=== PATIENT | male | born 1950 | race Caucasian/White ===

== ENCOUNTER 2019-08-23 07:26 | Outpatient (RCR) | payer BC, SELFPAY | END 2019-09-02 23:59 | disposition home or self-care (01) | LOC: SPT 07:26 | PROVIDERS: Family Provider Family Medicine; PCP Family Medicine; Referring Provider Orthopaedic Surgery; Visit Provider Orthopaedic Surgery | DX: Z47.89 Encounter for other orthopedic aftercare (principal); Z96.652 Presence of left artificial knee joint | CPT/HCPCS: 97110; 97161 ==

== ENCOUNTER 2019-09-03 06:00 | Outpatient (RCR) | payer BC, SELFPAY | END 2019-10-03 23:59 | disposition home or self-care (01) | LOC: SPT 06:00 | PROVIDERS: Family Provider Family Medicine; PCP Family Medicine; Referring Provider Orthopaedic Surgery; Visit Provider Orthopaedic Surgery | DX: Z47.1 Aftercare following joint replacement surgery (principal); Z96.652 Presence of left artificial knee joint | CPT/HCPCS: 97110 ==

== ENCOUNTER 2019-10-04 06:00 | Outpatient (RCR) | payer BC, SELFPAY | END 2019-11-02 23:59 | disposition home or self-care (01) | LOC: SPT 06:00 | PROVIDERS: Family Provider Family Medicine; PCP Family Medicine; Referring Provider Orthopaedic Surgery; Visit Provider Orthopaedic Surgery | DX: Z47.1 Aftercare following joint replacement surgery (principal); Z96.652 Presence of left artificial knee joint | CPT/HCPCS: 97110 ==

== ENCOUNTER 2019-11-03 06:00 | Outpatient (RCR) | payer BC, SELFPAY | END 2019-12-03 23:59 | disposition home or self-care (01) | LOC: SPT 06:00 | PROVIDERS: PCP Family Medicine; Referring Provider Orthopaedic Surgery; Visit Provider Orthopaedic Surgery | DX: Z47.1 Aftercare following joint replacement surgery (principal); Z96.652 Presence of left artificial knee joint | CPT/HCPCS: 97110 ==

== ENCOUNTER 2020-07-19 20:53 | Emergency (ER) | payer BC, MEDICARE, SELFPAY ==
[2020-07-19 20:56] VITALS: BP 152/94; PULSE 101; RESP 22; TEMP 36.7; O2SAT 95; BMI 30.7
[2020-07-19 21:48] VITALS: O2SAT 98
--- NOTE | 2020-07-19 21:56 | CTR_ITS ---
PROCEDURE INFORMATION: Exam: CT Lumbar Spine Without Contrast Exam date and time: 07/19/2020 10:11 PM Age: 69 years old Clinical indication: Low back pain; Prior surgery; Surgery type: Lumbar TECHNIQUE: Imaging protocol: Computed tomography images of the lumbar spine without contrast. Radiation optimization: All CT scans at this facility use at least one of these dose optimization techniques: automated exposure control; mA and/or kV adjustment per patient size (includes targeted exams where dose is matched to clinical indication); or iterative reconstruction. COMPARISON: No relevant prior studies available. RADIATION DOSE METRICS: Total DLP (mGy-cm): 2444.72 FINDINGS: Vertebrae: No acute fracture. Normal alignment. T12-L1: The intervertebral disc is normal in height. No disc bulge or disc protrusion demonstrated. Mild degenerative facet joint changes. No spinal canal or neural foraminal stenosis. L1-L2: Moderate to severe degenerative disc narrowing. 3 mm posterior disc/osteophyte complex. Severe hypertrophic facet joint changes. Mild spinal canal stenosis. Mild right and moderate left foraminal stenosis. L2-L3: Severe degenerative disc narrowing. Minimal posterior disc/osteophyte complex. No spinal canal stenosis. Mild left foraminal stenosis. No right foraminal stenosis. L3-L4: Status post laminectomies and posterior fusion. There may be anterior interbody fusion as well. No spinal canal or neural foraminal stenosis. L4-L5: Laminectomies and posterior fusion. No spinal canal or neural foraminal stenosis. L5-S1: Posterior fusion. Degenerative disc narrowing. No spinal canal or neural foraminal stenosis. Soft tissues: Unremarkable. CT/CT lumbar spine wo con* [id number] IMPRESSION: 1. Status post posterior fusion from L2 through S1. There are bilateral pedicle screws seen at L2, L3, and L4. The hardware appears intact. 2. No acute fracture or other acute osseous abnormality. 3. No significant stenosis at the postop levels. Posterior fusions appear solid. No pseudoarthrosis. 4. Spondylitic changes at L1-L2 result in mild spinal canal stenosis, mild right foraminal stenosis, and moderate left foraminal stenosis. Radiation Dose CTDIVOL = (mGy): DLP = 2444.72 (mGy-cm)
--- NOTE | 2020-07-19 21:56 | CTR_ITS ---
PROCEDURE INFORMATION: Exam: CT Abdomen And Pelvis Without Contrast Exam date and time: 07/19/2020 10:11 PM Age: 69 years old Clinical indication: Abdominal pain; Flank; Left; Prior surgery; Surgery type: Lumbar, appy; Additional info: Left flank pain TECHNIQUE: Imaging protocol: Computed tomography of the abdomen and pelvis without contrast. Radiation optimization: All CT scans at this facility use at least one of these dose optimization techniques: automated exposure control; mA and/or kV adjustment per patient size (includes targeted exams where dose is matched to clinical indication); or iterative reconstruction. COMPARISON: No relevant prior studies available. RADIATION DOSE METRICS: Total DLP (mGy-cm): 1923.58 FINDINGS: Lungs: Mild atelectasis at the lung bases. Diaphragm: Mild elevation left hemidiaphragm. Liver: The liver is unremarkable in appearance. Gallbladder and bile ducts: The gallbladder is unremarkable. No gallstones or sludge demonstrated. No gallbladder wall thickening. No pericholecystic fluid. Pancreas: The pancreas is normal in appearance. No pancreatic duct dilatation. Spleen: The spleen is normal in size and appearance. Adrenal glands: The adrenal glands appear within normal limits. Kidneys and ureters: The kidneys are morphologically normal. No nephrolithiasis. No hydronephrosis. No ureteral calculi. No obstructive uropathy. Stomach and bowel: No acute gastric abnormality demonstrated. The small bowel is unremarkable as demonstrated. Diverticulosis of the colon. No acute diverticulitis. Moderate retained stool. Appendix: Postop changes near the cecum, consistent with appendectomy. Intraperitoneal space: No pneumoperitoneum. No significant fluid collection. Vasculature: The aorta is atherosclerotic. No aortic aneurysm. Lymph nodes: No pathologically enlarged lymph nodes are demonstrated. Urinary bladder: The urinary bladder is unremarkable in appearance. Reproductive: Unremarkable as visualized. Bones/joints: Postop changes of the lumbar spine. No fracture or other acute osseous abnormality. Soft tissues: The soft tissues appear unremarkable. CT/CT kidney stone [id number] IMPRESSION: 1. The kidneys are morphologically normal. No nephrolithiasis. No hydronephrosis. No ureteral calculi. No obstructive uropathy. 2. No acute abnormality demonstrated in the abdomen and pelvis. Radiation Dose CTDIVOL = (mGy): DLP = 1923.58 (mGy-cm)
[2020-07-19 22:11] VITALS: RESP 18; O2SAT 97
[2020-07-19] MEDS: morphine 4 mg/mL SDV 1 mL IVP (22:11)
[2020-07-19] MEDS: ondansetron 2 mg/ML SDV 2 mL 4 MG IVP (22:11)
--- NOTE | 2020-07-19 22:18 | PC.NURSE ---
Pt c/o about back pain right to left
[2020-07-19 22:20] LABS: Basophils % 0.5 %; Eosinophils # 0.1 10^3/uL (0.0-0.8); Eosinophils % 0.9 %; Hematocrit 42.3 % (42.0-52.0); Hemoglobin 13.7 g/dL (11.7-16.6); Lymphocytes # 1.8 10^3/uL (0.8-4.8); Lymphocytes % 20.9 %; Mean Corpuscular HGB Conc 32.4 g/dL (30.0-36.0); Mean Corpuscular Volume 92.6 fL (80-94); Mean Platelet Volume 9.8 fL (7.4-10.4); Monocytes # 0.8 10^3/uL (0.2-0.9); Monocytes % 9.1 %; Neutrophils # 5.99 10^3/uL (1.8-7.7); Neutrophils % 68.3 %; Nucleated Red Blood Cells % 0 %; Platelet Count 323 10^3/cmm (130-400); Red Blood Count 4.57 10^6/uL (4.1-5.3); Red Cell Distribution Width 12.4 % (12.1-15.1); White Blood Count 8.8 10^3/uL (4.0-10.0)
--- NOTE | 2020-07-19 22:40 | ED_ITS ---
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 He developed right- sided back pain that seem to go away. Then he started with left-sided back and left-sided flank pain. Nonradicular down the legs. No loss of bowel or bladder function. States he has some belly tenderness as well. He states he has been constipated for 3 days or so and has taken magnesium citrate Dulcolax and MiraLAX without relief of the constipation. No fever. No blood in the urine. MD elicited complaint: back pain Pertinent past history: kidney stones Onset (ago): day(s) (4-5) Timing: constant Severity: moderate Quality: stabbing, aching and spasming Location: lumbar spine and left upper back Radiation: none Relieving factors: sitting upright Associated symptoms: Reports abdominal pain and change in bowel habits; Deny chills, dysuria, fever(s), hematuria or nausea Treatments prior to arrival: other medications and prescription analgesics Review of Systems Const: Denies: fever(s) or chills Eyes: Denies: change in vision Card: Denies: chest pain, palpitations or irregular heart rhythm Resp: Denies: dyspnea, productive cough or non-productive cough GI: Reports: abdominal pain and change in bowel habits; Denies: nausea : Denies: dysuria or hematuria Neuro: Denies: headache(s) or weakness in extremities Physical Exam Const: GENERAL APPEARANCE: well developed ORIENTATION/CONSCIOUSNESS: Yes oriented to person, Yes oriented to place and Yes oriented to time HENMT: COMMON NORMALS: normocephalic, external ears normal and Normal external nose present HEAD & SCALP: normocephalic FACE & SINUS: normal facial exam NOSE: Normal external nose present and No nasal discharge present EXTERNAL EAR: Yes external ears normal Eye: COMMON NORMALS: Equal, round and reactive pupils present, EOMs intact bilaterally and conjunctivae normal EYELID: eyelids normal CONJUNCTIVA: Yes conjunctivae normal PUPIL: Yes Equal, round and reactive pupils present Neck/C-Spine: GENERAL: No tracheal deviation Chest: COMMONS NORMALS: normal inspection of the chest CHEST: No tenderness Resp: COMMON NORMALS: clear to auscultation bilaterally EFFORT & INSPECTION: No tachypneic, No respiratory distress, No retractions, No uses accessory muscles and No tracheal deviation AUSCULTATION: clear to auscultation bilaterally, no rhonchi, no wheezes and lung sounds not diminished Cardio: COMMON NORMALS: regular rate and regular rhythm RATE: regular rate RHYTHM: regular rhythm HEART SOUNDS: no murmurs PERIPHERAL PULSES: radial pulses present GI: INSPECTION: Yes abdominal distension AUSCULTATION: No Hyperactive bowel sounds present and No Hypoactive bowel sounds present PALPATION: Yes Firmness to palpation present (GI), Yes Tenderness to palpation present (GI) Details: LUQ, No Guarding due to palpation present (GI) and No Rigid due to palpation PERCUSSION: no dullness to percussion and no tympanic to percussion : BLADDER/KIDNEY EXAM: Yes CVA tenderness on the left Back/Pelvis: OTHER: Exam the lumbar spine reveals no midline tenderness. There is some left-sided paraspinal tenderness. There is left CVA tenderness. Neuro: SENSORIUM/ORIENTATION: Yes oriented to person, Yes oriented to place and Yes oriented to time Psych: COMMON NORMALS: mental status grossly normal Skin: COMMON NORMALS: no rashes or lesions noted GENERAL SKIN EXAM: no rashes or lesions noted Course Vital Signs: Vital signs: Vital Signs Temperature 98.1 F 07/19/20 20:56 Pulse Rate 93 07/19/20 23:46 Respiratory Rate 18 07/19/20 23:55 Blood Pressure 132/84 07/19/20 23:46 Pulse Oximetry 94 07/19/20 23:55 MDM - Back Pain/Injury MDM Narrative: Medical decision making narrative: 69-year-old gentleman with back and left flank pain. He also has had some constipation. White blood cell count is 8.8. Hemoglobin 13.7. Other labs are benign. CT reveals no hydronephrosis. No acute abnormality with the bowel. There is moderate stool retention. CT of the lumbar spine shows that he is status post fusion from L2- S1 posteriorly. There is spondylosis at L1-L2. This results in moderate left foraminal stenosis. This is likely his problem. Lab Data: Labs: Lab Results 07/19/20 07/19/20 07/19/20 Range/Units 22:08 22:08 22:58 WBC 8.8 (4.0-10.0) 10^3/ uL RBC 4.57 (4.1-5.3) 10^6/u L Hgb 13.7 (11.7-16.6) g/dL Hct 42.3 (42.0-52.0) % MCV 92.6 (80-94) fL MCH 30.0 (28.0-34.0) pg MCHC 32.4 (30.0-36.0) g/dL RDW 12.4 (12.1-15.1) % Plt Count 323 (130-400) 10^3/c mm MPV 9.8 (7.4-10.4) fL Neut % (Auto) 68.3 % Lymph % (Auto) 20.9 % [place] % (Auto) 9.1 % Eos % (Auto) 0.9 % Baso % (Auto) 0.5 % Neut # (Auto) 5.99 (1.8-7.7) 10^3/u L Lymph # (Auto) 1.8 (0.8-4.8) 10^3/u L [place] # (Auto) 0.8 (0.2-0.9) 10^3/u L Eos # (Auto) 0.1 (0.0-0.8) 10^3/u L Baso # (Auto) 0.0 (0.0-0.1) 10^3/u L Nucleated RBC % (a uto) 0 % Nucleated RBCs # 0.0 /100WBC Sodium 135 L (136-145) mmol/L Potassium 4.6 (3.5-5.1) mmol/L Chloride 97 L (98-107) mmol/L Carbon Dioxide 28 (22-29) mmol/L Anion Gap 14.6 (5-19) BUN 14 (8-23) mg/dL Creatinine 0.9 (0.7-1.2) mg/dL GFR Calculation Not Reportable Glucose 217 H (65-115) mg/dL Calculated Osmolal ity 287 (285-295) mOsm/k g Calcium 9.6 (8.5-10.5) mg/dL Total Bilirubin 0.3 (0.15-1.2) mg/dL AST 13 (0-40) U/L ALT 13 (0-41) U/L Alkaline Phosphata se 106 (40-130) IU/L Total Protein 7.5 (6.6-8.7) g/dL Albumin 4.2 (3.5-5.2) g/dL Globulin 3.3 (1.3-4.6) g/dL Lipase 150 H (13-60) U/L Urine Color Yellow (Yellow) Urine Appearance Clear (CLEAR) Urine pH 5 (5-7) Ur Specific Gravit y 1.020 (1.005-1.030) Urine Protein Neg (Negative) Urine Glucose (UA) 1+ (Normal) Urine Ketones Negative (Negative) Urine Blood Neg (Negative) Urine Nitrate Negative (Negative) Urine Bilirubin Neg (Negative) Urine Urobilinogen Norm (Negative) mg/dL Ur Leukocyte Kary ase Negative (Negative) Discharge Plan Discharge Patient Disposition: Home Clinical Impression: Lumbar spondylosis Constipation Qualifiers: Constipation type: drug induced constipation Qualified Code(s): K59.03 - Drug induced constipation Condition: Stable Prescriptions: New Percocet 7.5-325 mg tablet 1 tab PO Q6H PRN (Reason: pain) Qty: 10 RF: 0 magnesium citrate Solution 296 ml PO DAILY Qty: 296 RF: 0 Fleet Mineral Oil Enema 118 ml [place] DAILY PRN (Reason: constipation) Qty: 135 RF: 0 Medrol (Levi) 4 mg tablets,dose pack See Rx Instructions .ROUTE .COMPLEX Qty: 21 RF: 0 Discharge Orders: Discharge ED (Routine); Ordered 07/19/20 Ordered By: Sean Mace Referrals: Nasim Black MD [Primary Care Provider] - 4-7 days Discharge Diet: Advance as tolerated Discharge Activity: Increase activity as tolerated Patient Instructions: Acute Low Back Pain (ED) Activity Restrictions/Additional Instructions: Return for fever greater than 100, worsening pain despite treatment, vomiting liquids or medications, significant blood in the stool, loss of control of your bowel or bladder function, other concerning symptoms. Coding Level of Care Code ED Web Services Developer for More[employer] Fwd Exam Comprehensive
[2020-07-19 22:51] LABS: Alanine Aminotransferase 13 U/L (0-41); Albumin Level 4.2 g/dL (3.5-5.2); Alkaline Phosphatase 106 IU/L (40-130); Anion Gap 14.6 (5-19); Aspartate Amino Transferase 13 U/L (0-40); Blood Urea Nitrogen 14 mg/dL (8-23); Calcium 9.6 mg/dL (8.5-10.5); Carbon Dioxide 28 mmol/L (22-29); Chloride 97 mmol/L (98-107); Creatinine Clr Calc Pharmacy 90.6115; Globulin 3.3 g/dL (1.3-4.6); Glucose 217 mg/dL (65-115); Lipase 150 U/L (13-60); Osmolality Calculated 287 mOsm/kg (285-295); Potassium 4.6 mmol/L (3.5-5.1); Sodium 135 mmol/L (136-145); Total Bilirubin 0.3 mg/dL (0.15-1.2); Total Protein 7.5 g/dL (6.6-8.7)
[2020-07-19 23:00] VITALS: BP 132/81; PULSE 81; RESP 18; O2SAT 97
[2020-07-19 23:05] LABS: Add Urine Microscopic? NO
[2020-07-19 23:11] LABS: Bilirubin Urine Neg (Negative); Blood Urine Neg (Negative); Glucose Urine UA 1+ (Normal); Ketones Urine Negative (Negative); Leukocyte Esterase Urine Negative (Negative); Nitrate Urine Negative (Negative); Protein Urine Neg (Negative); Urine Appearance Clear (CLEAR); Urine Color Yellow (Yellow); Urobilinogen Urine Norm (Negative); pH Urine 5 (5-7)
[2020-07-19 23:46] VITALS: BP 132/84; PULSE 93; RESP 18; O2SAT 97
[2020-07-19 23:55] VITALS: RESP 18; O2SAT 94
[2020-07-19] MEDS: oxyCODONE-APAP 5-325 mg Tablet 2 TAB PO (23:55)
== END 2020-07-20 | disposition home or self-care (01) ==
PROVIDERS: Emergency Provider Emergency Medicine; PCP Family Medicine
DX: M47.816 Spondylosis without myelopathy or radiculopathy, lumbar region (principal); K59.03 Drug induced constipation
CPT/HCPCS: 12345; 72131; 74176; 80053; 81003; 83690; 85025; 96374; 96375; 99283; J2270; J2405

== ENCOUNTER 2021-02-07 15:54 | Emergency (ER) | payer BC, MEDICARE, SELFPAY ==
[2021-02-07 16:05] VITALS: BP 120/72; PULSE 92; RESP 18; TEMP 36.6; O2SAT 96; BMI 31.6
--- NOTE | 2021-02-07 17:33 | ECG_ITS ---
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 Measurements Intervals [place] Rate: 96 P: 23 IA: 187 QRS: 16 QRSD: 77 T: 45 QT: 328 QTc: 414 Interpretive Statements SINUS RHYTHM No previous ECG available for comparison Electronically Signed On 02-09-2021 12:20:35 CDT by Arnaldo Rushing M.D. [id number]
== END 2021-02-07 18:30 | disposition left against medical advice (07) ==
LOC: ER 16:29
PROVIDERS: Absent Provider Internal Medicine Cardiovascular Disease; PCP Nurse Practitioner
DX: Z53.21 Procedure and treatment not carried out due to patient leaving prior to being seen by health care provider (principal)
CPT/HCPCS: 93005

== ENCOUNTER 2021-04-28 10:30 | Emergency (ER) | payer BC, MEDICARE, SELFPAY ==
[2021-04-28 10:38] VITALS: BP 117/74; PULSE 68; RESP 18; TEMP 36.4; O2SAT 95; BMI 24.7
[2021-04-28 12:50] LABS: Add Urine Microscopic? NO; Charge for UA Resulting for Rev
--- NOTE | 2021-04-28 12:57 | ECG_ITS ---
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 Measurements Intervals [place] Rate: 66 P: 29 CA: 217 QRS: 36 QRSD: 79 T: 61 QT: 381 QTc: 399 Interpretive Statements SINUS RHYTHM WITH FIRST DEGREE AV BLOCK WITH OCCASIONAL VENTRICULAR PREMATURE COMPLEXES Compared to ECG 02/07/2021 16:16:45 First degree AV block now present Electronically Signed On 04-28-2021 23:47:55 CDT by Praveena Sainz M.D. [id number]
[2021-04-28 12:58] VITALS: BP 125/73; PULSE 72; RESP 16; O2SAT 97
[2021-04-28 13:01] LABS: Basophils # 0.1 10^3/uL (0.0-0.1); Basophils % 0.7 %; Eosinophils # 0.2 10^3/uL (0.0-0.8); Eosinophils % 2.7 %; Hematocrit 40.8 % (42.0-52.0); Hemoglobin 13.2 g/dL (11.7-16.6); Lymphocytes # 2.5 10^3/uL (0.8-4.8); Lymphocytes % 32.8 %; Mean Corpuscular HGB Conc 32.4 g/dL (30.0-36.0); Mean Corpuscular Hemoglobin 30.8 pg (28.0-34.0); Mean Corpuscular Volume 95.1 fl (80-94); Monocytes # 0.8 10^3/uL (0.2-0.9); Neutrophils # 3.99 10^3/uL (1.8-7.7); Neutrophils % 53.4 %; Nucleated Red Blood Cells % 0 %; Platelet Count 266 10^3/cmm (130-400); Red Blood Count 4.29 10^6/uL (4.1-5.3); Red Cell Distribution Width 12.5 % (12.1-15.1); White Blood Count 7.5 10^3/uL (4.0-10.0)
[2021-04-28 13:13] LABS: Alanine Aminotransferase 12 U/L (0-41); Albumin Level 4.2 g/dL (3.5-5.2); Alkaline Phosphatase 104 IU/L (40-130); Aspartate Amino Transferase 13 U/L (0-40); Blood Urea Nitrogen 16 mg/dL (8-23); Calcium 8.7 mg/dL (8.5-10.5); Carbon Dioxide 28 mmol/L (22-29); Chloride 101 mmol/L (98-107); Globulin 2.1 g/dL (1.3-4.6); Glucose 144 mg/dL (65-115); Lipase 25 U/L (13-60); Osmolality Calculated 292 mOsm/kg (285-295); Sodium 139 mmol/L (136-145); Total Bilirubin 0.4 mg/dL (0.15-1.2); Total Protein 6.3 g/dL (6.6-8.7)
[2021-04-28 13:15] LABS: Anion Gap 14.9 (5-19); Potassium 4.9 mmol/L (3.5-5.1)
[2021-04-28 13:25] LABS: Troponin(5th) Baseline 10 ng/L (0-15)
[2021-04-28 13:27] LABS: Bilirubin Urine Neg (Negative); Blood Urine Neg (Negative); Glucose Urine UA Norm (Normal); Ketones Urine Negative (Negative); Leukocyte Esterase Urine Negative (Negative); Nitrate Urine Negative (Negative); Protein Urine Neg (Negative); Specific Gravity, Urine 1.015 (1.005-1.030); Urine Appearance Clear (CLEAR); Urine Color Yellow (Yellow); Urobilinogen Urine Norm (Negative); pH Urine 5 (5-7)
--- NOTE | 2021-04-28 13:32 | W.ED.GENADLT ---
HPI - General Adult General: Chief complaint: Abdominal Pain Stated complaint: ABD PAIN Time Seen by Provider: 04/28/21 12:47 History of Present Illness: HPI narrative: Patient is a 70-year-old male with a history of CAD status post 10 stents x3 from 03/2021 presenting to the emergency room with complaints of left sided abdominal pain for the last month. Patient says that he has taken cqhx-bec-fywiodm medicine without any significant improvement in pain. Patient has no complaints nausea vomiting, decreased p.o. intake, weight loss, melena hematochezia, or complaints at this time. Patient denies any chest pain, shortness breath, fever/chills, cough, runny nose, sore throat. Denies smoking hx or HTN hx. Onset: 1 month ago Duration:1 month Location:home Severity: mild Review of Systems Narrative: Constitutional: No fever, no chills. HEENT: No vision changes CV: No chest pain, no palpitations PULM: no cough, no dyspnea. GI: +L sided abdominal pain, no N/V/D. : No dysuria MSKEL: No muscle pain SKIN: No new rashes, no lesions. NEURO: No headache, no focal weakness. HEME: No visible bruises PSYCH: Normal mood Physical Exam Narrative: EXAM NARRATIVE: Head: Atraumatic Eyes: PERRL, conjunctiva without injection ENT: Mucous membrane moist NECK: Supple, ROM intact LUNGS: LCTAB, no crackles/rhonchi CV: RRR ABDOMEN: Soft, no focal TTP. NO guarding rebound, guarding, rigidity. No CVA tenderness to percussion. Neg Blanc/Neg McBurney's point tenderness, no suprabupic tenderness to palpation. +Old midline incision scar in place EXTREMITY: Normal ROM SKIN: No rash or erythema NEURO: Awake and alert, no focal motor deficits PSYCH: Normal mood and affect Course Vital Signs: Vital signs: Vital Signs Temperature 97.5 F L 04/28/21 10:38 Pulse Rate 72 04/28/21 12:58 Respiratory Rate 16 04/28/21 12:58 Blood Pressure 125/73 04/28/21 12:58 Pulse Oximetry 97 04/28/21 12:58 MDM - General Adult MDM Narrative: Medical decision making narrative: 70-year-old male presented to the emergency room with complaints of left side abdominal pain for the last month despite [id number] antibiotics. On exam, patient has no focal tenderness palpation. Laboratory work-up including CMP and troponin within normal limit. EKG is nonischemic at this time. Given the fact the patient has had pain for about a month and recent stent placement w/ medicine compliance, I did doubt this is ACS/angina equivalent. UA negative for any signs of kidney stones. I performed bedside ultrasound which did not show any enlargement of the aorta. EKG showing regular sinus rhythm at HT of 66. Normal axis. No ST elevations/depressions to suggest coronary occlusion. Normal MI, QRS, QT intervals. +Occasional PVC Patient given a trial GI cocktail for symptomatic improvement. Patient has been to tolerate p.o. I have instructed patient to follow with PCP for further evaluation of his symptoms. Disposition: Discharge. Patient counseled regarding diagnostic impression, treatment plan. Patient given ED strict return precautions to return for continuation, worsening, or development of new symptoms. Instructed to f/u w/ PCP regarding symptoms today. Patient verbalized understanding. Lab Data: Labs: Lab Results 04/28/21 04/28/21 04/28/21 12:35 12:35 12:35 WBC 7.5 10^3/uL 10^3/ uL (4.0-10.0) RBC 4.29 10^6/uL 10^6 /uL (4.1-5.3) Hgb 13.2 g/dL g/dL (11.7-16.6) Hct 40.8 % L % (42.0-52.0) MCV 95.1 fl H fl (80-94) MCH 30.8 pg pg (28.0-34.0) MCHC 32.4 g/dL g/dL (30.0-36.0) RDW 12.5 % % (12.1-15.1) Plt Count 266 10^3/cmm 10^3 /cmm (130-400) MPV 10.0 fL fL (7.4-10.4) Neut % (Auto) 53.4 % % Lymph % (Auto) 32.8 % % [place] % (Auto) 10.0 % % Eos % (Auto) 2.7 % % Baso % (Auto) 0.7 % % Neut # (Auto) 3.99 10^3/uL 10^3 /uL (1.8-7.7) Lymph # (Auto) 2.5 10^3/uL 10^3/ uL (0.8-4.8) [place] # (Auto) 0.8 10^3/uL 10^3/ uL (0.2-0.9) Eos # (Auto) 0.2 10^3/uL 10^3/ uL (0.0-0.8) Baso # (Auto) 0.1 10^3/uL 10^3/ uL (0.0-0.1) Nucleated RBC % (a uto) 0 % % Nucleated RBCs # 0.0 /100WBC /100W BC Sodium 139 mmol/L mmol/L (136-145) Potassium 4.9 mmol/L mmol/L (3.5-5.1) Chloride 101 mmol/L mmol/L (98-107) Carbon Dioxide 28 mmol/L mmol/L (22-29) Anion Gap 14.9 (5-19) BUN 16 mg/dL mg/dL (8-23) Creatinine 1.0 mg/dL mg/dL (0.7-1.2) GFR Calculation Not Reportable Glucose 144 mg/dL H mg/dL (65-115) Calculated Osmolal ity 292 mOsm/kg mOsm/ kg (285-295) Calcium 8.7 mg/dL mg/dL (8.5-10.5) Total Bilirubin 0.4 mg/dL mg/dL (0.15-1.2) AST 13 U/L U/L (0-40) ALT 12 U/L U/L (0-41) Alkaline Phosphata se 104 IU/L IU/L (40-130) Troponin T Baselin e Total Protein 6.3 g/dL L g/dL (6.6-8.7) Albumin 4.2 g/dL g/dL (3.5-5.2) Globulin 2.1 g/dL g/dL (1.3-4.6) Lipase 25 U/L U/L (13-60) Urine Color Yellow (Yellow) Urine Appearance Clear (CLEAR) Urine pH 5 (5-7) Ur Specific Gravit y 1.015 (1.005-1.030) Urine Protein Neg (Negative) Urine Glucose (UA) Norm (Normal) Urine Ketones Negative (Negative) Urine Blood Neg (Negative) Urine Nitrate Negative (Negative) Urine Bilirubin Neg (Negative) Urine Urobilinogen Norm mg/dL mg/dL (Negative) Ur Leukocyte Kary ase Negative (Negative) 04/28/21 12:35 WBC RBC Hgb Hct MCV MCH MCHC RDW Plt Count MPV Neut % (Auto) Lymph % (Auto) [place]kinson % (Auto) Eos % (Auto) Baso % (Auto) Neut # (Auto) Lymph # (Auto) [place]kinson # (Auto) Eos # (Auto) Baso # (Auto) Nucleated RBC % (a uto) Nucleated RBCs # Sodium Potassium Chloride Carbon Dioxide Anion Gap BUN Creatinine GFR Calculation Glucose Calculated Osmolal ity Calcium Total Bilirubin AST ALT Alkaline Phosphata se Troponin T Baselin e 10 ng/L ng/L (0-15) Total Protein Albumin Globulin Lipase Urine Color Urine Appearance Urine pH Ur Specific Gravit y Urine Protein Urine Glucose (UA) Urine Ketones Urine Blood Urine Nitrate Urine Bilirubin Urine Urobilinogen Ur Leukocyte Kary ase Discharge Plan Discharge Patient Disposition: Home Clinical Impression: Abdominal pain Condition: Stable Prescriptions: No Action Percocet 7.5-325 mg tablet 1 tab PO Q6H PRN (Reason: pain) Qty: 10 RF: 0 magnesium citrate Solution 296 ml PO DAILY Qty: 296 RF: 0 Fleet Mineral Oil Enema 118 ml [place] DAILY PRN (Reason: constipation) Qty: 135 RF: 0 Medrol (Levi) 4 mg tablets,dose pack See Rx Instructions .ROUTE .COMPLEX Qty: 21 RF: 0 Discharge Orders: Discharge ED (Routine); Ordered 04/28/21 Ordered By: Pati Gutierrez Referrals: Ariana Slater, COW TRIMMER [Primary Care Provider] - Discharge Diet: Advance as tolerated Discharge Activity: Resume usual activity Patient Instructions: Abdominal Pain (ED), Opioid Safety Activity Restrictions/Additional Instructions: , To the emergency room if your pain worsens, if any fever or chills, chest pain, shortness of breath, flank pain, or any new concerning complaints. Coding Level of Care Code ED Therapeutic Dietitian for Galen Ulloa
[2021-04-28] MEDS: lidocaine 2% viscous 15 ML, aluminum-mag hydrox-simethicon 30 ML, sucralfate oral liq 1 GM PO (13:48)
== END 2021-04-28 13:47 | disposition home or self-care (01) ==
PROVIDERS: Physician Assistant; Emergency Provider Emergency Medicine; PCP Nurse Practitioner
DX: R10.9 Unspecified abdominal pain (principal); I25.10 Atherosclerotic heart disease of native coronary artery without angina pectoris; Z95.818 Presence of other cardiac implants and grafts
CPT/HCPCS: 80053; 81003; 83690; 84484; 85025; 93005; 99283

== ENCOUNTER 2021-10-21 17:23 | Emergency (ER) | payer MEDICARE, SELFPAY ==
[2021-10-21 17:50] VITALS: BP 137/70; PULSE 79; RESP 18; TEMP 36.6; O2SAT 95; BMI 30.7
--- NOTE | 2021-10-21 17:54 | ED_ITS ---
HPI - Extremity Problem General: Chief complaint: Extremity Injury, Upper Stated complaint: Right arm pain Time Seen by Provider: 10/21/21 17:54 History of Present Illness: 70-year-old male patient comes in today with injury to the right upper arm. Patient was lifting a heavy box, 250 pound toolbox, and felt a pull in the biceps of the arm. Patient then has developed a distal bulge of the biceps. Pain with movement of the arm. Distal pulses and sensation are intact. No fall or other injury is noted. Associated symptoms: Deny chest pain Review of Systems General: Reports: 10 or more systems reviewed and unremarkable except in HPI and below Card: Denies: chest pain Resp: Denies: dyspnea Musc: Reports: extremity pain Physical Exam Const: COMMON NORMALS: alert Resp: COMMON NORMALS: normal respiratory effort Cardio: COMMON NORMALS: regular rate RATE: regular rate Extremity: RIGHT UPPER EXTREMITY: Yes upper arm (Distal bicep swelling, mild tenderness, normal range of motion.) Right upper arm: Yes inspection, Yes palpation and Yes neurovascular exam Neuro: SENSORIUM/ORIENTATION: Yes alert Course Vital Signs: Vital signs: Vital Signs Temperature 97.9 F 10/21/21 17:50 Pulse Rate 79 10/21/21 17:50 Respiratory Rate 18 10/21/21 17:50 Blood Pressure 137/70 10/21/21 17:50 Pulse Oximetry 95 10/21/21 17:50 MDM - Extremity (Nontraumatic) Medical Decision Making 70-year-old male patient comes in with injury to the right upper arm. Patient been lifting a heavy toolbox and felt a strain in his right upper arm and then a bulge in the distal part of his right upper arm. Patient is a fit looking elderly adult male. Patient denies any chronic medical problems. Patient appears in no distress. Differential diagnosis includes biceps tendon rupture, contusion, hematoma. Exam noted no distal swelling or abnormal sensation. Range of motion is only limited due to pain. Pulses is intact distally. Revi ewed exam with Dr. Frausto recommended follow-up with orthopedics. Discharge Plan Discharge Patient Disposition: Home Clinical Impression: Biceps tendon rupture Qualifiers: Encounter type: initial encounter Laterality: right Qualified Code(s): S46.211A - Strain of muscle, fascia and tendon of other parts of biceps, right arm, initial encounter Condition: Stable Prescriptions: New hydrocodone-acetaminophen 5-325 mg tablet 1 tab PO Q6H PRN (Reason: pain) Qty: 7 0RF No Action Percocet 7.5-325 mg tablet 1 tab PO Q6H PRN (Reason: pain) Qty: 10 0RF magnesium citrate Solution 296 ml PO DAILY Qty: 296 0RF Fleet Mineral Oil Enema 118 ml [place] DAILY PRN (Reason: constipation) Qty: 135 0RF Rx Instructions: discard any unused portion Medrol (Levi) 4 mg tablets,dose pack See Rx Instructions .ROUTE .COMPLEX Qty: 21 0RF Rx Instructions: orally per package directions Discharge Orders: Discharge ED (Routine); Ordered 10/21/21 Ordered By: Dillan Maritn Patient Instructions: Tendon Rupture (ED) Activity Restrictions/Additional Instructions: Light activity. Acetaminophen and ibuprofen for pain. Ice packs for further pain relief. Use hydrocodone for severe pain. Follow-up with orthopedist for further instruction. Return to ER for new concerns Coding Level of Care Code ED Contracts Officer for Galen Fwd Exam Expanded Problem Focused
[2021-10-21] MEDS: HYDROcodone-acetaminophen 5-325 mg Tablet 1 TAB PO (18:11)
--- NOTE | 2021-10-22 10:44 | DCPLANNER ---
Addendum entered by Bekah Guidry 11/05/21 21:32: Patient had a follow up appointment scheduled with ortho - patient did attend appointment. Addendum entered by Bekah Guidry 10/23/21 07:47: Patient has a follow up appointment scheduled for Wednesday, October 29, 2021 at 8:[address] Mauricio at ortho. Clinic will call patient with appointment information. Original Note: fundraising manager had message to schedule a follow up appointment for patient with ortho. fundraising manager sent patients information to the front office staff at ortho. Patients information will be printed and reviewed. Clinic will call patient with appointment information.
== END 2021-10-21 18:27 | disposition home or self-care (01) ==
PROVIDERS: Emergency Provider Nurse Practitioner Family
DX: S46.211A Strain of muscle, fascia and tendon of other parts of biceps, right arm, initial encounter (principal); X50.0XXA Overexertion from strenuous movement or load, initial encounter; M79.621 Pain in right upper arm
CPT/HCPCS: 99283

== ENCOUNTER → 2021-10-29 08:31 | Outpatient (BNVA) | payer MEDICARE, SELFPAY | PROVIDERS: Referring Provider Nurse Practitioner Family; Visit Provider Specialist | DX: S46.211A Strain of muscle, fascia and tendon of other parts of biceps, right arm, initial encounter (principal); X50.0XXA Overexertion from strenuous movement or load, initial encounter; Z46.89 Encounter for fitting and adjustment of other specified devices; S46.211D Strain of muscle, fascia and tendon of other parts of biceps, right arm, subsequent encounter; X58.XXXD Exposure to other specified factors, subsequent encounter | CPT/HCPCS: 73080; 97760; 99204; L3761 ==

== ENCOUNTER 2021-10-29 10:19 | Outpatient (CLI) | payer MEDICARE, SELFPAY | END 2021-10-29 10:20 | disposition home or self-care (01) | LOC: SPT 10:20 | PROVIDERS: Visit Provider Specialist | DX: Z46.89 Encounter for fitting and adjustment of other specified devices (principal); S46.211D Strain of muscle, fascia and tendon of other parts of biceps, right arm, subsequent encounter; X58.XXXD Exposure to other specified factors, subsequent encounter | CPT/HCPCS: 97760; L3761 ==

== ENCOUNTER 2021-12-18 11:56 | Outpatient (CLI) | payer MEDICARE, SELFPAY ==
--- NOTE | 2021-12-18 12:30 | CT_ITS ---
WS: [id number] CT RIGHT ELBOW, NONCONTRAST WITH 3-D IMAGING. HISTORY: S46.211A - Strain of muscle, fascia and tendon Technique: All CT scans at [facility] use at least one of these dose optimization techniques: automated exposure control; mA and/or kV adjustment per patient size (includes targeted exams where dose is matched to clinical indication); or iterative reconstruction. DLP: 137.12 mGy.cm COMPARISON: RIGHT elbow radiograph 10/29/2021 This is a very limited and difficult evaluation of the elbow due to difficulty positioning the patien t within the gantry. Osteophytic ridging around the radial head, olecranon and epicondyles. No definite fractures are iden tified. With the trauma being several months ago a healed fracture may appear similar. As visualized the joint spaces appear narrowed but there is normal alignment across the intra-articular surfaces. N o joint effusion is evident. No soft tissue mass. 3-D imaging supports advanced degenerative changes at the elbow joint with normal alignment. CT/CT elbow RT wo con* [id number] IMPRESSION: 1. Moderate degenerative changes of osteoarthritis with osteophytic ridging ar ound the bones of the elbow. 2. No definite acute fracture is identified. There are some changes at the rad ial head which suggests there could've been a prior fracture that has healed. 3. No joint effusion.
== END 2021-12-18 11:57 | disposition home or self-care (01) ==
LOC: RAD 11:59
PROVIDERS: Visit Provider Specialist
DX: S46.211A Strain of muscle, fascia and tendon of other parts of biceps, right arm, initial encounter (principal); X58.XXXA Exposure to other specified factors, initial encounter
CPT/HCPCS: 73200

== ENCOUNTER → 2021-12-22 09:05 | Outpatient (BNVA) | payer MEDICARE, SELFPAY | PROVIDERS: Visit Provider Specialist | DX: M19.021 Primary osteoarthritis, right elbow (principal); S46.211D Strain of muscle, fascia and tendon of other parts of biceps, right arm, subsequent encounter; X58.XXXD Exposure to other specified factors, subsequent encounter | CPT/HCPCS: 99213 ==

== ENCOUNTER 2022-10-14 12:36 | Outpatient (CLI) | payer MEDICARE, SELFPAY ==
--- NOTE | 2022-10-14 13:14 | XR_ITS ---
WS: [id number] EXAMINATION: XR thoracic spine 3V* [id number] REASON FOR EXAM: RADICULOPATHY LUMBAR REGION COMPARISON: None available. ORDER DATE: 10/14/2022 1:48 PM FINDINGS: Generalized degenerative spinal changes are seen including moderate degenerative endplate changes and marginal osteophytes. There is minimal narrowing of the intervertebral disc spaces. There is no evid ence of acute compression deformities or spondylolisthesis. Rotator cuff anchor noted in the left hum eral head XR/XR thoracic spine 3V* [id number] IMPRESSION: MODERATE DEGENERATIVE SPINE CHANGE AND SPONDYLOSIS.
== END 2022-10-14 12:37 | disposition home or self-care (01) ==
LOC: RAD 12:39
PROVIDERS: PCP Nurse Practitioner; Visit Provider Nurse Practitioner
DX: M47.894 Other spondylosis, thoracic region (principal); M54.6 Pain in thoracic spine
CPT/HCPCS: 72072

== ENCOUNTER → 2022-11-24 09:37 | Outpatient (BNVA) | payer MEDICARE, SELFPAY | PROVIDERS: PCP Nurse Practitioner; Visit Provider Nurse Practitioner Family | DX: I96 Gangrene, not elsewhere classified (principal); T24.201A Burn of second degree of unspecified site of right lower limb, except ankle and foot, initial encounter; V29.99XA Rider (driver) (passenger) of other motorcycle injured in unspecified traffic accident, initial encounter | CPT/HCPCS: 16025; 97597; 97598; 99213 ==

== ENCOUNTER → 2022-12-01 12:57 | Outpatient (BNVA) | payer MEDICARE, SELFPAY | PROVIDERS: PCP Nurse Practitioner; Visit Provider Nurse Practitioner Family | DX: Z09 Encounter for follow-up examination after completed treatment for conditions other than malignant neoplasm (principal) | CPT/HCPCS: 99212 ==

== ENCOUNTER 2023-03-03 17:13 | Outpatient (CLI) | payer MEDICARE, SELFPAY ==
--- NOTE | 2023-03-03 17:19 | XR_ITS ---
WS: [id number] Exam: XR chest 2V* [id number] Date/Time of Exam: 03/03/2023 5:21 PM Reason For Exam: SOB Comparison 02/27/2021. The lungs are fully expanded and clear. Mild hyperinflation. Normal cardiomediastinal silhouette. No pleural effusions. Regional bony structures are intact. Rotator cuff anchor screws noted in both simran ral heads. IMPRESSION: 1. Pulmonary hyperinflation. No acute process.
== END 2023-03-03 17:14 | disposition home or self-care (01) ==
PROVIDERS: PCP Physician Assistant; Visit Provider Internal Medicine Pulmonary Disease
DX: R06.02 Shortness of breath (principal); M25.642 Stiffness of left hand, not elsewhere classified; M25.641 Stiffness of right hand, not elsewhere classified; Z77.22 Contact with and (suspected) exposure to environmental tobacco smoke (acute) (chronic); Z95.5 Presence of coronary angioplasty implant and graft; Z87.828 Personal history of other (healed) physical injury and trauma; J98.6 Disorders of diaphragm; Z82.61 Family history of arthritis
CPT/HCPCS: 71046; 82785; 85651; 86003; 86140; 86160; 86162; 86200; 86235; 86255; 86376; 86431; 99204

== ENCOUNTER 2023-03-23 07:49 | Outpatient (CLI) | payer MEDICARE, SELFPAY ==
[2023-03-23 08:23] VITALS: PULSE 80; RESP 18; O2SAT 98
[2023-03-23] MEDS: albuterol 2.5 mg/3 mL Neb INHALATION (08:23)
[2023-03-23 08:27] VITALS: PULSE 79
== END 2023-03-23 07:50 | disposition home or self-care (01) ==
PROVIDERS: PCP Physician Assistant; Visit Provider Internal Medicine Pulmonary Disease
DX: R06.09 Other forms of dyspnea (principal)
CPT/HCPCS: 94060; 94618; 94726; 94729; J7613

== ENCOUNTER → 2023-06-10 10:40 | Outpatient (BNVA) | payer MEDICARE, SELFPAY | PROVIDERS: PCP Physician Assistant; Visit Provider Internal Medicine Pulmonary Disease | DX: J82.83 Eosinophilic asthma (principal); M25.641 Stiffness of right hand, not elsewhere classified; M25.642 Stiffness of left hand, not elsewhere classified; Z77.22 Contact with and (suspected) exposure to environmental tobacco smoke (acute) (chronic); Z95.5 Presence of coronary angioplasty implant and graft | CPT/HCPCS: 99214 ==

== ENCOUNTER 2024-03-08 12:33 | Outpatient (RCR) | payer MEDICARE, SELFPAY | END 2024-04-03 23:59 | disposition home or self-care (01) | LOC: SPT 12:33 | PROVIDERS: PCP Physician Assistant; Visit Provider Physician Assistant | DX: M54.31 Sciatica, right side (principal) | CPT/HCPCS: 97110; 97161 ==

== ENCOUNTER 2024-04-04 06:00 | Outpatient (RCR) | payer MEDICARE, SELFPAY | END 2024-05-04 23:59 | disposition home or self-care (01) | LOC: SPT 06:00 | PROVIDERS: PCP Physician Assistant; Visit Provider Physician Assistant | DX: M54.31 Sciatica, right side (principal) | CPT/HCPCS: 97110 ==

== ENCOUNTER 2024-05-05 06:00 | Outpatient (RCR) | payer MEDICARE, SELFPAY | END 2024-05-31 12:17 | disposition home or self-care (01) | LOC: SPT 06:00 | PROVIDERS: PCP Physician Assistant; Visit Provider Physician Assistant | DX: M54.31 Sciatica, right side (principal) | CPT/HCPCS: 97110 ==

== ENCOUNTER 2024-08-09 10:21 | Outpatient (RCR) | payer MEDICARE, SELFPAY | END 2024-09-01 23:59 | disposition home or self-care (01) | LOC: SPT 10:21 | PROVIDERS: Visit Provider Physician Assistant | DX: M54.2 Cervicalgia (principal) | CPT/HCPCS: 97161 ==

== ENCOUNTER → 2024-08-21 11:11 | Outpatient (BNVA) | payer MEDICARE, SELFPAY | PROVIDERS: Visit Provider Specialist | DX: Z01.818 Encounter for other preprocedural examination (principal); M65.331 Trigger finger, right middle finger | CPT/HCPCS: 36415; 73130; 80053; 81001; 85025; 99214 ==

== ENCOUNTER 2024-10-30 10:19 | Outpatient (CLI) | payer MEDICARE, SELFPAY ==
--- NOTE | 2024-10-30 10:29 | XRR_ITS ---
PROCEDURE INFORMATION: Exam: XR Lumbosacral Spine Exam date and time: 10/30/2024 10:46 AM Age: 73 years old Clinical indication: Low back pain; Prior surgery; Surgery date: 6+ months; Surgery type: Ingestion of foreign material TECHNIQUE: Imaging protocol: Radiologic exam of the lumbosacral spine. Views: 2 or 3 views. COMPARISON: CT lumbar spine wo con* [id number] 07/19/2020 10:17 PM FINDINGS: Bones/joints: Posterior fusion L2 through L4. Disc space narrowing and spurring at all levels. Straightening of the normal lumbar lordosis. No abnormal motion with flexion or extension. Anatomic alignment. Soft tissues: Unremarkable. Vasculature: Heavy arterial calcifications. XR/XR lumbar spine f/e only [id number] IMPRESSION: Degenerative changes.
--- NOTE | 2024-10-30 10:42 | XRR_ITS ---
PROCEDURE INFORMATION: Exam: XR Right Hip Exam date and time: 10/30/2024 10:46 AM Age: 73 years old Clinical indication: Hip pain; Right hip; Additional info: Right hip pain TECHNIQUE: Imaging protocol: Radiologic exam of the right hip. Views: 1 view hip with pelvis when performed. COMPARISON: CT kidney stone [id number] 07/19/2020 10:15 PM FINDINGS: Bones/joints: Moderate articular surface narrowing and spurring. No fracture or dislocation. No acute osseous, joint, or soft tissue abnormality. Soft tissues: Soft tissue calcification above the greater trochanter probably representing an ununited osteophyte. XR/XR hip RT 2-3V wo/w pel* [id number] IMPRESSION: No acute abnormality.
== END 2024-10-30 10:20 | disposition home or self-care (01) ==
PROVIDERS: PCP Nurse Practitioner; Visit Provider Nurse Practitioner
DX: M51.369 Other intervertebral disc degeneration, lumbar region without mention of lumbar back pain or lower extremity pain (principal); M25.551 Pain in right hip; R93.7 Abnormal findings on diagnostic imaging of other parts of musculoskeletal system; M79.89 Other specified soft tissue disorders; M25.78 Osteophyte, vertebrae; I70.90 Unspecified atherosclerosis
CPT/HCPCS: 72120; 73502

== ENCOUNTER → 2025-04-19 09:43 | Outpatient (BNVA) | payer MEDICARE, SELFPAY | PROVIDERS: PCP Nurse Practitioner; Visit Provider Podiatrist Foot & Ankle Surgery | DX: M25.572 Pain in left ankle and joints of left foot (principal); E11.42 Type 2 diabetes mellitus with diabetic polyneuropathy; M76.72 Peroneal tendinitis, left leg; Z79.84 Long term (current) use of oral hypoglycemic drugs; Z79.85 Long-term (current) use of injectable non-insulin antidiabetic drugs | CPT/HCPCS: 73610; 99203 ==

== ENCOUNTER → 2025-04-24 08:06 | Outpatient (BNVA) | payer MEDICARE, SELFPAY | PROVIDERS: PCP Nurse Practitioner; Visit Provider Podiatrist Foot & Ankle Surgery | DX: M25.572 Pain in left ankle and joints of left foot (principal); E11.42 Type 2 diabetes mellitus with diabetic polyneuropathy; M76.72 Peroneal tendinitis, left leg; Z79.84 Long term (current) use of oral hypoglycemic drugs; Z79.85 Long-term (current) use of injectable non-insulin antidiabetic drugs | CPT/HCPCS: 99214 ==

== ENCOUNTER 2025-05-29 14:00 | Outpatient (CLI) | payer MEDICARE, SELFPAY ==
--- NOTE | 2025-05-29 14:05 | CTR_ITS ---
PROCEDURE INFORMATION: Exam: CT Abdomen And Pelvis With Contrast Exam date and time: 05/29/2025 2:48 PM Age: 74 years old Clinical indication: Generalized; Prior surgery; Surgery date: 6+ months; Surgery type: Back, gb, hernia; Flank pain and mid abdominal pain since Wednesday; Additional info: Acute abdominal pain TECHNIQUE: Imaging protocol: Computed tomography of the abdomen and pelvis with contrast. Radiation optimization: All CT scans at this facility use at least one of these dose optimization techniques: automated exposure control; mA and/or kV adjustment per patient size (includes targeted exams where dose is matched to clinical indication); or iterative reconstruction. Contrast material: OMNI 350; Contrast volume: 100 ml; Contrast route: INTRAVENOUS (IV); COMPARISON: CT kidney stone [id number] 07/19/2020 10:15 PM RADIATION DOSE METRICS: Total DLP (mGy-cm): 656.82 FINDINGS: Liver: Normal. No mass. Gallbladder and biliary ducts: Normal. No calcified stones. No ductal dilation. Pancreas: Normal. No ductal dilation. Spleen: Normal. No splenomegaly. Adrenal glands: Normal. No mass. Kidneys and ureters: Normal. No hydronephrosis. Stomach and bowel: Unremarkable. No obstruction. No mucosal thickening. Appendix: No evidence of appendicitis. Intraperitoneal space: Unremarkable. No free air. No significant fluid collection. Vasculature: Unremarkable. No abdominal aortic aneurysm. Lymph nodes: Unremarkable. No enlarged lymph nodes. Urinary bladder: Unremarkable as visualized. Reproductive: Unremarkable as visualized. Bones/joints: Posterior lumbar fusion. Extensive degenerative disc disease. Degenerative changes of the hips. Soft tissues: Unremarkable. CT/CT abdomen pelvis w con* [id number] IMPRESSION: No acute findings.
[2025-05-29] MEDS: iohexol 350 mg/mL 500 mL Btl (per mL) IV (14:57)
== END 2025-05-29 14:01 | disposition home or self-care (01) ==
LOC: RAD 14:01
PROVIDERS: PCP Physician Assistant; Visit Provider Physician Assistant
DX: R10.9 Unspecified abdominal pain (principal); M43.26 Fusion of spine, lumbar region; M51.361 Other intervertebral disc degeneration, lumbar region with lower extremity pain only; M16.0 Bilateral primary osteoarthritis of hip
CPT/HCPCS: 74177

== ENCOUNTER 2025-06-22 22:51 | Emergency (ER) | payer MEDICARE, SELFPAY ==
--- OUTSIDE RECORDS SUMMARY | 2023-12-29 09:00 | XMS_ITS ---
Author Organization [facility] Address [address] [place] [address] Care Team Providers Care Vaccines Solutions Specialist Name Role Phone Meli Wilson Primary Care Provider José Manuel Watson [phone] Ariana Slater APN Unavailable Unavailable REASON FOR VISIT right radial approach [facility] possible 12/29/2023 @ 3pm, check in at 12noon//gs Encounters Encounter Location Date Provider Diagnosis [facility] [address] [place] [address], [place] [address] 12/29/2023 José Manuel Mckinnon Plan Of Treatment Next Appt Details Provider Name:José Manuel Mckinnon , 08/23/2025 02:00:00 PM, [address] [place] [address], [place], [address], Progress Notes * Marcial CASILLAS EDOB:1950 (74 yo M)Acc No.[id number]:12/29/2023 [place] Patient: Mary Beth chisholmMarcial Provider: Mega Mckinnon MD :1950 A ge:73 Y S ex:Male Date:12/29/2023 Address:[address] [place] [phone] Pcp:SIMON [place] Subjective: * Chief Complaints: * R ight radial approach [facility] possible 12/29/2023 @ 3pm, check in at 12noon//gs Billing Information: * Procedure Codes: * Electronic signature of Brant Mckinnon MD on 06/22/2025 at 11:00 PM [employer] Sign off status: Pending * Provider: Mega Mckinnon MD Date: 0 12/29/2023 Generated for Nadine arguello/Fredi/Tiarra on: 1 08/23/2024 11:00 PM [employer]
--- OUTSIDE RECORDS SUMMARY | 2024-01-10 05:00 | XMS_ITS ---
Author Organization [facility] Address [address] [place] [address] Care Team Providers Care Senior Mortgage Underwriter Name Role Phone Meli Wilson Primary Care Provider José Manuel Watson [phone] Ariana Slater APN Unavailable Unavailable REASON FOR VISIT Device Hookup -LC Encounters Encounter Location Date Provider Diagnosis [facility] [address] [place] [phone] 01/10/2024 José Manuel Mckinnon Plan Of Treatment Next Appt Details Provider Name:José Manuel Mckinnon , 08/23/2025 02:00:00 PM, [address] [place] [address], [place], [phone], Progress Notes * Marcial CASILLAS EDOB:1950 (74 yo M)Acc No.[id number]:01/10/2024 Patient: Mary Beth chisholm Marcial Gaviria Provider: Mega Mckinnon MD :1950 A ge:73 Y S ex:Male Date:01/10/2024 Address:[address] [place] [phone] Pcp:SIMON [place] Subjective: * Chief Complaints: * D evice Hookup -LC Billing Information: * Procedure Codes: * Electronic signature of Brant Mciknnon MD on 06/22/2025 at 11:00 PM PATIENT ACCOUNTS CLERK Sign off status: Pending * Provider: Mega Mckinnon MD Date: 0 01/10/2024 Generated for Nadine arguello/Fredi/Tiarra on: 1 08/23/2024 11:00 PM PATIENT ACCOUNTS CLERK
--- OUTSIDE RECORDS SUMMARY | 2024-03-07 07:30 | XMS_ITS ---
Author Organization [facility] Address [address] [place] [address] Care Team Providers Care International Sales Representative Name Role Phone Meli Wilson Primary Care Provider José Manuel Watson [phone] Ariana Slaetr APN Unavailable Unavailable REASON FOR VISIT INCREASED SOB, CHEST PAIN 11/30/23 ~TLD Encounters Encounter Location Date Provider Diagnosis [facility] [address] [place] [address], [place] [address] 03/07/2024 José Manuel Mckinnon Plan Of Treatment Next Appt Details Provider Name:José Manuel Mckinnon , 08/23/2025 02:00:00 PM, [address] [place] [address], [place], [address], Progress Notes * Marcial CASILLAS EDOB:1950 (74 yo M)Acc No.[id number]:03/07/2024 Progress Notes Patient: Johnathan Coronamario Gaviria Provider: Mega Mckinnon MD :1950 A ge:73 Y S ex:Male Date:03/07/2024 Address:[address] [place] [phone] Pcp:SIMON [place] Subjective: * Chief Complaints: * I NCREASED SOB, CHEST PAIN 11/30/23 ~TLD Care Plan Details* * Electronic signature of Brant Mckinnon MD on 06/22/2025 at 11:00 PM WIRE STRAIGHTENER Sign off status: Pending * Provider: Mega Mckinnon MD Date: 0 03/07/2024 Generated for Nadine arguello/Fredi/Tiarra on: 1 08/23/2024 11:00 PM WIRE STRAIGHTENER
[2025-06-22 22:54] VITALS: BP 139/84; PULSE 99; RESP 16; TEMP 36.3; O2SAT 96; BMI 27.8
--- OUTSIDE RECORDS SUMMARY | 2025-06-22 23:00 | XMS_ITS | Clinical Summary ---
Author Organization [facility] Address [address] [place] [address] Care Team Providers Care Associate Data Scientist Name Role Phone Unavailable Primary Care Provider Unavailabl e Allergies No known active allergies Medications naproxen (NAPROSYN) 250 mg tablet Take 250 mg by mouth 2 times daily with meals. Active tiZANidine (ZANAFLEX) 4 mg Tablet Take 4 mg by mouth every 6 hours as needed for Spasm. Active methocarbamol (ROBAXIN) 500 mg tablet Take 1 Tablet (500 mg) by mouth 4 times daily as needed for Spasm. 45 Tablet 04/20/2019 7:18 AM CDT 03/29/2019 Active metFORMIN (GLUCOPHAGE) 1,000 mg tablet Take 1,000 mg by mouth 2 times daily with meals. Active ENALAPRIL MALEATE ORAL Take 20 mg by mouth. Active docusate sodium (Colace) 100 mg capsule Take 1 Capsule (100 mg) by mouth 2 times daily. 60 Capsule 08/22/2019 2:24 PM PUBLIC RELATIONS ANALYST 08/21/2019 Active oxyCODONE (ROXICODONE) 5 mg tabletIndication s:Status post total left knee replacement Take 1-2 Tablets (5-10 mg) by mouth every 4 hours as needed for Pain. Maximum of 6 per day. Max Daily Amount: 30 mg 80 Tablet 09/13/2019 7:24 AM CDT 09/06/2019 Active traMADoL (ULTRAM) 50 mg tabletIndication s:Status post total left knee replacement Take 1 tablet by mouth every 6 hours as needed for pain. Maximum of 4 per day. 60 Tablet 09/13/2019 7:24 AM CDT 09/06/2019 Active cyclobenzaprine (FLEXERIL) 10 mg tablet Take 1 Tablet (10 mg) by mouth 3 times daily as needed for Spasm. 45 Tablet 11/19/2020 Active Active Problems Problem Noted Date Diagnosed Date Preoperative general physical examination 2019 Primary osteoarthritis of left knee 08/09/2019 Muscle spasm 08/09/2019 Obesity (BMI 30.0-34.9) 08/09/2019 Anemia 08/09/2019 Cervical pain 05/14/2009 Low back pain 05/14/2009 S/P lumbar fusion 05/14/2009 Overview (05/14/2009): L2-4 in 08/2007 (extension of previous fusion) Sacroiliitis, not elsewhere classified 9 Overview (05/14/2009): Bilateral Family History Medical History Relation Name Comments Heart Disease Brother 1 Respiratory Disease Brother 1 smoker Other Brother 2 Max pacemaker No Known Problems Brother 3 Johnathan No Known Problems Brother 4 Stroke Brother 5 Elliot Stroke Brother 6 Bruce Lung Cancer Brother 7 Miquel heavy smoker No Known Problems Daughter 1 No Known Problems Daughter 2 No Known Problems Daughter 3 No Known Problems Daughter 4 No Known Problems Daughter 5 Heart Disease Father Stroke Father Other Mother RA Heart Disease Sister No Known Problems Son 1 No Known Problems Son 2 Relation Name Status Comments Brother 1 Alive Brother 2 Max Alive Brother 3 Johnathan Alive Brother 4 Alive Brother 5 Elliot (Age 40) Brother 6 Bruce (Age 42) Brother 7 Miquel (Age 38) Daughter 1 Alive Daughter 2 Alive Daughter 3 Alive Daughter 4 Alive Daughter 5 Alive Father (Age 46) Mother Sister Alive Son 1 Alive Son 2 Alive Social History Tobacco Use Types Packs/Day Years Used Date Smoking Tobacco: Never Smokeless Tobacco: Never Alcohol Use Standard Drinks/Week Comments Yes 0 (1 standard drink = 0.6 oz pur e alcohol) case of beer lasts a year Sex and Gender Information Value Date Recorded Sex Assigned at Not on file Legal Sex Male 3:53 AM PUBLIC RELATIONS ANALYST Gender Identity Not on file Sexual Orientation Not on file Last Filed Vital Signs Vital Sign Reading Time Taken Comments Blood Pressure 123/77 12/17/2020 1:14 PM CDT Pulse 93 12/17/2020 1:14 PM CDT Temperature 36.1 C (96.9 F) 08/22/2019 8:18 AM PUBLIC RELATIONS ANALYST Respiratory Rate 15 08/22/2019 8:18 AM PUBLIC RELATIONS ANALYST Oxygen Saturation 97% 08/22/2019 8:18 AM PUBLIC RELATIONS ANALYST Inhaled Oxygen Concentration - - Weight 100.7 kg (222 lb) 12/17/2020 1:14 PM CDT Height 180.3 cm (5' 11 ) 12/17/2020 1:14 PM CDT Body Mass Index 30.96 12/17/2020 1:14 PM CDT Plan of Treatment Health Maintenance Due Date Last Done Comments DTAP/TDAP/TD VACCINES (1 - Tdap) 12/12/1967 PNEUMOCOCCAL VACCINE 50+ YEA RS (1 of 1 - PCV) 1998 ZOSTER VACCINE (1 of 2) 1998 RSV VACCINE (60+ or ) (1 - 1-dose 75+ series) 12/12/2023 INFLUENZA VACCINE (#1) 2025 0, 04/24/2019, 04/05/2019 COLORECTAL SCREENING Discontinued 02/22/2020 Colorectal Cancer Screening Discontinued FIT-DNA Q 3 years Discontinued FIT/FOBT Q 1 year Discontinued Flex Sig/CT Colonography Q 5 years Discontinued Medical Devices Implanted Type Area Safety Investigator/Cause Analyst Device Identifier Shelf Expiration Date Model / Serial / Lot Fem Porocoat Posterior Implanted:Qty: 1 on 08/21/2019 by Nilson Escoto MD at [facility] Left: Knee 04/03/2029 DEPUY - [id number] / / [id number] Ins Tib Attune Ps Sz 7 7mm Implanted:Qty: 1 on 08/21/2019 by Nilson Escoto MD at [facility] Left: Knee 07/04/2024 [id number] / / [id number] Bsplt Tib Attune Sz9 Implanted:Qty: 1 on 08/21/2019 by Nilson Escoto MD at [facility] Left: Knee 12/02/2028 [id number] / / [id number] Insurance MEDICARE PART A HOSPITAL ONLY [employer] PPO MCR RX MEDIMPACT Member Subscriber Plan / Payer (Ef fective for All Dates) Name:Marcial Casillas Relation to Subscriber:Spouse Name:Casillas Marcial Payer ID:Not on file Group ID:[id number] Type:RX Commercial Address: [place] RX [employer] PLANS (INTERNAL) [facility] Internal Plans ESIS Advance Directives For more information, please contact: [phone] * Full Code (Latest Code Status on File) Date Activated Date Inactivated Comments 08/21/2019 11:25 AM 08/22/2019 5:10 PM * Full Code Date Activated Date Inactivated Comments 08/21/2019 6:33 AM 08/21/2019 11:25 AM
--- OUTSIDE RECORDS SUMMARY | 2025-06-22 23:00 | XMS_ITS | Encounter Summary ---
Author Organization [facility] Address [address] [place] [address] Care Team Providers Care Client Portfolio Manager Name Role Phone Unavailable Primary Care Provider Unavailabl e Encounter Details Date Type Department Care Team (Late st Contact Info) Description 08/03/2007 Outpatient Historical [facility] [address] [place] [phone] Cruz Florian MD [address] [place] [address] Social History Tobacco Use Types Packs/Day Years Used Date Smoking Tobacco: Never Assessed Sex and Gender Information Value Date Recorded Sex Assigned at Not on file Legal Sex Male 3:53 AM PEER SUPPORT SPECIALIST Gender Identity Not on file Sexual Orientation Not on file documented as of this encounter Plan of Treatment Not on file documented as of this encounter Visit Diagnoses Not on filedocumented in this encounter
--- OUTSIDE RECORDS SUMMARY | 2025-06-22 23:00 | XMS_ITS | Encounter Summary ---
Author Organization [facility] Address [address] [place] [address] Care Team Providers Care Char Belt Operator Name Role Phone Unavailable Primary Care Provider Unavailabl e Encounter Details Date Type Department Care Team (Latest Contact Info) Description 10/25/2007 Outpatient Historical [facility] [address] [place] [address] [facility] [address] [place] [phone] Cruz Florian MD [address] [place] [address] Arthrodesis Status; Disturbance of Skin Sensation Social History Tobacco Use Types Packs/Day Years Used Date Smoking Tobacco: Never Assessed Sex and Gender Information Value Date Recorded Sex Assigned at Not on file Legal Sex Male 3:53 AM WICK TENDER Gender Identity Not on file Sexual Orientation Not on file documented as of this encounter Plan of Treatment Not on file documented as of this encounter Visit Diagnoses Diagnosis Arthrodesis status Disturbance of skin sensation documented in this encounter
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
--- OUTSIDE RECORDS SUMMARY | 2025-06-22 23:00 | XMS_ITS | Encounter Summary ---
Author Organization [facility] Address [address] [place] [address] Care Team Providers Care Senior Administrative Associate Name Role Phone Unavailable Primary Care Provider Unavailabl e Encounter Details Date Type Department Care Team (Late st Contact Info) Description 10/27/2007 Outpatient Historical [facility] [address] 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
--- OUTSIDE RECORDS SUMMARY | 2025-06-22 23:00 | XMS_ITS | Encounter Summary ---
Author Organization [facility] Address [address] [place] [address] Care Team Providers Care Qc Lab Technician Name Role Phone Unavailable Primary Care Provider Unavailabl e Encounter Details Date Type Department Care Team (Late st Contact Info) Description 09/01/2007 Outpatient Historical [facility] [address] [place] [phone] Cruz Florian MD [address] [place] [address] Social History Tobacco Use Types Packs/Day Years Used Date Smoking Tobacco: Never Assessed Sex and Gender Information Value Date Recorded Sex Assigned at Not on file 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
--- OUTSIDE RECORDS SUMMARY | 2025-06-22 23:00 | XMS_ITS | Encounter Summary ---
Author Organization [facility] Address [address] [place] [address] Care Team Providers Care Solar Designer/Installer Name Role Phone Unavailable Primary Care Provider Unavailabl e Encounter Details Date Type Department Care Team (Late st Contact Info) Description 09/30/2007 Outpatient Historical [facility] [address] 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
--- OUTSIDE RECORDS SUMMARY | 2025-06-22 23:00 | XMS_ITS | Encounter Summary ---
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 Gender Identity Not on file Sexual Orientation Not on file documented as of this encounter Plan of Treatment Pending Results Name Type Priority Associated Diagnoses Date /Time TYPE AND CROSSMATCH Blood Bank Stat 08/18 11:15 AM ACADEMIC ASSOCIATE documented as of this encounter Procedures Procedure Name Priority Date/Time Associated Diagnosis Comments POC GLUCOSE Routine 08/21/2007 6:51 AM ACADEMIC ASSOCIATE POC GLUCOSE Routine 08/20/2007 7:50 PM ACADEMIC ASSOCIATE POC GLUCOSE Routine 08/20/2007 5:45 PM ACADEMIC ASSOCIATE POC GLUCOSE Routine 08/20/2007 12:21 PM ACADEMIC ASSOCIATE POC GLUCOSE Routine 08/20/2007 5:40 AM ACADEMIC ASSOCIATE POC GLUCOSE Routine 08/19/2007 8:48 PM ACADEMIC ASSOCIATE POC GLUCOSE Routine 08/19/2007 6:13 PM ACADEMIC ASSOCIATE POC GLUCOSE Routine 08/19/2007 11:57 AM ACADEMIC ASSOCIATE CBC WITHOUT DIFFERENTIAL Routine 08/19/2007 6:47 AM ACADEMIC ASSOCIATE BASIC METABOLIC PANEL Routine 08/19/2007 6:47 AM ACADEMIC ASSOCIATE POC GLUCOSE Routine 08/19/2007 6:09 AM ACADEMIC ASSOCIATE POC GLUCOSE Routine 08/18/2007 8:25 PM ACADEMIC ASSOCIATE POC GLUCOSE Routine 08/18/2007 5:52 PM ACADEMIC ASSOCIATE POC GLUCOSE Routine 08/18/2007 1:51 PM ACADEMIC ASSOCIATE XR FLUORO GREATER THAN 1 HOUR Routine 08/18/2007 1:38 PM ACADEMIC ASSOCIATE ABORH TYPING Stat 08/18/2007 11:15 AM ACADEMIC ASSOCIATE BLOOD BANK ANTIBODY SCREEN Stat 08/18/2007 11:15 AM ACADEMIC ASSOCIATE HEMOGLOBIN AND HEMATOCRIT Stat 08/18/2007 11:13 AM ACADEMIC ASSOCIATE documented in this encounter Results * (ABNORMAL) POC GLUCOSE (08/21/2007 6:51 AM ACADEMIC ASSOCIATE) GLUCOSE POC 206(H) 60 - 100 mg/dL [facility] Venous blood specimen (specimen) 08/21/2007 6:51 AM ACADEMIC ASSOCIATE 08/21/2007 8:52 AM ACADEMIC ASSOCIATE us Cruz Florian MD POINT OF CARE TESTING Final Re sult [facility] [address] [place] [address] * (ABNORMAL) POC GLUCOSE (08/20/2007 7:50 PM ACADEMIC ASSOCIATE) GLUCOSE POC 180(H) 60 - 100 mg/dL [facility] Venous blood specimen (specimen) 08/20/2007 7:50 PM ACADEMIC ASSOCIATE 08/21/2007 8:52 AM ACADEMIC ASSOCIATE us Cruz Florian MD POINT OF CARE TESTING Final Re sult Performing Organization Address [facility] de Phone Number [facility] [address] [place] [address] * (ABNORMAL) POC GLUCOSE (08/20/2007 5:45 PM ACADEMIC ASSOCIATE) GLUCOSE POC 162(H) 60 - 100 mg/dL [facility] Venous blood specimen (specimen) 08/20/2007 5:45 PM ACADEMIC ASSOCIATE 08/21/2007 8:52 AM ACADEMIC ASSOCIATE us Cruz Florian MD POINT OF CARE TESTING Final Re sult Performing Organization Address [facility] de Phone Number [facility] [address] [place] [address] * (ABNORMAL) POC GLUCOSE (08/20/2007 12:21 PM ACADEMIC ASSOCIATE) GLUCOSE POC 214(H) 60 - 100 mg/dL [facility] Venous blood specimen (specimen) 08/20/2007 12:21 PM ACADEMIC ASSOCIATE 08/21/2007 9:01 AM ACADEMIC ASSOCIATE us Cruz Florian MD POINT OF CARE TESTING Final Re sult Performing Organization Address [facility] de Phone Number [facility] [address] [place] [address] * (ABNORMAL) POC GLUCOSE (08/20/2007 5:40 AM ACADEMIC ASSOCIATE) GLUCOSE POC 214(H) 60 - 100 mg/dL [facility] Venous blood specimen (specimen) 08/20/2007 5:40 AM ACADEMIC ASSOCIATE 08/20/2007 7:16 AM ACADEMIC ASSOCIATE us Cruz Florian MD POINT OF CARE TESTING Final Re sult Performing Organization Address [facility] de Phone Number [facility] [address] [place] [address] * (ABNORMAL) POC GLUCOSE (08/19/2007 8:48 PM ACADEMIC ASSOCIATE) GLUCOSE POC 231(H) 60 - 100 mg/dL [facility] Venous blood specimen (specimen) 08/19/2007 8:48 PM ACADEMIC ASSOCIATE 08/20/2007 7:23 AM ACADEMIC ASSOCIATE Cruz Florian MD POINT OF CARE TESTING Final Re sult Performing Organization Address [facility] de Phone Number [facility] [address] [place] [address] * (ABNORMAL) POC GLUCOSE (08/19/2007 6:13 PM ACADEMIC ASSOCIATE) GLUCOSE POC 155(H) 60 - 100 mg/dL [facility] Venous blood specimen (specimen) 08/19/2007 6:13 PM ACADEMIC ASSOCIATE 08/20/2007 7:16 AM ACADEMIC ASSOCIATE Cruz Florian MD POINT OF CARE TESTING Final Re sult Performing Organization Address [facility] de Phone Number [facility] [address] [place] [address] * (ABNORMAL) POC GLUCOSE (08/19/2007 11:57 AM ACADEMIC ASSOCIATE) GLUCOSE POC 251(H) 60 - 100 mg/dL [facility] Venous blood specimen (specimen) 08/19/2007 11:57 AM ACADEMIC ASSOCIATE 08/20/2007 7:23 AM ACADEMIC ASSOCIATE Cruz Florian MD POINT OF CARE TESTING Final Re sult Performing Organization Address [facility] de Phone Number [facility] [address] [place] [address] * (ABNORMAL) BASIC METABOLIC PANEL (08/19/2007 6:47 AM ACADEMIC ASSOCIATE) SODIUM 137 136 - 145 mEq/L [facility] CREATININE 1.1 0.7 - 1.5 mg/dL [facility] CO2 27 22 - 32 mmol/l [facility] GLUCOSE 197(H) 70 - 110 mg/dL [facility] POTASSIUM 4.2 3.5 - 5.0 mEq/L [facility] CALCIUM 8.7 8.4 - 10.5 mg/dL [facility] ANION GAP 9 9 - 20 mEq/L [facility] BUN 18 9 - 20 mg/dL [facility] CHLORIDE 105 95 - 110 mEq/L [facility] OSMOLALITY, CALCULATED 290 275 - 295 mOsm/Kg [facility] Blood specimen (specimen) 08/19/2007 6:47 AM ACADEMIC ASSOCIATE 08/19/2007 7:07 AM ACADEMIC ASSOCIATE Cruz Florian MD CHEMISTRY ORDERABLES Edited [facility] [address] [place] [address] * (ABNORMAL) CBC WITHOUT DIFFERENTIAL (08/19/2007 6:47 AM ACADEMIC ASSOCIATE) [facility] RBC 3.73(L) 4.60 - 6.20 Mil/ul [facility] LYMPHOCYTES 15.9(L) 24.0 - 44.0 % [facility] MCHC 33.3 30.0 - 35.0 g/dL [facility] MONOCYTE ABSOLUTE 1.0(H) 0.1 - 0.6 K/ul [facility] MCV 88.5 84.0 - 103.0 Fl [facility] MPV 10.5 8.9 - 12.8 Fl [facility] NEUTROPHIL ABSOLUTE 7.5 2.0 - 8.0 K/ul [facility] HEMOGLOBIN 11.0(L) 14.0 - 18.0 g/dL [facility] RDW 13.6 11.0 - 14.5 % [facility] BASOPHILS ABSOLUTE 0.0 0.0 - 0.2 K/ul [facility] MONOCYTES 9.8 2.0 - 10.0 % [facility] WBC 10.1 4.8 - 10.8 K/ul [facility] MCH 29.5 27.0 - 34.0 pg [facility] LYMPHOCYTE ABSOLUTE 1.6 1.2 - 4.0 K/ul [facility] NEUTROPHILS 74.2 42.2 - 75.2 % [facility] HEMATOCRIT 33.0(L) 41.0 - 53.0 % [facility] BASOPHILS 0.1 0.0 - 1.0 % [facility] PLATELETS 223 140 - 440 K/ul [facility] Blood specimen (specimen) 08/19/2007 6:47 AM ACADEMIC ASSOCIATE 08/19/2007 7:07 AM ACADEMIC ASSOCIATE Cruz Florian MD HEMATOLOGY ORDERABLES Final Re sult Performing Organization Address [facility] Co de Phone Number [facility] [address] [place] [address] * (ABNORMAL) POC GLUCOSE (08/19/2007 6:09 AM ACADEMIC ASSOCIATE) GLUCOSE POC 227(H) 60 - 100 mg/dL [facility] Capillary blood specimen (specimen) 08/19/2007 6:09 AM ACADEMIC ASSOCIATE 08/19/2007 7:25 AM ACADEMIC ASSOCIATE Cruz Florian MD POINT OF CARE TESTING Final Re paulo Performing Organization Address [facility] de Phone Number [facility] [address] [place] [address] * (ABNORMAL) POC GLUCOSE (08/18/2007 8:25 PM ACADEMIC ASSOCIATE) GLUCOSE POC 245(H) 60 - 100 mg/dL [facility] Capillary blood specimen (specimen) 08/18/2007 8:25 PM ACADEMIC ASSOCIATE 08/19/2007 7:25 AM ACADEMIC ASSOCIATE us Cruz Florian MD POINT OF CARE TESTING Final Re sult Performing Organization Address [facility] Phone Number [facility] [address] [place] [address] * (ABNORMAL) POC GLUCOSE (08/18/2007 5:52 PM ACADEMIC ASSOCIATE) GLUCOSE POC 215(H) 60 - 100 mg/dL [facility] Capillary blood specimen (specimen) 08/18/2007 5:52 PM ACADEMIC ASSOCIATE 08/19/2007 8:17 AM ACADEMIC ASSOCIATE us Cruz Florian MD POINT OF CARE TESTING Final Re sult Performing Organization Address [facility] Phone Number [facility] [address] [place] [address] * (ABNORMAL) POC GLUCOSE (08/18/2007 1:51 PM ACADEMIC ASSOCIATE) GLUCOSE POC 202(H) 60 - 100 mg/dL [facility] Capillary blood specimen (specimen) 08/18/2007 1:51 PM ACADEMIC ASSOCIATE 08/19/2007 3:12 AM ACADEMIC ASSOCIATE us Cruz Florian MD POINT OF CARE TESTING Final Re sult Performing Organization Address [facility] Phone Number [facility] [address] [place] [address] * XR FLUORO > 1 HOUR (08/18/2007 1:38 PM ACADEMIC ASSOCIATE) Anatomical Region Laterality Modality Other 08/18/2007 1:38 PM ACADEMIC ASSOCIATE Narrative 08/18/2007 1:38 PM ACADEMIC ASSOCIATE Finalized by interface Etherpad[employer] utility. No report expected. Procedure Note 07/15/2008 Finalized by interface Etherpad[employer] utility. No report expected. Result Danita Florian MD DIAGNOSTIC IMAGING ORDERABLES Final Result * ANTIBODY SCREEN (08/18/2007 11:15 AM ACADEMIC ASSOCIATE) ANTIBODY SCREEN Negative [facility] Blood specimen (specimen) 08/18/2007 11:15 AM ACADEMIC ASSOCIATE 08/18/2007 11:17 AM ACADEMIC ASSOCIATE us Curz Florian MD BLOOD BANK ORDERABLES Final Re sult Performing Organization Address [facility] Co de Phone Number [facility] [address] [place] [address] * ABORH TYPING (08/18/2007 11:15 AM ACADEMIC ASSOCIATE) ABO/RH TYPE B Positive [facility] Blood specimen (specimen) 08/18/2007 11:15 AM ACADEMIC ASSOCIATE 08/18/2007 11:17 AM ACADEMIC ASSOCIATE Cruz Florian MD BLOOD BANK ORDERABLES Final Re sult Performing Organization Address [facility] de Phone Number [facility] [address] [place] [address] * (ABNORMAL) HEMOGLOBIN AND HEMATOCRIT (08/18/2007 11:13 AM ACADEMIC ASSOCIATE) HEMATOCRIT 39.6(L) 41.0 - 53.0 % [facility] HEMOGLOBIN 13.6(L) 14.0 - 18.0 g/dL [facility] Blood specimen (specimen) 08/18/2007 11:13 AM ACADEMIC ASSOCIATE 08/18/2007 11:13 AM ACADEMIC ASSOCIATE Cruz Florian MD HEMATOLOGY ORDERABLES Final Re sult Performing Organization Address [facility] Co de Phone Number [facility] [address] [place] [address] documented in this encounter Visit Diagnoses Not on filedocumented in this encounter
--- OUTSIDE RECORDS SUMMARY | 2025-06-22 23:00 | XMS_ITS | Encounter Summary ---
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
--- OUTSIDE RECORDS SUMMARY | 2025-06-22 23:00 | XMS_ITS | Encounter Summary ---
Author Organization [facility] Address [address] [place] [address] Care Team Providers Care Certified Medical Coder Name Role Phone Unavailable Primary Care Provider Unavailabl e Encounter Details Date Type Department Care Team (Late st Contact Info) Description 02/07/2008 Outpatient Historical [facility] [address] [place] [address] [facility] [address] [place] [phone] Cruz Florian MD [address] [place] [address] Social History Tobacco Use Types Packs/Day Years Used Date Smoking Tobacco: Never Assessed Sex and Gender Information Value Date Recorded Sex Assigned at Not on file 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 Findings: Comparison made with prior exam dated 01/05/2008. Evidence of prior cervical fusion from L2 through L4 again noted. Underlying marked degenerative change again seen, greatest at L3-4. Mild inferior listhesis of L3 with respect to L2 and L4 again noted. No hardware failure or other complication noted. Impression: Stable L2 through 4 fusion. - Dictated By: Phan Downey M.D. Electronically Signed By: Phan Downey M.D. Date Signed: 02/16/08 Procedure Note Phan Downey E - 02/16/2008 Exam: Spine - Lumbar Date/Time of Exam: Feb 16, 2008 10:13:45 AM History: Post surgical recheck. Findings: Comparison made with prior exam dated 01/05/2008. Evidence ofprior cervical fusion from L2 through L4 again noted. Underlying marked degenerative change again seen,greatest at L3-4. Mild inferior listhesis of L3 with respect to L2 and L4 again noted. Nohardware failure or other complication noted. Impression: Stable L2 through 4 fusion. - Dictated By: Phan Downey M.D. Electronically Signed By: Phan Downey M.D. Date Signed: 02/16/08 Cruz Florian MD DIAGNOSTIC IMAGING ORDERABLES Final Result documented in this encounter Visit Diagnoses Not on filedocumented in this encounter
--- OUTSIDE RECORDS SUMMARY | 2025-06-22 23:00 | XMS_ITS | Encounter Summary ---
Author Organization [facility] Address [address] [place] [address] Care Team Providers Care Information Clerk Cashier Name Role Phone Unavailable Primary Care Provider Unavailabl e Encounter Details Date Type Department Care Team (Latest Contact Info) Description 09/28/2007 Outpatient Historical 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 Gender Identity Not on file Sexual Orientation Not on file documented as of this encounter Plan of Treatment Not on file documented as of this encounter Procedures Procedure Name Priority Date/Time Associated Diagnosis Comments XR LUMBAR SPINE 2 OR 3 VW Routine 09/29/2007 10:53 AM CDT documented in this encounter Results * XR LUMBAR SPINE 2 OR 3 VW (09/29/2007 10:53 AM CDT) Anatomical Region Laterality Modality Spine Other 09/29/2007 10:5 3 AM CDT Narrative 09/29/2007 12:17 PM CDT Two views of the lumbar spine were obtained and show recent postoperative changes of a posterior fusion at L2, L3, and L4. Hardware is intact. Degenerative changes are again seen. - Dictated By: Jerry Swann M.D. Electronically Signed By: Jerry Swann M.D. Date Signed: 09/29/07 SDM Procedure Note Hue Jerry W - 09/29/2007 Two views of the lumbar spine were obtained and show recent postoperativechanges of a posterior fusion at L2, L3, and L4. Hardware is intact. Degenerative changes are againseen. - Dictated By: Jerry Swann M.D. Electronically Signed By: Jerry Swann M.D. Date Signed: 09/29/07 SDM Cruz Florian MD DIAGNOSTIC IMAGING ORDERABLES Final Result documented in this encounter Visit Diagnoses Diagnosis Arthrodesis status documented in this encounter
--- OUTSIDE RECORDS SUMMARY | 2025-06-22 23:00 | XMS_ITS | Encounter Summary ---
Author Organization [facility] Address [address] [place] [address] Care Team Providers Care Senior Policy Analyst Name Role Phone Unavailable Primary Care Provider Unavailabl e Encounter Details Date Type Department Care Team (Late st Contact Info) Description 12/29/2007 Outpatient Historical [facility] [address] [place] [address] [facility] [address] [place] [phone] Cruz Florian MD [address] [place] [address] Social History Tobacco Use Types Packs/Day Years Used Date Smoking Tobacco: Never Assessed Sex and Gender Information Value Date Recorded Sex Assigned at Not on file 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 Findings: There is a comparison from 11/22/2007. Postsurgical changes of posterior fusion are again noted from L2 through L4. The hardware is intact. There is no evidence for loosening. Mild anterolisthesis of L3 is again noted. Narrowing of the L2-L3, L3-L4, L4-L5 and L5-S1 disc spaces is again noted. Impression: No significant interval change. - Dictated By: Christel Ferraro M.D. Electronically Signed By: Christel Ferraro M.D. Date Signed: 01/09/08 Procedure Note Christel Ferraro - 01/28/2008 Exam: Spine - Lumbar Date/Time of Exam: Jan 05, 2008 3:18:36 PM History: Post surgical recheck. Findings: There is a comparison from 11/22/2007. Postsurgical changes of posterior fusion are again noted from L2 throughL4. The hardware is intact. There is no evidence for loosening. Mild anterolisthesis of L3 is againnoted. Narrowing of the L2-L3, L3-L4, L4-L5 and L5-S1 disc spaces is again noted. Impression: No significant interval change. - Dictated By: Christel Ferraro M.D. Electronically Signed By: Christel Ferraro M.D. Date Signed: 01/09/08 Cruz Florian MD DIAGNOSTIC IMAGING ORDERABLES Final Result documented in this encounter Visit Diagnoses Not on filedocumented in this encounter
--- OUTSIDE RECORDS SUMMARY | 2025-06-22 23:00 | XMS_ITS | Encounter Summary ---
Author Organization [facility] Address [address] [place] [address] Care Team Providers Care Corduroy Cutting Supervisor Name Role Phone Unavailable Primary Care Provider Unavailabl e Encounter Details Date Type Department Care Team (Late st Contact Info) Description 01/05/2008 Outpatient Historical [facility] [address] 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
--- OUTSIDE RECORDS SUMMARY | 2025-06-22 23:00 | XMS_ITS | Continuity of Care Document ---
Author Organization [facility] Phani Kelly [facility] Kyle Richmond, [facility] ([facility]) Address [address] [place] [address] Assessment No assessment recorded. Plan of Treatment Reminders Order Date Submit Date Provider Last Modified By Organization Details Last Modified Time Details Appointments None recorded. Lab CMP, serum or plasma 2024 025 [facility], [address], [facility], [place], [address], 15:34:00 CBC 2024 025 [facility], [address], [address], [place], [address], 5 15:01:56 urinalysi s, complete 2024 025 [facility], [address], [facility] 1, [place], [address], 15:39:37 culture, urine 2024 025 [employer] [facility], [address] [facility] [address], [address], [place], [address], 21:35:59 C-reactiv e protein, quantitat shirley, serum or plasma 2024 025 [employer] [facility], [address] , [place], [address], 21:35:59 amylase, serum or plasma 2024 [employer] [facility], [address], [address] [place], [address], 21:35:59 Referral None recorded. Procedures None recorded. Surgeries None recorded. Imaging CT, abdomen + pelvis, w/ contrast 2024 [facility], [address] [place], [address], 13:26:15 Medication Orders None recorded. Patient TargetsNo targets recorded. Patient InstructionsNo instructions recorded. 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 None Reported. Results Created Date Observation Date Name Description Value Unit Range Abnormal Flag Note LastModifiedBy Organization Detail LastModifiedTime 05/29/2005/29/2025 CBC WBC 6.8 x10 4.5-10 .5 Not Available [facility] [address] [facility] [address], [place], [address], 05/29/2025 15:01:56 05/29/2005/29/2025 CBC RBC 3.99 x10 4.30-5 .90 low Not Available [facility] [address] [facility] [address], [place], [address], 05/29/2025 15:01:56 05/29/2005/29/2025 CBC HGB 12.3 g/dL 13.5-1 8.0 low Not Available [facility] [address] [facility] [address], [place], [address], 05/29/2025 15:01:56 05/29/2005/29/2025 CBC HCT 37.3 % 35.0-6 0.0 Not Available [facility] [address] [facility] [address], [place], [address], 05/29/2025 15:01:56 05/29/2005/29/2025 CBC MCV 93.5 fL 80.0-9 9.9 Not Available [facility] [address] [facility] 1, [place], [address], 05/29/2025 15:01:56 05/29/20 25 05/29/2025 CBC MCH 30.8 pg 27.0-3 2.0 Not Available [facility] [address] [facility] 1, [place], [address], 05/29/2025 15:01:56 05/29/2005/29/2025 CBC MCHC 33.0 g/dL 32.0-3 6.0 Not Available [facility] [address] [facility] 1, [place], [address], 05/29/2025 15:01:56 05/29/2005/29/2025 CBC RDW 14.0 % 11.5-1 4.5 Not Available [facility] [address] [facility] 1, [place], [address], 05/29/2025 15:01:56 05/29/2005/29/2025 CBC plt 282.5 x10 150.0- 451.0 Not Available [facility] [address] [facility] [place], [address], 05/29/2025 15:01:56 05/29/2005/29/2025 CBC lymphocytes % 40.1 % 20.0-5 0.0 Not Available [facility] [address] [facility] 1, [place], [address], 05/29/2025 15:01:56 05/29/2005/29/2025 CBC granulcytes % 49.1 % 30.0-7 0.0 Not Available [facility] [address] [facility] 1, [place], [address], 05/29/2025 15:01:56 05/29/2005/29/2025 CBC monocytes % 9.2 % 2.0-16 .0 Not Available [facility] [address] [facility] [address], [place], [address], 05/29/2025 15:01:56 05/29/2005/29/2025 CBC granulcytes# 3.3 x10 Not Amisha ilable [facility] [address] [address], [place], [address], 05/29/2025 15:01:56 05/29/2005/29/2025 CBC lymphocytes # 2.7 x10 Not Available [facility] [address] [address], [place], [address], 05/29/2025 15:01:56 05/29/2005/29/2025 CBC monocytes # 0.6 x10 Not Avai lable [facility] [address] [address], [place], [address], 05/29/2025 15:01:56 05/29/2005/29/2025 CMP (MALE ) glucose 141.0 mg/dL 60.0-9 9.0 high Not Available [facility] [address] [address], [place], [address], 05/29/2025 15:34:00 05/29/2005/29/2025 CMP (MALE ) BUN (blood urea nitrogen) 15.0 mg/dL 10.0-2 6.0 Not Available [facility] [address] [address], [place], [address], 05/29/2025 15:34:00 05/29/20 25 05/29/2025 CMP (MALE ) creatinine (serum) 1.1 mg/dL 0.4-1. 5 Not Available [facility] [address], [place], [address], 05/29/2025 15:34:00 05/29/20 25 05/29/2025 CMP (MALE ) BUN/creatini ne ratio 13.64 ratio Not Available [facility] [address] [facility], [place], [address], 05/29/2025 15:34:00 05/29/20 25 05/29/2025 CMP (MALE ) eGFR calculated 69.2 Not Available [facility] [address] [facility] 1, [place], [address], 05/29/2025 15:34:00 05/29/2005/29/2025 CMP (MALE ) total protein 6.5 g/dL 6.0-8. 5 Not Available [facility] [address] [facility] 1, [place], [address], 05/29/2025 15:34:00 05/29/20 25 05/29/2025 CMP (MALE ) total bilirubin 0.7 mg/dL 0.2-1. 3 Not Available [facility] [address] [facility] 1, [place], [address], 05/29/2025 15:34:00 05/29/20 25 05/29/2025 CMP (MALE ) albumin 4.3 g/dL 3.5-5. 5 Not Available [facility] [address] [facility] 1, [place], [address], 05/29/2025 15:34:00 05/29/20 25 05/29/2025 CMP (MALE ) globulin 2.2 calc Not Available [facility] [address] [facility], [place], [address], 05/29/2025 15:34:00 05/29/20 25 05/29/2025 CMP (MALE ) AST (SGOT) 27.0 U/L 0.0-46 .0 Not Available [facility] [address] [facility] [address], [place], [address], 05/29/2025 15:34:00 05/29/2005/29/2025 CMP (MALE ) altv (SGPT) 22.0 U/L 13.0-6 9.0 normal Not Available [facility] [address] [facility] 1, [place], [address], 05/29/2025 15:34:00 05/29/2005/29/2025 CMP (MALE ) A/G ratio 2.0 ratio Not Available [facility] [address] [facility] 1, [place], [address], 05/29/2025 15:34:00 05/29/2005/29/2025 CMP (MALE ) ALP phos 102.0 U/L 30.0-1 40.0 normal Not Available [facility] [address] [facility] 1, [place], [address], 05/29/2025 15:34:00 05/29/20 25 05/29/2025 CMP (MALE ) calcium 9.1 mg/dL 8.4-10 .5 Not Available [facility] [address] [address], [place], [address], 05/29/2025 15:34:00 05/29/20 25 05/29/2025 CMP (MALE ) sodium 136.0 mmol/ L 136.0- 145.0 Not Available [facility] [address] [facility] 1, [place], [address], 05/29/2025 15:34:00 05/29/20 25 05/29/2025 CMP (MALE ) potassium 4.3 mmol/ L 3.5-5. 1 Not Available [facility] [address] [facility] 1, [place], [address], 05/29/2025 15:34:00 05/29/2005/29/2025 CMP (MALE ) chloride 99.0 mmol/ L 98.0-1 10.0 normal Not Available [facility] [address] [facility] 1, [place], [address], 05/29/2025 15:34:00 05/29/2005/29/2025 CMP (MALE ) C02 28.0 mmol/ L 22.0-3 1.0 Not Available [facility] [address] [facility], [place], [address], 05/29/2025 15:34:00 05/29/2005/29/2025 CMP (MALE ) anion gap 9.0 calc Not Available [facility] [address] [facility] [address], [place], [address], 05/29/2025 15:34:00 05/29/2005/29/2025 CMP (MALE ) osmolality 284.1 calc Not Available [facility] [address] [facility] [address], [place], [address], 05/29/2025 15:34:00 05/29/2005/29/2025 URINA LYSIS WITH MICRO color YELLOW Not Available [facility] [address] [facility], [place], [address], 05/29/2025 15:39:37 05/29/2005/29/2025 URINA LYSIS WITH MICRO clarity CLEAR Not Available [facility] [address] [facility] [address], [place], [address], 05/29/2025 15:39:37 05/29/2005/29/2025 URINA LYSIS WITH MICRO glu NEGATI VE Not Available [facility] [address], [place], [address], 05/29/2025 15:39:37 05/29/2005/29/2025 URINA LYSIS WITH MICRO bili NEGATI VE Not Available [facility] [address], [place], [address], 05/29/2025 15:39:37 05/29/2005/29/2025 URINA LYSIS WITH MICRO ket NEGATI VE Not Available [facility] [address], [place], [address], 05/29/2025 15:39:37 05/29/2005/29/2025 URINA LYSIS WITH MICRO S.g 1.010 1.005- 1.025 Not Available [facility] [address] [facility], [place], [address], 05/29/2025 15:39:37 05/29/2005/29/2025 URINA LYSIS WITH MICRO pH 5.5 5.0-7. 0 Not Available [facility] [address] [facility] 1, [place], [address], 05/29/2025 15:39:37 05/29/2005/29/2025 URINA LYSIS WITH MICRO pro NEGATI VE Not Available [facility] [address] [facility] 1, [place], [address], 05/29/2025 15:39:37 05/29/2005/29/2025 URINA LYSIS WITH MICRO uro 0.2 E.U./D L Not Available [facility] [address] [facility] 1, [place], [address], 05/29/2025 15:39:37 05/29/2005/29/2025 URINA LYSIS WITH MICRO nit NEGATI VE Not Available [facility] [address], [place], [address], 05/29/2025 15:39:37 05/29/2005/29/2025 URINA LYSIS WITH MICRO blo NEGATI VE Not Available [facility] [address], [place], [address], 05/29/2025 15:39:37 05/29/2005/29/2025 URINA LYSIS WITH MICRO eduardo NEGATI VE Not Available [facility] [address], [place], [address], 05/29/2025 15:39:37 05/29/2005/29/2025 URINA LYSIS WITH MICRO WBC NEGATI VE Not Available [facility] [address] [facility] [address], [place], [address], 05/29/2025 15:39:37 05/29/2005/29/2025 URINA LYSIS WITH MICRO RBC 1-2 abnormal Not Available [facility] [address] [facility] [address], [place], [address], 05/29/2025 15:39:37 05/29/2005/29/2025 URINA LYSIS WITH MICRO epi cells NEGATI VE Not Available [facility] [address] [facility] [address], [place], [address], 05/29/2025 15:39:37 05/29/2005/29/2025 URINA LYSIS WITH MICRO bacteria NEGATI VE Not Available [facility] [address] [facility] [address], [place], [address], 05/29/2025 15:39:37 05/29/2005/29/2025 URINA LYSIS WITH MICRO other NEG Not Available [facility] [address] [facility] [address], [place], [address], 05/29/2025 15:39:37 05/29/2005/30/2025 C-NADIR CTIVE PROTE IN C-reactive protein <3.0 mg/L <8.0 normal Not Available [address] [address] [place], [address], 05/30/2025 21:35:58 05/29/2005/30/2025 AMYLA SE amylase 28 U/L 21-101 normal Not Available [address] [address] [place], [address], 05/30/2025 21:35:59 05/29/2005/30/2025 CULTU RE, URINE , ROUTI NE culture, urine, routine SEE NOTE CULTU RE, URINE , ROUTI NE Micro Numbe r: [id number] Test Statu s: Final Speci men Sourc e: Urine Speci men Quali ty: Adequ ate Resul t: No Growt h Not Available [address] [address] [place], [address], 05/30/2025 21:35:59 05/29/2005/29/2025 CT, abdom en + pelvi s, w/ contr ast No observ ation record ed. [facility] [address] [place], [address], 05/29/2025 18:12:29 Result Notes None recorded. Problems Name Problem SNOMED Code Status Onset Date Resolution Date Notes Provider Name and Address Organization Details Recorded Time History of nutritio nal disorder 507178281 Completed 202112/11/2021 H/O NON-INSU SOFÍA DEPENDEN T DIABETES MELLITUS - Status is Inactive ; Recorded 12/12/19 3:37PM by Meli Ward PA-C, Annotati on/Adden dum; Promoted ; acuity set as *; Not Available [facility] 3 03:16:01 History of endocrin e disorder [id number] Completed 202112/11/2021 H/O NON-INSU SOFÍA DEPENDEN T DIABETES MELLITUS - Status is Inactive ; Recorded 12/12/19 3:37PM by Meli Ward PA-C, Annotati on/Adden dum; Promoted ; acuity set as *; Not Available [facility] 3 03:16:01 History of metaboli c disorder [id number] Completed 202112/11/2021 H/O NON-INSU SOFÍA DEPENDEN T DIABETES MELLITUS - Status is Inactive ; Recorded 12/12/19 3:37PM by Meli Ward PA-C, Annotati on/Adden dum; Promoted ; acuity set as *; Not Available [facility] 3 03:16:01 Anemia 905180414 Completed 202112/11/2021 ANEMIA - Status is Inactive ; Recorded 12/12/19 3:38PM by Meli Ward PA-C, Annotati on/Adden dum; Promoted ; acuity set as *; Not Available [facility] 3 03:16:02 Herpes zoster [id number] Completed 202112/11/2021 HERPES ZOSTER WITHOUT COMPLICA TION - Status is Inactive ; Impressi on: Symptoms are similar to previous history of shingles 4-5 years ago. No trauma or evidence of compress ion fracture . Use OTC medicati ons as needed for pain and discomfo rt. Activiti es as tolerate d. F/U one week if no improvem ent or worsenin g of symptoms .; Recorded 12/12/19 3:37PM by Meli Ward PA-C, Clark on/Adden dum; Promoted ; acuity set as *; Not Available [facility] 3 03:16:02 Fracture of other finger Completed 202112/11/2021 fx 3rd and 4th digits on Lt hand - Status is Inactive ; 12/12/19 3:38PM by Meli Ward PA-C, Annotati on/Adden dum; Promoted ; acuity set as *; Not Available [facility] 3 03:16:02 Gastroes ophageal reflux disease [id number] Active 2021 GERD (GASTROE SOPHAGEA L REFLUX DISEASE) ; Recorded 05/25/20 3:58PM by Vivek mederos, Office Visit; Promoted ; acuity set as *; [facility] 15:34:18 Coronary artery bypass graft stent present [id number] 9104 Active 2021 H/O HEART ARTERY STENT; Recorded 05/25/20 3:58PM by Vivek mederos, Office Visit; Promoted ; acuity set as *; [facility] KEYANNAABBY [facility] 5 15:34:12 Hypercho lesterol emia 75357347 Active 2021 Hypercho lesterol emia; 05/25/20 3:58PM by Vivek mederos, Office Visit; Promoted ; acuity set as *; ROSA[facility] ABDIRASHIDSUGEY [facility] 5 15:34:26 Coronary arterios clerosis 37433522 Active 2022 ROSAURA HAEFFNER null, [facility] 5 15:34:08 Type 2 diabetes mellitus 05157539 Active 2022 [facility] 15:34:54 Diabetes mellitus 77885899 Active 2023 [facility] 15:34:15 Spinal stenosis of lumbosac ral region 888969560 Active 2024 ROSAURA HAEFFNER null, [facility] 5 08:17:04 Spinal stenosis of lumbar region 42354909 Active 2024 [facility]AE[facility] 08:17:32 Notes:Some problems listed i n Documents: #[id number], #[id number] could not be added to this patient's chart. Please review these documents and add these problems to the patient's chart manually as needed. Problem Notes None recorded. Procedures Surgical History Date Name Laterality Status Provider Name and Address Organization Details Recorded Time 04/30/20 25 diabetic retinal eye exam completed ROSAURA GALLO [facility] 06/10/2025 08:31:40 07/27/19 25 Joint Inj Beta-shoulder, hip, knee completed MELI WARD PA-C [address] [place], [address], [facility] 07/27/2024 14:58:22 02/23/20 24 prostate specific antigen measurement completed ROSAURA GALLO [facility] 06/10/2025 08:35:25 12/29/19 24 cardiac catheterization completed MELI WARD PA-C [address] [place], [address], [facility] 12/30/2023 09:19:40 12/10/19 24 Family Practice Trigger Point Injection completed MELI WARD PA-C [address] [place], [address], [facility] 12/27/2023 17:05:59 12/10/19 24 jr cryo warts completed MELI WARD PA-C [address] [place], [address], [facility] 12/27/2023 17:06:12 11/18/19 24 Family Practice Trigger Point Injection completed MELI WARD PA-C [address] [place], [address], [facility] 2023 19:46:35 11/18/19 24 jr cryo warts completed MELI WARD PA-C [address] [place], [address], [facility], Kyle 2023 19:45:06 02/22/20 21 placement of stent in cardiac conduit completed ROSAURA GALLO [facility], [place] 02/18/2023 09:52:08 02/22/20 20 colonoscopy [facility]/18[facility]23 09:51:32 Imaging Results None recorded. Procedure Notes None recorded. Medical Equipment None Reported. Allergies Allergen ID Allergen Name Allergen Category Reaction Reaction Severity Criticality Documentation Date Start Date Code Code System Note Provider Name and Address Organization Details Recorded Time 45496 doxycycli ne Not available Not available Not available Not available 02/18/2023 3640 RxNorm ROSAURA GALLO [facility] 09:45:13 Medications Name Sig Start Date Stop Date Status Note LastModified by Organization Details LastModified Time cyclobenz aprine 10 mg tablet TAKE 1 TABLET BY MOUTH THREE TIMES DAILY NEEDED 02/21 completed Not Available Not Available Not Available amoxicill in 500 mg capsule TAKE 4 CAPSULES BY MOUTH STAT. BEGINNIN G DAY 2 TAKE 1 TAB 4 TIMES DAILY UNTIL GONE 02/04 completed Not Available Not Available Not Available pioglitaz one 15 mg tablet TAKE 1 TABLET EVERY DAY 02/21 completed Not Available Not Available Not Available atorvasta tin 40 mg tablet Take 1 tablet every day by oral route. active Not Available Not Available No t Available clindamyc in HCl 300 mg capsule Take 1 capsule every 6 hours by oral route for 7 days. 04/19 completed Not Available Not Available Not Available trazodone 50 mg tablet TAKE 1 TABLET BY MOUTH ONCE DAILY NEEDED FOR 30 DAYS active Not Available Not Available No t Available enalapril maleate 5 mg tablet 02/18 completed Not Available Not Available Not Available azithromy celine 250 mg tablet TAKE 2 TABLETS BY MOUTH ON DAY 1, AND THEN TAKE 1 TABLET BY MOUTH ONCE A DAY ON DAY 2 THROUGH DAY 5 02/18 completed Not Available Not Available Not Available hydrocodo ne 5 mg-acetam inophen 325 mg tablet TAKE 1 TABLET BY MOUTH EVERY 6 HOURS NEEDED FOR PAIN active Not Available Not Available No t Available meloxicam 15 mg tablet TAKE 1 TABLET BY MOUTH ONCE DAILY 04/19 completed Not Available Not Available Not Available prednison e 20 mg tablet Take 2 tablets every day by oral route for 5 days. 04/17 completed Not Available Not Available Not Available enalapril maleate 2.5 mg tablet TAKE 1 TABLET BY MOUTH DAILY 2024 active Not Available Not Available Not Avai lable clindamyc in HCl 150 mg capsule TAKE 3 CAPSULES BY MOUTH EVERY 6 HOURS FOR 14 DAYS 05/22 completed Not Available Not Available Not Available metronida zole 500 mg tablet TAKE 1 TABLET BY MOUTH TWICE DAILY FOR 10 DAYS active Not Available Not Available No t Available clopidogr el 75 mg tablet daily 02/18 completed 0; Recorded 05/25/20 22 4:02PM by Vivek mederos, Office Visit; Not Available Not Available Not Available tramadol 50 mg tablet 02/18 completed Not Available Not Available Not Available triamcino lone acetonide 0.1 % topical cream APPLY A THIN LAYER TO THE AFFECTED AREA(S) TOPICALL Y TWICE DAILY 02/21 completed Not Available Not Available Not Available amoxicill in 500 mg tablet TAKE 1 TABLET BY MOUTH TWICE DAILY 05/22 completed Not Available Not Available Not Available betametha sone acetate and sodium phos 6 mg/mL suspensio n for injection Take 3 mg every day by injectio n route for 1 day. 04/05 completed Not Available Not Available Not Available amoxicill in 875 mg tablet TAKE 1 TABLET BY MOUTH TWICE DAILY 02/21 completed Not Available Not Available Not Available cephalexi n 500 mg capsule TAKE 1 CAPSULE BY MOUTH EVERY 6 HOURS FOR 7 DAYS 02/21 completed Not Available Not Available Not Available pantopraz ole 40 mg tablet,de layed release TAKE 1 TABLET BY MOUTH ONCE DAILY active Not Available Not Available No t Available metformin 1,000 mg tablet TAKE 1 TABLET BY MOUTH TWICE DAILY 2024 active Not Available Not Available Not Avai lable diclofena c sodium 75 mg tablet,de layed release TAKE 1 TABLET BY MOUTH TWICE DAILY active Not Available Not Available No t Available cephalexi n 500 mg tablet Take 1 tablet every 6 hours by oral route for 7 days. 02/21 completed Not Available Not Available Not Available furosemid e 20 mg tablet TAKE 1 TABLET BY MOUTH ONCE DAILY FOR 7 DAYS THEN ONLY TAKE NEEDED FOR 2-3 LBS WEIGHT GAIN IN 24 HOURS FOR 30 DAYS 03/28 completed Not Available Not Available Not Available gabapenti n 100 mg capsule TAKE 1 CAPSULE BY MOUTH THREE TIMES DAILY FOR 30 DAYS 02/18 completed Not Available Not Available Not Available metoprolo l succinate ER 25 mg tablet,ex tended release 24 hr Take 1 tablet every day by oral route. 2024 active Not Available Not Available Not Avai lable dexametha sone sodium phosphate 4 mg/mL injection solution Inject 1 mL every day by intramus cular route for 1 day. 04/19 completed Not Available Not Available Not Available methylpre dnisolone 4 mg tablets in a dose pack TAKE BY MOUTH DIRECTED ON INSIDE OF PACKAGE 05/20 completed Not Available Not Available Not Available albuterol sulfate HFA 90 mcg/actua tion aerosol inhaler INHALE 1 PUFF BY MOUTH EVERY 6 HOURS NEEDED FOR SHORTNES S OF BREATH FOR WHEEZING active Not Available Not Available No t Available ketorolac 60 mg/2 mL intramusc ular solution Inject 2 mL every day by intramus cular route for 1 day. 04/19 completed Not Available Not Available Not Available cefdinir 300 mg capsule Take 1 capsule every 12 hours by oral route for 7 days. 06/07 completed Not Available Not Available Not Available fluticaso ne propionat e 50 mcg/actua tion nasal spray,fabian pension USE 1 SPRAY(S) IN EACH NOSTRIL ONCE DAILY 02/21 completed Not Available Not Available Not Available glipizide 5 mg tablet Take 1 tablet every day by oral route as directed for 90 days. 12/22 completed Not Available Not Available Not Available esomepraz ole magnesium 20 mg capsule,d elayed release TAKE 1 CAPSULE BY MOUTH TWICE DAILY 02/18 completed Not Available Not Available Not Available tadalafil 10 mg tablet TAKE ONE TABLET BY MOUTH AT LEAST 30 MINUTES PRIOR TO SEXUAL ACTIVITY NEEDED - DO NOT TAKE MORE THAN 1 TABLET PER DAY 07/27 completed Not Available Not Available Not Available tadalafil 20 mg tablet TAKE 1 TABLET BY MOUTH ONCE DAILY 02/21 completed Not Available Not Available Not Available chlorhexi dine gluconate 0.12 % mouthwash 02/18 completed Not Available Not Available Not Available aspirin daily 02/18 completed 0; Recorded 05/25/20 4:02PM by Vivek mederos, Office Visit; Not Available Not Available Not Available Softclix Lancets daily 12/13 completed 9; Recorded 12/12/19 7:46AM by Rosaura Gallo LPN (Authori juan through Andrzej Ware MD), Office Visit; Mail Order Quantity : 90 Stick; Mail Order Days: 90 Days; Refill Quantity : 0; Not Available Not Available Not Available enalapril maleate daily 02/18 completed VO MW/tw; Recorded 12/12/19 3:21PM by Meli Ward PA-C, Office Visit; Mail Order Quantity : 45 Tablet; Mail Order Days: 90 Days; Refill Quantity : 45; Tablet; Not Available Not Available Not Available metoprolo l succinate daily 02/18 completed 0; Recorded 05/25/20 4:02PM by Vivek mederos, Office Visit; Not Available Not Available Not Available metformin two times daily 02/18 completed MW/mf; 61789; Recorded 12/12/19 7:46AM by Rosaura Gallo LPN (Authori juan through GRICELDA Hodges), Office Visit; Mail Order Quantity : 180 Tablet; Mail Order Days: 90 Days; Refill Quantity : 0; Not Available Not Available Not Available esomepraz ole magnesium BID 02/18 completed Recorded 04/27/20 10:33AM by Meredith Garcia RN, Office Visit; Refill Quantity : 60; Capsule; Not Available Not Available Not Available Nystatin/ Triamcino lone two times daily 02/18 completed Recorded 04/27/20 22 10:27AM by Meredith Garcia RN, Office Visit; Refill Quantity : 60; Gram; Not Available Not Available Not Available Januvia 50 mg tablet Take 1 tablet every day by oral route as directed for 90 days. 02/21 completed Not Available Not Available Not Available Symbicort 80 mcg-4.5 mcg/actua tion HFA aerosol inhaler 02/21 completed Not Available Not Available Not Available Accu-Chek Spirit Pouch daily 02/18 completed Recorded 12/12/19 22 7:46AM by Rosaura Gallo LPN, Office Visit; Mail Order Quantity : 1 QS; Refill Quantity : 0; Not Available Not Available Not Available TRUEplus Lancets 33 gauge USE DIRECTED 2024 active Not Available Not Available Not Avai lable Lactobaci llus acidophil us 2 billion cell tablet Take 1 tablet every day by oral route. 2024 active Not Available Not Available Not Avai lable True Metrix Glucose Test Strip TEST BLOOD SUGAR EVERY DAY 2024 active Not Available Not Available Not Avai lable True Metrix Air Glucose Meter USE DIRECTED 2024 active Not Available Not Available Not Avai lable ReliOn All-In-On e Meter 12/13 completed Not Available Not Available Not Available Ozempic 0.25 mg or 0.5 mg (2 mg/3 mL) subcutane ous pen injector INJECT 0.25MG SUB-Q WEEKLY FOR 4 WEEKS, THEN INCREASE TO 0.5MG WEEKLY FOR 8 WEEKS 02/18 completed Not Available Not Available Not Available Vitals Date Recorded Body height Body mass index (BMI) Body weight Oxygen saturation Heart rate Respiratory rate Body temperature Systolic And Diastolic Provider Name and Address Organization Details Last Updated DateTime 177.8 cm 31.7 kg/m2 981818. 91 g 98 % 78 /min 20 /min 98 [degF] 136/80 mm[Hg] ROSAURA GALLO [facility], [place]. 10:38:47 Social History Question Answer Notes LastModified by Organizat ion Details LastModified Time Tobacco Smoking Status Never Smoker MELI WARD PA-C [address] [place], [address], [facility], [place] 02/18/2023 10:41:51 Are You Blind Or Do You Have Difficulty Seeing? No [email or web address] Information not available 02/18/2023 Are You Deaf Or Do You Have Serious Difficulty Hearing? No [email or web address] Information not available 02/18/2023 What Type Of Diet Are You Following? DIABETIC [email or web address] Information not available 02/18/2023 What Was The Date Of Your Most Recent Tobacco Screening? 02/18/2023 [email or web address] Information not available 02/18/2023 Do You Use Your Seat Belt Or Car Seat Routinely? Yes [email or web address] Information not available 02/18/2023 Do You Have Difficulty Walking Or Climbing Stairs? No Information not available 02/18/2023 Sex: Unknown Functional Status Question Answer Note LastModified by Whateverizat ion Details LastModified Time What is your level of alcohol consumption? Occasional [email or web address] Information not available 02/18/2023 Do you have transportation difficulties? No [email or web address] Information not available 02/18/2023 Are you able to walk independently without assistance or assistive devices? YESWOREST [email or web address] Information not available 02/18/2023 Do you have difficulty doing errands alone? No Information not available 02/18/2023 Are you able to care for yourself independently? Yes Information not available 02/18/2023 Do you have difficulty dressing, bathing, grooming, or toileting? No [email or web address] Information not available 02/18/2023 Mental Status Question Answer Note LastModified by Whateverizat ion Details LastModified Time Do you feel stressed (tense, restless, nervous, or anxious, or unable to sleep at night)? [id number] [email or web address] Information not available 02/18/2023 Do you have difficulty concentrating, remembering or making decisions? No [email or web address] Information no t available 02/18/2023 Family History Nothing Reported. Medical History Condition Response Diabetes Y Coronary Artery Disease Y Heart Disease Y Arthritis Y Immunizations Vaccine Type Date Status Note Provider Nam e and Address Organization Details Recorded Time Tdap 8 completed Not Available [facility] 01/30/2023 02:49:41 Influenza, split virus, trivalent, preservative 9 completed Not Available [facility] 01/30/2023 02:49:42 Td(adult) unspecified formulation 2 completed Not Available [facility] 01/30/2023 02:49:42 Past Encounters Encounter ID Performer Location Encounter Start Date Encounter Closed Date Diagnosis/Indication Diagnosis SNOMED-CT Code Diagnosis ICD10 Code Diagnosis IMO Codes Diagnosis Note [id number] MELI WARD PA-C [facility] ([facility]) [address] [place] [phone] 05/24/2025 14:47:26 05/24/2025 16:07:28 Acute bacterial sinusitis 03577604 J01.90 B96.89 35243 Chronic insomnia 2479560 04 F51.04 [id number] MELI WARD PA-C [facility] ([facility]) [address] [place] [address] [phone] 05/29/2025 10:23:09 05/29/2025 11:12:07 Acute abdominal pain 696805863 R10.9 94983 acute diffuse pain. differenti al renal stones, pancreatit is, colitis, mesenteric ischemia. Health Concerns Section Related Observation LastModified by Organization Detai ls LastModified Time None Recorded Concern Status LastModified by Organization Details LastModified Time None Recorded Payers Encounter Date Sequence Insurance Name Policy Number Policy Aldridge Covered Member ID Aldridge Member ID Guarantor Name 05/29/2025 1 [facility] (MEDICARE REPLACEMENT/A DVANTAGE - PPO) [id number] Marcial Casillas [id number] Marcial Casillas Notes Date Note Type Note Provider Name and Address Organization Details Recorded Time 05/29/2025 text/html Abdominal PainRe ported by PatientAbdominal PainFor quality, patient reportsbloating,crampi ng, andaching. For location, patient reportsgeneralized. For severity, patient reportsmoderate. For duration, patient reportsconstant. For onset/timing, patient reportsacute,started:, andsudden. For associated symptoms, patient reportsno fever,no chills,no blood in the urine,no heartburn,no shortness of breath,no nausea,no vomiting,no diarrhea,no constipation,normal stool,no blood in stool,normal appetite,no jaundice,no dysuria,no fatigue,no weight loss,no cough,no changes in stool,no urinary frequency,no orthopnea,no exertional dyspnea, andno menstrual symptoms. For other, patient reportsdenies possible . said maybe he's taken too many antibiotics ? he is still cefdinir from last week but took some from [place] before that,then some from Dr Knox pain, bloated x 4 days. eating good, no vomiting. no heartburn. normal BMs. no fever. but alot of pain, bloating and pressure throughout. feeling some flank pain as well. MELI WARD PA-C [address] [place], [address], [facility], [place] 05/29/2025 11:11:46
--- OUTSIDE RECORDS SUMMARY | 2025-06-22 23:00 | XMS_ITS | Encounter Summary ---
Author Organization [facility] Address [address] [place] [address] Care Team Providers Care Personal Carer Name Role Phone Unavailable Primary Care Provider Unavailabl e Encounter Details Date Type Department Care Team (Late st Contact Info) Description 08/24/2007 Outpatient Historical [facility] [place] [address] [facility] [address] [place] [phone] Cruz Florian MD [address] [place] [address] Social History Tobacco Use Types Packs/Day Years Used Date Smoking Tobacco: Never Assessed Sex and Gender Information Value Date Recorded Sex Assigned at Not on file 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
--- OUTSIDE RECORDS SUMMARY | 2025-06-22 23:00 | XMS_ITS | Encounter Summary ---
Author Organization [facility] Address [address] [place] [address] Care Team Providers Care Furniture Assembler And Installer Name Role Phone Unavailable Primary Care Provider Unavailabl e 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 * Radiology Services (Routine) - Closed Specialty Diagnoses / Procedures Referred By Contac t Referred To Contact Orthopedic Surgery Diagnoses Pain Procedures US GUIDE NEEDLE PLACEMENT José Manuel Vasquez MD Phone: tel: fax: [facility] [address] [place] [address] Phone: tel: fax: Referral ID Status Reason Start Date Expiration Date Visits Requested Visits Authorized [id number] Closed Performing Department to Schedule 12/17/2020 01/17/2022 1 1 Encounter Details Date Type Department Care Team (Late st Contact Info) Description 12/17/2020 Ancillary Orders [place] [address] [place] [address] José Manuel Vasquez MD [address] [place] [address] Pain Social History Tobacco Use Types Packs/Day Years Used Date Smoking Tobacco: Never Smokeless Tobacco: Never Alcohol Use Standard Drinks/Week Comments Yes 0 (1 standard drink = 0.6 oz pur e alcohol) case of beer lasts a year Sex and Gender Information Value Date Recorded Sex Assigned at Not on file 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 No / Unsure 12/17/2020 12:58 PM CDT documented as of this encounter Plan of Treatment Not on file documented as of this encounter Results * US GUIDE NEEDLE PLACEMENT (12/17/2020 1:58 PM CDT) Anatomical Region Laterality Modality Ultrasound Narrative 12/18/2020 8:45 AM CDT The anatomy was visualized under ultrasound. The area was then cleaned with Betadine in a sterile fashion and a 3.5 inch, 20-gauge needle was then inserted and advanced under ultrasound guidance to the femoral neck/head. 1 mL of Depo-Medrol 80 mg and 11 cc of 1% lidocaine was injected into the space with good distention of the joint capsule visualized. The needle was withdrawn and an adhesive bandage was placed. The patient tolerated the procedure well and hemostasis was achieved. us José Manuel Vasquez MD US ORDERABLES Final Result documented in this encounter Visit Diagnoses Diagnosis Pain Generalized pain Pain Generalized pain documented in this encounter
--- OUTSIDE RECORDS SUMMARY | 2025-06-22 23:00 | XMS_ITS | Encounter Summary ---
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
--- OUTSIDE RECORDS SUMMARY | 2025-06-22 23:00 | XMS_ITS | Encounter Summary ---
Author Organization [facility] Address [address] [place] [address] Care Team Providers Care Lithographic Printing Machinist Name Role Phone Unavailable Primary Care Provider Unavailabl e Encounter Details Date Type Department Care Team (Latest Contact Info) Description 11/17/[address] 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 Again noted are lower lumbar laminectomies and posterolateral bone graft material from L2 to L5-S1. Stable appearance of the posterior fusion hardware from L2 to L4. No significant change in the extensive multilevel degenerative changes or in the slight retrolisthesis at L2-L3 and slight anterolisthesis at L3-L4. Impression: 1. Stable exam. Dictated By: Deborah Roe M.D. Electronically Signed By: Deborah Roe M.D. Date Signed: 11/23/07 [facility] Procedure Note RoeAnurag Vladimir - 11/23/2007 Comparison 09/29/2007. Again noted are lower lumbar laminectomies and posterolateral bone graftmaterial from L2 to L5-S1. Stable appearance of the posterior fusion hardware from L2 to L4. Nosignificant change in the extensive multilevel degenerative changes or in the slight retrolisthesis at L2-L3and slight anterolisthesis at L3-L4. Impression: 1. Stable exam. Dictated By: Deborah Roe M.D. Electronically Signed By: Deborah Roe M.D. Date Signed: 11/23/07 [facility] Cruz Florian MD DIAGNOSTIC IMAGING ORDERABLES Final Result documented in this encounter Visit Diagnoses Diagnosis Pain in limb Arthrodesis status Lumbosacral spondylosis without myelopathy Insomnia, unspecified documented in this encounter
--- OUTSIDE RECORDS SUMMARY | 2025-06-22 23:00 | XMS_ITS | Continuity of Care Document ---
Author Organization [facility] Phani Dinh [facility] [place], [facility] ([facility]) Address [address] [place] [address] Assessment No assessment recorded. Plan of Treatment Reminders Order Date Submit Date Provider Last Modified By Organization Details Last Modified Time Details Appointments None recorded. Lab None recorded. Referral None recorded. Procedures None recorded. Surgeries None recorded. Imaging None recorded. Medication Orders cefdinir 300 mg capsule 2024 025 [facility], [address] [address], [address], 05:01:43 trazodone 50 mg tablet 2024 025 [facility], [address], [place], [address], 15:22:40 Patient TargetsNo targets recorded. Patient InstructionsNo instructions recorded. 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 None Reported. Results Created Date Observation Date Name Description Value Unit Range Abnormal Flag Note LastModifiedBy Organization Detail LastModifiedTime 05/29/2005/29/2025 CT, abdom en + pelvi s, w/ contr ast No observ ation record ed. [facility] [address] [place], [address], 05/29/2025 18:12:29 Result Notes None recorded. Problems Name Problem SNOMED Code Status Onset Date Resolution Date Notes Provider Name and Address Organization Details Recorded Time History of nutritio nal disorder 578426803 Completed 202112/11/2021 H/O NON-INSU SOFÍA DEPENDEN T DIABETES MELLITUS - Status is Inactive ; Recorded 12/12/19 3:37PM by Meli Ward PA-C, Annotati on/Adden dum; Promoted ; acuity set as *; Not Available [facility] 3 03:16:01 History of endocrin e disorder 212459908 Completed 202112/11/2021 H/O NON-INSU SOFÍA DEPENDEN T DIABETES MELLITUS - Status is Inactive ; Recorded 12/12/19 3:37PM by Meli Ward PA-C, Annotati on/Adden dum; Promoted ; acuity set as *; Not Available [facility] 3 03:16:01 History of metaboli c disorder 924455275 Completed 202112/11/2021 H/O NON-INSU SOFÍA DEPENDEN T DIABETES MELLITUS - Status is Inactive ; Recorded 12/12/19 3:37PM by Meli Ward PA-C, Annotati on/Adden dum; Promoted ; acuity set as *; Not Available [facility] 3 03:16:01 Anemia 020019377 Completed 202112/11/2021 ANEMIA - Status is Inactive ; Recorded 12/12/19 3:38PM by Meli Ward PA-C, Annotati on/Adden dum; Promoted ; acuity set as *; Not Available [facility] 3 03:16:02 Herpes zoster 7693890 Completed 202112/11/2021 HERPES ZOSTER WITHOUT COMPLICA TION [...] ; acuity set as *; Not Available [facility] 3 03:16:02 Fracture of other finger Completed 202112/11/2021 fx 3rd and 4th digits on Lt hand - Status is Inactive ; 12/12/19 3:38PM by Meli Ward PA-C, Annotati on/Adden dum; Promoted ; acuity set as *; Not Available [facility] 3 03:16:02 Gastroes ophageal reflux disease 780842441 Active 2021 GERD (GASTROE SOPHAGEA L REFLUX DISEASE) ; Recorded 05/25/20 3:58PM by Vivek mederos, Office Visit; Promoted ; acuity set as *; [facility] 15:34:18 Coronary artery bypass graft stent present [id number] 9104 Active 2021 H/O HEART ARTERY STENT; Recorded 05/25/20 3:58PM by Vivek mederos, Office Visit; Promoted ; acuity set as *; [facility] 15:34:12 Hypercho lesterol emia 99781933 Active 2021 Hypercho lesterol emia; 05/25/20 3:58PM by Vivek mederos, Office Visit; Promoted ; acuity set as *; ROSAURA GALLO null, [facility] 5 15:34:26 Coronary arterios clerosis 94735825 Active 2022 ROSAURA GALLO null, [facility] 5 15:34:08 Type 2 diabetes mellitus 31105646 Active 2022 ROSAURA CLEO null, [facility] 5 15:34:54 Diabetes mellitus 39760453 Active 2023 [facility] 15:34:15 Spinal stenosis of lumbosac ral region 635746000 Active 2024 ROSAURA GALLO [facility] 5 08:17:04 Spinal stenosis of lumbar region 31320306 Active 2024 [facility] ABDIRASHIDSUGEY [facility] 5 08:17:32 Notes:Some problems listed i n Documents: #[id number], #[id number] could not be added to this patient's chart. Please review these documents and add these problems to the patient's chart manually as needed. Problem Notes None recorded. Procedures Surgical History Date Name Laterality Status Provider Name and Address Organization Details Recorded Time 04/30/20 25 diabetic retinal eye exam completed ROSAURA GALLO [facility] 06/10/2025 08:31:40 07/27/19 25 Joint Inj Beta-shoulder, hip, knee completed MEIL WARD PA-C [address] [place], [address], [facility] 07/27/2024 14:58:22 02/23/20 24 prostate specific antigen measurement completed ROSAURA GALLO [facility] 06/10/2025 08:35:25 12/29/19 24 cardiac catheterization completed MELI WARD PA-C [address] [place], [address], [facility] 12/30/2023 09:19:40 12/10/19 24 Family Practice Trigger Point Injection completed MELI WARD PA-C [address] [place], [address], [facility] 12/27/2023 17:05:59 12/10/19 24 jr arceo warts completed MELI WARD PA-C [address] [place], [address], [facility] 12/27/2023 17:06:12 11/18/19 24 Family Practice Trigger Point Injection completed MELI WARD PA-C [address] [place], [address], [facility], [place] 2023 19:46:35 11/18/19 24 jr cryo warts completed MELI WARD PA-C [address] [place], [address], [facility], [place] 2023 19:45:06 02/22/20 21 placement of stent in cardiac conduit [facility]/18/2023 09:52:08 02/22/20 20 colonoscopy [facility]/18[facility]23 09:51:32 Imaging Results None recorded. Procedure Notes None recorded. Medical Equipment None Reported. Allergies Allergen ID Allergen Name Allergen Category Reaction Reaction Severity Criticality Documentation Date Start Date Code Code System Note Provider Name and Address Organization Details Recorded Time 65403 doxycycli ne Not available Not available Not available Not available 02/18/2023 3640 RxNorm ROSAURA GALLO [facility], [place] 09:45:13 Medications Name Sig Start Date Stop [...] succinate daily 02/18 completed 0; Recorded 05/25/20 22 4:02PM by Vivek mederos, Office Visit; Not Available Not Available Not Available metformin two times daily 02/18 completed MW/mf; 18432; Recorded 12/12/19 7:46AM by Rosaura Gallo LPN (Aroldo martinez through GRICELDA Hodges), Office Visit; Mail Order Quantity : 180 Tablet; Mail Order Days: 90 Days; Refill Quantity : 0; Not Available Not Available Not Available esomepraz ole magnesium BID 02/18 completed Recorded 04/27/20 22 10:33AM by Meredith Garcia RN, Office Visit; [...] Organization Details Last Updated DateTime 177.8 cm 31 kg/m2 27791.9 5 g 97 % 80 /min 18 /min 97.9 [degF] 138/80 mm[Hg] ROSAURA GALLO [facility] 14:56:57 Social History Question Answer Notes LastModified by [email or web address] ion Details LastModified Time Tobacco Smoking Status Never Smoker MELI WARD PA-C [address] [place] [address], [address], [facility] 02/18/2023 10:41:51 Are You Blind Or Do You Have Difficulty Seeing? No [email or web address] Information not available 02/18/2023 Are You Deaf Or Do You Have Serious Difficulty Hearing? No [email or web address] Information not available 02/18/2023 What Type Of Diet Are You Following? DIABETIC [email or web address] Information not available 02/18/2023 What Was The Date Of Your Most Recent Tobacco Screening? 02/18/2023 [email or web address] Information not available 02/18/2023 Do You Use Your Seat Belt Or Car Seat Routinely? Yes [email or web address] Information not available 02/18/2023 Do You Have Difficulty Walking Or Climbing Stairs? No [email or web address] Information not available 02/18/2023 Sex: Unknown Functional Status Question Answer Note LastModified by Organizat ion Details LastModified Time What is your level of alcohol consumption? Occasional [email or web address] Information not available 02/18/2023 Do you have transportation difficulties? No [email or web address] Information not available 02/18/2023 Are you able to walk independently without assistance or assistive devices? [email or web address] Information not available 02/18/2023 Do you have difficulty doing errands alone? No [email or web address] Information not available 02/18/2023 Are you able to care for yourself independently? Yes [email or web address] Information not available 02/18/2023 Do you have difficulty dressing, bathing, grooming, or toileting? No [email or web address] Information not available 02/18/2023 Mental Status Question Answer Note LastModified by Organizat ion Details LastModified Time Do you feel stressed (tense, restless, nervous, or anxious, or unable to sleep at night)? [id number] Information not available 02/18/2023 Do you have difficulty concentrating, remembering or making decisions? No [email or web address] Information no t available 02/18/2023 Family History Nothing Reported. Medical History Condition Response Diabetes Y Coronary Artery Disease Y Heart Disease Y Arthritis Y Immunizations Vaccine Type Date Status Note Provider Nam e and Address Organization Details Recorded Time Tdap 8 completed Not Available [facility] 01/30/2023 02:49:41 Influenza, split virus, trivalent, preservative 9 completed Not Available [facility] 01/30/2023 02:49:42 Td(adult) unspecified formulation 2 completed Not Available [facility] 01/30/2023 02:49:42 Past Encounters Encounter ID Performer Location Encounter Start Date Encounter Closed Date Diagnosis/Indication Diagnosis SNOMED-CT Code Diagnosis ICD10 Code Diagnosis IMO Codes Diagnosis Note [id number] MELI WARD PA-C [facility] ([facility]) [address] [place], [place] [id number] 5 05/24/2025 14:47:26 05/24/2025 16:07:28 Acute bacterial sinusitis 72653098 J01.90 B96.89 04994 Chronic insomnia 4324336 04 F51.04 034819 Health Concerns Section Related Observation LastModified by Organization Detai ls LastModified Time None Recorded Concern Status LastModified by Organization Details LastModified Time None Recorded Payers Encounter Date Sequence Insurance Name Policy Number Policy Aldridge Covered Member ID Aldridge Member ID Guarantor Name 05/24/2025 1 [facility] (MEDICARE REPLACEMENT/A DVANTAGE - PPO) [id number] Marcial Casillas [id number] Marcial Casillas Notes Date Note Type Note Provider Name and Address Organization Details Recorded Time 05/24/2025 text/html Upper Respirator y SymptomsReported by PatientUpper Respiratory SymptomsFor quality, patient reportsproductive cough,congested,hackin g cough,wheezy cough, andnasal discharge. For associated symptoms, patient reportsgreen sputum,shortness of breath,wheezing,diffic ulty breathing at night, andfatigue. For location, patient reportshead,chest, andnasal. For severity, patient reportsmoderate. For duration, patient reportssymptoms lasting over 2 weeks. For onset/timing, patient reportssudden. For context, patient reportsno foreign travelandnon-smoker. For alleviating factors, patient reportsanalgesicsandan tihistamines. manjinder [facility] 05-14-25 got amoxil and albuterol and prednisoneCOVID tested negatiev. was feeling better until his antibiotics ran out. MELI WARD PA-C [address] [place] [address], [address], [facility], [place] 05/24/2025 15:24:29
--- OUTSIDE RECORDS SUMMARY | 2025-06-22 23:00 | XMS_ITS | Encounter Summary ---
Author Organization [facility] Address [address] [place] [address] Care Team Providers Care Foreign Broadcast Specialist Name Role Phone Unavailable Primary Care Provider Unavailabl e Encounter Details Date Type Department Care Team (Latest Contact Info) Description 07/28/2007 Outpatient Historical [facility] Cruz Florian MD [address] [place] [address] [place] [address] Magen Sims MD [address] [phone] Arthrodesis Status; Degeneration of Lumbar or Lumbosacral Intervertebral Disc; Spinal Stenosis of Lumbar Region Social History Tobacco Use Types Packs/Day Years Used Date Smoking Tobacco: Never Assessed Sex and Gender Information Value Date Recorded Sex Assigned at Not on file Legal Sex Male 3:53 AM [employer] Gender Identity Not on file Sexual Orientation Not on file documented as of this encounter Plan of Treatment Not on file documented as of this encounter Procedures Procedure Name Priority Date/Time Associated Diagnosis Comments MRI LUMBAR W WO CONTRAST Routine 08/02/2007 10:53 AM [employer] documented in this encounter Results * MRI LUMBAR W WO CONTRAST (08/02/2007 10:53 AM [employer]) Anatomical Region Laterality Modality Spine Other 08/02/2007 10:5 3 AM [employer] Narrative 08/02/2007 10:54 AM [employer] Lumbar spine MRI without and with contrast: History: Low back pain extending into the bilateral lower extremities. Four prior surgeries. The examination has been performed without contrast and with 20 mL of Optimark. Laminectomies have been performed from L1-L2 to L5-S1. Posterior osseous fusion changes at L4-L5 and L5-S1. No vertebral body height loss or any significant focal osseous abnormalities. Very mild retrolisthesis at L2-L3 and mild anterolisthesis at L3-L4. The conus and cauda equina are unremarkable. L1-L2: Posterior enhancing granulation tissue. No disc bulge or foraminal narrowing. L2-L3: Mild disc space height and diffuse signal loss and mild endplate degenerative changes. Laminectomy defect and posterior enhancing scar tissue. Moderate disc bulge, severe facet degenerative changes and a small left medial synovial cyst and mild narrowing of the lateral recesses and foramina. L3-L4: Severe disc space height loss and mild to moderate endplate degenerative change. Laminectomy and posterior enhancing granulation tissue. Mild left paracentral disc protrusion and/or hypertrophic spur and mild narrowing of the left lateral recess and mild bilateral foraminal stenosis. Moderate to severe facet degenerative changes. L4-L5: Moderate disc space height loss and posterolateral osseous fusion. No significant central canal or foraminal stenosis. Mild enhancing scar tissue surrounds the left L5 nerve root in the lateral recess. L5-S1: Moderate to severe disc space height loss and posterolateral osseous fusion. Very mild disc bulge. No significant central canal or foraminal stenosis. Impression: 1. L1-2 through L5-S1 laminectomies and posterior osseous fusion at L4-L5 and L5-S1. 2. Moderate L2-L3 disc bulge and severe facet degenerative changes and a small left synovial cyst and mild narrowing of the lateral recesses and neural foramina. 3. Mild left L3-L4 lateral recess and bilateral foraminal stenosis. 4. No significant central canal or foraminal stenosis at the L4-L5 or L5-S1 levels. - Procedure Note Anurag Roe - 08/02/2007 Lumbar spine MRI without and with contrast: History: Low back pain extending into the bilateral lower extremities.Four prior surgeries. The examination has been performed without contrast and with 20 mL ofOptimark. Laminectomies have been performed from L1-L2 to L5-S1. Posterior osseousfusion changes at L4-L5 and L5-S1. No vertebral body height loss or any significant focal osseousabnormalities. Very mild retrolisthesis at L2-L3 and mild anterolisthesis at L3-L4. The conus andcauda equina are unremarkable. L1-L2: Posterior enhancing granulation tissue. No disc bulge or foraminalnarrowing. L2-L3: Mild disc space height and diffuse signal loss and mild endplatedegenerative changes. Laminectomy defect and posterior enhancing scar tissue. Moderate discbulge, severe facet degenerative changes and a small left medial synovial cyst and mildnarrowing of the lateral recesses and foramina. L3-L4: Severe disc space height loss and mild to moderate endplatedegenerative change. Laminectomy and posterior enhancing granulation tissue. Mild left paracentral discprotrusion and/or hypertrophic spur and mild narrowing of the left lateral recess and mildbilateral foraminal stenosis. Moderate to severe facet degenerative changes. L4-L5: Moderate disc space height loss and posterolateral osseous fusion.No significant central canal or foraminal stenosis. Mild enhancing scar tissue surrounds the left K6yskwn root in the lateral recess. L5-S1: Moderate to severe disc space height loss and posterolateralosseous fusion. Very mild disc bulge. No significant central canal or foraminal stenosis. Impression: 1. L1-2 through L5-S1 laminectomies and posterior osseous fusion at L4-L5and L5- S1. 2. Moderate L2-L3 disc bulge and severe facet degenerative changes and asmall left synovial cyst and mild narrowing of the lateral recesses and neural foramina. 3. Mild left L3-L4 lateral recess and bilateral foraminal stenosis. 4. No significant central canal or foraminal stenosis at the L4-L5 orL5-S1 levels. - Magen Sims MD MR ORDERABLES Final Result documented in this encounter Visit Diagnoses Diagnosis Arthrodesis status Degeneration of lumbar or lumbosacral intervertebral disc Spinal stenosis, lumbar region, without neurogenic claudication documented in this encounter
--- OUTSIDE RECORDS SUMMARY | 2025-06-22 23:01 | XMS_ITS | Continuity of Care Document ---
Author Organization JOYCE Dinh [facility] [place], [facility] ([facility]) Address [address] [place] [address] Assessment No assessment recorded. Plan of Treatment Reminders Order Date Submit Date Provider Last Modified By Organization Details Last Modified Time Details Appointments None recorded. Lab ESR (erythroc yte sedimenta tion rate), blood 2024 025 [facility] ([facility]), [address] [place], [address], 16:05:36 C-reactiv e protein, quantitat shirley, serum or plasma 2024 025 [employer] [facility], [address] [facility], [place], [address], 12:59:05 uric acid, serum or plasma 2024 025 [employer] [facility], [address] [facility] [address], [address] [place], [address], 12:59:05 CMP, serum or plasma 2024 025 [facility], [address] [facility], [facility] [address], [address], 5 15:08:47 CBC 2024 025 [facility], [address] [facility], [facility] [address], [address], 15:03:06 DELMY + rf (antinucl ear antibodie s + rheumatoi d factor), quantitat shirley, serum 2024 025 [email or web address] 1 [facility], [address], [address] [place], [address], 07:04:07 Referral podiatris t referral 2024 025 [email or web address] 2 [facility], [address] [place] [address], [address], 12:31:48 Procedures None recorded. Surgeries None recorded. Imaging XR, ankle, 3 or more view [address] ([facility]), [address] [place], [address], 08:44:57 Medication Orders hydrocodo ne 5 mg-acetam inophen 325 mg tablet 2024 025 [email or web address] 3 [facility]/Pharmacy #[id number], [address], [address], 18:59:23 prednison e 20 mg tablet 2024 025 [facility]/Pharmacy #[id number], [address], [address], 05:01:15 clindamyc in HCl 300 mg capsule 2024 025 [facility]/Pharmacy #[id number], [address], [address], 05:01:39 Patient TargetsNo targets recorded. Patient InstructionsNo instructions recorded. 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 Referring Physician: Meli Hawthorne, Family Medicine, Encounter Date: 04/05/2025 Results Created Date Observation Date Name Description Value Unit Range Abnormal Flag Note LastModifiedBy Organization Detail LastModifiedTime 04/05/2004/05/2025 CBC WBC 8.2 x10 4.5-10 .5 Not Available [facility] [address] [facility] 1, [place], [address], 04/05/2025 15:03:06 04/05/2004/05/2025 CBC RBC 3.91 x10 4.30-5 .90 low Not Available [facility] [address] Angel[address] [facility] 1, [place], [address], 04/05/2025 15:03:06 04/05/2004/05/2025 CBC HGB 11.9 g/dL 13.5-1 8.0 low Not Available [facility] [address] [facility], [place], [address], 04/05/2025 15:03:06 04/05/2004/05/2025 CBC HCT 36.8 % 35.0-6 0.0 Not Available [facility] [address] [facility] 1, [place], [address], 04/05/2025 15:03:06 04/05/2004/05/2025 CBC MCV 94.0 fL 80.0-9 9.9 Not Available [facility] [address] [facility] Angelica [facility] 1, [place], [address], 04/05/2025 15:03:06 04/05/2004/05/2025 CBC MCH 30.3 pg 27.0-3 2.0 Not Available [facility] [address] [facility] 1, [place], [address], 04/05/2025 15:03:06 04/05/2004/05/2025 CBC MCHC 32.2 g/dL 32.0-3 6.0 Not Available [facility] [address] [facility] 1, [place], [address], 04/05/2025 15:03:06 04/05/20 25 04/05/2025 CBC RDW 13.4 % 11.5-1 4.5 Not Available [facility] [address] [facility] 1, [place], [address], 04/05/2025 15:03:06 04/05/2004/05/2025 CBC plt 287.6 x10 150.0- 451.0 Not Available [facility] [address] [facility] 1, [place], [address], 04/05/2025 15:03:06 04/05/2004/05/2025 CBC lymphocytes % 26.0 % 20.0-5 0.0 Not Available [facility] [address] [facility] [address], [place], [address], 04/05/2025 15:03:06 04/05/2004/05/2025 CBC granulcytes % 61.0 % 30.0-7 0.0 Not Available [facility] [address] [facility] [address], [place], [address], 04/05/2025 15:03:06 04/05/2004/05/2025 CBC monocytes % 11.2 % 2.0-16 .0 Not Available [facility] [address] [facility] 1, [place], [address], 04/05/2025 15:03:06 04/05/2004/05/2025 CBC granulcytes# 5.0 x10 Not Amisha ilable [facility] [address] [facility] 1, [place], [address], 04/05/2025 15:03:06 04/05/20 25 04/05/2025 CBC lymphocytes # 2.1 x10 Not Available [facility] [address] [facility] [address], [place], [address], 04/05/2025 15:03:06 04/05/20 25 04/05/2025 CBC monocytes # 0.9 x10 Not Avai lable [facility] [address] [facility] [address], [place], [address], 04/05/2025 15:03:06 04/05/20 25 04/05/2025 CMP (MALE ) glucose 211.0 mg/dL 60.0-9 9.0 high Not Available [facility] [address] [facility] [address], [place], [address], 04/05/2025 15:08:46 04/05/20 25 04/05/2025 CMP (MALE ) BUN (blood urea nitrogen) 16.0 mg/dL 10.0-2 6.0 Not Available [facility] [address] [facility] [address], [place], [address], 04/05/2025 15:08:46 04/05/20 25 04/05/2025 CMP (MALE ) creatinine (serum) 1.1 mg/dL 0.4-1. 5 Not Available [facility] [address] [facility] [address], [place], [address], 04/05/2025 15:08:46 04/05/20 25 04/05/2025 CMP (MALE ) BUN/creatini ne ratio 14.55 ratio Not Available [facility] [address] [facility] [address], [place], [address], 04/05/2025 15:08:46 04/05/20 25 04/05/2025 CMP (MALE ) eGFR calculated 69.2 Not Available [facility] [address] [facility] [address], [place], [address], 04/05/2025 15:08:46 04/05/20 25 04/05/2025 CMP (MALE ) total protein 6.8 g/dL 6.0-8. 5 Not Available [facility] [address] [facility] 1, [place], [address], 04/05/2025 15:08:46 04/05/20 25 04/05/2025 CMP (MALE ) total bilirubin 0.7 mg/dL 0.2-1. 3 Not Available [facility] [address] [facility], [place], [address], 04/05/2025 15:08:46 04/05/20 25 04/05/2025 CMP (MALE ) albumin 4.1 g/dL 3.5-5. 5 Not Available [facility] [address] [facility], [place], [address], 04/05/2025 15:08:46 04/05/20 25 04/05/2025 CMP (MALE ) globulin 2.7 calc Not Available [facility] [address] [facility] [address], [place], [address], 04/05/2025 15:08:46 04/05/20 25 04/05/2025 CMP (MALE ) AST (SGOT) 19.0 U/L 0.0-46 .0 Not Available [facility] [address] [facility], [place], [address], 04/05/2025 15:08:46 04/05/20 25 04/05/2025 CMP (MALE ) altv (SGPT) 17.0 U/L 13.0-6 9.0 normal Not Available [facility] [address] [facility], [place], [address], 04/05/2025 15:08:46 04/05/20 25 04/05/2025 CMP (MALE ) A/G ratio 1.5 ratio Not Available [facility] [address] [facility] 1, [place], [address], 04/05/2025 15:08:46 04/05/20 25 04/05/2025 CMP (MALE ) ALP phos 106.0 U/L 30.0-1 40.0 normal Not Available [facility] [address] [facility] 1, [place], [address], 04/05/2025 15:08:46 04/05/20 25 04/05/2025 CMP (MALE ) calcium 9.2 mg/dL 8.4-10 .5 Not Available [facility] [address] [facility] 1, [place], [address], 04/05/2025 15:08:46 04/05/20 25 04/05/2025 CMP (MALE ) sodium 136.0 mmol/ L 136.0- 145.0 Not Available [facility] [address] [facility] 1, [place], [address], 04/05/2025 15:08:46 04/05/20 25 04/05/2025 CMP (MALE ) potassium 4.3 mmol/ L 3.5-5. 1 Not Available [facility] [address] [facility] 1, [place], [address], 04/05/2025 15:08:46 04/05/20 25 04/05/2025 CMP (MALE ) chloride 101.0 mmol/ L 98.0-1 10.0 normal Not Available [facility] [address] [facility] 1, [place], [address], 04/05/2025 15:08:46 04/05/20 25 04/05/2025 CMP (MALE ) C02 25.0 mmol/ L 22.0-3 1.0 Not Available [facility] [address] [facility] [address], [place], [address], 04/05/2025 15:08:46 04/05/2004/05/2025 CMP (MALE ) anion gap 10.0 calc Not Available [facility] [address], [place], [address], 04/05/2025 15:08:46 04/05/2004/05/2025 CMP (MALE ) osmolality 287.9 calc Not Available [facility] [address], [place], [address], 04/05/2025 15:08:46 04/05/2004/09/2025 DELMY,I FA, CASCA DE AND RHEUM ATOID ARTHR ITIS PANEL 2, WITH REFLE XES DELMY screen, ifa NEGATI VE negati ve normal DELMY IFA is a first line scree n for detec ting the prese nce of up to appro ximat lucas 150 autoa ntibo dies in vario us autoi mmune disea ses. A negat shriley DELMY IFA resul t sugge sts an DELMY-a ssoci ated autoi mmune disea se is not prese nt at this time, and does not refle x furth er. If there is high clini rigoberto suspi cion for Sjogr en's syndr ome, testi ng for anti- SS-A/ Ro antib mavis shoul d be consi dered . Anti- Patsy-1 antib mavis shoul d be consi dered for clini blue suspe cted infla mmato ry myopa michelle . AC-0: Negat shirley Inter natio nal Conse nsus on DELMY Patte rns (http s://d oi.or g/10. 1515/ ccl- 2017- 0052) For addit ional infor alli n pledilma e refer to http: //edmond catpablo n.Que stDia gnost ics.c om/fa q/FAQ 177 (This link is being provi ded for infor matio nal/ educa yelena l purpo ses only. ) Not Available [place] [address] [place], [address], 04/09/2025 12:59:04 04/05/2004/09/2025 DELMY,I FA, CASCA DE AND RHEUM ATOID ARTHR ITIS PANEL 2, WITH REFLE XES rheumatoid factor <10 IU/mL <14 normal Not Available [address] [place], [address], 04/09/2025 12:59:04 04/05/2004/09/2025 DELMY,I FA, CASCA DE AND RHEUM ATOID ARTHR ITIS PANEL 2, WITH REFLE XES cyclic citrullinate d peptide (ccp) Ab (IgG) <16 units normal Refer ence Range Negat shirley: <20 Weak Posit shirley: 20-39 Moder ate Posit shirley: 40-59 Stron g Posit shirley: >59 Not Available [address] [place], [address], 04/09/2025 12:59:04 04/05/2004/09/2025 DELMY,I FA, CASCA DE AND RHEUM ATOID ARTHR ITIS PANEL 2, WITH REFLE XES mutated citrullinate d vimentin (MCV) Ab <20 U/mL <20 Anti- mutat ed citru llina justo vimen tin antib mavis may be used as a secon d-jasvir e marke r of rheum atoid arthr itis, in addit ion to rheum atoid facto r and anti- cycli c citru llina justo pepti de (CCP) . Not Available [facility] [place] [address] [place], [address], 04/09/2025 12:59:04 04/05/2004/09/2025 URIC ACID uric acid 6.4 mg/dL 4.0-8. 0 normal Thera peuti c targe t for gout patie nts: <6.0 mg/dL Not Available [address] [place], [address], 04/09/2025 12:59:05 04/05/2004/09/2025 C-NADIR CTIVE PROTE IN C-reactive protein 49.0 mg/L <8.0 high Not Available [facility] [address] [place], [address], 04/09/2025 12:59:05 04/05/2004/05/2025 ESR (eryt hrocy te sedim entat ion rate) , blood SedRate 46 Not Available [facility] ([facility]) [address] [place], [address], 04/05/2025 14:17:26 04/05/20 XR, ankle , 3 or more view No observ ation record ed. [email or web address] [facility] ([facility]) [address] [place], [address], 04/05/2025 14:19:15 04/06/2004/05/2025 imagi ng/di agnos tic resul t No observ ation record ed. [facility] [address] [place], [address], 04/15/2025 12:37:51 05/29/20 25 05/29/2025 CT, abdom en + pelvi s, w/ contr ast No observ ation record ed. [facility] [address] [place], [address], 05/29/2025 18:12:29 Result Notes None recorded. Problems Name Problem SNOMED Code Status Onset Date Resolution Date Notes Provider Name and Address Organization Details Recorded Time History of nutritio nal disorder 741127579 Completed 202112/11/2021 H/O NON-INSU JASVIR DEPENDEN T DIABETES MELLITUS - Status is Inactive ; Recorded 12/12/19 3:37PM by Meli Hawthorne PA-C, Annotati on/Adden dum; Promoted ; acuity set as *; Not Available [facility] 3 03:16:01 History of endocrin e disorder 589373773 Completed 202112/11/2021 H/O NON-INSU JASVIR DEPENDEN T DIABETES MELLITUS - Status is Inactive ; Recorded 12/12/19 3:37PM by Meli Hawthorne PA-C, Annotati on/Adden dum; Promoted ; acuity set as *; Not Available [facility] 3 03:16:01 History of metaboli c disorder 858849222 Completed 202112/11/2021 H/O NON-INSU JASVIR DEPENDEN T DIABETES MELLITUS - Status is Inactive ; Recorded 12/12/19 3:37PM by Meli Hawthorne PA-C, Annotati on/Adden dum; Promoted ; acuity set as *; Not Available [facility] 3 03:16:01 Anemia 623670839 Completed 202112/11/2021 ANEMIA - Status is Inactive ; Recorded 12/12/19 3:38PM by Meli Hawthorne PA-C, Annotati on/Adden dum; Promoted ; acuity set as *; Not Available [facility] 3 03:16:02 Herpes zoster 0763675 Completed 202112/11/2021 HERPES ZOSTER WITHOUT COMPLICA TION [...] symptoms .; Recorded 12/12/19 3:37PM by Meli Hawthorne PA-C, Leeanneati on/Adden dum; Promoted ; acuity set as *; Not Available [facility] 3 03:16:02 Fracture of other finger Completed 202112/11/2021 fx 3rd and 4th digits on Lt hand - Status is Inactive ; 12/12/19 3:38PM by Meli Hawthorne PA-C, Annotati on/Adden dum; Promoted ; acuity set as *; Not Available [facility] 3 03:16:02 Gastroes ophageal reflux disease 590238629 Active 2021 GERD (GASTROE SOPHAGEA L REFLUX DISEASE) ; Recorded 05/25/20 3:58PM by Vivek mederos, Office Visit; Promoted ; acuity set as *; [facility] 5 15:34:18 Coronary artery bypass graft stent present 47233224204 9104 Active 2021 H/O HEART ARTERY STENT; Recorded 05/25/20 3:58PM by Vivek mederos, Office Visit; Promoted ; acuity set as *; [facility] 5 15:34:12 Hypercho lesterol emia 60959877 Active 2021 Hypercho lesterol emia; 05/25/20 3:58PM by Vivek mederos, Office Visit; Promoted ; acuity set as *; ROSAURA GALLO null, [facility] 5 15:34:26 Coronary arterios clerosis 27479167 Active 2022 [facility] CLEO [facility] 5 15:34:08 Type 2 diabetes mellitus 20083829 Active 2022 [facility] 5 15:34:54 Diabetes mellitus 31729890 Active 2023 [facility] HAEFFNER [facility] 5 15:34:15 Spinal stenosis of lumbosac ral region 704454149 Active 2024 [facility] CLE[facility] 5 08:17:04 Spinal stenosis of lumbar region 15162524 Active 2024 ROSAURA momin [facility] 08:17:32 Notes:Some problems listed i n Documents: #[id number], #[id number] could not be added to this patient's chart. Please review these documents and add these problems to the patient's chart manually as needed. Problem Notes None recorded. Procedures Surgical History Date Name Laterality Status Provider Name and Address Organization Details Recorded Time 04/30/20 25 diabetic retinal eye exam completed ROSAURA GALLO [facility] 06/10/2025 08:31:40 07/27/19 25 Joint Inj Beta-shoulder, hip, knee completed MELI HAWTHORNE PA-C [address] [place], [address], [facility] 07/27/2024 14:58:22 02/23/20 24 prostate specific antigen measurement completed ROSAURA GALLO [facility] 06/10/2025 08:35:25 12/29/19 24 cardiac catheterization completed MELI HAWTHORNE PA-C [address] [place], [address], [facility] 12/30/2023 09:19:40 12/10/19 24 Family Practice Trigger Point Injection completed MELI HAWTHORNE PA-C [address] [place], [address], [facility] 12/27/2023 17:05:59 12/10/19 24 jr cryo warts completed MELI HAWTHORNE PA-C [address] [place], [address], [facility] 12/27/2023 17:06:12 11/18/19 24 Family Practice Trigger Point Injection completed MELI HAWTHORNE PA-C [address] [place], [address], [facility] 2023 19:46:35 11/18/19 24 jr marielos dash completed MELI HAWTHORNE PA-C [address] [place], [address], [facility], [place] 2023 19:45:06 02/22/20 21 placement of stent in cardiac conduit completed ROSAURA GALLO [facility], [place] 02/18/2023 09:52:08 02/22/20 20 colonoscopy completed [facility]/18/2023 09:51:32 Imaging Results None recorded. Procedure Notes None recorded. Medical Equipment None Reported. Allergies Allergen ID Allergen Name Allergen Category Reaction Reaction Severity Criticality Documentation Date Start Date Code Code System Note Provider Name and Address Organization Details Recorded Time 47256 doxycycli ne Not available Not available Not available Not available 02/18/2023 3640 RxNorm ROSAURA GALLO [facility], AliceLYimi 09:45:13 Medications Name Sig Start Date Stop [...] VO MW/tw; Recorded 12/12/19 3:21PM by Meli Hawthorne PA-C, Office Visit; Mail Order Quantity : 45 Tablet; Mail Order Days: 90 Days; Refill Quantity : 45; Tablet; Not Available Not Available Not Available metoprolo l succinate daily 02/18 completed 0; Recorded 05/25/20 4:02PM by Vivek mederos, Office Visit; Not Available Not Available Not Available metformin two times daily 02/18 completed MW/mf; 22765; Recorded 12/12/19 7:46AM by Rosaura Gallo LPN [...] Organization Details Last Updated DateTime 177.8 cm 31.6 kg/m2 90712.3 2 g 97 % 72 /min 20 /min 98 [degF] 140/80 mm[Hg] ROSAURA GALLO [facility] 14:02:08 Social History Question Answer Notes LastModified by Organizat ion Details LastModified Time Tobacco Smoking Status Never Smoker MELI HAWTHORNE PA-C [address] [place] [address], [address], [facility] 02/18/2023 10:41:51 Are You Blind Or Do You Have Difficulty Seeing? No [email or web address] Information not available 02/18/2023 Are You Deaf Or Do You Have Serious Difficulty Hearing? No [email or web address] Information not available 02/18/2023 What Type Of Diet Are You Following? DIABETIC [email or web address] Information not available 02/18/2023 What Was The Date Of Your Most Recent Tobacco Screening? 02/18/2023 [email or web address] Information not available 02/18/2023 Do You Use Your Seat Belt Or Car Seat Routinely? Yes Information not available 02/18/2023 Do You Have Difficulty Walking Or Climbing Stairs? No [email or web address] Information not available 02/18/2023 Sex: Unknown Functional Status Question Answer Note LastModified by Organizat ion Details LastModified Time What is your level of alcohol consumption? Occasional [email or web address] Information not available 02/18/2023 Do you have transportation difficulties? No [email or web address] Information not available 02/18/2023 Are you able to walk independently without assistance or assistive devices? YESWOREST [email or web address] Information not available 02/18/2023 Do you have difficulty doing errands alone? No [email or web address] Information not available 02/18/2023 Are you able to care for yourself independently? Yes Information not available 02/18/2023 Do you have difficulty dressing, bathing, grooming, or toileting? No Information not available 02/18/2023 Mental Status Question Answer Note LastModified by Organizat ion Details LastModified Time Do you feel stressed (tense, restless, nervous, or anxious, or unable to sleep at night)? [id number] [email or web address] Information not available 02/18/2023 Do you have difficulty concentrating, remembering or making decisions? No Information no t available 02/18/2023 Family History Nothing Reported. Medical History Condition Response Diabetes Y Coronary Artery Disease Y Heart Disease Y Arthritis Y Immunizations Vaccine Type Date Status Note Provider Nam e and Address Organization Details Recorded Time Tdap 8 completed Not Available [facility] 01/30/2023 02:49:41 Influenza, split virus, trivalent, preservative 9 completed Not Available [facility] 01/30/2023 02:49:42 Td(adult) unspecified formulation 2 completed Not Available [facility] 01/30/2023 02:49:42 Past Encounters Encounter ID Performer Location Encounter Start Date Encounter Closed Date Diagnosis/Indication Diagnosis SNOMED-CT Code Diagnosis ICD10 Code Diagnosis IMO Codes Diagnosis Note [id number] MELI HAWTHORNE PA-C [facility] ([facility]) [address] [place] [address] 04/05/2025 13:53:57 04/06/2025 08:44:56 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 pathology changes vs gout vs infection. will wait for labs but empiricall y start anbiotic and gout tx. Health Concerns Section Related Observation LastModified by Organization Detai ls LastModified Time None Recorded Concern Status LastModified by Organization Details LastModified Time None Recorded Payers Encounter Date Sequence Insurance Name Policy Number Policy Aldridge Covered Member ID Aldridge Member ID Guarantor Name 04/05/2025 1 [facility] (MEDICARE REPLACEMENT/A DVANTAGE - PPO) [id number] Marcial Casillas [id number] Marcial Casillas Notes Date Note Type Note Provider Name and Address Organization Details Recorded Time 04/05/2025 text/html EdemaReported by PatientHPIFor quality, patient reportslegs do not swell equallyandpainful. For location, patient reportslle. For severity, patient reportsmoderate. For duration, patient reportsconstant. For onset/timing, patient reportsabrupt onsetandstarted 3 days ago. For context, patient reportsno prior history of edema,no prior history of deep vein thrombosis,no new medications, andnormal sodium intake. left foot swelling since Wednesday night son said he seen a red spot on it Wednesday am looked like spider bite foot swelled and they cannot see spot now but very painful. Had to travel to [place] yesterday for daughter surgeryx 5 days. no trauma recent or old. no fever. no hx of gout.did have a septic joint of the first MCP that required surgery 20 yrs ago. MELI HAWTHORNE PA-C [address] [place], [address], [facility], [place] 04/05/2025 18:17:44
--- OUTSIDE RECORDS SUMMARY | 2025-06-22 23:01 | XMS_ITS | Encounter Summary ---
Author Organization [facility] Address [address] [place] [address] Care Team Providers Care Freight Associate Name Role Phone Unavailable Primary Care Provider Unavailabl e Encounter Details Date Type Department Care Team (Late st Contact Info) Description 07/25/2007 Outpatient Historical [facility] [address] [place] [phone] Magen Sims MD [address] [phone] Social History Tobacco Use Types Packs/Day Years Used Date Smoking Tobacco: Never Assessed Sex and Gender Information Value Date Recorded Sex Assigned at Not on file Legal Sex Male 3:[address]GE Gender Identity Not on file Sexual Orientation Not on file documented as of this encounter Plan of Treatment Not on file documented as of this encounter Visit Diagnoses Not on filedocumented in this encounter
--- OUTSIDE RECORDS SUMMARY | 2025-06-22 23:01 | XMS_ITS | Encounter Summary ---
Author Organization [facility] Address [address] [place] [address] Care Team Providers Care Maintenance Specialist Name Role Phone Unavailable Primary Care Provider Unavailabl e Encounter Details Date Type Department Care Team (Latest Contact Info) Description 07/14/2007 Outpatient Historical [facility] [address] [facility] [address] [place] [address] Magen Sims MD [address] [facility] [address] [place] [phone] Lumbago; Sciatica; Arthrodesis Status; Other Musculoskeletal Symptoms Referable to Limbs; Personal History of Fall; Upper Limb Amputation, Other Finger(s) Social History Tobacco Use Types Packs/Day Years Used Date Smoking Tobacco: Never Assessed Sex and Gender Information Value Date Recorded Sex Assigned at Not on file 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
--- OUTSIDE RECORDS SUMMARY | 2025-06-22 23:01 | XMS_ITS | Encounter Summary ---
Author Organization [facility] Address [address] [place] [address] Care Team Providers Care Coal Trammer Name Role Phone Unavailable Primary Care Provider Unavailabl e Encounter Details Date Type Department Care Team (Latest Contact Info) Description 04/17/2020 Ancillary Orders [facility] [address] [phone] Nilson Escoto MD [address] [place] [phone] History of total knee arthroplasty, right Social History Tobacco Use Types Packs/Day Years Used Date Smoking Tobacco: Never Smokeless Tobacco: Never Alcohol Use Standard Drinks/Week Comments Yes 0 (1 standard drink = 0.6 oz pur e alcohol) case of beer lasts a year Sex and Gender Information Value Date Recorded Sex Assigned at Not on file 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 No / Unsure 04/17/2020 10:29 AM CDT documented as of this encounter Plan of Treatment Not on file documented as of this encounter Results * XR KNEE 3 VW LEFT (04/17/2020 10:40 AM CDT) Anatomical Region Laterality Modality Lower Extremity Computed Radiogr aphy Narrative 04/25/2020 1:49 PM CDT Three views of the knee shows a total knee arthroplasty in good position and alignment. The implant is in good position. There is no osteolysis or loosening. No significant changes seen from previous x-rays. us Nilson Escoto MD DIAGNOSTIC IMAGING ORDERABLES Final Result documented in this encounter Visit Diagnoses Diagnosis History of total knee arthroplasty, right History of total knee arthroplasty, right documented in this encounter
--- OUTSIDE RECORDS SUMMARY | 2025-06-22 23:01 | XMS_ITS | Patient Health Record ---
Author Organization [facility] Address [address] [place] [address] Care Team Providers Care Office Support Clerk Name Role Phone Meli Wilson Primary Care Provider José Manuel Watson [phone] Ariana Slater APN Unavailable Unavailable Allergies Allergen (clinical drug ingredient) Drug/Non Drug Allergy documented on EMR Reaction Allergy Type Onset Date Status doxycycline Doxycycline Unknown Drug Allergy Act shirley Reason For Referral No Information Medications Medication SIG (Take, Route, Frequency, Duration) Notes Start Date End Date Status Aspirin Adult 81 MG Tablet Delayed Release 1 tablet Orally Once a day Active metFORMIN HCl 1000 MG Tablet 1 tablet with a meal Orally Twice a day Active Metoprolol Succinate ER 25 MG Tablet Extended Release 24 Hour 1 tablet Oral Once a day; Duration: 90 days Active Atorvastatin Calcium 40 MG Tablet 1 tablet Orally Once a day; Duration: 90 days Active Enalapril Maleate 2.5 MG Tablet TAKE 1 TABLET EVERY DAY; Duration: 90 Active Furosemide 20 MG Tablet 1 tablet Orally daily for 7 days then only take as needed for 2-3lbs wt gain in 24 hours; Duration: 30 day(s) 09/08/2022 Active Social History Tobacco Use: Social History Observation Description Date Details (start date - stop date) Never Smoker NA - NA Social History Drugs/Alcohol: Social Info Question Answer Notes Alcohol Screen (Audit-C) Did you have a drink containing alcohol in the past year? Yes How often did you have a drink containing alcohol in the past year? Monthly or less (1 point) How many drinks did you have on a typical day when you were drinking in the past year? 1 or 2 drinks (0 point) How often did you have 6 or more drinks on one occasion in the past year? Never (0 point) Points 1 Interpretation Negative Caffeine Intake: 2-3 cups per day Drug/Alcohol: Social Info Question Answer Notes AUDIT-C (Standard) Did you have a drink containing alcohol in the past year? Yes How often did you have six or more drinks on one occasion in the past year? Never (0 point) How many drinks did you have on a typical day when you were drinking in the past year? 1 or 2 drinks (0 point) How often did you have a drink containing alcohol in the past year? Monthly or less (1 point) Points 1 Interpretation Negative Tobacco Use: Social Info Question Answer Notes xTobacco Use/Smoking Are you a nonsmoker Additional Details Category Social Info Options Details zzMigrated Social History Drugs/Alcohol: (Alcohol Screen (Audit-C)):Did you have a drink containing alcohol in the past year?: Yes, Points: 0, Interpretation: Negative ;(Caffeine):Intake: Admits ; Tobacco Use: (Tobacco Use/Smoking): Are you a:: never smoker ; Section Notes: nonsmoker little alcohol admits caffeine nonsmoker little alcohol admits caffeine Problems Problem Type SNOMED Code ICD Code Onset Dates Problem Status W/U Status Risk Notes Problem Disorder due to type 2 diabetes mellitus (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) Type 2 diabetes mellitus with unspecified complications (E11.8) Active confirmed Problem Long-term current use of anticoagulant (654276414) 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 clerk (current) use of anticoagulants (Z79.01) Active confirmed Problem Hyperlipidemia (96393908) Hyperlipidemia, unspecified (E78.5) Active confirmed Problem Essential hypertension (89415669) Essential hypertension (I10) Active confirmed Problem Peripheral circulatory disorder associated with diabetes mellitus (810424662) Type 2 diabetes mellitus with other circulatory complication, without long-term current use of insulin (E11.59) Active confirmed Problem Osteoarthritis (688750085) Osteoarthritis, unspecified osteoarthritis type, unspecified site (M19.90) Active confirmed Problem Long-term current use of drug therapy (413535583) termination clerk current use of antithrombotics/an tiplatelets (Z79.02) Active confirmed Problem Atherosclerotic heart disease of [place] coronary artery without angina pectoris (077719206426052) Arteriosclerosis of coronary artery (I25.10) Active confirmed Problem History of placement of stent for coronary artery disease (situation) (697473594) H/O heart artery stent (Z95.5) Active confirmed Problem Gastroesophageal reflux disease (465933651) GERD (gastroesophageal reflux disease) (K21.9) Active confirmed Problem Disorder of kidney and/or ureter (421206056) Kidney function abnormal (N28.9) Active confirmed Vital Signs Heart Rate 76 /min 08/01/2024 Blood pressure diastolic 76 mm Hg 08/01/2024 Oximetry 96 % 08/01/2024 Weight-kg 103.83 kg 08/01/2024 Height 71 in 08/01/2024 Blood pressure systolic 132 mm Hg 08/01/2024 Weight 228.9 lbs 08/01/2024 BMI 31.92 kg/m2 08/01/2024 Encounters Encounter Location Date Provider Diagnosis [facility] [address] [place] [phone] 08/01/2024 José Manuel Mckinnon Arteriosclerosis of coronary artery I25.10 ; H/O heart artery stent Z95.5 ; Essential hypertension I10 and Hyperlipidemia, unspecified E78.5 Assessments Encounter Date Diagnosis (ICD Code) Assessment Notes Treatment Notes Treatment Clinical Notes Section Notes 08/01/2024 Arteriosclerosis of coronary artery (ICD-10 - I25.10) 08/01/2024 H/O heart artery stent (ICD-10 - Z95.5) 08/01/2024 Essential hypertension (ICD-10 - I10) 08/01/2024 Hyperlipidemia, unspecified (ICD-10 - E78.5) 08/01/2024 Other Medical decision-making process: Patient is findings recommend at this point that we continue the present treatment plan for the patient to return to clinic see back in 1 year prognosis excellent cardiac function looks good stents widely patent with heart catheterization no symptoms at all, so we have finally thought rates are stable. Expectations prognosis is good symptoms change call us back sooner for reevaluation Plan Of Treatment Pending Test Test Name Order Date Electrocardiogram 12 Lead Tracing (EKG)- [id number] 12/24/2023 Next Appt Details Provider Name:Ronnie Camp , 08/23/2025 02:00:00 PM, [address] [place] [address], [phone], Insurance Providers Payer Name Payer Address Payer Phone Subscriber Number Group Number Insured Name Patient Relationship to Insured Coverage Start Date Coverage End Date [employer] - Out of Network [address] [address] [place] [phone] [id number] Marcial Casillas Self - patient is the insured 3 Medical (General) History Medical History History ICD Code CAD Diabetic hyperlipidemia Covid Vax x 2 Chicken Pox Heart Disease Arthritis Anemia Diabetes Blood/Plasma Transfusion Back Trouble Anticoagulation GERD Hyperlipidemia Surgical History Surgery Date(Month/Year) EGD knee surgery PTCA RCA 03.04.2021 [facility] SHOWING SEVERE STENOSIS OF LAD, 1ST DIAGONAL, & OM1. ANGIOPLASTY OF THE 1ST DIAGONAL. PCI OF THE PROXIMAL LAD. 03.19.2021 [facility] with stent to circ 03.25.2021 Multiple back surgeries due to service 1980 Rods and screws in spine 2004 [facility] 12/29/23 Hospitalization History Reason Date(Month/Year) [facility] - IMPRESSION: 1. Wide ly patent stents involving the LAD, circumflex marginal vessel, and the right coronary. 2. Only mild disease seen within the stents themselves. 12/29/23 [facility] 03/2021 [facility] cath PVCS, palpitations 12/01/23
--- OUTSIDE RECORDS SUMMARY | 2025-06-22 23:01 | XMS_ITS | Encounter Summary ---
Author Organization [facility] Address [address] [place] [address] Care Team Providers Care Insulator Tester Name Role Phone Unavailable Primary Care Provider Unavailabl e Encounter Details Date Type Department Care Team (Latest Contact Info) Description 11/18/2000 Outpatient Historical [facility] [address] [place] [address] Pola Jha MD NO ADDRESS ON FILE Lumbago (Primary Dx); Pain in joint, lower leg Social History Tobacco Use Types Packs/Day Years Used Date Smoking Tobacco: Never Assessed Sex and Gender Information Value Date Recorded Sex Assigned at Not on file Legal Sex Male 3:53 AM VP COMMUNICATIONS Gender Identity Not on file Sexual Orientation Not on file documented as of this encounter Plan of Treatment Not on file documented as of this encounter Visit Diagnoses Diagnosis Lumbago- Primary Pain in joint, lower leg documented in this encounter
--- OUTSIDE RECORDS SUMMARY | 2025-06-22 23:01 | XMS_ITS | Continuity of Care Document ---
Author Organization [facility] Phani Kelly [facility] Kyle Richmond, [facility] ([facility]) Address [address] [place] [address] Assessment No assessment recorded. Plan of Treatment Reminders Order Date Submit Date Provider Last Modified By Organization Details Last Modified Time Details Appointments None recorded. Lab CMP, serum or plasma 2024 025 [email or web address] 1 [facility], [address] [address], [place], [address], 5 07:03:11 CBC 2024 025 dhaeffner 1 [facility], [address] [address], [place], [address], 5 07:03:11 C-reactiv e protein, quantitat shirley, serum or plasma 2024 025 dhaeffner 1 [facility], [address] [facility] [place], [place], [address], 5 07:03:12 amylase, serum or plasma 2024 025 dhaeffner 1 [facility], [address] [facility] [address], [address] [place], [address], 5 07:03:12 Referral None recorded. Procedures None recorded. Surgeries None recorded. Imaging None recorded. Medication Orders pantopraz ole 40 mg tablet,de layed release 2024 025 [facility], [address], [place], [address], 11:37:15 metronida zole 500 mg tablet 2024 [facility], [address], [place], [address], 11:37:14 Lactobaci llus acidophil us 2 billion cell tablet 2024 [facility] 15, [address], [place], [address], 11:37:13 Patient TargetsNo targets recorded. Patient InstructionsNo instructions recorded. 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 None Reported. Results Created Date Observation Date Name Description Value Unit Range Abnormal Flag Note LastModifiedBy Organization Detail LastModifiedTime 05/29/2005/29/2025 CBC WBC 6.8 x10 4.5-10 .5 Not Available [facility] [address] [facility] [address], [place], [address], 05/29/2025 15:01:56 05/29/2005/29/2025 CBC RBC 3.99 x10 4.30-5 .90 low Not Available [facility] [address] [facility] [address], [place], [address], 05/29/2025 15:01:56 05/29/2005/29/2025 CBC HGB 12.3 g/dL 13.5-1 8.0 low Not Available [facility] [address] [facility] [address], [place], [address], 05/29/2025 15:01:56 05/29/2005/29/2025 CBC HCT 37.3 % 35.0-6 0.0 Not Available [facility] [address] [facility] [address], [place], [address], 05/29/2025 15:01:56 05/29/2005/29/2025 CBC MCV 93.5 fL 80.0-9 9.9 Not Available [facility] [address], [place], [address], 05/29/2025 15:01:56 05/29/2005/29/2025 CBC MCH 30.8 pg 27.0-3 2.0 Not Available [facility] [address] [facility] [address], [place], [address], 05/29/2025 15:01:56 05/29/2005/29/2025 CBC MCHC 33.0 g/dL 32.0-3 6.0 Not Available [facility] [address] [facility] [address], [place], [address], 05/29/2025 15:01:56 05/29/2005/29/2025 CBC RDW 14.0 % 11.5-1 4.5 Not Available [facility] [address] [facility] [address], [place], [address], 05/29/2025 15:01:56 05/29/2005/29/2025 CBC plt 282.5 x10 150.0- 451.0 Not Available [facility] [address] [facility] [address], [place], [address], 05/29/2025 15:01:56 05/29/2005/29/2025 CBC lymphocytes % 40.1 % 20.0-5 0.0 Not Available [facility] [address] [facility] [address], [place], [address], 05/29/2025 15:01:56 05/29/2005/29/2025 CBC granulcytes % 49.1 % 30.0-7 0.0 Not Available [facility] [address] [facility] [address], [place], [address], 05/29/2025 15:01:56 05/29/2005/29/2025 CBC monocytes % 9.2 % 2.0-16 .0 Not Available [facility] [address] [address], [place], [address], 05/29/2025 15:01:56 05/29/2005/29/2025 CBC granulcytes# 3.3 x10 Not Amisha ilable [facility] [address] [address], [place], [address], 05/29/2025 15:01:56 05/29/2005/29/2025 CBC lymphocytes # 2.7 x10 Not Available [facility] [address] [address], [place], [address], 05/29/2025 15:01:56 05/29/2005/29/2025 CBC monocytes # 0.6 x10 Not Avai lable [facility] [address] [address], [place], [address], 05/29/2025 15:01:56 05/29/2005/29/2025 CMP (MALE ) glucose 141.0 mg/dL 60.0-9 9.0 high Not Available [facility] [address] [address], [place], [address], 05/29/2025 15:34:00 05/29/2005/29/2025 CMP (MALE ) BUN (blood urea nitrogen) 15.0 mg/dL 10.0-2 6.0 Not Available [facility] [address] [address], [place], [address], 05/29/2025 15:34:00 05/29/2005/29/2025 CMP (MALE ) creatinine (serum) 1.1 mg/dL 0.4-1. 5 Not Available [facility] [address], [place], [address], 05/29/2025 15:34:00 05/29/2005/29/2025 CMP (MALE ) BUN/creatini ne ratio 13.64 ratio Not Available [facility] [address], [place], [address], 05/29/2025 15:34:00 05/29/2005/29/2025 CMP (MALE ) eGFR calculated 69.2 Not Available [facility] [address], [place], [address], 05/29/2025 15:34:00 05/29/2005/29/2025 CMP (MALE ) total protein 6.5 g/dL 6.0-8. 5 Not Available [facility] [address], [place], [address], 05/29/2025 15:34:00 05/29/2005/29/2025 CMP (MALE ) total bilirubin 0.7 mg/dL 0.2-1. 3 Not Available [facility] [address] [facility] [address], [place], [address], 05/29/2025 15:34:00 05/29/2005/29/2025 CMP (MALE ) albumin 4.3 g/dL 3.5-5. 5 Not Available [facility] [address], [place], [address], 05/29/2025 15:34:00 05/29/2005/29/2025 CMP (MALE ) globulin 2.2 calc Not Available [facility] [address], [place], [address], 05/29/2025 15:34:00 05/29/20 25 05/29/2025 CMP (MALE ) AST (SGOT) 27.0 U/L 0.0-46 .0 Not Available [facility] [address] [facility] [address], [place], [address], 05/29/2025 15:34:00 05/29/2005/29/2025 CMP (MALE ) altv (SGPT) 22.0 U/L 13.0-6 9.0 normal Not Available [facility] [address] [facility] [address], [place], [address], 05/29/2025 15:34:00 05/29/2005/29/2025 CMP (MALE ) A/G ratio 2.0 ratio Not Available [facility] [address] [facility] 1, [place], [address], 05/29/2025 15:34:00 05/29/2005/29/2025 CMP (MALE ) ALP phos 102.0 U/L 30.0-1 40.0 normal Not Available [facility] [address] [facility] [address], [place], [address], 05/29/2025 15:34:00 05/29/2005/29/2025 CMP (MALE ) calcium 9.1 mg/dL 8.4-10 .5 Not Available [facility] [address] [facility] [address], [place], [address], 05/29/2025 15:34:00 05/29/2005/29/2025 CMP (MALE ) sodium 136.0 mmol/ L 136.0- 145.0 Not Available [facility] [address] [facility] 1, [place], [address], 05/29/2025 15:34:00 05/29/20 25 05/29/2025 CMP (MALE ) potassium 4.3 mmol/ L 3.5-5. 1 Not Available [facility] [address] [facility] [address], [place], [address], 05/29/2025 15:34:00 05/29/2005/29/2025 CMP (MALE ) chloride 99.0 mmol/ L 98.0-1 10.0 normal Not Available [facility] [address] [facility] [address], [place], [address], 05/29/2025 15:34:00 05/29/2005/29/2025 CMP (MALE ) C02 28.0 mmol/ L 22.0-3 1.0 Not Available [facility] [address] [facility] [address], [place], [address], 05/29/2025 15:34:00 05/29/2005/29/2025 CMP (MALE ) anion gap 9.0 calc Not Available [facility] [address] [facility] [address], [place], [address], 05/29/2025 15:34:00 05/29/2005/29/2025 CMP (MALE ) osmolality 284.1 calc Not Available [facility] [address] [facility] [address], [place], [address], 05/29/2025 15:34:00 05/29/2005/29/2025 URINA LYSIS WITH MICRO color YELLOW Not Available [facility] [address] [facility] [address], [place], [address], 05/29/2025 15:39:37 05/29/2005/29/2025 URINA LYSIS WITH MICRO clarity CLEAR Not Available [facility] [address] [facility] [address], [place], [address], 05/29/2025 15:39:37 05/29/2005/29/2025 URINA LYSIS WITH MICRO glu NEGATI VE Not Available [facility] [address], [place], [address], 05/29/2025 15:39:37 05/29/2005/29/2025 URINA LYSIS WITH MICRO bili NEGATI VE Not Available [facility] [address], [place], [address], 05/29/2025 15:39:37 05/29/2005/29/2025 URINA LYSIS WITH MICRO ket NEGATI VE Not Available [facility] [address], [place], [address], 05/29/2025 15:39:37 05/29/2005/29/2025 URINA LYSIS WITH MICRO S.g 1.010 1.005- 1.025 Not Available [facility] [address], [place], [address], 05/29/2025 15:39:37 05/29/2005/29/2025 URINA LYSIS WITH MICRO pH 5.5 5.0-7. 0 Not Available [facility] [address], [place], [address], 05/29/2025 15:39:37 05/29/2005/29/2025 URINA LYSIS WITH MICRO pro NEGATI VE Not Available [facility] [address], [place], [address], 05/29/2025 15:39:37 05/29/2005/29/2025 URINA LYSIS WITH MICRO uro 0.2 E.U./D L Not Available [facility] [address], [place], [address], 05/29/2025 15:39:37 05/29/2005/29/2025 URINA LYSIS WITH MICRO nit NEGATI VE Not Available [facility] [address] [facility] [address], [place], [address], 05/29/2025 15:39:37 05/29/2005/29/2025 URINA LYSIS WITH MICRO blo NEGATI VE Not Available [facility] [address] [facility] [address], [place], [address], 05/29/2025 15:39:37 05/29/2005/29/2025 URINA LYSIS WITH MICRO eduardo NEGATI VE Not Available [facility] [address] [facility] [address], [place], [address], 05/29/2025 15:39:37 05/29/2005/29/2025 URINA LYSIS WITH MICRO WBC NEGATI VE Not Available [facility] [address] [facility] [address], [place], [address], 05/29/2025 15:39:37 05/29/2005/29/2025 URINA LYSIS WITH MICRO RBC 1-2 abnormal Not Available [facility] [address] [facility] [address], [place], [address], 05/29/2025 15:39:37 05/29/2005/29/2025 URINA LYSIS WITH MICRO epi cells NEGATI VE Not Available [facility] [address] [facility] [address], [place], [address], 05/29/2025 15:39:37 05/29/2005/29/2025 URINA LYSIS WITH MICRO bacteria NEGATI VE Not Available [facility] [address], [place], [address], 05/29/2025 15:39:37 05/29/2005/29/2025 URINA LYSIS WITH MICRO other NEG Not Available [facility] [address], [place], [address], 05/29/2025 15:39:37 05/29/2005/30/2025 C-NADIR CTIVE PROTE IN C-reactive protein <3.0 mg/L <8.0 normal Not Available [facility] [address] [place], [address], 05/30/2025 21:35:58 05/29/2005/30/2025 AMYLA SE amylase 28 U/L 21-101 normal Not Available [facility] [address] [place], [address], 05/30/2025 21:35:59 05/29/2005/30/2025 CULTU RE, URINE , ROUTI NE culture, urine, routine SEE NOTE CULTU RE, URINE , ROUTI NE Micro Numbe r: [id number] Test Statu s: Final Speci men Sourc e: Urine Speci men Quali ty: Adequ ate Resul t: No Growt h Not Available [facility] [address] [place], [address], 05/30/2025 21:35:59 06/19/20 25 06/19/2025 CBC WBC 7.2 x10 4.5 - 10.5 Not Available [facility] [address] [facility], [place], [address], 06/19/2025 14:03:53 06/19/20 25 06/19/2025 CBC RBC 4.03 x10 4.30 - 5.90 low Not Available [facility] [address] [facility] [address], [place], [address], 06/19/2025 14:03:53 06/19/20 25 06/19/2025 CBC HGB 13.8 g/dL 13.5 - 18.0 Not Available [facility] [address], [place], [address], 06/19/2025 14:03:53 06/19/20 25 06/19/2025 CBC HCT 37.6 % 35.0 - 60.0 Not Available [facility] [address], [place], [address], 06/19/2025 14:03:53 06/19/20 25 06/19/2025 CBC MCV 93.3 fL 80.0 - 99.9 Not Available [facility] [address] [facility] [address], [place], [address], 06/19/2025 14:03:53 06/19/20 25 06/19/2025 CBC MCH 34.2 pg 27.0 - 32.0 high Not Available [facility] [address] [facility] [address], [place], [address], 06/19/2025 14:03:53 06/19/20 25 06/19/2025 CBC MCHC 36.7 g/dL 32.0 - 36.0 high Not Available [facility] [address] [facility] [address], [place], [address], 06/19/2025 14:03:53 06/19/20 25 06/19/2025 CBC RDW 14.6 % 11.5 - 14.5 high Not Available [facility] [address] [facility] [address], [place], [address], 06/19/2025 14:03:53 06/19/20 25 06/19/2025 CBC plt 295.5 x10 150.0 - 451.0 Not Available [facility] [address] [facility] [address], [place], [address], 06/19/2025 14:03:53 06/19/20 25 06/19/2025 CBC lymphocytes % 36.3 % 20.0 - 50.0 Not Available [facility] [address] [facility] [address] [address], [place], [address], 06/19/2025 14:03:53 06/19/20 25 06/19/2025 CBC granulcytes % 53.7 % 30.0 - 70.0 Not Available [facility] [address] [facility], [place], [address], 06/19/2025 14:03:53 06/19/20 25 06/19/2025 CBC monocytes % 7.8 % 2.0 - 16.0 Not Available [facility] [address] [facility], [place], [address], 06/19/2025 14:03:53 06/19/20 25 06/19/2025 CBC granulcytes# 3.9 x10 Not Amisha ilable [facility] [address] [address], [place], [address], 06/19/2025 14:03:53 06/19/20 25 06/19/2025 CBC lymphocytes # 2.6 x10 Not Available [facility] [address] [facility], [place], [address], 06/19/2025 14:03:53 06/19/20 25 06/19/2025 CBC monocytes # 0.6 x10 Not Avai lable [facility] [address] [address], [place], [address], 06/19/2025 14:03:53 06/19/20 25 06/19/2025 CMP (MALE ) glucose 162.0 mg/dL 60.0 - 99.0 high Not Available [facility] [address] [facility] [address], [place], [address], 06/19/2025 14:08:27 06/19/20 25 06/19/2025 CMP (MALE ) BUN (blood urea nitrogen) 19.0 mg/dL 10.0 - 26.0 Not Available [facility] [address] [facility] [address], [place], [address], 06/19/2025 14:08:27 06/19/20 25 06/19/2025 CMP (MALE ) creatinine (serum) 1.1 mg/dL 0.4 - 1.5 Not Available [facility] [address] [facility], [place], [address], 06/19/2025 14:08:27 06/19/20 25 06/19/2025 CMP (MALE ) BUN/creatini ne ratio 17.27 ratio Not Available [facility] [address] [facility], [place], [address], 06/19/2025 14:08:27 06/19/20 25 06/19/2025 CMP (MALE ) total protein 6.9 g/dL 6.0 - 8.5 Not Available [facility] [address] [facility], [place], [address], 06/19/2025 14:08:27 06/19/20 25 06/19/2025 CMP (MALE ) total bilirubin 0.5 mg/dL 0.2 - 1.3 Not Available [facility] [address] [facility], [place], [address], 06/19/2025 14:08:27 06/19/20 25 06/19/2025 CMP (MALE ) albumin 4.6 g/dL 3.5 - 5.5 Not Available [facility] [address] [facility], [place], [address], 06/19/2025 14:08:27 06/19/20 25 06/19/2025 CMP (MALE ) globulin 2.3 calc Not Available [facility] [address] [facility], [place], [address], 06/19/2025 14:08:27 06/19/20 25 06/19/2025 CMP (MALE ) AST (SGOT) 39.0 U/L 0.0 - 46.0 Not Available [facility] [address] [facility] [address], [place], [address], 06/19/2025 14:08:27 06/19/20 25 06/19/2025 CMP (MALE ) altv (SGPT) 28.0 U/L 13.0 - 69.0 Not Available [facility] [address] [facility] [address], [place], [address], 06/19/2025 14:08:27 06/19/20 25 06/19/2025 CMP (MALE ) A/G ratio 2.0 ratio Not Available [facility] [address] [facility], [place], [address], 06/19/2025 14:08:27 06/19/20 25 06/19/2025 CMP (MALE ) ALP phos 83.0 U/L 30.0 - 140.0 Not Available [facility] [address] [facility], [place], [address], 06/19/2025 14:08:27 06/19/20 25 06/19/2025 CMP (MALE ) calcium 9.3 mg/dL 8.4 - 10.5 Not Available [facility] [address] [facility], [place], [address], 06/19/2025 14:08:27 06/19/20 25 06/19/2025 CMP (MALE ) sodium 139.0 mmol/ L 136.0 - 145.0 Not Available [facility] [address] [facility] [address], [place], [address], 06/19/2025 14:08:27 06/19/20 25 06/19/2025 CMP (MALE ) potassium 4.7 mmol/ L 3.5 - 5.1 Not Available [facility] [address] [facility] [address], [place], [address], 06/19/2025 14:08:27 06/19/20 25 06/19/2025 CMP (MALE ) chloride 101.0 mmol/ L 98.0 - 110.0 Not Available [facility] [address] [facility] [address], [place], [address], 06/19/2025 14:08:27 06/19/20 25 06/19/2025 CMP (MALE ) C02 27.0 mmol/ L 22.0 - 31.0 Not Available [facility] [address] [facility], [place], [address], 06/19/2025 14:08:27 06/19/20 25 06/19/2025 CMP (MALE ) anion gap 11.0 calc Not Available [facility] [address] [facility] [address], [place], [address], 06/19/2025 14:08:27 06/19/20 25 06/19/2025 CMP (MALE ) osmolality 292.4 calc Not Available [facility] [address] [facility] [address], [place], [address], 06/19/2025 14:08:27 06/19/20 25 06/19/2025 CMP (MALE ) eGFR calculated 83.8 Not Available [facility] [address] [facility], [place], [address], 06/19/2025 14:08:27 06/19/2006/20/2025 C-NADIR CTIVE PROTE IN C-reactive protein <3.0 mg/L <8.0 normal Not Available [facility] [address] [place], [address], 06/20/2025 06:57:28 06/19/20 25 06/20/2025 AMYLA SE amylase 36 U/L 21-101 normal Not Available [facility] [address] [place], [address], 06/20/2025 06:57:28 05/29/2005/29/2025 CT, abdom en + pelvi s, w/ contr ast No observ ation record ed. [facility] [address] [place], [address], 05/29/2025 18:12:29 Result Notes None recorded. Problems Name Problem SNOMED Code Status Onset Date Resolution Date Notes Provider Name and Address Organization Details Recorded Time History of nutritio nal disorder 134369646 Completed 202112/11/2021 H/O NON-INSU SOFÍA DEPENDEN T DIABETES MELLITUS - Status is Inactive ; Recorded 12/12/19 3:37PM by Meli Ward PA-C, Annotati on/Adden dum; Promoted ; acuity set as *; Not Available [facility] 3 03:16:01 History of endocrin e disorder 097188839 Completed 202112/11/2021 H/O NON-INSU SOFÍA DEPENDEN T DIABETES MELLITUS - Status is Inactive ; Recorded 12/12/19 22 3:37PM by Meli Ward PA-C, Annotati on/Adden dum; Promoted ; acuity set as *; Not Available [facility] 3 03:16:01 History of metaboli c disorder 032544016 Completed 202112/11/2021 H/O NON-INSU SOFÍA DEPENDEN T DIABETES MELLITUS - Status is Inactive ; Recorded 12/12/19 22 3:37PM by Meli Ward PA-C, Annotati on/Adden dum; Promoted ; acuity set as *; Not Available [facility] 3 03:16:01 Anemia 104803330 Completed 202112/11/2021 ANEMIA - Status is Inactive ; Recorded 12/12/19 3:38PM by Meli Ward PA-C, Annotati on/Adden dum; Promoted ; acuity set as *; Not Available [facility] 3 03:16:02 Herpes zoster [id number] Completed 202112/11/2021 HERPES ZOSTER WITHOUT COMPLICA TION [...] ; acuity set as *; Not Available [facility] 3 03:16:02 Fracture of other finger Completed 202112/11/2021 fx 3rd and 4th digits on Lt hand - Status is Inactive ; 12/12/19 3:38PM by Meli Ward PA-C, Annotati on/Adden dum; Promoted ; acuity set as *; Not Available [facility] 3 03:16:02 Gastroes ophageal reflux disease [id number] Active 2021 GERD (GASTROE SOPHAGEA L REFLUX DISEASE) ; Recorded 05/25/20 3:58PM by Vivek mederos, Office Visit; Promoted ; acuity set as *; ROSAURA momin [facility] 5 15:34:18 Coronary artery bypass graft stent present [id number] 9104 Active 2021 H/O HEART ARTERY STENT; Recorded 05/25/20 3:58PM by Vivek mederos, Office Visit; Promoted ; acuity set as *; ROSAURA momin [facility] 5 15:34:12 Hypercho lesterol emia 05198862 Active 2021 Hypercho lesterol emia; 05/25/20 3:58PM by Vivek mederos, Office Visit; Promoted ; acuity set as *; ROSAURA momin [facility] 5 15:34:26 Coronary arterios clerosis 19344095 Active 2022 [facility] 15:34:08 Type 2 diabetes mellitus 66432208 Active 2022 [facility] 15:34:54 Diabetes mellitus 06610184 Active 2023 [facility] 15:34:15 Spinal stenosis of lumbosac ral region 731686402 Active 2024 ROSAURA momin, [facility] 5 08:17:04 Spinal stenosis of lumbar region 02916085 Active 2024 ROSAURA GALLO [facility] 5 08:17:32 Notes:Some problems listed i n Documents: #[id number], #[id number] could not be added to this patient's chart. Please review these documents and add these problems to the patient's chart manually as needed. Problem Notes None recorded. Procedures Surgical History Date Name Laterality Status Provider Name and Address Organization Details Recorded Time 04/30/20 25 diabetic retinal eye exam completed ROSAURA GALLO [facility] 06/10/2025 08:31:40 07/27/19 25 Joint Inj Beta-shoulder, hip, knee completed MELI WARD PA-C [address] [place] [address], [id number], [facility] 07/27/2024 14:58:22 02/23/20 24 prostate specific antigen measurement completed ROSAURAMARY GALLO [facility] 06/10/2025 08:35:25 12/29/19 24 cardiac catheterization completed MELI WARD PA-C [address] [place], [address], [facility] 12/30/2023 09:19:40 12/10/19 24 Family Practice Trigger Point Injection completed MELI WARD PA-C [address] [place], [address], [facility] 12/27/2023 17:05:59 12/10/19 24 jr cryo warts completed MELI WARD PA-C [address] [place], [address], [facility] 12/27/2023 17:06:12 11/18/19 24 [facility] Trigger Point Injection completed MELI WARD PA-C [address] [place], [address], [facility] 2023 19:46:35 11/18/19 24 jr cryo warts completed MELI WARD PA-C [address] [place], [address], [facility] 2023 19:45:06 02/22/20 21 placement of stent in cardiac conduit completed ROSAURA GALLO [facility] 02/18/2023 09:52:08 02/22/20 20 colonoscopy completed ROSAURA GALLO [facility] 02/18/2023 09:51:32 Imaging Results None recorded. Procedure Notes None recorded. Medical Equipment None Reported. Allergies Allergen ID Allergen Name Allergen Category Reaction Reaction Severity Criticality Documentation Date Start Date Code Code System Note Provider Name and Address Organization Details Recorded Time 16530 doxycycli ne Not available Not available Not available Not available 02/18/2023 1120 RxNorm [facility]13 Medications Name Sig Start Date Stop [...] Available clopidogr el 75 mg tablet daily 08/17 /2023 completed 0; Recorded 05/25/20 22 4:02PM by [...] aspirin daily 02/18 completed 0; Recorded 05/25/20 22 4:02PM by Vivek mederos, Office Visit; Not Available Not Available Not Available Softclix Lancets daily 12/13 completed 9; Recorded 12/12/19 22 7:46AM by Rosaura Gallo LPN (Authori juan [...] metformin two times daily 02/18 completed MW/mf; 02737; Recorded 12/12/19 7:46AM by Rosaura Gallo LPN [...] two times daily 02/18 completed Recorded 04/27/20 10:27AM by Meredith Garcia RN, Office Visit; [...] Spirit Pouch daily 02/18 completed Recorded 12/12/19 7:46AM by Rosaura Gallo LPN, Office Visit; [...] height Body mass index (BMI) Body weight Provider Name and Address Organization Details Last Updated DateTime 06/12/2025 177.8 cm 30.8 kg/m2 26943.36 g ROSAURA GALLO [facility] 06/12/2025 10:39:28 Social History Question Answer Notes LastModified by Organizat ion Details LastModified Time Tobacco Smoking Status Never Smoker MELI WARD PA-C [address] [place] [address], [phone], [facility] 02/18/2023 10:41:51 Are You Blind Or Do You Have Difficulty Seeing? No [email or web address] Information not available 02/18/2023 Are You Deaf Or Do You Have Serious Difficulty Hearing? No [email or web address] Information not available 02/18/2023 What Type Of Diet Are You Following? DIABETIC Information not available 02/18/2023 What Was The Date Of Your Most Recent Tobacco Screening? 02/18/2023 [email or web address] Information not available 02/18/2023 Do You Use Your Seat Belt Or Car Seat Routinely? Yes [email or web address] Information not available 02/18/2023 Do You Have Difficulty Walking Or Climbing Stairs? No [email or web address] Information not available 02/18/2023 Sex: Unknown Functional Status Question Answer Note LastModified by Organizat ion Details LastModified Time What is your level of alcohol consumption? Occasional [email or web address] Information not available 02/18/2023 Do you have transportation difficulties? No [email or web address] Information not available 02/18/2023 Are you able to walk independently without assistance or assistive devices? [email or web address] Information not available 02/18/2023 Do you have difficulty doing errands alone? No [email or web address] Information not available 02/18/2023 Are you able to care for yourself independently? Yes [email or web address] Information not available 02/18/2023 Do you have difficulty dressing, bathing, grooming, or toileting? No Information not available 02/18/2023 Mental Status Question Answer Note LastModified by Organizat ion Details LastModified Time Do you feel stressed (tense, restless, nervous, or anxious, or unable to sleep at night)? [id number] [email or web address] Information not available 02/18/2023 Do you have difficulty concentrating, remembering or making decisions? No [email or web address] Information no t available 02/18/2023 Family History Nothing Reported. Medical History Condition Response Diabetes Y Coronary Artery Disease Y Heart Disease Y Arthritis Y Immunizations Vaccine Type Date Status Note Provider Nam e and Address Organization Details Recorded Time Tdap 8 completed Not Available [facility] 01/30/2023 02:49:41 Influenza, split virus, trivalent, preservative 9 completed Not Available [facility] 01/30/2023 02:49:42 Td(adult) unspecified formulation 2 completed Not Available [facility] 01/30/2023 02:49:42 Past Encounters Encounter ID Performer Location Encounter Start Date Encounter Closed Date Diagnosis/Indication Diagnosis SNOMED-CT Code Diagnosis ICD10 Code Diagnosis IMO Codes Diagnosis Note [id number] NIKI JENSEN ([facility]) [address] [place] [id number] 05/24/2025 14:47:26 05/24/2025 16:07:28 Acute bacterial sinusitis 49269773 J01.90 B96.89 96776 Chronic insomnia 2544263 04 F51.04 [id number] NIKI JENSEN ([facility]) [address] [place] [address] 05/29/2025 10:23:09 05/29/2025 11:12:07 Acute abdominal pain 801761662 R10.9 46052 acute diffuse pain. differenti al renal stones, pancreatit is, colitis, mesenteric ischemia. [id number] MELI WARD PA-C [facility] ([facility]) [address] [place] [address] 06/12/2025 10:32:08 06/12/2025 11:41:13 Upper abdominal pain 77909402 R10.10 8309523 Colitis 93882832 K52.9 33267 Health Concerns Section Related Observation LastModified by Organization Detai ls LastModified Time None Recorded Concern Status LastModified by Organization Details LastModified Time None Recorded Payers Encounter Date Sequence Insurance Name Policy Number Policy Aldridge Covered Member ID Aldridge Member ID Guarantor Name 06/12/2025 1 [facility] (MEDICARE REPLACEMENT/A DVANTAGE - PPO) [id number] Marcial Casillas [id number] Marcial Casillas Notes Date Note Type Note Provider Name and Address Organization Details Recorded Time 06/12/2025 text/html Abdominal PainRe ported by PatientAbdominal PainFor quality, patient reportsbloating,crampin g,aching,dull,burning, andfullness. For associated symptoms, patient reportsdecreased appetite,fatigue, andweight lossbut reportsno fever,no chills,no blood in the urine,no heartburn,no shortness of breath,no nausea,no vomiting,no diarrhea,no constipation,normal stool,no blood in stool,no jaundice,no cough,no changes in stool,no urinary frequency,no orthopnea,no exertional dyspnea, andno menstrual symptoms. For location, patient reportsgeneralized. For severity, patient reportsmoderate. For duration, patient reportsconstant. For onset/timing, patient reportsgradual. For aggravating factors, patient reportsmovementandeatin g and drinking. For other, patient reportsdenies possible . For previous tests, treatment and/or diagnostic procedures, patient reportsct of the abdomen with contrast. DISCUSS CT OF ABD ( normal CT last week) one loose stool a day. pain seems to be more focused in the LUQ and RUQ. normal labs last week. burping more and passing more gas. notices the pain when he hits bumps when riding. , MY PAIN IS STILL THERE IT WONT GO AWAY, i HAVE TAKEN TRAMADOL AND IT SEEMS TO HELP A LITTLE AT NIGHT I CAN REST SOME I WOULD LIKE TO HAVE SOME MORE IF POSSIBLE. MELI WARD PA-C [address] [place] [address], [phone], [facility] 06/12/2025 11:40:46
--- OUTSIDE RECORDS SUMMARY | 2025-06-22 23:01 | XMS_ITS | Clinical Summary ---
Author Organization [facility] Address [address] [place] [address] Care Team Providers Care Api Product Manager Name Role Phone Unavailable Primary Care Provider Unavailabl e Allergies No known active allergies Medications ENALAPRIL MALEATE ORAL Take 20 mg by mouth. 08/21/2019 Active metFORMIN (GLUCOPHAGE) 1,000 mg tablet Take 1,000 mg by mouth 2 times daily with meals. 08/21/2019 Active cephALEXin (KEFLEX) 500 mg capsule Take 1 capsule by mouth 4 times daily for 21 days 84 Capsule 0 01/29/2020 Active cyclobenzaprine (FLEXERIL) 10 mg tablet Take 1 Tablet (10 mg) by mouth 3 times daily as needed for Spasm. 45 Tablet 0 11/19/2020 Active atorvastatin (LIPITOR) 40 mg tablet 1 Tablet. Active clopidogreL (PLAVIX) 75 mg Tablet 1 Tablet. Active docusate sodium (COLACE) 100 mg capsule Take 100 mg by mouth 2 times daily. 08/21/2019 Active methocarbamoL (ROBAXIN) 500 mg tablet Take 500 mg by mouth every 6 hours as needed. 03/29/2019 Active metoprolol succinate (TOPROL XL) 25 mg Extended Release 24 hour tablet 1 Tablet. Active naproxen (NAPROSYN) 250 mg tablet Take 250 mg by mouth 2 times daily with meals. Active tiZANidine (ZANAFLEX) 4 mg Tablet Take 4 mg by mouth every 6 hours as needed. Active traMADoL (ULTRAM) 50 mg tablet Take 1 tablet by mouth every 6 hours as needed for pain. Maximum of 4 per day. 09/06/2019 Active amoxicillin (AMOXIL) 500 mg capsule Take 1 Capsule (500 mg) by mouth 3 times daily until gone. 21 Capsule 04/07/2022 12:27 PM CDT 04/07/2022 Active HYDROcodone-shanae taminophen (NORCO) 5-325 mg tablet Take 1 Tablet by mouth every 6 hours as needed for pain. Max Daily Amount: 4 Tablets 18 Tablet 04/07/2022 12:27 PM CDT 04/07/2022 Active naproxen (NAPROSYN) 250 mg tablet Take 250 mg by mouth 2 times daily with meals. 03/29/2019 Active tiZANidine (ZANAFLEX) 4 mg Tablet Take 4 mg by mouth every 6 hours as needed for Spasm. 03/29/2019 Active Active Problems Problem Noted Date Diagnosed Date Preoperative general physical examination 2019 Primary osteoarthritis of left knee 08/09/2019 Obesity (BMI 30.0-34.9) 08/09/2019 Muscle spasm 08/09/2019 Anemia 08/09/2019 Low back pain 05/14/2009 Sacroiliitis, not elsewhere classified 9 Overview (10/31/2020): Bilateral Cervical pain 05/14/2009 S/P lumbar fusion 05/14/2009 Overview (10/31/2020): L2-4 in 08/2007 (extension of previous fusion) Encounters Date Type Department Care Team Description 04/03/2025 Abstract [facility] Neurosurgery [address] [place] [address] Christopher Foss MD from Last 3 Months Family History Medical History Relation Name Comments [...] drink = 0.6 oz pur e alcohol) Sex and Gender Information Value Date Recorded Sex Assigned at Not on file Legal Sex Male 6:56 AM 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 Gender Identity Not on file Sexual Orientation Not on file Last Filed Vital Signs Vital Sign Reading Time Taken Comments Blood Pressure 123/77 12/17/2020 1:14 PM CDT Pulse 93 12/17/2020 1:14 PM CDT Temperature 36.1 C (96.9 F) 08/22/2019 8:18 AM 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 Respiratory Rate 15 08/22/2019 8:18 AM 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 Oxygen Saturation - - Inhaled Oxygen Concentration - - Weight 100.7 kg (222 lb) 11/04/2021 12:59 PM CDT Height 180.3 cm (5' 11 ) 11/04/2021 12:59 PM CDT Body Mass Index 30.96 11/04/2021 12:59 PM CDT Plan of Treatment Health Maintenance Due Date Last Done Comments DIABETES ANNUAL FOOT EXAM 1966 DIABETES MICROALBUMIN ANNUAL SCREEN 1966 LDL CHOLESTEROL ANNUAL 1966 DTAP/TDAP/TD VACCINES (1 - Tdap) 12/12/1967 PNEUMOCOCCAL VACCINE 50+ YEA RS (1 of 2 - PCV) 12/12/1967 ZOSTER VACCINE (1 of 2) 1998 DIABETES HBA1C Q 6 MONTHS 06/26/2020 12/26/2019 DIABETES ANNUAL RETINAL EXAM 04/03/2021 04/03/2020, 04/03/2020 RSV VACCINE (60+ or ) (1 - 1-dose 75+ series) 12/12/2023 INFLUENZA VACCINE (#1) 2025 COLORECTAL SCREENING Discontinued 02/22/2020 Colorectal Cancer Screening Discontinued FIT-DNA Q 3 years Discontinued FIT/FOBT Q 1 year Discontinued Flex Sig/CT Colonography Q 5 years Discontinued Medical Devices Implanted Type Area Organizational Development Manager Device Identifier Shelf Expiration Date Model / Serial / Lot Bsplt Tib Attune Sz9 Implanted:Qty: 1 on 08/21/2019 by Nilson Escoto MD Left: Knee 12/02/2028 [id number] / / [id number] Fem Porocoat Posterior Implanted:Qty: 1 on 08/21/2019 by Nilson Escoto MD Left: Knee 04/03/2029 DEPUY - [id number] / / [id number] Ins Tib Attune Ps Sz 7 7mm Implanted:Qty: 1 on 08/21/2019 by Nilson Escoto MD Left: Knee 07/04/2024 [id number] / / [id number] Insurance * Guarantor: MARCIAL CASILLAS Account Type Relation to Patient Date of Phone Billing Address Personal/Family [address] [place] [address] [employer] (INTERNAL) [facility] [employer] Medicare Part D
--- OUTSIDE RECORDS SUMMARY | 2025-06-22 23:01 | XMS_ITS | Data Portability ---
Author Organization [facility], [facility] Address [address] [facility] [address] [place] [address] Assessment No assessment recorded. Plan of Treatment Reminders Order Date Submit Date Provider Last Modified By Organization Details Last Modified Time Details Appointments None recorded. Lab CMP, serum or plasma 2024 025 [email or web address] 1 [facility], [address], [facility], [place], [address], 5 07:03:11 CBC 2024 025 [email or web address] 1 [facility], [address] [address], [place], [address], 5 07:03:11 C-reactiv e protein, quantitat shirley, serum or plasma 2024 025 [email or web address] 1 [facility], [address] [facility], [place], [address], 5 07:03:12 amylase, serum or plasma 2024 025 [email or web address] 1 [employer] [facility], [address] [facility] [address], [address] [place], [address], 5 07:03:12 CMP, serum or plasma 2024 025 MEL [facility], [address] [facility] [address] [address], [place], [address], 15:34:00 CBC 2024 [facility], [address], [address], [place], [address], 15:01:56 urinalysi s, complete 2024 [facility], [address], [address], [place], [address], 15:39:37 culture, urine 2024 [facility], [address] [place] [address], [facility] [address] , [place], [address], 21:35:59 C-reactiv e protein, quantitat shirley, serum or plasma 2024 [facility]EL[facility]ol[facility], [address] [place], [address], 21:35:59 amylase, serum or plasma 2024 [place] [facility], [address] [place] [address], [facility] [address], [place], [address], 21:35:59 ESR (erythroc yte sedimenta tion rate), blood 2024 [facility] ([facility]), [address] [place], [address], 16:05:36 C-reactiv e protein, quantitat shirley, serum or plasma 2024 MEL [facility], [address] [facility], [place], [address], 12:59:05 uric acid, serum or plasma 2024 MEL [facility], [address] [place] [address] 248, [address], [place], [address], 12:59:05 CMP, serum or plasma 2024 [facility], [address] [facility], [facility], [place], [address], 15:08:47 CBC 2024 [facility], [address] [facility], [facility] 1, [place], [address], 15:03:06 DELMY + rf (antinucl ear antibodie s + rheumatoi d factor), quantitat shirley, serum 2024 [email or web address] 1 [facility], [address] [place] [address], [address], [place], [address], 07:04:07 Referral podiatris t referral 2024 [email or web address] 2 [facility], [address] [place] [address], [address], 12:31:48 Procedures None recorded. Surgeries None recorded. Imaging CT, abdomen + pelvis, w/ contrast 2024 asurface [facility], [address] [place] [address], [address], 13:26:15 XR, ankle, 3 or more view [address] ([facility]), [address] [place], [address], 08:44:57 Medication Orders pantopraz ole 40 mg tablet,de layed release 2024 [facility], [address], [place], [address], 11:37:15 metronida zole 500 mg tablet 2024 [facility], [address], [place], [address], 11:37:14 Lactobaci llus acidophil us 2 billion cell tablet 2024 [facility], [address], [place], [address], 11:37:13 cefdinir 300 mg capsule 2024 [facility], [address], [place], [address], 05:01:43 trazodone 50 mg tablet 2024 [facility], [address], [place], [address], 15:22:40 hydrocodo ne 5 mg-acetam inophen 325 mg tablet 2024 [id number], [address] [facility] [address], [address], 18:59:23 prednison e 20 mg tablet 2024 [facility] #[id number], [address] [facility] [address], [address], 5 05:01:15 clindamyc in HCl 300 mg capsule 2024 025 MEL [id number], [address], [address], [place], [address], 05:01:39 Patient TargetsNo targets recorded. Patient InstructionsNo instructions recorded. 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 Referring Physician: Meli Hawthorne, Family Medicine, Encounter Date: 04/05/2025 Results Created Date Observation Date Name Description Value Unit Range Abnormal Flag Note LastModifiedBy Organization Detail LastModifiedTime 04/05/2004/05/2025 CBC WBC 8.2 x10 4.5-10 .5 Not Available [facility] [address] [facility] [address], [place], [address], 04/05/2025 15:03:06 04/05/2004/05/2025 CBC RBC 3.91 x10 4.30-5 .90 low Not Available [facility] [address] [facility] [address], [place], [address], 04/05/2025 15:03:06 04/05/2004/05/2025 CBC HGB 11.9 g/dL 13.5-1 8.0 low Not Available [facility] [address] [facility] 1, [place], [address], 04/05/2025 15:03:06 04/05/2004/05/2025 CBC HCT 36.8 % 35.0-6 0.0 Not Available [facility] [address] [facility] [address], [place], [address], 04/05/2025 15:03:06 04/05/2004/05/2025 CBC MCV 94.0 fL 80.0-9 9.9 Not Available [facility] [address] [facility] [address], [place], [address], 04/05/2025 15:03:06 04/05/2004/05/2025 CBC MCH 30.3 pg 27.0-3 2.0 Not Available [facility] [address] [facility] 1, [place], [address], 04/05/2025 15:03:06 04/05/2004/05/2025 CBC MCHC 32.2 g/dL 32.0-3 6.0 Not Available [facility] [address] [facility], [place], [address], 04/05/2025 15:03:06 04/05/2004/05/2025 CBC RDW 13.4 % 11.5-1 4.5 Not Available [facility] [address] [facility] 1, [place], [address], 04/05/2025 15:03:06 04/05/2004/05/2025 CBC plt 287.6 x10 150.0- 451.0 Not Available [facility] [address] [facility] 1, [place], [address], 04/05/2025 15:03:06 04/05/2004/05/2025 CBC lymphocytes % 26.0 % 20.0-5 0.0 Not Available [facility] [address] [facility] 1, [place], [address], 04/05/2025 15:03:06 04/05/2004/05/2025 CBC granulcytes % 61.0 % 30.0-7 0.0 Not Available [facility] [address] [facility] 1, [place], [address], 04/05/2025 15:03:06 04/05/2004/05/2025 CBC monocytes % 11.2 % 2.0-16 .0 Not Available [facility] [address] [facility], [place], [address], 04/05/2025 15:03:06 04/05/20 25 04/05/2025 CBC granulcytes# 5.0 x10 Not Amisha ilable [facility] [address] [address], [place], [address], 04/05/2025 15:03:06 04/05/20 25 04/05/2025 CBC lymphocytes # 2.1 x10 Not Available [facility] [address] [address], [place], [address], 04/05/2025 15:03:06 04/05/20 25 04/05/2025 CBC monocytes # 0.9 x10 Not Avai lable [facility] [address] [address], [place], [address], 04/05/2025 15:03:06 04/05/20 25 04/05/2025 CMP (MALE ) glucose 211.0 mg/dL 60.0-9 9.0 high Not Available [facility] [address] [address], [place], [address], 04/05/2025 15:08:46 04/05/20 25 04/05/2025 CMP (MALE ) BUN (blood urea nitrogen) 16.0 mg/dL 10.0-2 6.0 Not Available [address] [address], [place], [address], 04/05/2025 15:08:46 04/05/20 25 04/05/2025 CMP (MALE ) creatinine (serum) 1.1 mg/dL 0.4-1. 5 Not Available [facility] [address], [address], 04/05/2025 15:08:46 04/05/20 25 04/05/2025 CMP (MALE ) BUN/creatini ne ratio 14.55 ratio Not Available [address] [place], [address], 04/05/2025 15:08:46 04/05/20 25 04/05/2025 CMP (MALE ) eGFR calculated 69.2 Not Available [facility] [address] [facility] 1, [place], [address], 04/05/2025 15:08:46 04/05/20 25 04/05/2025 CMP (MALE ) total protein 6.8 g/dL 6.0-8. 5 Not Available [facility] [address] [facility], [place], [address], 04/05/2025 15:08:46 04/05/20 25 04/05/2025 CMP (MALE ) total bilirubin 0.7 mg/dL 0.2-1. 3 Not Available [facility] [address] [facility], [place], [address], 04/05/2025 15:08:46 04/05/20 25 04/05/2025 CMP (MALE ) albumin 4.1 g/dL 3.5-5. 5 Not Available [facility] [address] [facility] 1, [place], [address], 04/05/2025 15:08:46 04/05/20 25 04/05/2025 CMP (MALE ) globulin 2.7 calc Not Available [facility] [address] [facility], [place], [address], 04/05/2025 15:08:46 04/05/20 25 04/05/2025 CMP (MALE ) AST (SGOT) 19.0 U/L 0.0-46 .0 Not Available [facility] [address] [facility], [place], [address], 04/05/2025 15:08:46 04/05/20 25 04/05/2025 CMP (MALE ) altv (SGPT) 17.0 U/L 13.0-6 9.0 normal Not Available [facility] [address] [facility], [place], [address], 04/05/2025 15:08:46 04/05/20 25 04/05/2025 CMP (MALE ) A/G ratio 1.5 ratio Not Available [facility] [address] [facility] 1, [place], [address], 04/05/2025 15:08:46 04/05/20 25 04/05/2025 CMP (MALE ) ALP phos 106.0 U/L 30.0-1 40.0 normal Not Available [facility] [address] [facility] 1, [place], [address], 04/05/2025 15:08:46 04/05/20 25 04/05/2025 CMP (MALE ) calcium 9.2 mg/dL 8.4-10 .5 Not Available [facility] [address] [facility] 1, [place], [address], 04/05/2025 15:08:46 04/05/20 25 04/05/2025 CMP (MALE ) sodium 136.0 mmol/ L 136.0- 145.0 Not Available [facility] [address] [address], [place], [address], 04/05/2025 15:08:46 04/05/20 25 04/05/2025 CMP (MALE ) potassium 4.3 mmol/ L 3.5-5. 1 Not Available [facility] [address] [facility] 1, [place], [address], 04/05/2025 15:08:46 04/05/20 25 04/05/2025 CMP (MALE ) chloride 101.0 mmol/ L 98.0-1 10.0 normal Not Available [facility] [address] [address], [place], [address], 04/05/2025 15:08:46 04/05/20 25 04/05/2025 CMP (MALE ) C02 25.0 mmol/ L 22.0-3 1.0 Not Available [facility] [address], [place], [address], 04/05/2025 15:08:46 04/05/2004/05/2025 CMP (MALE ) anion gap 10.0 calc Not Available [facility] [address], [place], [address], 04/05/2025 15:08:46 04/05/2004/05/2025 CMP (MALE ) osmolality 287.9 calc Not Available [facility] [address] [facility] 1, [place], [address], 04/05/2025 15:08:46 04/05/2004/09/2025 DELMY,I FA, CASCA DE AND RHEUM ATOID ARTHR ITIS PANEL 2, WITH REFLE XES DELMY screen, ifa NEGATI VE negati ve normal DELMY IFA is a first line scree n for detec ting the prese nce of up to appro ximat lucas 150 autoa ntibo dies in vario us autoi mmune disea ses. A negat shirley DELMY IFA resul t sugge sts an [...] Patte rns (http s://d oi.or g/10. 1515/ cclm- 2017- 0052) For addit ional infor jesusita simpson e refer to http: //edmond anderson ics.c om/fa q/FAQ 177 (This link is being provi ded for infor alli almeida/ costa garcia purpo ses only. ) Not Available [address] [address] [place], [address], 04/09/2025 12:59:04 04/05/2004/09/2025 DELMY,I FA, CASCA DE AND RHEUM ATOID ARTHR ITIS PANEL 2, WITH REFLE XES rheumatoid factor <10 IU/mL <14 normal Not Available [address] [address] [place], [address], 04/09/2025 12:59:04 04/05/2004/09/2025 DELMY,I FA, CASCA DE AND RHEUM ATOID ARTHR ITIS PANEL 2, WITH REFLE XES cyclic citrullinate d peptide (ccp) Ab (IgG) <16 units normal Refer ence Range Negat shirley: <20 Weak Posit shirley: 20-39 Moder ate Posit shirley: 40-59 Stron g Posit shirley: >59 Not Available [address] [address] [place], [address], 04/09/2025 12:59:04 04/05/2004/09/2025 DELMY,I FA, CASCA DE [...] justo pepti de (CCP) . Not Available [facility] [address] [address] [place], [address], 04/09/2025 12:59:04 04/05/2004/09/2025 URIC ACID uric acid 6.4 mg/dL 4.0-8. 0 normal Thera peuti c tamarage t for gout patie nts: <6.0 mg/dL Not Available [facility] [address] [place], [address], 04/09/2025 12:59:05 04/05/2004/09/2025 C-NADIR CTIVE PROTE IN C-reactive protein 49.0 mg/L <8.0 high Not Available [facility] [address] [place], [address], 04/09/2025 12:59:05 04/05/2004/05/2025 ESR (eryt hrocy te sedim entat ion rate) , blood SedRate 46 Not Available [facility] [address] [place], [address], 04/05/2025 14:17:26 05/29/20 25 05/29/2025 CBC WBC 6.8 x10 4.5-10 .5 Not Available [facility] [address], [address], 05/29/2025 15:01:56 05/29/20 25 05/29/2025 CBC RBC 3.99 x10 4.30-5 .90 low Not Available [facility] [address], [address], 05/29/2025 15:01:56 05/29/20 25 05/29/2025 CBC HGB 12.3 g/dL 13.5-1 8.0 low Not Available [facility] [address], [address], 05/29/2025 15:01:56 05/29/20 25 05/29/2025 CBC HCT 37.3 % 35.0-6 0.0 Not Available [facility] [address] [facility], [place], [address], 05/29/2025 15:01:56 05/29/2005/29/2025 CBC MCV 93.5 fL 80.0-9 9.9 Not Available [facility] [address] [facility] 1, [place], [address], 05/29/2025 15:01:56 05/29/2005/29/2025 CBC MCH 30.8 pg 27.0-3 2.0 Not Available [facility] [address] [facility], [place], [address], 05/29/2025 15:01:56 05/29/2005/29/2025 CBC MCHC 33.0 g/dL 32.0-3 6.0 Not Available [facility] [address] [facility], [place], [address], 05/29/2025 15:01:56 05/29/2005/29/2025 CBC RDW 14.0 % 11.5-1 4.5 Not Available [facility] [address] [facility], [place], [address], 05/29/2025 15:01:56 05/29/2005/29/2025 CBC plt 282.5 x10 150.0- 451.0 Not Available [facility] [address] [facility] 1, [place], [address], 05/29/2025 15:01:56 05/29/2005/29/2025 CBC lymphocytes % 40.1 % 20.0-5 0.0 Not Available [facility] [address] [facility] 1, [place], [address], 05/29/2025 15:01:56 05/29/2005/29/2025 CBC granulcytes % 49.1 % 30.0-7 0.0 Not Available [facility] [address] [address], [place], [address], 05/29/2025 15:01:56 05/29/2005/29/2025 CBC monocytes % 9.2 % 2.0-16 .0 Not Available [facility] [address] [address], [place], [address], 05/29/2025 15:01:56 05/29/2005/29/2025 CBC granulcytes# 3.3 x10 Not Amisha ilable [facility] [address] [address], [place], [address], 05/29/2025 15:01:56 05/29/2005/29/2025 CBC lymphocytes # 2.7 x10 Not Available [facility] [address] [address], [place], [address], 05/29/2025 15:01:56 05/29/2005/29/2025 CBC monocytes # 0.6 x10 Not Avai lable [facility] [address], [address], 05/29/2025 15:01:56 05/29/2005/29/2025 CMP (MALE ) glucose 141.0 mg/dL 60.0-9 9.0 high Not Available [facility] [address], [address], 05/29/2025 15:34:00 05/29/2005/29/2025 CMP (MALE ) BUN (blood urea nitrogen) 15.0 mg/dL 10.0-2 6.0 Not Available [facility] [address], [address], 05/29/2025 15:34:00 05/29/20 25 05/29/2025 CMP (MALE ) creatinine (serum) 1.1 mg/dL 0.4-1. 5 Not Available [facility] [address] [facility], [place], [address], 05/29/2025 15:34:00 05/29/20 25 05/29/2025 CMP (MALE ) BUN/creatini ne ratio 13.64 ratio Not Available [facility] [address] [facility], [place], [address], 05/29/2025 15:34:00 05/29/20 25 05/29/2025 CMP (MALE ) eGFR calculated 69.2 Not Available [facility] [address]05 [facility] 1, [place], [address], 05/29/2025 15:34:00 05/29/20 25 05/29/2025 CMP (MALE ) total protein 6.5 g/dL 6.0-8. 5 Not Available [facility] [address] [facility] 1, [place], [address], 05/29/2025 15:34:00 05/29/20 25 05/29/2025 CMP (MALE ) total bilirubin 0.7 mg/dL 0.2-1. 3 Not Available [facility] [address] [facility] 1, [place], [address], 05/29/2025 15:34:00 05/29/20 25 05/29/2025 CMP (MALE ) albumin 4.3 g/dL 3.5-5. 5 Not Available [facility] [address] [facility], [place], [address], 05/29/2025 15:34:00 05/29/20 25 05/29/2025 CMP (MALE ) globulin 2.2 calc Not Available [facility] [address] [facility] 1, [place], [address], 05/29/2025 15:34:00 05/29/2005/29/2025 CMP (MALE ) AST (SGOT) 27.0 U/L 0.0-46 .0 Not Available [facility] [address] [facility] 1, [place], [address], 05/29/2025 15:34:00 05/29/20 25 05/29/2025 CMP (MALE ) altv (SGPT) 22.0 U/L 13.0-6 9.0 normal Not Available [facility] [address] [facility] 1, [place], [address], 05/29/2025 15:34:00 05/29/2005/29/2025 CMP (MALE ) A/G ratio 2.0 ratio Not Available [facility] [address] [facility] 1, [place], [address], 05/29/2025 15:34:00 05/29/2005/29/2025 CMP (MALE ) ALP phos 102.0 U/L 30.0-1 40.0 normal Not Available [facility] [address] [facility] 1, [place], [address], 05/29/2025 15:34:00 05/29/20 25 05/29/2025 CMP (MALE ) calcium 9.1 mg/dL 8.4-10 .5 Not Available [facility] [address] [facility] 1, [place], [address], 05/29/2025 15:34:00 05/29/20 25 05/29/2025 CMP (MALE ) sodium 136.0 mmol/ L 136.0- 145.0 Not Available [facility] 805 [facility] 1, [place], [address], 05/29/2025 15:34:00 05/29/20 25 05/29/2025 CMP (MALE ) potassium 4.3 mmol/ L 3.5-5. 1 Not Available [facility] [address] [facility] 1, [place], [address], 05/29/2025 15:34:00 05/29/2005/29/2025 CMP (MALE ) chloride 99.0 mmol/ L 98.0-1 10.0 normal Not Available [facility] [address] [facility], [place], [address], 05/29/2025 15:34:00 05/29/2005/29/2025 CMP (MALE ) C02 28.0 mmol/ L 22.0-3 1.0 Not Available [facility] [address] [facility] 1, [place], [address], 05/29/2025 15:34:00 05/29/20 25 05/29/2025 CMP (MALE ) anion gap 9.0 calc Not Available [facility] [address] [facility] 1, [place], [address], 05/29/2025 15:34:00 05/29/2005/29/2025 CMP (MALE ) osmolality 284.1 calc Not Available [facility] [address] [facility] 1, [place], [address], 05/29/2025 15:34:00 05/29/2005/29/2025 URINA LYSIS WITH MICRO color YELLOW Not Available [facility] [address] [facility] 1, [place], [address], 05/29/2025 15:39:37 05/29/2005/29/2025 URINA LYSIS WITH MICRO clarity CLEAR Not Available [facility] [address] [facility] 1, [place], [address], 05/29/2025 15:39:37 05/29/2005/29/2025 URINA LYSIS WITH MICRO glu NEGATI VE Not Available [facility] [address], [place], [address], 05/29/2025 15:39:37 05/29/2005/29/2025 URINA LYSIS WITH MICRO bili NEGATI VE Not Available [facility] [address], [place], [address], 05/29/2025 15:39:37 05/29/2005/29/2025 URINA LYSIS WITH MICRO ket NEGATI VE Not Available [facility] [address], [place], [address], 05/29/2025 15:39:37 05/29/2005/29/2025 URINA LYSIS WITH MICRO S.g 1.010 1.005- 1.025 Not Available [facility] [address] [facility], [place], [address], 05/29/2025 15:39:37 05/29/2005/29/2025 URINA LYSIS WITH MICRO pH 5.5 5.0-7. 0 Not Available [facility] [address], [place], [address], 05/29/2025 15:39:37 05/29/2005/29/2025 URINA LYSIS WITH MICRO pro NEGATI VE Not Available [facility] [address] [facility], [place], [address], 05/29/2025 15:39:37 05/29/2005/29/2025 URINA LYSIS WITH MICRO uro 0.2 E.U./D L Not Available [facility] [address] [facility], [place], [address], 05/29/2025 15:39:37 05/29/2005/29/2025 URINA LYSIS WITH MICRO nit NEGATI VE Not Available [facility] [address], [place], [address], 05/29/2025 15:39:37 05/29/2005/29/2025 URINA LYSIS WITH MICRO blo NEGATI VE Not Available [facility] [address], [place], [address], 05/29/2025 15:39:37 05/29/2005/29/2025 URINA LYSIS WITH MICRO eduardo NEGATI VE Not Available [facility] [address], [place], [address], 05/29/2025 15:39:37 05/29/2005/29/2025 URINA LYSIS WITH MICRO WBC NEGATI VE Not Available [facility] [address], [place], [address], 05/29/2025 15:39:37 05/29/2005/29/2025 URINA LYSIS WITH MICRO RBC 1-2 abnormal Not Available [facility] [address], [place], [address], 05/29/2025 15:39:37 05/29/2005/29/2025 URINA LYSIS WITH MICRO epi cells NEGATI VE Not Available [facility] [address], [place], [address], 05/29/2025 15:39:37 05/29/2005/29/2025 URINA LYSIS WITH MICRO bacteria NEGATI VE Not Available [facility] [address], [place], [address], 05/29/2025 15:39:37 05/29/2005/29/2025 URINA LYSIS WITH MICRO other NEG Not Available [facility] [address] [facility] [address], [place], [address], 05/29/2025 15:39:37 05/29/20 25 05/30/2025 C-NADIR CTIVE PROTE IN C-reactive protein <3.0 mg/L <8.0 normal Not Available [facility] [address] [place], [address], 05/30/2025 21:35:58 05/29/2005/30/2025 AMYLA SE amylase 28 U/L 21-101 normal Not Available [facility] [address] [place], [address], 05/30/2025 21:35:59 05/29/2005/30/2025 CULTU RE, URINE , ROUTI NE culture, urine, routine SEE NOTE CULTU RE, URINE , ROUTI NE Micro Numbe r: [id number] Test Statu s: Final Speci men Sourc e: Urine Speci men Quali ty: Adequ ate Resul t: No Growt h Not Available [facility] [address] [place], [address], 05/30/2025 21:35:59 06/19/20 25 06/19/2025 CBC WBC 7.2 x10 4.5 - 10.5 Not Available [facility] [address] [facility] [address], [place], [address], 06/19/2025 14:03:53 06/19/20 25 06/19/2025 CBC RBC 4.03 x10 4.30 - 5.90 low Not Available [facility] [address] [facility] [address], [place], [address], 06/19/2025 14:03:53 06/19/20 25 06/19/2025 CBC HGB 13.8 g/dL 13.5 - 18.0 Not Available [facility] [address], [place], [address], 06/19/2025 14:03:53 06/19/20 25 06/19/2025 CBC HCT 37.6 % 35.0 - 60.0 Not Available [facility] [address] Stephania Dominguez [address], [place], [address], 06/19/2025 14:03:53 06/19/20 25 06/19/2025 CBC MCV 93.3 fL 80.0 - 99.9 Not Available [facility] [address], [place], [address], 06/19/2025 14:03:53 06/19/20 25 06/19/2025 CBC MCH 34.2 pg 27.0 - 32.0 high Not Available [facility] [address] Stephania Doming[address] [facility] 1, [place], [address], 06/19/2025 14:03:53 06/19/20 25 06/19/2025 CBC MCHC 36.7 g/dL 32.0 - 36.0 high Not Available [facility] [address] Stephan[address] [facility] 1, [place], [address], 06/19/2025 14:03:53 06/19/20 25 06/19/2025 CBC RDW 14.6 % 11.5 - 14.5 high Not Available [facility] [address], [place], [address], 06/19/2025 14:03:53 06/19/20 25 06/19/2025 CBC plt 295.5 x10 150.0 - 451.0 Not Available [facility] [address] Stephan[address] Dom[address] [facility] 1, [place], [address], 06/19/2025 14:03:53 06/19/20 25 06/19/2025 CBC lymphocytes % 36.3 % 20.0 - 50.0 Not Available [facility] [address] [place] Angel[address] [facility] 1, [place], [address], 06/19/2025 14:03:53 06/19/20 25 06/19/2025 CBC granulcytes % 53.7 % 30.0 - 70.0 Not Available [facility] [address] Shayane [facility] 1, [place], [address], 06/19/2025 14:03:53 06/19/20 25 06/19/2025 CBC monocytes % 7.8 % 2.0 - 16.0 Not Available [facility] [address] Shayane [facility] 1, [place], [address], 06/19/2025 14:03:53 06/19/20 25 06/19/2025 CBC granulcytes# 3.9 x10 Not Amisha ilable [facility] [address] [facility] [place], [address], 06/19/2025 14:03:53 06/19/20 25 06/19/2025 CBC lymphocytes # 2.6 x10 Not Available [facility] [address] [facility], [place], [address], 06/19/2025 14:03:53 06/19/20 25 06/19/2025 CBC monocytes # 0.6 x10 Not Avai lable [facility] [address] [facility], [place], [address], 06/19/2025 14:03:53 06/19/20 25 06/19/2025 CMP (MALE ) glucose 162.0 mg/dL 60.0 - 99.0 high Not Available [facility] [address] [facility] 1, [place], [address], 06/19/2025 14:08:27 06/19/20 25 06/19/2025 CMP (MALE ) BUN (blood urea nitrogen) 19.0 mg/dL 10.0 - 26.0 Not Available [facility] [address] [facility] 1, [place], [address], 06/19/2025 14:08:27 06/19/20 25 06/19/2025 CMP (MALE ) creatinine (serum) 1.1 mg/dL 0.4 - 1.5 Not Available [facility] [address] [facility], [place], [address], 06/19/2025 14:08:27 06/19/20 25 06/19/2025 CMP (MALE ) BUN/creatini ne ratio 17.27 ratio Not Available [facility] [address] [facility] 1, [place], [address], 06/19/2025 14:08:27 06/19/20 25 06/19/2025 CMP (MALE ) total protein 6.9 g/dL 6.0 - 8.5 Not Available [facility] [address] [facility] 1, [place], [address], 06/19/2025 14:08:27 06/19/20 25 06/19/2025 CMP (MALE ) total bilirubin 0.5 mg/dL 0.2 - 1.3 Not Available [facility] [address] [facility] 1, [place], [address], 06/19/2025 14:08:27 06/19/20 25 06/19/2025 CMP (MALE ) albumin 4.6 g/dL 3.5 - 5.5 Not Available [facility] [address] [facility] Shayane [facility] 1, [place], [address], 06/19/2025 14:08:27 06/19/20 25 06/19/2025 CMP (MALE ) globulin 2.3 calc Not Available [facility] [address] [facility] 1, [place], [address], 06/19/2025 14:08:27 06/19/20 25 06/19/2025 CMP (MALE ) AST (SGOT) 39.0 U/L 0.0 - 46.0 Not Available [facility] [address] [facility] 1, [place], [address], 06/19/2025 14:08:27 06/19/20 25 06/19/2025 CMP (MALE ) altv (SGPT) 28.0 U/L 13.0 - 69.0 Not Available [facility] [address] [facility] 1, [place], [address], 06/19/2025 14:08:27 06/19/20 25 06/19/2025 CMP (MALE ) A/G ratio 2.0 ratio Not Available [facility] [address] [facility] 1, [place], [address], 06/19/2025 14:08:27 06/19/20 25 06/19/2025 CMP (MALE ) ALP phos 83.0 U/L 30.0 - 140.0 Not Available [facility] [address] [facility], [place], [address], 06/19/2025 14:08:27 06/19/20 25 06/19/2025 CMP (MALE ) calcium 9.3 mg/dL 8.4 - 10.5 Not Available [facility] [address] [facility] 1, [place], [address], 06/19/2025 14:08:27 06/19/20 25 06/19/2025 CMP (MALE ) sodium 139.0 mmol/ L 136.0 - 145.0 Not Available [facility] [address] [facility] 1, [place], [address], 06/19/2025 14:08:27 06/19/20 25 06/19/2025 CMP (MALE ) potassium 4.7 mmol/ L 3.5 - 5.1 Not Available [facility] [address] [facility], [place], [address], 06/19/2025 14:08:27 06/19/20 25 06/19/2025 CMP (MALE ) chloride 101.0 mmol/ L 98.0 - 110.0 Not Available [facility] [facility] [address] [facility] 1, [place], [address], 06/19/2025 14:08:27 06/19/20 25 06/19/2025 CMP (MALE ) C02 27.0 mmol/ L 22.0 - 31.0 Not Available [facility] [address] [facility] 1, [place], [address], 06/19/2025 14:08:27 06/19/20 25 06/19/2025 CMP (MALE ) anion gap 11.0 calc Not Available [facility] [address] [facility] 1, [place], [address], 06/19/2025 14:08:27 06/19/20 25 06/19/2025 CMP (MALE ) osmolality 292.4 calc Not Available [facility] [address] [facility] 1, [place], [address], 06/19/2025 14:08:27 06/19/20 25 06/19/2025 CMP (MALE ) eGFR calculated 83.8 Not Available [facility] [address] [facility] 1, [place], [address], 06/19/2025 14:08:27 06/19/20 25 06/20/2025 C-NADIR CTIVE PROTE IN C-reactive protein <3.0 mg/L <8.0 normal Not Available [facility] [address] [place], [address], 06/20/2025 06:57:28 06/19/2006/20/2025 AMYLA SE amylase 36 U/L 21-101 normal Not Available [facility] [address] [place], [address], 06/20/2025 06:57:28 04/05/20 XR, ankle , 3 or more view No observ ation record ed. [email or web address] [facility] ([facility]) [address] [place], [address], 04/05/2025 14:19:15 04/06/2004/05/2025 imagi ng/di agnos tic resul t No observ ation record ed. [facility] [address] [place], [address], 04/15/2025 12:37:51 05/29/2005/29/2025 CT, abdom en + pelvi s, w/ contr ast No observ ation record ed. [facility] [address] [place], [address], 05/29/2025 18:12:29 Result Notes None recorded. Problems Name Problem SNOMED Code Status Onset Date Resolution Date Notes Provider Name and Address Organization Details Recorded Time History of nutritio nal disorder 404186381 Completed 202112/11/2021 H/O NON-INSU JASVIR DEPENDEN T DIABETES MELLITUS - Status is Inactive ; Recorded 12/12/19 3:37PM by Meli Hawthorne PA-C, Annotati on/Adden dum; Promoted ; acuity set as *; Not Available [facility] 03:16:01 History of endocrin e disorder 785275097 Completed 202112/11/2021 H/O NON-INSU JASVIR DEPENDEN T DIABETES MELLITUS - Status is Inactive ; Recorded 12/12/19 3:37PM by Meli Hawthorne PA-C, Annotati on/Adden dum; Promoted ; acuity set as *; Not Available [facility] 3 03:16:01 History of metaboli c disorder 108959808 Completed 202112/11/2021 H/O NON-INSU JASVIR DEPENDEN T DIABETES MELLITUS - Status is Inactive ; Recorded 12/12/19 3:37PM by Meli Hawthorne PA-C, Annotati on/Adden dum; Promoted ; acuity set as *; Not Available [facility] 3 03:16:01 Anemia 611779367 Completed 202112/11/2021 ANEMIA - Status is Inactive ; Recorded 12/12/19 3:38PM by Meli Hawthorne PA-C, Annotati on/Adden dum; Promoted ; acuity set as *; Not Available [facility] 3 03:16:02 Herpes zoster 1261641 Completed 202112/11/2021 HERPES ZOSTER WITHOUT COMPLICA TION [...] ; acuity set as *; Not Available [facility] 3 03:16:02 Fracture of other finger Completed 202112/11/2021 fx 3rd and 4th digits on Lt hand - Status is Inactive ; 12/12/19 3:38PM by Meli Hawthorne PA-C, Annotati on/Adden dum; Promoted ; acuity set as *; Not Available [facility] 3 03:16:02 Gastroes ophageal reflux disease 682060101 Active 2021 GERD (GASTROE SOPHAGEA L REFLUX DISEASE) ; Recorded 05/25/20 3:58PM by Vivek mederos, Office Visit; Promoted ; acuity set as *; ROSAURA momin [facility] 5 15:34:18 Coronary artery bypass graft stent present [id number] 9104 Active 2021 H/O HEART ARTERY STENT; Recorded 05/25/20 3:58PM by Vivek mederos, Office Visit; Promoted ; acuity set as *; [facility]NAABBY [facility] 15:34:12 Hypercho lesterol emia 01444311 Active 2021 Hypercho lesterol emia; 05/25/20 3:58PM by Vivek mederos, Office Visit; Promoted ; acuity set as *; ROSAURA momin [facility] 5 15:34:26 Coronary arterios clerosis 50232856 Active 2022 [facility] GALLO [facility] 15:34:08 Type 2 diabetes mellitus 34393318 Active 2022 ROSAURA HACRISPINSUGEY [facility] 15:34:54 Diabetes mellitus 73709699 Active 2023 [facility] HAEFFNER [facility] 5 15:34:15 Spinal stenosis of lumbosac ral region 678336975 Active 2024 [facility] HAABBY [facility] 08:17:04 Spinal stenosis of lumbar region 75566093 Active 2024 [facility] HAEFSUGEY [facility] 08:17:32 Notes:Some problems listed i n Documents: #[id number], #[id number] could not be added to this patient's chart. Please review these documents and add these problems to the patient's chart manually as needed. Problem Notes None recorded. Procedures Surgical History Date Name Laterality Status Provider Name and Address Organization Details Recorded Time 04/30/20 25 diabetic retinal eye exam completed ROSAURA GALLO [facility] [place] 06/10/2025 08:31:40 07/27/19 25 Joint Inj Beta-shoulder, hip, knee completed MELI HAWTHORNE PA-C [address] [place], [address], [facility] 07/27/2024 14:58:22 02/23/20 24 prostate specific antigen measurement completed ROSAURA GALLO [facility] 06/10/2025 08:35:25 12/29/19 24 cardiac catheterization completed MELI HAWTHORNE PA-C [address] [place], [address], [facility] 12/30/2023 09:19:40 12/10/19 24 Family Practice Trigger Point Injection completed MELI HAWTHORNE PA-C [address] [place], [address], [facility] 12/27/2023 17:05:59 12/10/19 24 jr cryo warts completed MELI HAWTHORNE PA-C [address] [place], [address], [facility] 12/27/2023 17:06:12 11/18/19 24 Family Practice Trigger Point Injection completed MELI HAWTHORNE PA-C [address] [place], [address], [facility] 2023 19:46:35 11/18/19 24 jr cryo warts completed MELI HAWTHORNE PA-C [address] [place], [address], [facility] 2023 19:45:06 08/20/20 21 placement of stent in cardiac conduit completed ROSAURA GALLO [facility] 02/18/2023 09:52:08 02/22/20 20 colonoscopy completed ROSAURAMARY GALLO [facility] [place] 02/18/2023 09:51:32 Imaging Results None recorded. Procedure Notes None recorded. Medical Equipment None Reported. Allergies Allergen ID Allergen Name Allergen Category Reaction Reaction Severity Criticality Documentation Date Start Date Code Code System Note Provider Name and Address Organization Details Recorded Time 03123 doxycycli ne Not available Not available Not available Not available 02/18/2023 3640 RxNorm ROSAURA GALLO [facility] 09:45:13 Medications Name Sig Start [...] 12/12/19 7:46AM by Rosaura Gallo LPN (Authori zed through Andrzej Ware MD), Office Visit; Mail Order Quantity : 90 Stick; Mail Order Days: 90 Days; Refill Quantity : 0; Not Available Not Available Not Available enalapril maleate daily 02/18 completed VO MW/tw; Recorded 12/12/19 3:21PM by eMli Hawthorne PA-C, Office Visit; Mail Order Quantity : 45 Tablet; Mail Order Days: 90 Days; Refill Quantity : 45; Tablet; Not Available Not Available Not Available metoprolo l succinate daily 02/18 completed 0; Recorded 05/25/20 22 4:02PM by Vivek mederos, Office Visit; Not Available Not Available Not Available metformin two times daily 02/18 completed MW/mf; 85736; Recorded 12/12/19 7:46AM by Rosaura Gallo LPN (Authori zed through GRICELDA Hodges), Office Visit; Mail Order [...] and Address Organization Details Last Updated DateTime 5 177.8 cm 31.6 kg/m2 61567.3 2 g 97 % 72 /min 20 /min 98 [degF] 140/80 mm[Hg] ROSAURA GALLO [facility] [employer] 5 14:02:08 Date Recorded Body height Body mass index (BMI) Body weight Oxygen saturation Heart rate Respiratory rate Body temperature Systolic And Diastolic Provider Name and Address Organization Details Last Updated DateTime 5 177.8 cm 31 kg/m2 48510.9 5 g 97 % 80 /min 18 /min 97.9 [degF] 138/80 mm[Hg] ROSAURA CRISPINYONG [facility] 5 14:56:57 Date Recorded Body height Body mass index (BMI) Body weight Oxygen saturation Heart rate Respiratory rate Body temperature Systolic And Diastolic Provider Name and Address Organization Details Last Updated DateTime 5 177.8 cm 31.7 kg/m2 345722. 91 g 98 % 78 /min 20 /min 98 [degF] 136/80 mm[Hg] [facility] 5 10:38:47 Date Recorded Body height Body mass index (BMI) Body weight Provider Name and Address Organization Details Last Updated DateTime 06/12/2025 177.8 cm 30.8 kg/m2 63537.36 g [facility] 06/12/2025 10:39:28 Date Recorded Body height Body mass index (BMI) Body weight Oxygen saturation Heart rate Respiratory rate Body temperature Systolic And Diastolic Provider Name and Address Organization Details Last Updated DateTime 5 177.8 cm 30.1 kg/m2 92160.4 g 97 % 72 /min 18 /min 97.9 [degF] 138/80 mm[Hg] [facility] 5 11:37:46 Social History Question Answer Notes LastModified by Organizat ion Details LastModified Time Tobacco Smoking Status Never Smoker MELI HAWTHORNE PA-C [address] [place] [address], [address], [facility] 02/18/2023 10:41:51 Are You Blind Or Do You Have Difficulty Seeing? No [email or web address] Information not available 02/18/2023 Are You Deaf Or Do You Have Serious Difficulty Hearing? No Information not available 02/18/2023 What Type Of Diet Are You Following? DIABETIC Information not available 02/18/2023 What Was The Date Of Your Most Recent Tobacco Screening? 02/18/2023 [email or web address] Information not available 02/18/2023 Do You Use Your Seat Belt Or Car Seat Routinely? Yes [email or web address] Information not available 02/18/2023 Do You Have Difficulty Walking Or Climbing Stairs? No Information not available 02/18/2023 Sex: Unknown Functional Status Question Answer Note LastModified by Organizat ion Details LastModified Time What is your level of alcohol consumption? Occasional [email or web address] Information not available 02/18/2023 Do you have transportation difficulties? No Information not available 02/18/2023 Are you able to walk independently without assistance or assistive devices? YESWOREST [email or web address] Information not available 02/18/2023 Do you have difficulty doing errands alone? No [email or web address] Information not available 02/18/2023 Are you able to care for yourself independently? Yes Information not available 02/18/2023 Do you have difficulty dressing, bathing, grooming, or toileting? No [email or web address] Information not available 02/18/2023 Mental Status Question Answer Note LastModified by Organizat ion Details LastModified Time Do you feel stressed (tense, restless, nervous, or anxious, or unable to sleep at night)? [id number] [email or web address] Information not available 02/18/2023 Do you have difficulty concentrating, remembering or making decisions? No [email or web address] Information no t available 02/18/2023 Family History Nothing Reported. Medical History Condition Response Diabetes Y Coronary Artery Disease Y Heart Disease Y Arthritis Y Immunizations Vaccine Type Date Status Note Provider Nam e and Address Organization Details Recorded Time Tdap 8 completed Not Available [facility] 01/30/2023 02:49:41 Influenza, split virus, trivalent, preservative 9 completed Not Available [facility] 01/30/2023 02:49:42 Td(adult) unspecified formulation 2 completed Not Available [facility] 01/30/2023 02:49:42 Past Encounters Encounter ID Performer Location Encounter Start Date Encounter Closed Date Diagnosis/Indication Diagnosis SNOMED-CT Code Diagnosis ICD10 Code Diagnosis IMO Codes Diagnosis Note [id number] MELI HAWTHORNE PA-C [facility] ([facility]) [address] [place] [id number] 02/18/2023 09:39:38 02/18/2023 18:46:05 Type 2 diabetes mellitus 79407192 E11.9 Coronary arteriosclerosis 97990351 I25.10 Cath in Apr 25 normal. stress test and ECHO in 09/24 and normal. [id number] MELI HAWTHORNE PA-C [facility] (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) [address] [place] [id number] 5 11/18/2023 09:44:41 11/18/2023 12:10:23 Trigger finger of right hand 6995529217 0684162 M65.30 Actinic keratosis 007 L57.0 Right-side d piriformis syndrome 3667941088 67856 M54.31 [id number] MELI HAWTHORNE PA-C [facility] ([facility]) [address] [place] [id number] 5 12/10/2023 12:20:44 12/28/2023 07:42:39 Actinic keratosis 846026434 L57.0 2 lesions frozen on the R side of cheek below the ear Trigger fi nger of right hand 0933990804 6056147 M65.30 [id number] MELI HAWTHORNE PA-C [facility] ([facility]) [address] [place] [id number] 5 12/23/2023 12:05:53 12/24/2023 10:45:01 Tick bite 44369417 W57.XXXD Bite of tick 615759372 W 57.XXXA will get a tick panel. no antibiotic s due to pt adversion to doxy [id number] MELI HAWTHORNE PA-C [facility] ([facility]) [address] [place] [id number] 02/22/2024 14:35:25 03/14/2024 08:47:13 Fatigue 60388167 R53.83 Type 2 marley betes mellitus 21219876 E11.69 Benign pro static hyperplasia 777309300 N40.0 Asthma 292146564 J45.90 9 [id number] MELI HAWTHORNE PA-C [facility] ([facility]) [address] [place] [id number] 5 03/28/2024 12:16:13 04/05/2024 13:23:38 Muscle spasm of cervical muscle of neck 4343320438 04 M62.838 heat. gentle stretching . if not improved with recommend xray and PT.warned his sugars will go up with steroids [id number] MELI HAWTHORNE PA-C [facility] ([facility]) [address] [place] [id number] 5 04/19/2024 14:32:46 05/15/2024 07:53:44 Cervical radiculopathy 42135299 M54.12 has PT set up and started for this. it is getting alittle better. Erectile dysfunction 860 882979 F52.21 Skin lesion 27574189 L98 .9 lesion hypopigeme nt in the sight of his tick bite this summer. no sign of active infection [id number] MELI HAWTHORNE PA-C [facility] ([facility]) [address] [place] [id number] 5 07/27/2024 14:16:27 07/27/2024 15:00:54 Trigger finger of right hand 3927727877 0860011 M65.30 3rd finger right hand Rupture of tendon of biceps 994693849 M66.829 right arm. one of the proximal heads. >1 yr old [id number] MELI HAWTHORNE PA-C [facility] ([facility]) [address] [place] [address] [id number] 5 02/21/2025 15:15:29 02/22/2025 09:13:09 Spinal stenosis of lumbar region 48728239 M48.061 M54.16 [id number] I feel pt needs MRI due to worsening weakness and neurologic al decline in the R leg with loss of reflex. Positive SLR in the R leg and 4/5 strength in knee flex/ext and foot dorsi and plantar flexion.Hx of multiple back surgeries with internal fixation.L ast xray at [facility] 4.25 showing severe degenerati onDelay in this MRI may result in further damage that may not be reversible if delayed. [id number] MELI HAWTHORNE PA-C [facility] ([facility]) [address] [place] [id number] 5 02/28/2025 15:07:06 03/27/2025 07:39:28 Lumbar facet joint pain 626039998 M47.816 [id number] I reviewed his MRI with him. Has multlple levels of DJD with mild to mod facet joint impingment but nothing our right surgcialHe decines PT referal and Pain tx referal for injections . sTates he has done those in the past and does not help. Inflammati on of sacroiliac joint 14918015 M46.1 66330 will try an injection in his Right SI joint. he is pinpointin g that location today as the source of the majority of his pain [id number] MELI HAWTHORNE PA-C [facility] (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 pathology changes vs gout vs infection. will wait for labs but empiricall y start anbiotic and gout tx. [id number] MELI HAWTHORNE PA-C [facility] ([facility]) [address] [place] [id number] 5 05/24/2025 14:47:26 05/24/2025 16:07:28 Acute bacterial sinusitis 88789571 J01.90 B96.89 65669 Chronic insomnia 9429028 04 F51.04 901699 [id number] MLEI HAWTHORNE PA-C [facility] ([facility]) [address] [place] [id number] 5 05/29/2025 10:23:09 05/29/2025 11:12:07 Acute abdominal pain 696348517 R10.9 33731 acute diffuse pain. differenti al renal stones, pancreatit is, colitis, mesenteric ischemia. [id number] MELI HAWTHORNE PA-C [facility] ([facility]) [address] [place] [address] 06/12/2025 10:32:08 06/12/2025 11:41:13 Upper abdominal pain 30523775 R10.10 7058238 Colitis 95392488 K52.9 75132 Health Concerns Section Related Observation LastModified by Organization Detai ls LastModified Time None Recorded Concern Status LastModified by Organization Details LastModified Time None Recorded Advance Directives Directive None Recorded Payers Insurance Date Sequence Insurance Name Policy Number Policy Aldridge Covered Member ID Aldridge Member ID Guarantor Name 02/28/2025 1 [employer] (MEDICARE REPLACEMENT/A DVANTAGE - PPO) Marcial Casillas [id number] Marcial Casillas 06/18/2025 1 [facility] (MEDICARE REPLACEMENT/A DVANTAGE - PPO) [id number] Marcial Casillas [id number] Marcial Casillas 02/28/2025 1 [place] (MEDICARE REPLACEMENT/A DVANTAGE - PPO) Marcial Casillas [id number] Marcial Casillas Notes Date Note Type Note Provider Name and Address Organization Details Recorded Time 5 text/html EdemaReported by PatientHPIFor quality, patient reportslegs [...] he seen a red spot on it Keiry am looked like spider bite foot swelled and they cannot see spot now but very painful. Had to travel to [place] yesterday for daughter surgeryx 5 days. no trauma recent or old. no fever. no hx of gout.did have a septic joint of the first MCP that required surgery 20 yrs ago. MELI HAWTHORNE PA-C [address] [place], [address], [facility] [place]. 04/05/2025 18:17:44 text/html Upper Respiratory SymptomsReported by PatientUpper Respiratory SymptomsFor quality, patient reportsproductive cough,congested,hacking cough,wheezy cough, andnasal discharge. For associated symptoms, patient reportsgreen sputum,shortness of breath,wheezing,difficult y breathing at night, andfatigue. For location, patient reportshead,chest, andnasal. For severity, patient reportsmoderate. For duration, patient reportssymptoms lasting over 2 weeks. For onset/timing, patient reportssudden. For context, patient reportsno foreign travelandnon-smoker. For alleviating factors, patient reportsanalgesicsandantih istamines. manjinder [facility] 05-14-25 got amoxil and albuterol and prednisoneCOVID tested negatiev. was feeling better until his antibiotics ran out. MELI HAWTHORNE PA-C [address] [place], [address], [facility] [place]. 05/24/2025 15:24:29 5 text/html Abdominal PainReported by PatientAbdominal PainFor quality, patient reportsbloating,cramping, andaching. For location, patient reportsgeneralized. For severity, [...] feeling some flank pain as well. MELI HAWTHORNE PA-C [address] [place], [address], [facility] [place] 05/29/2025 11:11:46 5 text/html Abdominal PainReported by PatientAbdominal PainFor quality, patient reportsbloating,cramping, aching,dull,burning, andfullness. For associated symptoms, patient reportsdecreased appetite,fatigue, andweight lossbut reportsno fever,no chills,no blood in the urine,no heartburn,no shortness of breath,no nausea,no vomiting,no diarrhea,no constipation,normal stool,no blood in stool,no jaundice,no cough,no changes in stool,no urinary frequency,no orthopnea,no exertional dyspnea, andno menstrual symptoms. For location, patient reportsgeneralized. For severity, patient reportsmoderate. For duration, patient reportsconstant. For onset/timing, patient reportsgradual. For aggravating factors, patient reportsmovementandeating and drinking. For other, patient reportsdenies possible [...] TO HAVE SOME MORE IF POSSIBLE. MELI HAWTHORNE PA-C [address] [place], [address], [facility] [place] 06/12/2025 11:40:46 5 text/html Bowel Complaints/Fecal IncontinenceReported by PatientHPIFor context, patient reportshistory of diabetes mellitusbut reportsno recent opiatesandnormal toileting ability. For location, patient reportsradiating:. For quality, patient reportsdiarrheaandfecal incontinence __. For severity, patient reportsmoderate. For duration, patient reportspresent less than 1 month. For onset/timing, patient reportsdaily. For aggravating factors, patient reportsdiet. Abdominal PainReported by PatientAbdominal PainFor quality, patient reportsbloating,cramping, burning, andgnawing. For location, patient reportsgeneralized. For severity, patient reportsmoderate. For duration, patient reportsconstant. For onset/timing, patient reportsacuteandsudden. For aggravating factors, patient reportseating and drinkingandspecific foods: (___). For associated symptoms, patient reportsno nausea,no vomiting,no blood in stool, andno dysuria. my belly is still hurting, I wonder if I need a colonoscopy , Dr Eckert did a couple and I was tx for h pylori .would need it done before Abrahan I am taking to [place] after [place]rahan and wont be back till probably 15 Not Available Not Available Not Available
[2025-06-23 00:34] VITALS: BP 141/76; PULSE 86; RESP 18; O2SAT 96
--- NOTE | 2025-06-23 00:54 | ECG_ITS ---
[facility] Test Date: 2025-06-23 Pat Name: Marcial Casillas Department: Room: Gender: Male Transfer Controller: : 1950 Requested By: Shane Bright Order Number: [id number] Reading MD: Measurements Intervals [place] Rate: 81 P: 54 SD: 226 QRS: 15 QRSD: 76 T: 51 QT: 360 QTc: 418 Interpretive Statements SINUS RHYTHM WITH FIRST DEGREE AV BLOCK WITH OCCASIONAL VENTRICULAR PREMATURE COMPLEXES No previous ECG available for comparison [email or web address]
--- NOTE | 2025-06-23 00:54 | CTR_ITS ---
PROCEDURE INFORMATION: Exam: CTA Abdomen and Pelvis With Contrast Exam date and time: 06/23/2025 1:35 AM Age: 74 years old Clinical indication: Abdominal pain; Generalized; Prior surgery; Surgery date: 6+ months; Surgery type: Hernia repair. Lumbar fusion; Diffuse abd pain with tarry stool; Additional info: Dark tarry stools, abd pain out of proportion->ami, gib? TECHNIQUE: Imaging protocol: Computed tomographic angiography of the abdomen and pelvis with contrast. Exam focused on the arteries. 3D rendering (Not supervised by radiologist): MIP and/or 3D reconstructed images were created by the technologist. Radiation optimization: All CT scans at this facility use at least one of these dose optimization techniques: automated exposure control; mA and/or kV adjustment per patient size (includes targeted exams where dose is matched to clinical indication); or iterative reconstruction. Contrast material: OMNI 350; Contrast volume: 100 ml; Contrast route: INTRAVENOUS (IV); COMPARISON: CT abdomen pelvis w con* [id number] 05/29/2025 2:48 PM RADIATION DOSE METRICS: Total DLP (mGy-cm): 1553.72 FINDINGS: Lungs: Mild bibasilar atelectasis. Aorta: Multifocal atherosclerosis without abdominal aortic aneurysm or dissection. Celiac and mesenteric arteries: No occlusion or significant stenosis. Renal arteries: Moderate left renal artery origin stenosis. Right iliac arteries: No occlusion or significant stenosis. Left iliac arteries: No occlusion or significant stenosis. Liver: No mass. Gallbladder and biliary ducts: Unremarkable. No calcified stones. No ductal dilation. Pancreas: Unremarkable. No mass. No ductal dilation. Spleen: Unremarkable. No splenomegaly. Adrenal glands: Unremarkable. No mass. Kidneys and ureters: Unremarkable. No solid mass. No hydronephrosis. Stomach and bowel: Unremarkable. No obstruction. No mucosal thickening. Appendix: No evidence of appendicitis. Intraperitoneal space: Unremarkable. No free air. No significant fluid collection. Lymph nodes: Unremarkable. No enlarged lymph nodes. Urinary bladder: Unremarkable. No mass. Reproductive: Unremarkable as visualized. Bones/joints: Bilateral pedicle screws at L2, L3, and L4 with L2-L3 and L3-L4 laminectomies. Bony demineralization and multifocal degenerative findings, without acute osseous injury observed. Soft tissues: Unremarkable. CT/CT angio abdomen pelvis [id number] IMPRESSION: 1. No signs of bowel obstruction or significant inflammation. A source of gastrointestinal bleeding is not identified on this study. 2. 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 3. No other acute abdominal/pelvic findings observed.
[2025-06-23 01:03] LABS: Hematocrit 38.8 % (37-53); Hemoglobin 12.80 g/dL (11.27-16.99); Mean Corpuscular HGB Conc 33.0 g/dL (30-55); Mean Corpuscular Hemoglobin 30.0 pg (27-33); Mean Corpuscular Volume 90.9 fl (82-101); Nucleated Red Blood Cells % 0 %; Platelet Count 299 10^3/cmm (157-399); Red Blood Count 4.27 10^6/uL (3.85-5.65); White Blood Count 6.09 10^3/uL (3.29-11.43)
[2025-06-23] MEDS: pantoprazole 40 mg SDV IVP (01:03)
[2025-06-23 01:04] VITALS: RESP 18; O2SAT 97
[2025-06-23] MEDS: ondansetron 2 mg/ML SDV 2 mL 4 MG IVP (01:04)
[2025-06-23] MEDS: morphine 4 mg/mL SDV 1 mL IVP (01:04)
--- NOTE | 2025-06-23 01:12 | W.ED.GIBLEED ---
HPI - GI Bleed General: Chief complaint: GI Bleed Stated complaint: internal bleeding Time Seen by Provider: 06/23/25 00:28 History of Present Illness: Patient is a 74M male with a history of diabetes, hypertension, hyperlipidemia, and prior ankle fracture who presents with approximately one month of persistent abdominal pain, described as a band-like discomfort across the upper abdomen, dark/black stools, and irregular bowel movements. He reports severe pain that at times doubles him over, notes that he had an episode of break in the colored stool earlier this week and then had a bowel movement of solid formed black stool tonight. He denies nausea, vomiting, liver disease, alcohol use, NSAID use, history of ulcers, or colon cancer. He has a history of prolonged antibiotic use (for suspected osteomyelitis), has been on multiple rounds of different ones, was recently put on Flagyl for suspected Cdiff. He has previously undergone a CT scan (two weeks ago) and colonoscopy (in 2021), both reportedly normal. He is currently taking metformin, enalapril, atorvastatin, baby aspirin, metronidazole, and protonix. Associated symptoms: Reports abdominal pain; Denies chills, easy bruising, fever(s), headache(s) or rash Related Data Home Medications ?Medication ?Instructions ?Recorded ?Confirmed aspirin 81 mg tablet,delayed 81 mg PO DAILY 10/29/21 05/15/25 release atorvastatin 40 mg tablet 40 mg PO DAILY 10/29/21 05/15/25 enalapril maleate 2.5 mg tablet 2.5 mg PO DAILY 10/29/21 05/15/25 metformin 1,000 mg tablet 1,000 mg PO BID 10/29/21 05/15/25 metoprolol tartrate 25 mg tablet 25 mg PO DAILY 10/29/21 05/15/25 gabapentin 100 mg capsule 100 mg PO BID 11/16/22 05/15/25 semaglutide 0.25 mg or 0.5 mg (2 mg SUBCUT .weekly 11/16/22 05/15/25 mg/1.5 mL) subcutaneous pen injector (Ozempic) Previous Rx's ?Medication ?Instructions ?Recorded budesonide-formoterol HFA 80 1 inh inhalation BID #10.2 grams 03/11/23 mcg-4.5 mcg/actuation aerosol inhaler (Symbicort) albuterol sulfate 90 mcg/actuation 1 puff inhalation Q6H PRN 05/14/25 aerosol inhaler shortness of breath or wheezing #8.5 grams amoxicillin 500 mg tablet 500 mg PO BID #14 tabs 05/14/25 oxycodone 5 mg tablet 5 mg PO Q8H PRN pain #10 tabs 06/23/25 Allergies Allergy/AdvReac Type Severity Reaction Status Date / Time doxycycline Allergy ADR-Vomitin Verified 06/22/25 22:59 g Review of Systems General: Reports: 10 or more systems reviewed and unremarkable except in HPI and below Const: Reports: change in weight; Denies: fever(s) or chills Eyes: Denies: change in vision or eye discharge Card: Denies: chest pain, palpitations or swelling of feet/ankles Resp: Denies: dyspnea or productive cough GI: Reports: abdominal pain, hematochezia and melena : Denies: difficulty urinating Musc: Denies: neck pain or back pain Skin/Breast: Denies: rash or jaundice Neuro: Denies: headache(s), numbness in extremities or weakness in extremities Hay/Lymph: Denies: easy bruising or easy bleeding PFSH ED PFSH: Family History Other CAD (coronary artery disease) Diabetes Stroke Social History Smoking and tobacco/nicotine status: never used tobacco/nicotine Second hand smoke exposure: Yes Alcohol intake: current Alcohol intake frequency: holidays/special occasions only Alcohol type: beer Substance/Drug Use: never Adopted: No Caregiver/support person: Yes Lives independently: No Household members: spouse Housing: House Marital status: Number of children: 6 Number of grandchildren: 11 Highest education level completed: Associate Degree: Academic Program service: Yes status: Retired branch: [employer] Current occupational status: retired Current occupational exposures/hazards: No Pets and animals: Yes Sexually active: Yes Do you think of yourself as: Straight/Heterosexual Current gender identity: Male Special melva needs: No Agree to transfusion: Yes Physical Exam Narrative: EXAM NARRATIVE: Patient overall well-appearing, afebrile and vital signs stable on arrival, no acute distress. head normocephalic, PERRL, moist mucous membranes, no cervical LAD. breathing comfortably on RA, saturating well, clear BL and no adventitious breath sounds, able to speak in full sentences without getting SOB, no signs of respiratory distress. NSR with no murmurs, no leg swelling, 2+ pulses throughout, good cap refill. Abdomen soft, mild diffuse upper abdominal tenderness, no overlying skin changes, not peritonitic, no localizing signs, bowel sounds intact, no CVA tenderness. 4 extremities without apparent deformity or injury. GCS 15, AAOx4, able to answer questions and follow commands appropriately, moving all 4 extremities symmetrically and spontaneoulsy. Normal mood and affect. Course Vital Signs: Vital signs: Vital Signs Temperature 97.4 F L 06/22/25 22:54 Pulse Rate 72 06/23/25 02:58 Respiratory Rate 16 06/23/25 02:58 Blood Pressure 129/81 06/23/25 02:58 Pulse Oximetry 96 06/23/25 02:58 Oxygen Delivery Me thod Room Air 06/23/25 02:14 MDM - GI Bleed Medical Decision Making -ddx: Upper GI bleed, PUD, gastritis, esophagitis, chronic versus acute mesenteric ischemia, hemorrhoid, colon cancer - Patient with about 1 month of diffuse abdominal pain, seemingly had 2 episodes of GI bleeding this week, had a colonoscopy a few years ago that was reportedly normal. Seemingly he has been on a few different courses of antibiotics and they have hurt his gut microbiome and is probably had some erosive gastritis because of this and a small GI bleed. CTA ordered to evaluate for any large etiology of bleeding and mesenteric ischemia which was negative for both things, CT scan overall reassuring with no GI intra-abdominal acute pathology. Hemoglobin 12.8, lactate less than 2, negligible inflammatory markers and so believed he could stop all antibiotics, start taking a probiotic, stop taking his daily aspirin for a week and start taking Protonix twice daily to treat any component of slow upper GI bleed, with the fully formed stool think it had been blood that had been digested for a long time leading to this. Patient's abdominal exam improved, he was able to p.o. and with an otherwise reassuring evaluation he was able to be discharged, who is an ICU nurse will keep a close eye on him and ensure he follows GI bleed diet, referral placed for urgent GI evaluation for probable colonoscopy, patient and understanding of plan of care and discharged in stable condition with strict return precautions given. Lab Data 06/23/25 00:25 06/23/25 00:25 Radiology Impressions Abdomen/Pelvis CTA 06/23/25 00:54 IMPRESSION: 1. No signs of bowel obstruction or significant inflammation. A source of gastrointestinal bleeding is not identified on this study. 2. 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 3. No other acute abdominal/pelvic findings observed. Laboratory Results WBC 6.09 10^3/uL (3.29-11.43) 06/23/25 00:25 RBC 4.27 10^6/uL (3.85-5.65) 06/23/25 00:25 Hgb 12.80 g/dL (11.27-16.99) 06/23/25 00:25 Hct 38.8 % (37-53) 06/23/25 00:25 MCV 90.9 fl (82-101) 06/23/25 00:25 MCH 30.0 pg (27-33) 06/23/25 00:25 MCHC 33.0 g/dL (30-55) 06/23/25 00:25 RDW 12.5 % (12.1-15.1) 06/23/25 00:25 Plt Count 299 10^3/cmm (157-399) 06/23/25 00:25 MPV 10.4 fL (7.4-10.4) 06/23/25 00:25 Neut % (Auto) 48.0 % 06/23/25 00:25 Lymph % (Auto) 36.8 % 06/23/25 00:25 [place] % (Auto) 11.0 % 06/23/25 00:25 Eos % (Auto) 2.6 % 06/23/25 00:25 Baso % (Auto) 1.3 % 06/23/25 00:25 Neut # (Auto) 2.92 10^3/uL (1.8-7.7) 06/23/25 00:25 Lymph # (Auto) 2.2 10^3/uL (0.8-4.8) 06/23/25 00:25 [place] # (Auto) 0.7 10^3/uL (0.2-0.9) 06/23/25 00:25 Eos # (Auto) 0.2 10^3/uL (0.0-0.8) 06/23/25 00:25 Baso # (Auto) 0.1 10^3/uL (0.0-0.1) 06/23/25 00:25 Nucleated RBC % (auto) 0 % 06/23/25 00:25 Nucleated RBCs # 0.0 /100WBC 06/23/25 00:25 ESR 5 mm/hr (0-10) 06/23/25 00:25 Sodium 135 mmol/L (136-145) L 06/23/25 00:25 Potassium 4.5 mmol/L (3.5-5.1) 06/23/25 00:25 Chloride 97 mmol/L (98-107) L 06/23/25 00:25 Carbon Dioxide 25 mmol/L (22-29) 06/23/25 00:25 Anion Gap 17.5 (5-19) 06/23/25 00:25 BUN 16 mg/dL (8-23) 06/23/25 00:25 Creatinine 1.1 mg/dL (0.7-1.2) 06/23/25 00:25 GFR Calculation Not Reportable 06/23/25 00:25 Glucose 244 mg/dL (65-115) H 06/23/25 00:25 Calculated Osmolality 289 mOsm/kg (285-295) 06/23/25 00:25 Lactic Acid 1.7 mmol/L (0.5-2.2) 06/23/25 00:25 Calcium 8.8 mg/dL (8.5-10.5) 06/23/25 00:25 Phosphorus 3.5 mg/dL (2.5-4.5) 06/23/25 00:25 Magnesium 1.6 mg/dL (1.7-2.3) L 06/23/25 00:25 Total Bilirubin 0.2 mg/dL (0.15-1.2) 06/23/25 00:25 AST 23 U/L (0-40) 06/23/25 00:25 ALT 23 U/L (0-41) 06/23/25 00:25 Alkaline Phosphatase 106 U/L (40-130) 06/23/25 00:25 Troponin T Baseline 15 ng/L (0-15) 06/23/25 00:25 Troponin T 60 Minute 13.41 ng/L (0-15) 06/23/25 01:21 Delta Troponin T -1.59 ABS# (0-10) L 06/23/25 01:21 C-Reactive Protein 3.0 mg/L (0.0-4.9) 06/23/25 00:25 Total Protein 6.0 g/dL (6.6-8.7) L 06/23/25 00:25 Albumin 4.2 g/dL (3.5-5.2) 06/23/25 00:25 Globulin 1.8 g/dL (1.3-4.6) 06/23/25 00:25 Lipase 30 U/L (13-60) 06/23/25 00:25 Procalcitonin 0.04 ng/mL (0-0.5) 06/23/25 00:25 Urine Color Yellow (Yellow) 06/23/25 01:34 Urine Appearance Clear (CLEAR) 06/23/25 01:34 Urine pH 5.5 (5-7) 06/23/25 01:34 Ur Specific [place] 1.017 (1.005-1.030) 06/23/25 01:34 Urine Protein Negative (Negative) 06/23/25 01:34 Urine Glucose (UA) 1+ (Normal) H 06/23/25 01:34 Urine Ketones Negative (Negative) 06/23/25 01:34 Urine Blood Negative (Negative) 06/23/25 01:34 Urine Nitrate Negative (Negative) 06/23/25 01:34 Urine Bilirubin Negative (Negative) 06/23/25 01:34 Urine Urobilinogen 0.2 mg/dL (Negative) 06/23/25 01:34 Ur Leukocyte Esterase Negative (Negative) 06/23/25 01:34 Urine RBC 0-2 /hpf (0-2) 06/23/25 01:34 Urine WBC 0-5 /hpf (0-5) 06/23/25 01:34 Ur Squamous Epith Cells 0-5 /hpf (0-5) 06/23/25 01:34 Amorphous Sediment Not Reportable 06/23/25 01:34 Urine Bacteria None seen /hpf (NONE) 06/23/25 01:34 Hyaline Casts 0-4 /lpf H 06/23/25 01:34 All radiology interpretation(s) finalized by discharge Discharge Plan Discharge Patient Disposition: Home Clinical Impression: GI (gastrointestinal bleed), Abdominal pain Condition: Stable Prescriptions: New oxycodone 5 mg tablet 5 mg PO Q8H PRN (Reason: pain) Qty: 10 0RF No Action amoxicillin 500 mg tablet 500 mg PO BID Qty: 14 0RF albuterol sulfate 90 mcg/actuation HFA aerosol inhaler 1 puff inhalation Q6H PRN (Reason: shortness of breath or wheezing) Qty: 8.5 4RF metformin 1,000 mg tablet 1,000 mg PO BID enalapril maleate 2.5 mg tablet 2.5 mg PO DAILY aspirin 81 mg tablet,delayed release (DR/EC) 81 mg PO DAILY metoprolol tartrate 25 mg tablet 25 mg PO DAILY atorvastatin 40 mg tablet 40 mg PO DAILY gabapentin 100 mg capsule 100 mg PO BID Ozempic 0.25 mg or 0.5 mg(2 mg/1.5 mL) pen injector SUBCUT .weekly budesonide-formoterol [Symbicort] 80-4.5 mcg/actuation HFA aerosol inhaler 1 inh inhalation BID Qty: 10.2 4RF Discharge Orders: Discharge ED (Routine); Ordered 06/23/25 Ordered By: Shane Bright Referrals: Chuck Alvarado MD [Physician, General Surgery] - 1-3 days Discharge Diet: Regular Discharge Activity: Resume usual activity Patient Instructions: Abdominal Pain (ED), Opioid Safety, Pain Management, Patient Portal & Sourav Instructions Activity Restrictions/Additional Instructions: You were seen for your abdominal pain and black stools, you were evaluated with labs and CT imaging that were overall reassuring at this time. You most likely have a low-grade GI bleed from all the stomach irritation from the recent antibiotics you have been on, to best treat any bleed at home, stop taking aspirin and any ibuprofen, do not drink alcohol. Also take your Protonix twice daily. Take a probiotic daily because of all your recent antibiotic usage. For any residual pain, take Tylenol 650 mg every 6 hours as needed, for breakthrough pain on top of this, take the oxycodone 5 mg every 8 hours as needed, do not drive or operate heavy machinery with this as it can be sedating. To further investigate the bleeding in her stool and abdominal pain, an appointment request has been made for you with the GI office, if they do not call you within a week, call the phone number listed above to set up an urgent appointment. Return to the ED with severe worsening of the bleeding, severe worsening of the pain, inability to eat or drink, fevers, any other emergent concerns. Print Language: Mohawk Coding Level of Care Code ED Account Representative for Galen Ulloa
[2025-06-23 01:32] LABS: Troponin(5th) Baseline 15 ng/L (0-15)
[2025-06-23 01:34] LABS: Lactic Sepsis W/Reflex 1.7 mmol/L (0.5-2.2)
[2025-06-23 01:35] LABS: Alanine Aminotransferase 23 U/L (0-41); Albumin Level 4.2 g/dL (3.5-5.2); Alkaline Phosphatase 106 U/L (40-130); Anion Gap 17.5 (5-19); Aspartate Amino Transferase 23 U/L (0-40); Blood Urea Nitrogen 16 mg/dL (8-23); Calcium 8.8 mg/dL (8.5-10.5); Carbon Dioxide 25 mmol/L (22-29); Chloride 97 mmol/L (98-107); Globulin 1.8 g/dL (1.3-4.6); Glucose 244 mg/dL (65-115); Lipase 30 U/L (13-60); Magnesium 1.6 mg/dL (1.7-2.3); Osmolality Calculated 289 mOsm/kg (285-295); Potassium 4.5 mmol/L (3.5-5.1); Sodium 135 mmol/L (136-145); Total Protein 6.0 g/dL (6.6-8.7)
[2025-06-23] MEDS: iohexol 350 mg/mL 500 mL Btl (per mL) IV (01:36)
[2025-06-23 01:41] LABS: Procalcitonin 0.04 ng/mL (0-0.5)
[2025-06-23 01:47] LABS: Glucose Urine UA 1+ (Normal); Nitrate Urine Negative (Negative); Specific Gravity, Urine 1.017 (1.005-1.030)
[2025-06-23 01:52] LABS: Add Urine Microscopic? YES
[2025-06-23 02:14] VITALS: BP 144/79; PULSE 67; RESP 16; O2SAT 97
[2025-06-23 02:58] VITALS: BP 129/81; PULSE 72; RESP 16; O2SAT 96
[2025-06-23] MEDS: HYDROmorphone 0.5 MG/0.5 ML INJ IVP (03:03)
== END 2025-06-23 03:07 | disposition home or self-care (01) ==
PROVIDERS: Emergency Provider Student in an Organized Health Care Education/Training Program; PCP Physician Assistant
DX: K92.2 Gastrointestinal hemorrhage, unspecified (principal); R10.9 Unspecified abdominal pain; Z79.82 Long term (current) use of aspirin; E11.9 Type 2 diabetes mellitus without complications; I10 Essential (primary) hypertension; E78.5 Hyperlipidemia, unspecified; Z79.84 Long term (current) use of oral hypoglycemic drugs
CPT/HCPCS: 36415; 74174; 80053; 81001; 83605; 83690; 83735; 84100; 84145; 84484; 85025; 85651; 86140; 93005; 96361; 96374; 96375; 99285; J1171; J2270; J2405; J2470; J7030

== ENCOUNTER 2025-06-28 20:55 | Emergency (ER) | payer MEDICARE, SELFPAY ==
--- OUTSIDE RECORDS SUMMARY | 2023-12-29 09:00 | XMS_ITS ---
Author Organization [facility] Address [address] [place] [address] Care Team Providers Care Renewable Energy Broker Name Role Phone Meli Wilson Primary Care Provider José Manuel Watson [phone] Ariana Slater APN Unavailable Unavailable REASON FOR VISIT right radial approach [facility] possible 12/29/2023 @ 3pm, check in at 12noon//gs Encounters Encounter Location Date Provider Diagnosis [facility] [address] [place] [address], [place] [address] 12/29/2023 José Manuel Mckinnon Plan Of Treatment Next Appt Details Provider Name:José Manuel Mckinnon , 08/23/2025 02:00:00 PM, [address] [place] [address], [place], [address], Progress Notes * Marcial CASILLAS EDOB:1950 (74 yo M)Acc No.[id number]:12/29/2023 [place] Patient: Mary Beth chisholmMarcial Provider: Mega Mckinnon MD :1950 A ge:73 Y S ex:Male Date:12/29/2023 Address:[address] [place] [phone] Pcp:SIMON [place] Subjective: * Chief Complaints: * R ight radial approach [facility] possible 12/29/2023 @ 3pm, check in at 12noon//gs Billing Information: * Procedure Codes: * Electronic signature of Brant Mckinnon MD on 06/28/2025 at 09:[address] LIGHT REPAIRER Sign off status: Pending * Provider: Mega Mckinnon MD Date: 0 12/29/2023 Generated for Nadine arguello/Fredi/Tiarra on: 1 08/29/2024 09:[address] LIGHT REPAIRER
--- OUTSIDE RECORDS SUMMARY | 2024-01-10 05:00 | XMS_ITS ---
Author Organization [facility] Address [address] [place] [address] Care Team Providers Care Personal Injury Paralegal Name Role Phone Meli Wilson Primary Care Provider José Manuel Watson [phone] Ariana Slater APN Unavailable Unavailable REASON FOR VISIT Device Hookup -LC Encounters Encounter Location Date Provider Diagnosis [facility] [address] [place] [phone] 01/10/2024 José Manuel Mckinnon Plan Of Treatment Next Appt Details Provider Name:José Manuel Mckinnon , 08/23/2025 02:00:00 PM, [address] [place] [address], [place], [address], Progress Notes * Marcial CASILLAS EDOB:1950 (74 yo M)Acc No.[id number]:01/10/2024 Patient: Mary Beth chisholm Marcial Gaviria Provider: Mega Mckinnon MD :1950 A ge:73 Y S ex:Male Date:01/10/2024 Address:[address] [place], [place] [phone] Pcp:SIMON [place] Subjective: * Chief Complaints: * D evice Hookup -LC Billing Information: * Procedure Codes: * Electronic signature of Brant Mckinnon MD on 06/28/2025 at 09:01 PM ART PREPARATOR Sign off status: Pending * Provider: Mega Mckinnon MD Date: 0 01/10/2024 Generated for Nadine arguello/Fredi/Tiarra on: 1 08/29/2024 09:01 PM ART PREPARATOR
--- OUTSIDE RECORDS SUMMARY | 2024-03-07 07:30 | XMS_ITS ---
Author Organization [facility] Address [address] [place] [address] Care Team Providers Care Racing Manager Name Role Phone Meli Wilson Primary Care Provider José Manuel Watson [phone] Ariana Slater APN Unavailable Unavailable REASON FOR VISIT INCREASED SOB, CHEST PAIN 11/30/23 ~TLD Encounters Encounter Location Date Provider Diagnosis Pending [facility] To [facility] [address] [place] [address], [place] [address] 03/07/2024 José Manuel Mckinnon Plan Of Treatment Next Appt Details Provider Name:José Manuel Mckinnon , 08/23/2025 02:00:00 PM, [address] [place] [address], [place], [address], Progress Notes * Marcial CASILLAS EDOB:1950 (74 yo M)Acc No.[id number]:03/07/2024 Progress Notes Patient: Johnathan Coronamario Gaviria Provider: Mega Mckinnon MD :1950 A ge:73 Y S ex:Male Date:03/07/2024 Address:[address] [place] [phone] Pcp:SIMON [place] Subjective: * Chief Complaints: * I NCREASED SOB, CHEST PAIN 11/30/23 ~TLD Care Plan Details* * Electronic signature of Brant Mckinnon MD on 06/28/2025 at 09:02 PM HAND BASEBALL SEWER Sign off status: Pending * Provider: Mega Mckinnon MD Date: 0 03/07/2024 Generated for Nadine arguello/Fredi/Tiarra on: 1 08/29/2024 09:02 PM HAND BASEBALL SEWER
--- OUTSIDE RECORDS SUMMARY | 2025-06-28 21:01 | XMS_ITS | Encounter Summary ---
Author Organization [facility] Address [address] [place] [address] Care Team Providers Care Bus Person Name Role Phone Unavailable Primary Care Provider Unavailabl e Encounter Details Date Type Department Care Team (Late st Contact Info) Description 08/03/2007 Outpatient Historical [facility] [address] 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
--- OUTSIDE RECORDS SUMMARY | 2025-06-28 21:01 | XMS_ITS | Encounter Summary ---
Author Organization [facility] Address [address] [place] [address] Care Team Providers Care Insurance Executive Name Role Phone Unavailable Primary Care Provider Unavailabl e Encounter Details Date Type Department Care Team (Late st Contact Info) Description 10/27/2007 Outpatient Historical [facility] [address] 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
--- OUTSIDE RECORDS SUMMARY | 2025-06-28 21:01 | XMS_ITS | Continuity of Care Document ---
Author Organization [facility] Phani Dinh [facility] Kyle [place], [facility] ([facility]) Address [address] [place] [address] Assessment No assessment recorded. Plan of Treatment Reminders Order Date Submit Date Provider Last Modified By Organization Details Last Modified Time Details Appointments [facility] CONSULT 2025 12:00P M Los Eckert MD Not available Not available Not available Lab None recorded. Referral None recorded. Procedures None recorded. Surgeries None recorded. Imaging None recorded. Medication Orders cefdinir [address] [facility], [address], [place], [address], 06/07/2025 05:01:43 trazodone 50 mg tablet [address] [facility], [address], [place], [address], 05/24/2025 15:22:40 Patient TargetsNo targets recorded. Patient InstructionsNo instructions recorded. 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 None Reported. Results Created Date Observation Date Name Description Value Unit Range Abnormal Flag Note LastModifiedBy Organization Detail LastModifiedTime 05/29/2005/29/2025 CT, abdom en + pelvi s, w/ contr ast No observ ation record ed. [facility] [address] [place], [address], 05/29/2025 18:12:29 Result Notes None recorded. Problems Name Problem SNOMED Code Status Onset Date Resolution Date Notes Provider Name and Address Organization Details Recorded Time History of nutritio nal disorder 491148487 Completed 202112/11/2021 H/O NON-INSU SOFÍA DEPENDEN T DIABETES MELLITUS - Status is Inactive ; Recorded 12/12/19 3:37PM by Meli Ward PA-C, Annotati on/Adden dum; Promoted ; acuity set as *; Not Available [facility] 3 03:16:01 History of endocrin e disorder 608162439 Completed 202112/11/2021 H/O NON-INSU SOFÍA DEPENDEN T DIABETES MELLITUS - Status is Inactive ; Recorded 12/12/19 3:37PM by Meli Ward PA-C, Annotati on/Adden dum; Promoted ; acuity set as *; Not Available [facility] 3 03:16:01 History of metaboli c disorder 456959100 Completed 202112/11/2021 H/O NON-INSU SOFÍA DEPENDEN T DIABETES MELLITUS - Status is Inactive ; Recorded 12/12/19 3:37PM by Meli Ward PA-C, Annotati on/Adden dum; Promoted ; acuity set as *; Not Available [facility] 3 03:16:01 Anemia 426822415 Completed 202112/11/2021 ANEMIA - Status is Inactive ; Recorded 12/12/19 3:38PM by Meli Ward PA-C, Annotati on/Adden dum; Promoted ; acuity set as *; Not Available [facility] 3 03:16:02 Herpes zoster 3625780 Completed 202112/11/2021 HERPES ZOSTER WITHOUT COMPLICA TION [...] ; acuity set as *; Not Available [facility] 3 03:16:02 Fracture of other finger Completed 202112/11/2021 fx 3rd and 4th digits on Lt hand - Status is Inactive ; 12/12/19 3:38PM by [facility]; Promoted ; acuity set as *; Not Available [facility] 3 03:16:02 Gastroes ophageal reflux disease 663480083 Active 2021 GERD (GASTROE SOPHAGEA L REFLUX DISEASE) ; Recorded 05/25/20 3:58PM by Vivek mederos, Office Visit; Promoted ; acuity set as *; ROSAURA momin, [facility] 5 15:34:18 Coronary artery bypass graft stent present [id number] 9104 Active 2021 H/O HEART ARTERY STENT; Recorded 05/25/20 3:58PM by Vivek mederos, Office Visit; Promoted ; acuity set as *; ROSAURA GALLO null, [facility] 5 15:34:12 Hypercho lesterol emia 53713773 Active 2021 Hypercho lesterol emia; 05/25/20 3:58PM by Vivek mederos, Office Visit; Promoted ; acuity set as *; ROSAURA momin, [facility] 5 15:34:26 Coronary arterios clerosis 01693431 Active 2022 ROSAURA CLEO null, [facility] 5 15:34:08 Type 2 diabetes mellitus 57831666 Active 2022 ROSAURA CLEO null, [facility] 5 15:34:54 Diabetes mellitus 12667016 Active 2023 ROSAURA GALLO null, [facility] 5 15:34:15 Spinal stenosis of lumbosac ral region 329319178 Active 2024 ROSAURA GALLO [facility], [place] 5 08:17:04 Spinal stenosis of lumbar region 24665451 Active 2024 ROSAURA GALLO [facility], [place] 5 08:17:32 Notes:Some problems listed i n Documents: #[id number], #[id number] could not be added to this patient's chart. Please review these documents and add these problems to the patient's chart manually as needed. Problem Notes None recorded. Procedures Surgical History Date Name Laterality Status Provider Name and Address Organization Details Recorded Time 04/30/20 25 diabetic retinal eye exam completed ROSAURA GALLO [facility], [place] 06/10/2025 08:31:40 07/27/19 25 Joint Inj Beta-shoulder, hip, knee completed MELI WARD PA-C [address] [place], [address], [facility], [facility] 07/27/2024 14:58:22 02/23/20 24 prostate specific antigen measurement completed ROSAURA GALLO [facility], [facility] 06/10/2025 08:35:25 12/29/19 24 cardiac catheterization completed MELI WARD PA-C [address] [place], [address], [facility], [facility] 12/30/2023 09:19:40 12/10/19 24 Family Practice Trigger Point Injection completed MELI WARD PA-C [address] [place], [address], [facility] 12/27/2023 17:05:59 12/10/19 24 jr marielos dash completed MELI WARD PA-C [address] [place], [address], [facility], Kyle 12/27/2023 17:06:12 11/18/19 24 Family Practice Trigger Point Injection completed MELI WARD PA-C [address] [place], [address], [facility], Kyle 2023 19:46:35 11/18/19 24 jr cryo warts completed MELI WARD PA-C [address] [place], [address], [facility], Kyle 2023 19:45:06 02/22/20 21 placement of stent in cardiac conduit completed ROSAURA GALLO [facility], [place] 02/18/2023 09:52:08 02/22/20 20 colonoscopy completed ROSAURA GALLO [facility], [place] 02/18/2023 09:51:32 Imaging Results None recorded. Procedure Notes None recorded. Medical Equipment None Reported. Allergies Allergen ID Allergen Name Allergen Category Reaction Reaction Severity Criticality Documentation Date Start Date Code Code System Note Provider Name and Address Organization Details Recorded Time 07579 doxycycli ne Not available Not available Not available Not available 02/18/2023 3640 RxNorm ROSAURA GALLO [facility], [place] 09:45:13 Medications Name Sig Start Date [...] 22 7:46AM by Rosaura Gallo LPN (Authori zed through Andrzej Ware MD), Office Visit; Mail Order Quantity : 90 Stick; Mail Order Days: 90 Days; Refill Quantity : 0; Not Available Not Available Not Available enalapril maleate daily 02/18 completed VO MW/tw; Recorded 12/12/19 22 3:21PM by Meli Ward PA-C, Office Visit; Mail Order Quantity : 45 Tablet; Mail Order Days: 90 Days; Refill Quantity : 45; Tablet; Not Available Not Available Not Available metoprolo l succinate daily 02/18 completed 0; Recorded 05/25/20 22 4:02PM by Vivek mederos, Office Visit; Not Available Not Available Not Available metformin two times daily 02/183 completed MW/mf; 86919; Recorded 12/12/19 22 7:46AM by Rosaura Gallo LPN (i juan through GRICELDA Hodges), Office Visit; Mail [...] Updated DateTime 5 177.8 cm 31 kg/m2 99859.9 5 g 97 % 80 /min 18 /min 97.9 [degF] 138/80 mm[Hg] ROSAURA GALLO [facility] 5 14:56:57 Social History Question Answer Notes LastModified by [employer] ASAat ion Details LastModified Time Tobacco Smoking Status Never Smoker MELI WARD PA-C [address] [place] [address], [address], [facility] 02/18/2023 10:41:51 Are You Blind Or Do You Have Difficulty Seeing? No [email or web address] Information not available 02/18/2023 Are You Deaf Or Do You Have Serious Difficulty Hearing? No Information not available 02/18/2023 What Type Of Diet Are You Following? DIABETIC [email or web address] Information not available 02/18/2023 What Was The Date Of Your Most Recent Tobacco Screening? 02/18/2023 Information not available 02/18/2023 Do You Use Your Seat Belt Or Car Seat Routinely? Yes [email or web address] Information not available 02/18/2023 Do You Have Difficulty Walking Or Climbing Stairs? No [email or web address] Information not available 02/18/2023 Sex: Unknown Functional Status Question Answer Note LastModified by Organizat ion Details LastModified Time What is your level of alcohol consumption? Occasional [email or web address] Information not available 02/18/2023 Do you have transportation difficulties? No Information not available 02/18/2023 Are you able to walk independently without assistance or assistive devices? YESWOREST [email or web address] Information not available 02/18/2023 Do you have difficulty doing errands alone? No Information not available 02/18/2023 Are you able to care for yourself independently? Yes [email or web address] Information not available 02/18/2023 Do you have difficulty dressing, bathing, grooming, or toileting? No [email or web address] Information not available 02/18/2023 Mental Status Question Answer Note LastModified by Organizat ion Details LastModified Time Do you feel stressed (tense, restless, nervous, or anxious, or unable to sleep at night)? [id number] [email or web address] Information not available 02/18/2023 Do you have difficulty concentrating, remembering or making decisions? No [email or web address] Information no t available 02/18/2023 Family History Nothing Reported. Medical History Condition Response Diabetes Y Coronary Artery Disease Y Heart Disease Y Arthritis Y Immunizations Vaccine Type Date Status Note Provider Nam e and Address Organization Details Recorded Time Tdap 8 completed Not Available [facility] 01/30/2023 02:49:41 Influenza, split virus, trivalent, preservative 9 completed Not Available [facility] 01/30/2023 02:49:42 Td(adult) unspecified formulation 2 completed Not Available [facility] 01/30/2023 02:49:42 Past Encounters Encounter ID Performer Location Encounter Start Date Encounter Closed Date Diagnosis/Indication Diagnosis SNOMED-CT Code Diagnosis ICD10 Code Diagnosis IMO Codes Diagnosis Note [id number] MELI WARD PA-C [facility] ([facility]) [address] [place] [address] 05/24/2025 14:47:26 05/24/2025 16:07:28 Acute bacterial sinusitis 19612833 J01.90 B96.89 45375 Chronic insomnia 5197532 04 F51.04 440406 Health Concerns Section Related Observation LastModified by Organization Detai ls LastModified Time None Recorded Concern Status LastModified by Organization Details LastModified Time None Recorded Payers Encounter Date Sequence Insurance Name Policy Number Policy Aldridge Covered Member ID Aldridge Member ID Guarantor Name 05/24/2025 1 [facility] (MEDICARE REPLACEMENT/A DVANTAGE - PPO) [id number] Marcial Casillas [id number] Marcial Casillas Notes Date Note Type Note [...] travelandnon-smoker. For alleviating factors, patient reportsanalgesicsandan tihistamines. ozh [facility] 05-14-25 got amoxil and albuterol and prednisoneCOVID tested negatiev. was feeling better until his antibiotics ran out. MELI WARD PA-C [address] [place] [address], [address], [facility], [place] 05/24/2025 15:24:29
--- OUTSIDE RECORDS SUMMARY | 2025-06-28 21:01 | XMS_ITS | Encounter Summary ---
Author Organization [facility] Address [address] [place] [address] Care Team Providers Care Electrical Maintenance Man Name Role Phone Unavailable Primary Care Provider Unavailabl e 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 * Outpatient Surgery (Urgent) - Open Specialty Diagnoses / Procedures Referred By Contac t Referred To Contact Gastroenterology Diagnoses Melena Procedures ENDOSCOPY, COLON, DIAGNOSTIC IL COLONOSCOPY FLX DX W/COLLJ SPEC WHEN PFRMD IL COLONOSCOPY W/BIOPSY SINGLE/MULTIPLE IL COLSC FLX WITH DIRECTED SUBMUCOSAL NJX ANY SBST IL COLSC FLX W/RMVL OF TUMOR POLYP LESION SNARE TQ IL COLSC FLX W/REMOVAL LESION BY HOT BX FORCEPS new request Pedro Cabral DO [address] [place] [phone] Phone: tel: fax: [facility] Gastroenterology[address] [address] Phone: tel: fax: Referral ID Status Reason Start Date Expiration Date Visits Requested Visits Authorized [id number] Open Performing Department to Schedule 06/27/2025 07/28/2026 1 1 AR SEPARATOR Encounter Details Date Type Department Care Team (Late st Contact Info) Description 06/27/2025 Orders Only [facility] Gastroenterology[address] [phone] Pedro Cabral, [address] [address] Melena (Primary Dx) Social History Tobacco Use Types Packs/Day Years Used Date Smoking Tobacco: Never Smokeless Tobacco: Never Alcohol Use Standard Drinks/Week Comments Yes 0 (1 standard drink = 0.6 oz pur e alcohol) Sex and Gender Information Value Date Recorded Sex Assigned at Not on file Legal Sex Male 6:56 AM COLLAR SEPARATOR Gender Identity Not on file Sexual Orientation Not on file documented as of this encounter Plan of Treatment Scheduled Orders Name Type Priority Associated Diagnoses Orde r Schedule ENDOSCOPY, COLON, DIAGNOSTIC GI Routine Melena Expected: 06/27/2025 (Approximate), Expires: 06/27/2026 documented as of this encounter Visit Diagnoses Diagnosis Melena- Primary Blood in stool documented in this encounter
--- OUTSIDE RECORDS SUMMARY | 2025-06-28 21:01 | XMS_ITS | Encounter Summary ---
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 Name Role Phone Unavailable Primary Care Provider Unavailabl e Encounter Details Date Type Department Care Team (Late st Contact Info) Description 08/07/2007 Outpatient Historical [facility] Cruz Florian MD [address] [place] [address] Social History Tobacco Use Types Packs/Day Years Used Date Smoking Tobacco: Never Assessed Sex and Gender Information Value Date Recorded Sex Assigned at Not on file Legal Sex Male 3:53 AM PROPOSAL CONSULTANT Gender Identity Not on file Sexual Orientation Not on file documented as of this encounter Plan of Treatment Pending Results Name Type Priority Associated Diagnoses Date /Time TYPE AND CROSSMATCH Blood Bank Stat 08/18 11:15 AM PROPOSAL CONSULTANT documented as of this encounter Procedures Procedure Name Priority Date/Time Associated Diagnosis Comments POC GLUCOSE Routine 08/21/2007 6:51 AM PROPOSAL CONSULTANT POC GLUCOSE Routine 08/20/2007 7:50 PM PROPOSAL CONSULTANT POC GLUCOSE Routine 08/20/2007 5:45 PM PROPOSAL CONSULTANT POC GLUCOSE Routine 08/20/2007 12:21 PM PROPOSAL CONSULTANT POC GLUCOSE Routine 08/20/2007 5:40 AM PROPOSAL CONSULTANT POC GLUCOSE Routine 08/19/2007 8:48 PM PROPOSAL CONSULTANT POC GLUCOSE Routine 08/19/2007 6:13 PM PROPOSAL CONSULTANT POC GLUCOSE Routine 08/19/2007 11:57 AM PROPOSAL CONSULTANT CBC WITHOUT DIFFERENTIAL Routine 08/19/2007 6:47 AM PROPOSAL CONSULTANT BASIC METABOLIC PANEL Routine 08/19/2007 6:47 AM PROPOSAL CONSULTANT POC GLUCOSE Routine 08/19/2007 6:09 AM PROPOSAL CONSULTANT POC GLUCOSE Routine 08/18/2007 8:25 PM PROPOSAL CONSULTANT POC GLUCOSE Routine 08/18/2007 5:52 PM PROPOSAL CONSULTANT POC GLUCOSE Routine 08/18/2007 1:51 PM PROPOSAL CONSULTANT XR FLUORO GREATER THAN 1 HOUR Routine 08/18/2007 1:38 PM PROPOSAL CONSULTANT ABORH TYPING Stat 08/18/2007 11:15 AM PROPOSAL CONSULTANT BLOOD BANK ANTIBODY SCREEN Stat 08/18/2007 11:15 AM PROPOSAL CONSULTANT HEMOGLOBIN AND HEMATOCRIT Stat 08/18/2007 11:13 AM PROPOSAL CONSULTANT documented in this encounter Results * (ABNORMAL) POC GLUCOSE (08/21/2007 6:51 AM PROPOSAL CONSULTANT) GLUCOSE POC 206(H) 60 - 100 mg/dL [facility] Venous blood specimen (specimen) 08/21/2007 6:51 AM PROPOSAL CONSULTANT 08/21/2007 8:52 AM PROPOSAL CONSULTANT us Cruz Florian MD POINT OF CARE TESTING Final Re sult [facility] [address] [place] [address] * (ABNORMAL) POC GLUCOSE (08/20/2007 7:50 PM PROPOSAL CONSULTANT) GLUCOSE POC 180(H) 60 - 100 mg/dL [facility] Venous blood specimen (specimen) 08/20/2007 7:50 PM PROPOSAL CONSULTANT 08/21/2007 8:52 AM PROPOSAL CONSULTANT us Cruz Florian MD POINT OF CARE TESTING Final Re sult Performing Organization Address [facility] de Phone Number [facility] [address] [place] [address] * (ABNORMAL) POC GLUCOSE (08/20/2007 5:45 PM PROPOSAL CONSULTANT) GLUCOSE POC 162(H) 60 - 100 mg/dL [facility] Venous blood specimen (specimen) 08/20/2007 5:45 PM PROPOSAL CONSULTANT 08/21/2007 8:52 AM PROPOSAL CONSULTANT us Cruz Florian MD POINT OF CARE TESTING Final Re sult Performing Organization Address [facility] de Phone Number [facility] [address] [place] [address] * (ABNORMAL) POC GLUCOSE (08/20/2007 12:21 PM PROPOSAL CONSULTANT) GLUCOSE POC 214(H) 60 - 100 mg/dL [facility] Venous blood specimen (specimen) 08/20/2007 12:21 PM PROPOSAL CONSULTANT 08/21/2007 9:01 AM PROPOSAL CONSULTANT us Cruz Florian MD POINT OF CARE TESTING Final Re sult Performing Organization Address [facility] de Phone Number [facility] [address] [place] [address] * (ABNORMAL) POC GLUCOSE (08/20/2007 5:40 AM PROPOSAL CONSULTANT) GLUCOSE POC 214(H) 60 - 100 mg/dL [facility] Venous blood specimen (specimen) 08/20/2007 5:40 AM PROPOSAL CONSULTANT 08/20/2007 7:16 AM PROPOSAL CONSULTANT us Cruz Florian MD POINT OF CARE TESTING Final Re sult Performing Organization [facility] de Phone Number [facility] [address] [place] [address] * (ABNORMAL) POC GLUCOSE (08/19/2007 8:48 PM PROPOSAL CONSULTANT) GLUCOSE POC 231(H) 60 - 100 mg/dL [facility] Venous blood specimen (specimen) 08/19/2007 8:48 PM PROPOSAL CONSULTANT 08/20/2007 7:23 AM PROPOSAL CONSULTANT Cruz Florian MD POINT OF CARE TESTING Final Re sult Performing Organization Address [facility] de Phone Number [facility] [address] [place] [address] * (ABNORMAL) POC GLUCOSE (08/19/2007 6:13 PM PROPOSAL CONSULTANT) GLUCOSE POC 155(H) 60 - 100 mg/dL [facility] Venous blood specimen (specimen) 08/19/2007 6:13 PM PROPOSAL CONSULTANT 08/20/2007 7:16 AM PROPOSAL CONSULTANT Cruz Florian MD POINT OF CARE TESTING Final Re sult Performing Organization Address [facility] de Phone Number [facility] [address] [place] [address] * (ABNORMAL) POC GLUCOSE (08/19/2007 11:57 AM PROPOSAL CONSULTANT) GLUCOSE POC 251(H) 60 - 100 mg/dL [facility] Venous blood specimen (specimen) 08/19/2007 11:57 AM PROPOSAL CONSULTANT 08/20/2007 7:23 AM PROPOSAL CONSULTANT Cruz Florian MD POINT OF CARE TESTING Final Re sult Performing Organization Address [facility] de Phone Number [facility] [address] [place] [address] * (ABNORMAL) BASIC METABOLIC PANEL (08/19/2007 6:47 AM PROPOSAL CONSULTANT) SODIUM 137 136 - 145 mEq/L [facility] CREATININE 1.1 0.7 - 1.5 mg/dL [facility] CO2 27 22 - 32 mmol/l [facility] GLUCOSE 197(H) 70 - 110 mg/dL [facility] POTASSIUM 4.2 3.5 - 5.0 mEq/L [facility] CALCIUM 8.7 8.4 - 10.5 mg/dL [facility] ANION GAP 9 9 - 20 mEq/L [facility] BUN 18 9 - 20 mg/dL [facility] CHLORIDE 105 95 - 110 mEq/L [facility] OSMOLALITY, CALCULATED 290 275 - 295 mOsm/Kg [facility] Blood specimen (specimen) 08/19/2007 6:47 AM PROPOSAL CONSULTANT 08/19/2007 7:07 AM PROPOSAL CONSULTANT Cruz Florian MD CHEMISTRY ORDERABLES Edited [facility] [address] [place] [address] * (ABNORMAL) CBC WITHOUT DIFFERENTIAL (08/19/2007 6:47 AM PROPOSAL CONSULTANT) [facility] RBC 3.73(L) 4.60 - 6.20 Mil/ul [facility] LYMPHOCYTES 15.9(L) 24.0 - 44.0 % [facility] MCHC 33.3 30.0 - 35.0 g/dL [facility] MONOCYTE ABSOLUTE 1.0(H) 0.1 - 0.6 K/ul [facility] MCV 88.5 84.0 - 103.0 Fl [facility] MPV 10.5 8.9 - 12.8 Fl [facility] NEUTROPHIL ABSOLUTE 7.5 2.0 - 8.0 K/ul [facility] HEMOGLOBIN 11.0(L) 14.0 - 18.0 g/dL [facility] RDW 13.6 11.0 - 14.5 % [facility] BASOPHILS ABSOLUTE 0.0 0.0 - 0.2 K/ul [facility] MONOCYTES 9.8 2.0 - 10.0 % [facility] WBC 10.1 4.8 - 10.8 K/ul [facility] MCH 29.5 27.0 - 34.0 pg [facility] LYMPHOCYTE ABSOLUTE 1.6 1.2 - 4.0 K/ul [facility] NEUTROPHILS 74.2 42.2 - 75.2 % [facility] HEMATOCRIT 33.0(L) 41.0 - 53.0 % [facility] BASOPHILS 0.1 0.0 - 1.0 % [facility] PLATELETS 223 140 - 440 K/ul [facility] Blood specimen (specimen) 08/19/2007 6:47 AM PROPOSAL CONSULTANT 08/19/2007 7:07 AM PROPOSAL CONSULTANT Cruz Florian MD HEMATOLOGY ORDERABLES Final Re sult Performing Organization Address [facility] Co de Phone Number [facility] [address] [place] [address] * (ABNORMAL) POC GLUCOSE (08/19/2007 6:09 AM PROPOSAL CONSULTANT) GLUCOSE POC 227(H) 60 - 100 mg/dL [facility] Capillary blood specimen (specimen) 08/19/2007 6:09 AM PROPOSAL CONSULTANT 08/19/2007 7:25 AM PROPOSAL CONSULTANT Cruz Florian MD POINT OF CARE TESTING Final Re paulo Performing Organization Address [facility] de Phone Number [facility] [address] [place] [address] * (ABNORMAL) POC GLUCOSE (08/18/2007 8:25 PM PROPOSAL CONSULTANT) GLUCOSE POC 245(H) 60 - 100 mg/dL [facility] Capillary blood specimen (specimen) 08/18/2007 8:25 PM PROPOSAL CONSULTANT 08/19/2007 7:25 AM PROPOSAL CONSULTANT us Cruz Florian MD POINT OF CARE TESTING Final Re sult Performing Organization Address [facility] Phone Number [facility] [address] [place] [address] * (ABNORMAL) POC GLUCOSE (08/18/2007 5:52 PM PROPOSAL CONSULTANT) GLUCOSE POC 215(H) 60 - 100 mg/dL [facility] Capillary blood specimen (specimen) 08/18/2007 5:52 PM PROPOSAL CONSULTANT 08/19/2007 8:17 AM PROPOSAL CONSULTANT us Cruz Florian MD POINT OF CARE TESTING Final Re sult Performing Organization Address [facility] Phone Number [facility] [address] [place] [address] * (ABNORMAL) POC GLUCOSE (08/18/2007 1:51 PM PROPOSAL CONSULTANT) GLUCOSE POC 202(H) 60 - 100 mg/dL [facility] Capillary blood specimen (specimen) 08/18/2007 1:51 PM PROPOSAL CONSULTANT 08/19/2007 3:12 AM PROPOSAL CONSULTANT us Cruz Florian MD POINT OF CARE TESTING Final Re sult Performing Organization Address [facility] Phone Number [facility] [address] [place] [address] * XR FLUORO > 1 HOUR (08/18/2007 1:38 PM PROPOSAL CONSULTANT) Anatomical Region Laterality Modality Other 08/18/2007 1:38 PM PROPOSAL CONSULTANT Narrative 08/18/2007 1:38 PM PROPOSAL CONSULTANT Finalized by interface [employer] utility. No report expected. Procedure Note 07/15/2008 Finalized by interface [employer] utility. No report expected. Result Danita Florian MD DIAGNOSTIC IMAGING ORDERABLES Final Result * ANTIBODY SCREEN (08/18/2007 11:15 AM PROPOSAL CONSULTANT) ANTIBODY SCREEN Negative [facility] Blood specimen (specimen) 08/18/2007 11:15 AM PROPOSAL CONSULTANT 08/18/2007 11:17 AM PROPOSAL CONSULTANT us Cruz Florian MD BLOOD BANK ORDERABLES Final Re sult Performing Organization Address [facility] Co de Phone Number [facility] [address] [place] [address] * ABORH TYPING (08/18/2007 11:15 AM PROPOSAL CONSULTANT) ABO/RH TYPE B Positive [facility] Blood specimen (specimen) 08/18/2007 11:15 AM PROPOSAL CONSULTANT 08/18/2007 11:17 AM PROPOSAL CONSULTANT Cruz Florian MD BLOOD BANK ORDERABLES Final Re sult Performing Organization Address [facility] de Phone Number [facility] [address] [place] [address] * (ABNORMAL) HEMOGLOBIN AND HEMATOCRIT (08/18/2007 11:13 AM PROPOSAL CONSULTANT) HEMATOCRIT 39.6(L) 41.0 - 53.0 % [facility] HEMOGLOBIN 13.6(L) 14.0 - 18.0 g/dL [facility] Blood specimen (specimen) 08/18/2007 11:13 AM PROPOSAL CONSULTANT 08/18/2007 11:13 AM PROPOSAL CONSULTANT Cruz Florian MD HEMATOLOGY ORDERABLES Final Re sult Performing Organization Address [facility] Co de Phone Number [facility] [address] [place] [address] documented in this encounter Visit Diagnoses Not on filedocumented in this encounter
--- OUTSIDE RECORDS SUMMARY | 2025-06-28 21:01 | XMS_ITS | Encounter Summary ---
Author Organization [facility] Address [address] [place] [address] Care Team Providers Care Bessemer Regulator Name Role Phone Unavailable Primary Care Provider Unavailabl e Encounter Details Date Type Department Care Team (Latest Contact Info) Description 09/28/2007 Outpatient Historical [facility] [address] [facility] [address] [place] [id number] Cruz Florian MD [address] [place] [address] Arthrodesis Status Social History Tobacco Use Types Packs/Day Years Used Date Smoking Tobacco: Never Assessed Sex and Gender Information Value Date Recorded Sex Assigned at Not on file Legal Sex Male 3:53 AM 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
--- OUTSIDE RECORDS SUMMARY | 2025-06-28 21:01 | XMS_ITS | Continuity of Care Document ---
Author Organization [facility] Phani Kelly [facility] Yi, Kyle, [facility] ([facility]) Address [address] [place] [address] Assessment No assessment recorded. Plan of Treatment Reminders Order Date Submit Date Provider Last Modified By Organization Details Last Modified Time Details Appointments COLONOS COPY CONSULT 2025 12:00P Mega Eckert MD Not available Not available Not available Lab CMP, serum or plasma 2024 025 [facility], [address], [facility] [address], [address], 05/29/2025 15:34:00 CBC 2024 025 [facility], [address], [facility] 1, [place], [address], 05/29/2025 15:01:56 urinaly sis, complet e 2024 025 [facility], [address], [facility] 1, [place], [address], 05/29/2025 15:39:37 culture , urine 2024 025 [facility], [address] [place] [address] [address], [address] [place], [address], 05/30/2025 21:35:59 C-react shirley protein , quantit ative, serum or plasma 2024 025 [facility], [address], [place], [address], 05/30/2025 21:35:59 amylase , serum or plasma 2024 [facility], [address] [facility] [address], [address], [place], [address], 05/30/2025 21:35:59 Referral None recorde d. Procedures None recorde d. Surgeries None recorde d. Imaging CT, abdomen + pelvis, w/ contras t [facility] [address] [place] [address], [address], 05/29/2025 13:26:15 Medication Orders None recorde d. Patient TargetsNo targets recorded. Patient InstructionsNo instructions recorded. 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 None Reported. Results Created Date Observation Date Name Description Value Unit Range Abnormal Flag Note LastModifiedBy Organization Detail LastModifiedTime 05/29/2005/29/2025 CBC WBC 6.8 x10 4.5-10 .5 Not Available [facility] [address] [facility] [address], [place], [address], 05/29/2025 15:01:56 05/29/2005/29/2025 CBC RBC 3.99 x10 4.30-5 .90 low Not Available [facility] [address] [facility] [address], [place], [address], 05/29/2025 15:01:56 05/29/2005/29/2025 CBC HGB 12.3 g/dL 13.5-1 8.0 low Not Available [facility] [address] [facility] [address], [place], [address], 05/29/2025 15:01:56 05/29/2005/29/2025 CBC HCT 37.3 % 35.0-6 0.0 Not Available [facility] [address] [facility] [address], [place], [address], 05/29/2025 15:01:56 05/29/2005/29/2025 CBC MCV 93.5 fL 80.0-9 9.9 Not Available [facility] [address] [facility] 1, [place], [address], 05/29/2025 15:01:56 05/29/2005/29/2025 CBC MCH 30.8 pg 27.0-3 2.0 Not Available [facility] [address] [facility], [place], [address], 05/29/2025 15:01:56 05/29/2005/29/2025 CBC MCHC 33.0 g/dL 32.0-3 6.0 Not Available [facility] [address] [facility] [address] [address], [place], [address], 05/29/2025 15:01:56 05/29/2005/29/2025 CBC RDW 14.0 % 11.5-1 4.5 Not Available [facility] [address] [facility] 1, [place], [address], 05/29/2025 15:01:56 05/29/2005/29/2025 CBC plt 282.5 x10 150.0- 451.0 Not Available [facility] [address] [facility] 1, [place], [address], 05/29/2025 15:01:56 05/29/2005/29/2025 CBC lymphocytes % 40.1 % 20.0-5 0.0 Not Available [facility] [address] [facility] 1, [place], [address], 05/29/2025 15:01:56 05/29/2005/29/2025 CBC granulcytes % 49.1 % 30.0-7 0.0 Not Available [facility] [address] [facility] [address], [place], [address], 05/29/2025 15:01:56 05/29/2005/29/2025 CBC monocytes % 9.2 % 2.0-16 .0 Not Available [facility] [address] [address], [place], [address], 05/29/2025 15:01:56 05/29/2005/29/2025 CBC granulcytes# 3.3 x10 Not Amisha ilable [facility] [address] [address], [place], [address], 05/29/2025 15:01:56 05/29/2005/29/2025 CBC lymphocytes # 2.7 x10 Not Available [facility] [address] [address], [place], [address], 05/29/2025 15:01:56 05/29/2005/29/2025 CBC monocytes # 0.6 x10 Not Avai lable [facility] [address] [address], [place], [address], 05/29/2025 15:01:56 05/29/2005/29/2025 CMP (MALE ) glucose 141.0 mg/dL 60.0-9 9.0 high Not Available [facility] [address] [address], [place], [address], 05/29/2025 15:34:00 05/29/2005/29/2025 CMP (MALE ) BUN (blood urea nitrogen) 15.0 mg/dL 10.0-2 6.0 Not Available [facility] [address] [address], [place], [address], 05/29/2025 15:34:00 05/29/2005/29/2025 CMP (MALE ) creatinine (serum) 1.1 mg/dL 0.4-1. 5 Not Available [facility] [address] [facility] 1, [place], [address], 05/29/2025 15:34:00 05/29/20 25 05/29/2025 CMP (MALE ) BUN/creatini ne ratio 13.64 ratio Not Available [facility] [address] [facility] 1, [place], [address], 05/29/2025 15:34:00 05/29/2005/29/2025 CMP (MALE ) eGFR calculated 69.2 Not Available [facility] [address] [facility] 1, [place], [address], 05/29/2025 15:34:00 05/29/20 25 05/29/2025 CMP (MALE ) total protein 6.5 g/dL 6.0-8. 5 Not Available [facility] [address] [facility] 1, [place], [address], 05/29/2025 15:34:00 05/29/20 25 05/29/2025 CMP (MALE ) total bilirubin 0.7 mg/dL 0.2-1. 3 Not Available [facility] [address] [facility] 1, [place], [address], 05/29/2025 15:34:00 05/29/2005/29/2025 CMP (MALE ) albumin 4.3 g/dL 3.5-5. 5 Not Available [facility] [address] [facility] 1, [place], [address], 05/29/2025 15:34:00 05/29/20 25 05/29/2025 CMP (MALE ) globulin 2.2 calc Not Available [facility] [address] [facility] 1, [place], [address], 05/29/2025 15:34:00 05/29/2005/29/2025 CMP (MALE ) AST (SGOT) 27.0 U/L 0.0-46 .0 Not Available [facility] [address] [facility] 1, [place], [address], 05/29/2025 15:34:00 05/29/2005/29/2025 CMP (MALE ) altv (SGPT) 22.0 U/L 13.0-6 9.0 normal Not Available [facility] [address] [facility] [address], [place], [address], 05/29/2025 15:34:00 05/29/2005/29/2025 CMP (MALE ) A/G ratio 2.0 ratio Not Available [facility] [address] [facility] 1, [place], [address], 05/29/2025 15:34:00 05/29/2005/29/2025 CMP (MALE ) ALP phos 102.0 U/L 30.0-1 40.0 normal Not Available [facility] [address] [facility] 1, [place], [address], 05/29/2025 15:34:00 05/29/2005/29/2025 CMP (MALE ) calcium 9.1 mg/dL 8.4-10 .5 Not Available [facility] [address] [facility] 1, [place], [address], 05/29/2025 15:34:00 05/29/2005/29/2025 CMP (MALE ) sodium 136.0 mmol/ L 136.0- 145.0 Not Available [facility] [address] [facility] 1, [place], [address], 05/29/2025 15:34:00 05/29/2005/29/2025 CMP (MALE ) potassium 4.3 mmol/ L 3.5-5. 1 Not Available [facility] [address] [facility] 1, [place], [address], 05/29/2025 15:34:00 05/29/2005/29/2025 CMP (MALE ) chloride 99.0 mmol/ L 98.0-1 10.0 normal Not Available [facility] [address] [facility] 1, [place], [address], 05/29/2025 15:34:00 05/29/2005/29/2025 CMP (MALE ) C02 28.0 mmol/ L 22.0-3 1.0 Not Available [facility] [address] [facility] 1, [place], [address], 05/29/2025 15:34:00 05/29/2005/29/2025 CMP (MALE ) anion gap 9.0 calc Not Available [facility] [address] [facility] 1, [place], [address], 05/29/2025 15:34:00 05/29/2005/29/2025 CMP (MALE ) osmolality 284.1 calc Not Available [facility] [address] [facility] 1, [place], [address], 05/29/2025 15:34:00 05/29/2005/29/2025 URINA LYSIS WITH MICRO color YELLOW Not Available [facility] [address] [facility] 1, [place], [address], 05/29/2025 15:39:37 05/29/2005/29/2025 URINA LYSIS WITH MICRO clarity CLEAR Not Available [facility] [address] [facility] 1, [place], [address], 05/29/2025 15:39:37 05/29/2005/29/2025 URINA LYSIS WITH MICRO glu NEGATI VE Not Available [facility] [address], [place], [address], 05/29/2025 15:39:37 05/29/2005/29/2025 URINA LYSIS WITH MICRO bili NEGATI VE Not Available [facility] [address], [place], [address], 05/29/2025 15:39:37 05/29/2005/29/2025 URINA LYSIS WITH MICRO ket NEGATI VE Not Available [facility] [address], [place], [address], 05/29/2025 15:39:37 05/29/2005/29/2025 URINA LYSIS WITH MICRO S.g 1.010 1.005- 1.025 Not Available [facility] [address], [place], [address], 05/29/2025 15:39:37 05/29/2005/29/2025 URINA LYSIS WITH MICRO pH 5.5 5.0-7. 0 Not Available [facility] [address], [place], [address], 05/29/2025 15:39:37 05/29/2005/29/2025 URINA LYSIS WITH MICRO pro NEGATI VE Not Available [facility] [address], [place], [address], 05/29/2025 15:39:37 05/29/2005/29/2025 URINA LYSIS WITH MICRO uro 0.2 E.U./D L Not Available [facility] [address], [place], [address], 05/29/2025 15:39:37 05/29/2005/29/2025 URINA LYSIS WITH MICRO nit NEGATI VE Not Available [facility] [address], [place], [address], 05/29/2025 15:39:37 05/29/2005/29/2025 URINA LYSIS WITH MICRO blo NEGATI VE Not Available [facility] [address], [place], [address], 05/29/2025 15:39:37 05/29/2005/29/2025 URINA LYSIS WITH MICRO eduardo NEGATI VE Not Available [facility] [address] [facility] [address], [place], [address], 05/29/2025 15:39:37 05/29/2005/29/2025 URINA LYSIS WITH MICRO WBC NEGATI VE Not Available [facility] [address] [facility] [address], [place], [address], 05/29/2025 15:39:37 05/29/2005/29/2025 URINA LYSIS WITH MICRO RBC 1-2 abnormal Not Available [facility] [address] [facility] [address], [place], [address], 05/29/2025 15:39:37 05/29/2005/29/2025 URINA LYSIS WITH MICRO epi cells NEGATI VE Not Available [facility] [address], [place], [address], 05/29/2025 15:39:37 05/29/2005/29/2025 URINA LYSIS WITH MICRO bacteria NEGATI VE Not Available [facility] [address], [place], [address], 05/29/2025 15:39:37 05/29/2005/29/2025 URINA LYSIS WITH MICRO other NEG Not Available [facility] [address] [facility] [address], [place], [address], 05/29/2025 15:39:37 05/29/2005/30/2025 C-NADIR CTIVE PROTE IN C-reactive protein <3.0 mg/L <8.0 normal Not Available [address] [address] [place], [address], 05/30/2025 21:35:58 05/29/2005/30/2025 AMYLA SE amylase 28 U/L 21-101 normal Not Available [facility] [address] [place], [address], 05/30/2025 21:35:59 05/29/2005/30/2025 CULTU RE, URINE , ROUTI NE culture, urine, routine SEE NOTE CULTU RE, URINE , ROUTI NE Micro Numbe r: [id number] Test Statu s: Final Speci men Sourc e: Urine Speci men Quali ty: Adequ ate Resul t: No Growt h Not Available [address] [address] [place], [address], 05/30/2025 21:35:59 05/29/2005/29/2025 CT, abdom en + pelvi s, w/ contr ast No observ ation record ed. [facility] [address] [place], [address], 05/29/2025 18:12:29 Result Notes None recorded. Problems Name Problem SNOMED Code Status Onset Date Resolution Date Notes Provider Name and Address Organization Details Recorded Time History of nutritio nal disorder 222336410 Completed 202112/11/2021 H/O NON-INSU SOFÍA DEPENDEN T DIABETES MELLITUS - Status is Inactive ; Recorded 12/12/19 22 3:37PM by Meli Ward PA-C, Annotati on/Adden dum; Promoted ; acuity set as *; Not Available [facility] 3 03:16:01 History of endocrin e disorder 111320717 Completed 202112/11/2021 H/O NON-INSU SOFÍA DEPENDEN T DIABETES MELLITUS - Status is Inactive ; Recorded 12/12/19 3:37PM by Meli Ward PA-C, Annotati on/Adden dum; Promoted ; acuity set as *; Not Available [facility] 3 03:16:01 History of metaboli c disorder 914172129 Completed 202112/11/2021 H/O NON-INSU SOFÍA DEPENDEN T DIABETES MELLITUS - Status is Inactive ; Recorded 12/12/19 3:37PM by Meli Ward PA-C, Annotati on/Adden dum; Promoted ; acuity set as *; Not Available [facility] 3 03:16:01 Anemia 357560552 Completed 202112/11/2021 ANEMIA - Status is Inactive ; Recorded 12/12/19 3:38PM by Meli Ward PA-C, Annotati on/Adden dum; Promoted ; acuity set as *; Not Available [facility] 3 03:16:02 Herpes zoster 3452171 Completed 202112/11/2021 HERPES ZOSTER WITHOUT COMPLICA TION [...] ; acuity set as *; Not Available [facility] 3 03:16:02 Fracture of other finger Completed 202112/11/2021 fx 3rd and 4th digits on Lt hand - Status is Inactive ; 12/12/19 3:38PM by Meli Ward PA-C, Annotati on/Adden dum; Promoted ; acuity set as *; Not Available [facility] 3 03:16:02 Gastroes ophageal reflux disease 138053160 Active 2021 GERD (GASTROE SOPHAGEA L REFLUX DISEASE) ; Recorded 05/25/20 3:58PM by Vivek mederos, Office Visit; Promoted ; acuity set as *; [facility] 15:34:18 Coronary artery bypass graft stent present [id number] 9104 Active 2021 H/O HEART ARTERY STENT; Recorded 05/25/20 3:58PM by Vivek mederos, Office Visit; Promoted ; acuity set as *; [facility] 15:34:12 Hypercho lesterol emia 69951352 Active 2021 Hypercho lesterol emia; 05/25/20 3:58PM by Vivek mederos, Office Visit; Promoted ; acuity set as *; ROSAURA GALLO [facility] 5 15:34:26 Coronary arterios clerosis 24472713 Active 2022 ROSAURA GALLO [facility] 5 15:34:08 Type 2 diabetes mellitus 34244482 Active 2022 [facility] 15:34:54 Diabetes mellitus 89807408 Active 2023 ROSAURA HAEFTheaNER [facility] 5 15:34:15 Spinal stenosis of lumbosac ral region 849710139 Active 2024 ROSAURA GALLO [facility] 5 08:17:04 Spinal stenosis of lumbar region 48674728 Active 2024 ROSAURA GALLO null, [facility] 08:17:32 Notes:Some problems listed i n Documents: #[id number], #[id number] could not be added to this patient's chart. Please review these documents and add these problems to the patient's chart manually as needed. Problem Notes None recorded. Procedures Surgical History Date Name Laterality Status Provider Name and Address Organization Details Recorded Time 04/30/20 25 diabetic retinal eye exam completed ROSAURA GALLO [facility] 06/10/2025 08:31:40 07/27/19 25 Joint Inj Beta-shoulder, hip, knee completed MELI WARD PA-C [address] [place], [address], [facility] 07/27/2024 14:58:22 02/23/20 24 prostate specific antigen measurement completed ROSAURA GALLO [facility], [place] 06/10/2025 08:35:25 12/29/19 24 cardiac catheterization completed MELI WARD PA-C [address] [place], [address], [facility] 12/30/2023 09:19:40 12/10/19 24 Family Practice Trigger Point Injection completed MELI WARD PA-C [address] [place], [address], [facility] 12/27/2023 17:05:59 12/10/19 24 jr cryo warts completed MELI WARD PA-C [address] [place], [address], [facility] 12/27/2023 17:06:12 11/18/19 24 Family Practice Trigger Point Injection completed MELI WARD PA-C [address] [place], [address], [facility], LTim[facility] 2023 19:46:35 11/18/19 24 jr cryo warts completed MELI WARD PA-C [address] [place], [address], [facility], Kyle 2023 19:45:06 02/22/20 21 placement of stent in cardiac conduit completed ROSAURA GALLO [facility] [place] 02/18/2023 09:52:08 02/22/20 20 colonoscopy completed ROSAURA GALLO [facility], [place] 02/18/2023 09:51:32 Imaging Results None recorded. Procedure Notes None recorded. Medical Equipment None Reported. Allergies Allergen ID Allergen Name Allergen Category Reaction Reaction Severity Criticality Documentation Date Start Date Code Code System Note Provider Name and Address Organization Details Recorded Time 06664 doxycycli ne Not available Not available Not available Not available 02/18/2023 3640 RxNorm ROSAURA GALLO [facility] [place] 09:45:13 Medications Name Sig Start [...] metformin two times daily 02/18 completed MW/mf; 07725; Recorded 12/12/19 7:46AM by Rosaura Gallo LPN [...] Last Updated DateTime 177.8 cm 31.7 kg/m2 789627. 91 g 98 % 78 /min 20 /min 98 [degF] 136/80 mm[Hg] ROSAURA GALLO [facility] 10:38:47 Social History Question Answer Notes LastModified by Organizat ion Details LastModified Time Tobacco Smoking Status Never Smoker MELI WARD PA-C [address] [place] [address], [address], [facility] 02/18/2023 10:41:51 Are You Blind Or Do You Have Difficulty Seeing? No [email or web address] Information not available 02/18/2023 Are You Deaf Or Do You Have Serious Difficulty Hearing? No [email or web address] Information not available 02/18/2023 What Type Of Diet Are You Following? DIABETIC [email or web address] Information not available 02/18/2023 What Was The Date Of Your Most Recent Tobacco Screening? 02/18/2023 Information not available 02/18/2023 Do You Use Your Seat Belt Or Car Seat Routinely? Yes Information not available 02/18/2023 Do You Have Difficulty Walking Or Climbing Stairs? No [email or web address] Information not available 02/18/2023 Sex: Unknown Functional Status Question Answer Note LastModified by Organizat ion Details LastModified Time What is your level of alcohol consumption? Occasional [email or web address] Information not available 02/18/2023 Do you have transportation difficulties? No [email or web address] Information not available 02/18/2023 Are you able to walk independently without assistance or assistive devices? YESWOREST [email or web address] Information not available 02/18/2023 Do you have difficulty doing errands alone? No [email or web address] Information not available 02/18/2023 Are you able to care for yourself independently? Yes [email or web address] Information not available 02/18/2023 Do you have difficulty dressing, bathing, grooming, or toileting? No [email or web address] Information not available 02/18/2023 Mental Status Question Answer Note LastModified by Organizat ion Details LastModified Time Do you feel stressed (tense, restless, nervous, or anxious, or unable to sleep at night)? [id number] [email or web address] Information not available 02/18/2023 Do you have difficulty concentrating, remembering or making decisions? No [email or web address] Information no t available 02/18/2023 Family History Nothing Reported. Medical History Condition Response Diabetes Y Coronary Artery Disease Y Heart Disease Y Arthritis Y Immunizations Vaccine Type Date Status Note Provider Nam e and Address Organization Details Recorded Time Tdap 8 completed Not Available [facility] 01/30/2023 02:49:41 Influenza, split virus, trivalent, preservative 9 completed Not Available [facility] 01/30/2023 02:49:42 Td(adult) unspecified formulation 2 completed Not Available [facility] 01/30/2023 02:49:42 Past Encounters Encounter ID Performer Location Encounter Start Date Encounter Closed Date Diagnosis/Indication Diagnosis SNOMED-CT Code Diagnosis ICD10 Code Diagnosis IMO Codes Diagnosis Note [id number] MELI WARD PA-C [facility] ([facility]) [address] [place] [phone] 05/24/2025 14:47:26 05/24/2025 16:07:28 Acute bacterial sinusitis 94212788 J01.90 B96.89 82399 Chronic insomnia 6885598 04 F51.04 674336 [id number] MELI WARD PA-C [facility] ([facility]) [address] [place] [phone] 05/29/2025 10:23:09 05/29/2025 11:12:07 Acute abdominal pain 175416182 R10.9 66423 acute diffuse pain. differenti al renal stones, pancreatit is, colitis, mesenteric ischemia. Health Concerns Section Related Observation LastModified by Organization Detai ls LastModified Time None Recorded Concern Status LastModified by Organization Details LastModified Time None Recorded Payers Encounter Date Sequence Insurance Name Policy Number Policy Aldridge Covered Member ID Aldridge Member ID Guarantor Name 05/29/2025 1 [facility] (MEDICARE REPLACEMENT/A DVANTAGE - PPO) [id number] Marcial Casillas [id number] Marcial Casillas Notes Date Note Type Note [...] pain as well. MELI WARD PA-C [address] [place], [address], [facility] 05/29/2025 11:11:46
--- OUTSIDE RECORDS SUMMARY | 2025-06-28 21:01 | XMS_ITS | Encounter Summary ---
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 Name Role Phone Unavailable Primary Care Provider Unavailabl e Encounter Details Date Type Department Care Team (Latest Contact Info) Description 07/28/2007 Outpatient Historical HIS [facility] Cruz Florian MD [address] [place] [address] [place] [address] Magne Sims MD [address] [phone] Arthrodesis Status; Degeneration of Lumbar or Lumbosacral Intervertebral Disc; Spinal Stenosis of Lumbar Region Social History Tobacco Use Types Packs/Day Years Used Date Smoking Tobacco: Never Assessed Sex and Gender Information Value Date Recorded Sex Assigned at Not on file 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..] Mild enhancing scar tissue surrounds the left [id number] root in the lateral recess. L5-S1: Moderate [...]
--- OUTSIDE RECORDS SUMMARY | 2025-06-28 21:01 | XMS_ITS | Encounter Summary ---
Author Organization [facility] Address [address] [place] [address] Care Team Providers Care Transport Conductor Name Role Phone Unavailable Primary Care Provider Unavailabl e Encounter Details Date Type Department Care Team (Latest Contact Info) Description 10/25/2007 Outpatient Historical [facility] [address] [place] [address] [facility] [address] [place] [address] Cruz Florian MD [address] [place] [address] Arthrodesis Status; Disturbance of Skin Sensation Social History Tobacco Use Types Packs/Day Years Used Date Smoking Tobacco: Never Assessed Sex and Gender Information Value Date Recorded Sex Assigned at Not on file 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
--- OUTSIDE RECORDS SUMMARY | 2025-06-28 21:01 | XMS_ITS | Encounter Summary ---
Author Organization [facility] Address [address] [place] [address] Care Team Providers Care Delivery Table Operator Name Role Phone Unavailable Primary Care Provider Unavailabl e Encounter Details Date Type Department Care Team (Late st Contact Info) Description 09/30/2007 Outpatient Historical [facility] [address] 

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
--- OUTSIDE RECORDS SUMMARY | 2025-06-28 21:01 | XMS_ITS | Encounter Summary ---
Author Organization [facility] Address [address] [place] [address] Care Team Providers Care Watermelon Harvesting Supervisor Name Role Phone Unavailable Primary Care Provider Unavailabl e Encounter Details Date Type Department Care Team (Late st Contact Info) Description 09/01/2007 Outpatient Historical [facility] [address] [place] [address] Cruz Florian MD [address] [place] [address] Social History Tobacco Use Types Packs/Day Years Used Date Smoking Tobacco: Never Assessed Sex and Gender Information Value Date Recorded Sex Assigned at Not on file Legal Sex Male 3:53 AM 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
--- OUTSIDE RECORDS SUMMARY | 2025-06-28 21:01 | XMS_ITS | Encounter Summary ---
Author Organization [facility] Address [address] [place] [address] Care Team Providers Care Fusing Machine Tender Name Role Phone Unavailable Primary Care Provider Unavailabl e Encounter Details Date Type Department Care Team (Late st Contact Info) Description 08/24/2007 Outpatient Historical [facility] [address] [place] [address] [facility] [address] [place] [address] Cruz Florian MD [address] [place] [address] Social History Tobacco Use Types Packs/Day Years Used Date Smoking Tobacco: Never Assessed Sex and Gender Information Value Date Recorded Sex Assigned at Not on file Legal Sex Male 3:53 AM LIBRARY 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
--- OUTSIDE RECORDS SUMMARY | 2025-06-28 21:02 | XMS_ITS | Clinical Summary ---
Author Organization [facility] Address [address] [place] [address] Care Team Providers Care Controller Mechanic Name Role Phone Unavailable Primary Care [...] times daily. 60 Capsule 08/22/2019 2:24 PM COSMETIC CONSULTANT 08/21/2019 Active oxyCODONE (ROXICODONE) 5 mg tabletIndication [...] on file Legal Sex Male 3:53 AM COSMETIC CONSULTANT Gender Identity Not on file Sexual Orientation Not on file Last Filed Vital Signs Vital Sign Reading Time Taken Comments Blood Pressure 123/77 12/17/2020 1:14 PM CDT Pulse 93 12/17/2020 1:14 PM CDT Temperature 36.1 C (96.9 F) 08/22/2019 8:18 AM COSMETIC CONSULTANT Respiratory Rate 15 08/22/2019 8:18 AM COSMETIC CONSULTANT Oxygen Saturation 97% 08/22/2019 8:18 AM COSMETIC CONSULTANT Inhaled Oxygen Concentration - - Weight 100.7 [...] years Discontinued Medical Devices Implanted Type Area Barber Apprentice Device Identifier Shelf Expiration Date Model / Serial / Lot Fem Porocoat Posterior Implanted:Qty: 1 on 08/21/2019 by Nilson Escoto MD at [facility] Left: Knee 04/03/2029 DEPUY - [id number] / / [id number] Ins Tib Attune Ps Sz 7 7mm Implanted:Qty: 1 on 08/21/2019 by Nilson Escoto MD at [facility] Left: Knee 07/04/2024 [id number] / / [id number] Bsplt Tib Attune Sz9 Implanted:Qty: 1 on 08/21/2019 by Nilson Escoto MD at [facility] Left: Knee 12/02/2028 [id number] / / [id number] Insurance MEDICARE PART A HOSPITAL ONLY [employer] PPO MCR RX MEDIMPACT Member Subscriber Plan / Payer (Ef fective for All Dates) Name:Marcial Casillas Relation to Subscriber:Spouse Name:Casillas Marcial Payer ID:Not on file Group ID:[id number] Type:RX Commercial Address: [place] [employer] PLANS (INTERNAL) [facility] Internal Plans ESIS Advance Directives For more information, please contact: [phone] * Full Code (Latest Code Status on File) Date Activated Date Inactivated Comments 08/21/2019 11:25 AM 08/22/2019 5:10 PM * Full Code Date Activated Date Inactivated Comments 08/21/2019 6:33 AM 08/21/2019 11:25 AM
--- OUTSIDE RECORDS SUMMARY | 2025-06-28 21:02 | XMS_ITS | Encounter Summary ---
Author Organization [facility] Address [address] [place] [address] Care Team Providers Care Central Supply Technician Supervisor Name Role Phone Unavailable Primary Care Provider Unavailabl e Encounter Details Date Type Department Care Team (Late st Contact Info) Description 11/22/2007 Outpatient Historical [facility] Cruz Florian MD [address] [place] [address] Social History Tobacco Use Types Packs/Day Years Used Date Smoking Tobacco: Never Assessed Sex and Gender Information Value Date Recorded Sex Assigned at Not on file Legal Sex Male 3:53 AM LAB ASSOCIATE Gender Identity Not on file Sexual Orientation Not on file documented as of this encounter Plan of Treatment Not on file documented as of this encounter Visit Diagnoses Not on filedocumented in this encounter
--- OUTSIDE RECORDS SUMMARY | 2025-06-28 21:02 | XMS_ITS | Continuity of Care Document ---
Author Organization [facility] Phani Perdomoek Fabrizio [facility] [place], [facility] ([facility]) Address [address] [place] [address] Assessment No assessment recorded. Plan of Treatment Reminders Order Date Submit Date Provider Last Modified By Organization Details Last Modified Time Details Appointments [facility] CONSULT 2025 12:00P M Los Eckert MD Not available Not available Not available Lab None recorded. Referral family medicine referral 2024 025 [email or web address] Not available 06/26/2025 10:50:06 Procedures None recorded. Surgeries None recorded. Imaging None recorded. Medication Orders None recorded. Patient TargetsNo targets recorded. Patient InstructionsNo instructions recorded. 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 Family Medicine Referral for Generalized abdominal pain Referring Physician: Meli Hawthorne, Family Medicine, Encounter Date: 06/19/2025 Results Created Date Observation Date Name Description Value Unit Range Abnormal Flag Note LastModifiedBy Organization Detail LastModifiedTime 05/29/2005/29/2025 CBC WBC 6.8 x10 4.5-10 .5 Not Available [facility] [address] [facility] [address], [place], [address], 05/29/2025 15:01:56 05/29/2005/29/2025 CBC RBC 3.99 x10 4.30-5 .90 low Not Available [facility] [address] [facility] [address], [place], [address], 05/29/2025 15:01:56 05/29/2005/29/2025 CBC HGB 12.3 g/dL 13.5-1 8.0 low Not Available [facility] [address] [facility], [place], [address], 05/29/2025 15:01:56 05/29/2005/29/2025 CBC HCT 37.3 % 35.0-6 0.0 Not Available [facility] [address] [facility], [place], [address], 05/29/2025 15:01:56 05/29/2005/29/2025 CBC MCV 93.5 fL 80.0-9 9.9 Not Available [facility] [address] [facility] 1, [place], [address], 05/29/2025 15:01:56 05/29/2005/29/2025 CBC MCH 30.8 pg 27.0-3 2.0 Not Available [facility] [address] [facility], [place], [address], 05/29/2025 15:01:56 05/29/2005/29/2025 CBC MCHC 33.0 g/dL 32.0-3 6.0 Not Available [facility] [address] [facility], [place], [address], 05/29/2025 15:01:56 05/29/2005/29/2025 CBC RDW 14.0 % 11.5-1 4.5 Not Available [facility] [address] [facility] 1, [place], [address], 05/29/2025 15:01:56 05/29/2005/29/2025 CBC plt 282.5 x10 150.0- 451.0 Not Available [facility] [address] [facility], [place], [address], 05/29/2025 15:01:56 05/29/2005/29/2025 CBC lymphocytes % 40.1 % 20.0-5 0.0 Not Available [facility] [address] [facility] 1, [place], [address], 05/29/2025 15:01:56 05/29/2005/29/2025 CBC granulcytes % 49.1 % 30.0-7 0.0 Not Available [facility] [address] [facility] 1, [place], [address], 05/29/2025 15:01:56 05/29/2005/29/2025 CBC monocytes % 9.2 % 2.0-16 .0 Not Available [facility] [address] [facility] 1, [place], [address], 05/29/2025 15:01:56 05/29/2005/29/2025 CBC granulcytes# 3.3 x10 Not Amisha ilable [facility] [address] [facility] 1, [place], [address], 05/29/2025 15:01:56 05/29/2005/29/2025 CBC lymphocytes # 2.7 x10 Not Available [facility] [address] [facility] [address], [place], [address], 05/29/2025 15:01:56 05/29/2005/29/2025 CBC monocytes # 0.6 x10 Not Avai lable [facility] [address] [address], [place], [address], 05/29/2025 15:01:56 05/29/2005/29/2025 CMP (MALE ) glucose 141.0 mg/dL 60.0-9 9.0 high Not Available [facility] [address] [address], [place], [address], 05/29/2025 15:34:00 05/29/20 25 05/29/2025 CMP (MALE ) BUN (blood urea nitrogen) 15.0 mg/dL 10.0-2 6.0 Not Available [facility] [address] [facility] 1, [place], [address], 05/29/2025 15:34:00 05/29/20 25 05/29/2025 CMP (MALE ) creatinine (serum) 1.1 mg/dL 0.4-1. 5 Not Available [facility] [address] [facility] 1, [place], [address], 05/29/2025 15:34:00 05/29/20 25 05/29/2025 CMP (MALE ) BUN/creatini ne ratio 13.64 ratio Not Available [facility] [address] [facility] 1, [place], [address], 05/29/2025 15:34:00 05/29/20 25 05/29/2025 CMP (MALE ) eGFR calculated 69.2 Not Available [facility] [address] [facility] 1, [place], [address], 05/29/2025 15:34:00 05/29/20 25 05/29/2025 CMP (MALE ) total protein 6.5 g/dL 6.0-8. 5 Not Available [facility] [address] [facility] 1, [place], [address], 05/29/2025 15:34:00 05/29/20 25 05/29/2025 CMP (MALE ) total bilirubin 0.7 mg/dL 0.2-1. 3 Not Available [facility] [address] [facility] 1, [place], [address], 05/29/2025 15:34:00 05/29/20 25 05/29/2025 CMP (MALE ) albumin 4.3 g/dL 3.5-5. 5 Not Available [facility] [address] [facility] 1, [place], [address], 05/29/2025 15:34:00 05/29/20 25 05/29/2025 CMP (MALE ) globulin 2.2 calc Not Available [facility] [address] [facility], [place], [address], 05/29/2025 15:34:00 05/29/20 25 05/29/2025 CMP (MALE ) AST (SGOT) 27.0 U/L 0.0-46 .0 Not Available [facility] [address] [facility], [place], [address], 05/29/2025 15:34:00 05/29/20 25 05/29/2025 CMP (MALE ) altv (SGPT) 22.0 U/L 13.0-6 9.0 normal Not Available [facility] [address] [facility] 1, [place], [address], 05/29/2025 15:34:00 05/29/2005/29/2025 CMP (MALE ) A/G ratio 2.0 ratio Not Available [facility] [address] [facility], [place], [address], 05/29/2025 15:34:00 05/29/20 25 05/29/2025 CMP (MALE ) ALP phos 102.0 U/L 30.0-1 40.0 normal Not Available [facility] [address] [facility] 1, [place], [address], 05/29/2025 15:34:00 05/29/20 25 05/29/2025 CMP (MALE ) calcium 9.1 mg/dL 8.4-10 .5 Not Available [facility] [address] [facility], [place], [address], 05/29/2025 15:34:00 05/29/20 25 05/29/2025 CMP (MALE ) sodium 136.0 mmol/ L 136.0- 145.0 Not Available [facility] [address] [facility] 1, [place], [address], 05/29/2025 15:34:00 05/29/2005/29/2025 CMP (MALE ) potassium 4.3 mmol/ L 3.5-5. 1 Not Available [facility] [address] [facility] 1, [place], [address], 05/29/2025 15:34:00 05/29/2005/29/2025 CMP (MALE ) chloride 99.0 mmol/ L 98.0-1 10.0 normal Not Available [facility] [address] [facility] 1, [place], [address], 05/29/2025 15:34:00 05/29/2005/29/2025 CMP (MALE ) C02 28.0 mmol/ L 22.0-3 1.0 Not Available [facility] [address] [facility] 1, [place], [address], 05/29/2025 15:34:00 05/29/20 25 05/29/2025 CMP (MALE ) anion gap 9.0 calc Not Available [facility] [address] [facility] 1, [place], [address], 05/29/2025 15:34:00 05/29/2005/29/2025 CMP (MALE ) osmolality 284.1 calc Not Available [facility] [address] [facility] 1, [place], [address], 05/29/2025 15:34:00 05/29/2005/29/2025 URINA LYSIS WITH MICRO color YELLOW Not Available [facility] [address] [facility] 1, [place], [address], 05/29/2025 15:39:37 05/29/2005/29/2025 URINA LYSIS WITH MICRO clarity CLEAR Not Available [facility] [address], [place], [address], 05/29/2025 15:39:37 05/29/2005/29/2025 URINA LYSIS WITH MICRO glu NEGATI VE Not Available [facility] [address], [place], [address], 05/29/2025 15:39:37 05/29/2005/29/2025 URINA LYSIS WITH MICRO bili NEGATI VE Not Available [facility] [address], [place], [address], 05/29/2025 15:39:37 05/29/2005/29/2025 URINA LYSIS WITH MICRO ket NEGATI VE Not Available [facility] [address], [place], [address], 05/29/2025 15:39:37 05/29/2005/29/2025 URINA LYSIS WITH MICRO S.g 1.010 1.005- 1.025 Not Available [facility] [address], [place], [address], 05/29/2025 15:39:37 05/29/2005/29/2025 URINA LYSIS WITH MICRO pH 5.5 5.0-7. 0 Not Available [facility] [address], [place], [address], 05/29/2025 15:39:37 05/29/2005/29/2025 URINA LYSIS WITH MICRO pro NEGATI VE Not Available [facility] [address], [place], [address], 05/29/2025 15:39:37 05/29/2005/29/2025 URINA LYSIS WITH MICRO uro 0.2 E.U./D L Not Available [facility] [address], [place], [address], 05/29/2025 15:39:37 05/29/2005/29/2025 URINA LYSIS WITH MICRO nit NEGATI VE Not Available [facility] [address], [place], [address], 05/29/2025 15:39:37 05/29/2005/29/2025 URINA LYSIS WITH MICRO blo NEGATI VE Not Available [facility] [address], [place], [address], 05/29/2025 15:39:37 05/29/2005/29/2025 URINA LYSIS WITH MICRO eduardo NEGATI VE Not Available [facility] [address], [place], [address], 05/29/2025 15:39:37 05/29/2005/29/2025 URINA LYSIS WITH MICRO WBC NEGATI VE Not Available [facility] [address], [place], [address], 05/29/2025 15:39:37 05/29/2005/29/2025 URINA LYSIS WITH MICRO RBC 1-2 abnormal Not Available [facility] [address], [place], [address], 05/29/2025 15:39:37 05/29/2005/29/2025 URINA LYSIS WITH MICRO epi cells NEGATI VE Not Available [facility] [address] [facility] 1, [place], [address], 05/29/2025 15:39:37 05/29/2005/29/2025 URINA LYSIS WITH MICRO bacteria NEGATI VE Not Available [facility] [address] [facility] 1, [place], [address], 05/29/2025 15:39:37 05/29/2005/29/2025 URINA LYSIS WITH MICRO other NEG Not Available [facility] [address] [facility] [address], [place], [address], 05/29/2025 15:39:37 05/29/2005/30/2025 C-NADIR CTIVE PROTE IN C-reactive protein <3.0 mg/L <8.0 normal Not Available [facility] [address] [place], [address], 05/30/2025 21:35:58 05/29/2005/30/2025 AMYLA SE amylase 28 U/L 21-101 normal Not Available [facility] [address] [place], [address], 05/30/2025 21:35:59 05/29/2005/30/2025 CULTU RE, URINE , ROUTI NE culture, urine, routine SEE NOTE CULTU RE, URINE , ROUTI NE Micro Numbe r: [id number] Test Statu s: Final Speci men Sourc e: Urine Speci men Quali ty: Adequ ate Resul t: No Growt h Not Available [facility] [address] [place], [address], 05/30/2025 21:35:59 06/19/2006/19/2025 CBC WBC 7.2 x10 4.5 - 10.5 Not Available [facility] [address] [facility] [address], [place], [address], 06/19/2025 14:03:53 06/19/2006/19/2025 CBC RBC 4.03 x10 4.30 - 5.90 low Not Available [facility] [address], [place], [address], 06/19/2025 14:03:53 06/19/20 25 06/19/2025 CBC HGB 13.8 g/dL 13.5 - 18.0 Not Available [facility] [address] [facility] 1, [place], [address], 06/19/2025 14:03:53 06/19/20 25 06/19/2025 CBC HCT 37.6 % 35.0 - 60.0 Not Available [facility] [address] [facility] [address], [place], [address], 06/19/2025 14:03:53 06/19/20 25 06/19/2025 CBC MCV 93.3 fL 80.0 - 99.9 Not Available [facility] [address] [facility] 1, [place], [address], 06/19/2025 14:03:53 06/19/20 25 06/19/2025 CBC MCH 34.2 pg 27.0 - 32.0 high Not Available [facility] [address] [facility] 1, [place], [address], 06/19/2025 14:03:53 06/19/20 25 06/19/2025 CBC MCHC 36.7 g/dL 32.0 - 36.0 high Not Available [facility] [address] [facility] 1, [place], [address], 06/19/2025 14:03:53 06/19/20 25 06/19/2025 CBC RDW 14.6 % 11.5 - 14.5 high Not Available [facility] [address] [facility] 1, [place], [address], 06/19/2025 14:03:53 12/16/20 25 06/19/2025 CBC plt 295.5 x10 150.0 - 451.0 Not Available [facility] [address] [facility] 1, [place], [address], 06/19/2025 14:03:53 06/19/20 25 06/19/2025 CBC lymphocytes % 36.3 % 20.0 - 50.0 Not Available [facility] [address] [facility] 1, [place], [address], 06/19/2025 14:03:53 06/19/20 25 06/19/2025 CBC granulcytes % 53.7 % 30.0 - 70.0 Not Available [facility] [address] [facility] 1, [place], [address], 06/19/2025 14:03:53 06/19/20 25 06/19/2025 CBC monocytes % 7.8 % 2.0 - 16.0 Not Available [facility] [address] [facility] 1, [place], [address], 06/19/2025 14:03:53 06/19/20 25 06/19/2025 CBC granulcytes# 3.9 x10 Not Amisha ilable [facility] [address] [facility] 1, [place], [address], 06/19/2025 14:03:53 06/19/20 25 06/19/2025 CBC lymphocytes # 2.6 x10 Not Available [facility] [address] [facility] 1, [place], [address], 06/19/2025 14:03:53 06/19/20 25 06/19/2025 CBC monocytes # 0.6 x10 Not Avai lable [facility] [address] [facility] 1, [place], [address], 06/19/2025 14:03:53 06/19/20 25 06/19/2025 CMP (MALE ) glucose 162.0 mg/dL 60.0 - 99.0 high Not Available [facility] [address] [facility], [place], [address], 06/19/2025 14:08:27 06/19/20 25 06/19/2025 CMP (MALE ) BUN (blood urea nitrogen) 19.0 mg/dL 10.0 - 26.0 Not Available [facility] [address] [facility] 1, [place], [address], 06/19/2025 14:08:27 06/19/20 25 06/19/2025 CMP (MALE ) creatinine (serum) 1.1 mg/dL 0.4 - 1.5 Not Available [facility] [address] [facility] 1, [place], [address], 06/19/2025 14:08:27 06/19/20 25 06/19/2025 CMP (MALE ) BUN/creatini ne ratio 17.27 ratio Not Available [facility] [address] [facility] 1, [place], [address], 06/19/2025 14:08:27 06/19/20 25 06/19/2025 CMP (MALE ) total protein 6.9 g/dL 6.0 - 8.5 Not Available [facility] [address] [facility] 1, [place], [address], 06/19/2025 14:08:27 06/19/20 25 06/19/2025 CMP (MALE ) total bilirubin 0.5 mg/dL 0.2 - 1.3 Not Available [facility] [address] [facility], [place], [address], 06/19/2025 14:08:27 06/19/20 25 06/19/2025 CMP (MALE ) albumin 4.6 g/dL 3.5 - 5.5 Not Available [facility] [address] [facility] 1, [place], [address], 06/19/2025 14:08:27 06/19/20 25 06/19/2025 CMP (MALE ) globulin 2.3 calc Not Available [facility] [address] [facility], [place], [address], 06/19/2025 14:08:27 06/19/20 25 06/19/2025 CMP (MALE ) AST (SGOT) 39.0 U/L 0.0 - 46.0 Not Available [facility] [address] [facility] 1, [place], [address], 06/19/2025 14:08:27 06/19/20 25 06/19/2025 CMP (MALE ) altv (SGPT) 28.0 U/L 13.0 - 69.0 Not Available [facility] [address] [facility] 1, [place], [address], 06/19/2025 14:08:27 06/19/20 25 06/19/2025 CMP (MALE ) A/G ratio 2.0 ratio Not Available [facility] [address] [facility] 1, [place], [address], 06/19/2025 14:08:27 06/19/20 25 06/19/2025 CMP (MALE ) ALP phos 83.0 U/L 30.0 - 140.0 Not Available [facility] [address] [facility] 1, [place], [address], 06/19/2025 14:08:27 06/19/20 25 06/19/2025 CMP (MALE ) calcium 9.3 mg/dL 8.4 - 10.5 Not Available [facility] [address] [facility] 1, [place], [address], 06/19/2025 14:08:27 06/19/20 25 06/19/2025 CMP (MALE ) sodium 139.0 mmol/ L 136.0 - 145.0 Not Available [facility] [address] [facility] 1, [place], [address], 06/19/2025 14:08:27 06/19/20 25 06/19/2025 CMP (MALE ) potassium 4.7 mmol/ L 3.5 - 5.1 Not Available [facility] [address] [facility] 1, [place], [address], 06/19/2025 14:08:27 06/19/20 25 06/19/2025 CMP (MALE ) chloride 101.0 mmol/ L 98.0 - 110.0 Not Available [facility] [address] [facility], [place], [address], 06/19/2025 14:08:27 06/19/20 25 06/19/2025 CMP (MALE ) C02 27.0 mmol/ L 22.0 - 31.0 Not Available [facility] [address] [facility], [place], [address], 06/19/2025 14:08:27 06/19/20 25 06/19/2025 CMP (MALE ) anion gap 11.0 calc Not Available [facility] [address] [facility] 1, [place], [address], 06/19/2025 14:08:27 06/19/20 25 06/19/2025 CMP (MALE ) osmolality 292.4 calc Not Available [facility] [address] [facility], [place], [address], 06/19/2025 14:08:27 06/19/20 25 06/19/2025 CMP (MALE ) eGFR calculated 83.8 Not Available [facility] [address] [address], [place], [address], 06/19/2025 14:08:27 06/19/2006/20/2025 C-NADIR CTIVE PROTE IN C-reactive protein <3.0 mg/L <8.0 normal Not Available [facility] [address] [address], [place], [address], 06/20/2025 06:57:28 06/19/2006/20/2025 AMYLA SE amylase 36 U/L 21-101 normal Not Available [facility] [address] [address], [place], [address], 06/20/2025 06:57:28 05/29/2005/29/2025 CT, abdom en + pelvi s, w/ contr ast No observ ation record ed. [facility] [address] [facility], [place], [address], 05/29/2025 18:12:29 Result Notes None recorded. Problems Name Problem SNOMED Code Status Onset Date Resolution Date Notes Provider Name and Address Organization Details Recorded Time History of nutritio nal disorder 144597238 Completed 202112/11/2021 H/O NON-INSU SOFÍA DEPENDEN T DIABETES MELLITUS - Status is Inactive ; Recorded 12/12/19 3:37PM by Meli Hawthorne PA-C, Clrak on/Adden dum; Promoted ; acuity set as *; Not Available [facility] 3 03:16:01 History of endocrin e disorder 122898772 Completed 202112/11/2021 H/O NON-INSU SOFÍA DEPENDEN T DIABETES MELLITUS - Status is Inactive ; Recorded 12/12/19 3:37PM by Meli Hawthonre PA-C, Annotati on/Adden dum; Promoted ; acuity set as *; Not Available [facility] 3 03:16:01 History of metaboli c disorder 002080898 Completed 202112/11/2021 H/O NON-INSU SOFÍA DEPENDEN T DIABETES MELLITUS - Status is Inactive ; Recorded 12/12/19 3:37PM by Meli Hawthorne PA-C, Leeanneati on/Adden dum; Promoted ; acuity set as *; Not Available [facility] 3 03:16:01 Anemia [id number] Completed 202112/11/2021 ANEMIA - Status is Inactive ; Recorded 12/12/19 3:38PM by Meli Hawthorne PA-C, Annotati on/Adden dum; Promoted ; acuity set as *; Not Available [facility] 3 03:16:02 Herpes zoster [id number] Completed 202112/11/2021 HERPES ZOSTER WITHOUT COMPLICA TION [...] ; acuity set as *; Not Available [facility] 3 03:16:02 Fracture of other finger Completed 202112/11/2021 fx 3rd and 4th digits on Lt hand - Status is Inactive ; 12/12/19 3:38PM by Meli Hawthorne PA-C, Annotati on/Adden dum; Promoted ; acuity set as *; Not Available [facility] 3 03:16:02 Gastroes ophageal reflux disease 680279614 Active 2021 GERD (GASTROE SOPHAGEA L REFLUX DISEASE) ; Recorded 05/25/20 3:58PM by Vivek mederos, Office Visit; Promoted ; acuity set as *; ROSAURA momin [facility] 5 15:34:18 Coronary artery bypass graft stent present [id number] 9104 Active 2021 H/O HEART ARTERY STENT; Recorded 05/25/20 3:58PM by Vivek mederos, Office Visit; Promoted ; acuity set as *; ROSAURA ZAPATAYONG [facility], [facility] 5 15:34:12 Hypercho lesterol emia 43125821 Active 2021 Hypercho lesterol emia; 05/25/20 3:58PM by Vivek mederos, Office Visit; Promoted ; acuity set as *; ROSAURA ZAPATAYONG [facility], [facility] 5 15:34:26 Coronary arterios clerosis 22762962 Active 2022 ROSAURA HAEFSUGEY [facility] 5 15:34:08 Type 2 diabetes mellitus 02464583 Active 2022 ROSAURA ABDIRASHIDSUGEY [facility] 5 15:34:54 Diabetes mellitus 62504763 Active 2023 ROSAURA JODIYONG [facility] 5 15:34:15 Spinal stenosis of lumbosac ral region 228342940 Active 2024 ROSAURA ABDIRASHIDSUGEY [facility] 5 08:17:04 Spinal stenosis of lumbar region 06090219 Active 2024 ROSAURA JODIYONG [facility] 5 08:17:32 Notes:Some problems listed i n Documents: #[id number], #[id number] could not be added to this patient's chart. Please review these documents and add these problems to the patient's chart manually as needed. Problem Notes None recorded. Procedures Surgical History Date Name Laterality Status Provider Name and Address Organization Details Recorded Time 04/30/20 25 diabetic retinal eye exam completed ROSAURA GALLO [facility] 06/10/2025 08:31:40 07/27/19 25 Joint Inj Beta-shoulder, hip, knee completed MELI HAWTHORNE PA-C [address] [place], [address], [facility], [place] 07/27/2024 14:58:22 02/23/20 24 prostate specific antigen measurement completed ROSAURA GALLO [facility], [place] 06/10/2025 08:35:25 12/29/19 24 cardiac catheterization completed MELI HAWTHORNE PA-C [address] [place], [address], [facility], [place] 12/30/2023 09:19:40 12/10/19 24 Family Practice Trigger Point Injection completed MELI HAWTHORNE PA-C [address] [place], [address], [facility], [place] 12/27/2023 17:05:59 12/10/19 24 jr cryo warts completed MELI HAWTHORNE PA-C [address] [place], [address], [facility], [place] 12/27/2023 17:06:12 11/18/19 24 Family Practice Trigger Point Injection completed MELI HAWTHORNE PA-C [address] [place], [address], [facility], [place] 2023 19:46:35 11/18/19 24 jr cryo warts completed MELI HAWTHORNE PA-C [address] [place], [address], [facility], [place] 2023 19:45:06 02/22/20 21 placement of stent in cardiac conduit completed ROSAURA GALLO [facility], [place] 02/18/2023 09:52:08 02/22/20 20 colonoscopy completed ROSAURA GALLO [facility], [place] 02/18/2023 09:51:32 Imaging Results None recorded. Procedure Notes None recorded. Medical Equipment None Reported. Allergies Allergen ID Allergen Name Allergen Category Reaction Reaction Severity Criticality Documentation Date Start Date Code Code System Note Provider Name and Address Organization Details Recorded Time 66067 doxycycli ne Not available Not available Not available Not available 02/18/2023 3640 RxNorm [place] - [facility], [place] 09:45:13 Medications Name Sig Start Date [...] Available chlorhexi dine gluconate 0.12 % mouthwash 08/17 /2023 completed Not Available Not Available Not Available [...] metformin two times daily 02/18 completed MW/mf; 21421; Recorded 12/12/19 7:46AM by Rosaura Gallo LPN [...] Updated DateTime 5 177.8 cm 30.1 kg/m2 26884.4 g 97 % 72 /min 18 /min 97.9 [degF] 138/80 mm[Hg] ROSAURA GALLO [facility], [facility]CTim 5 11:37:46 Social History Question Answer Notes LastModified by Organizat ion Details LastModified Time Tobacco Smoking Status Never Smoker MELI HAWTHORNE PA-C [address] [place], [address], [facility] 02/18/2023 10:41:51 Are You Blind Or Do You Have Difficulty Seeing? No [email or web address] Information not available 02/18/2023 Are You Deaf Or Do You Have Serious Difficulty Hearing? No [email or web address] Information not available 02/18/2023 What Type Of Diet Are You Following? DIABETIC [email or web address] Information not available 02/18/2023 What Was The Date Of Your Most Recent Tobacco Screening? 02/18/2023 Information not available 02/18/2023 Do You Use Your Seat Belt Or Car Seat Routinely? Yes [email or web address] Information not available 02/18/2023 Do You Have Difficulty Walking Or Climbing Stairs? No Information not available 02/18/2023 Sex: Unknown Functional Status Question Answer Note LastModified by Organizat ion Details LastModified Time What is your level of alcohol consumption? Occasional [email or web address] Information not available 02/18/2023 Do you have transportation difficulties? No [email or web address] Information not available 02/18/2023 Are you able to walk independently without assistance or assistive devices? YESWOREST [email or web address] Information not available 02/18/2023 Do you have difficulty doing errands alone? No [email or web address] Information not available 02/18/2023 Are you able to care for yourself independently? Yes [email or web address] Information not available 02/18/2023 Do you have difficulty dressing, bathing, grooming, or toileting? No [email or web address] Information not available 02/18/2023 Mental Status Question Answer Note LastModified by Organizat ion Details LastModified Time Do you feel stressed (tense, restless, nervous, or anxious, or unable to sleep at night)? [id number] Information not available 02/18/2023 Do you have difficulty concentrating, remembering or making decisions? No [email or web address] Information no t available 02/18/2023 Family History Nothing Reported. Medical History Condition Response Diabetes Y Coronary Artery Disease Y Heart Disease Y Arthritis Y Immunizations Vaccine Type Date Status Note Provider Nam e and Address Organization Details Recorded Time Tdap 8 completed Not Available [facility] 01/30/2023 02:49:41 Influenza, split virus, trivalent, preservative 9 completed Not Available [facility] 01/30/2023 02:49:42 Td(adult) unspecified formulation 2 completed Not Available [facility] 01/30/2023 02:49:42 Past Encounters Encounter ID Performer Location Encounter Start Date Encounter Closed Date Diagnosis/Indication Diagnosis SNOMED-CT Code Diagnosis ICD10 Code Diagnosis IMO Codes Diagnosis Note [id number] MELI HAWTHORNE PA-C [facility] ([facility]) [address] [place] [address] 05/24/2025 14:47:26 05/24/2025 16:07:28 Acute bacterial sinusitis 14366618 J01.90 B96.89 04869 Chronic insomnia 6555752 04 F51.04 [id number] MELI HAWTHORNE PA-C [facility] ([facility]) [address] [place] [address] 05/29/2025 10:23:09 05/29/2025 11:12:07 Acute abdominal pain 418628578 R10.9 07766 acute diffuse pain. differenti al renal stones, pancreatit is, colitis, mesenteric ischemia. [id number] MELI HAWTHORNE PA-C [facility] ([facility]) [address] [place] [address] 06/12/2025 10:32:08 06/12/2025 11:41:13 Upper abdominal pain 42538175 R10.10 8747803 Colitis 77119480 K52.9 [id number] MELI HAWTHORNE PA-C [facility] ([facility]) [address] [place] [phone] 06/19/2025 11:27:20 06/25/2025 16:59:25 Generalized abdominal pain 114090970 R10.[address] and labs so far normal. He will get new cbc, cmp, crp today that he did not do yesterday. Health Concerns Section Related Observation LastModified by Organization Detai ls LastModified Time None Recorded Concern Status LastModified by Organization Details LastModified Time None Recorded Payers Encounter Date Sequence Insurance Name Policy Number Policy Aldridge Covered Member ID Aldridge Member ID Guarantor Name 06/19/2025 1 [facility] (MEDICARE REPLACEMENT/A DVANTAGE - PPO) [id number] Marcial Casillas [id number] Marcial Casillas Notes Date Note Type Note Provider Name and Address Organization Details Recorded Time 5 text/html Bowel Complaints/Fecal IncontinenceReported by PatientHPIFor [...] h pylori .would need it done before I am taking to [place] after [place] and wont be back till probably 15th MELI [place], [address], JOYCE [facility], [place] 06/25/2025 16:08:51
--- OUTSIDE RECORDS SUMMARY | 2025-06-28 21:02 | XMS_ITS | Encounter Summary ---
Author Organization [facility] Address [address] [place] [address] Care Team Providers Care Personnel Representative Name Role Phone Unavailable Primary Care Provider Unavailabl e 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 * Radiology Services (Routine) - Closed Specialty Diagnoses / Procedures Referred By Contac t Referred To Contact Orthopedic Surgery Diagnoses Pain Procedures US GUIDE NEEDLE PLACEMENT José Manuel Vasquez MD Phone: tel: fax: [facility] [address] [employer] [place] [address] Phone: tel: fax: Referral ID Status Reason Start Date Expiration Date Visits Requested Visits Authorized [id number] Closed Performing Department to Schedule 12/17/2020 01/17/2022 1 1 Encounter Details Date Type Department Care Team (Late st Contact Info) Description 12/17/2020 Ancillary Orders [place] [address] [employer] [place] [address] José Manuel Vasquez MD [address] [place] [address] Pain Social History Tobacco Use Types Packs/Day Years Used Date Smoking Tobacco: Never Smokeless Tobacco: Never Alcohol Use Standard Drinks/Week Comments Yes 0 (1 standard drink = 0.6 oz pur e alcohol) case of beer lasts a year Sex and Gender Information Value Date Recorded Sex Assigned at Not on file 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
--- OUTSIDE RECORDS SUMMARY | 2025-06-28 21:02 | XMS_ITS | Encounter Summary ---
Author Organization [facility] Address [address] [place] [address] Care Team Providers Care Identity Management Developer Name Role Phone Unavailable Primary Care Provider Unavailabl e Encounter Details Date Type Department Care Team (Late st Contact Info) Description 12/29/2007 Outpatient Historical [facility] [address] [facility] [address] [place] [id number] Cruz Florian MD [address] [place] [address] Social History Tobacco Use Types Packs/Day Years Used Date Smoking Tobacco: Never Assessed Sex and Gender Information Value Date Recorded Sex Assigned at Not on file 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
--- OUTSIDE RECORDS SUMMARY | 2025-06-28 21:02 | XMS_ITS | Continuity of Care Document ---
Author Organization JOYCE Dinh [facility] Yi, Kyle, [facility] ([facility]) Address [address] [facility] [place] [address] Assessment No assessment recorded. Plan of Treatment Reminders Order Date Submit Date Provider Last Modified By Organization Details Last Modified Time Details Appointments COLONOS COPY CONSULT 2025 12:00P M Los Eckert MD Not available Not available Not available Lab ESR (erythr ocyte sedimen tation rate), blood 2024 025 [facility] ([facility]), [address] [place], [address], 04/05/2025 16:05:36 C-react shirley protein , quantit ative, serum or plasma 2024 025 Delivery Agent [facility], [address] [facility], [place], [address], 04/09/2025 12:59:05 uric acid, serum or plasma 2024 025 Delivery Agent [facility], [address] [address], [address] [place], [address], 04/09/2025 12:59:05 CMP, serum or plasma 2024 025 [facility], [address], [address], 04/05/2025 15:08:47 CBC 2024 025 [facility], [address] [facility], [facility] 1, [place], [address], 04/05/2025 15:03:06 DELMY + rf (antinu clear antibod ies + rheumat oid factor) , quantit ative, serum 2024 025 [email or web address] [facility], [address] [address], [address] [place], [address], 04/12/2025 07:04:07 Referral podiatr ist referra l [address] [facility], [address] [place] [address], [address], 04/11/2025 12:31:48 Procedures None recorde d. Surgeries None recorde d. Imaging XR, ankle, 3 or more view [address] ([facility]), [address] [place], [address], 04/06/2025 08:44:57 Medication Orders hydroco done 5 mg-acet aminoph en 325 mg tablet 2024 025 [email or web address] [facility]/Pharmacy #[id number], [address] [facility], [facility] 2, [place], [address], 04/05/2025 18:59:23 prednis one 20 mg tablet 2024 025 [facility]/Pharmacy #[id number], [address] [facility], [facility] 2, [place], [address], 04/17/2025 05:01:15 clindam ycin HCl 300 mg capsule 2024 025 [facility]/Pharmacy #[id number], [address] [facility], [facility] 2, [place], [address], 04/19/2025 05:01:39 Patient TargetsNo targets recorded. Patient InstructionsNo instructions recorded. 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 Medical Recruiter Referral for Acut e ankle pain Referring Physician: Meli Hawthorne, Family Medicine, Encounter Date: 04/05/2025 Results Created Date Observation Date Name Description Value Unit Range Abnormal Flag Note LastModifiedBy Organization Detail LastModifiedTime 04/05/2004/05/2025 CBC WBC 8.2 x10 4.5-10 .5 Not Available [facility] [address], [place], [address], 04/05/2025 15:03:06 04/05/2004/05/2025 CBC RBC 3.91 x10 4.30-5 .90 low Not Available [facility] [address], [place], [address], 04/05/2025 15:03:06 04/05/2004/05/2025 CBC HGB 11.9 g/dL 13.5-1 8.0 low Not Available [facility] [address], [place], [address], 04/05/2025 15:03:06 04/05/2004/05/2025 CBC HCT 36.8 % 35.0-6 0.0 Not Available [facility] [address] [facility] 1, [place], [address], 04/05/2025 15:03:06 04/05/2004/05/2025 CBC MCV 94.0 fL 80.0-9 9.9 Not Available [facility] [address], [place], [address], 04/05/2025 15:03:06 04/05/2004/05/2025 CBC MCH 30.3 pg 27.0-3 2.0 Not Available [facility] [address] [facility] 1, [place], [address], 04/05/2025 15:03:06 04/05/20 25 04/05/2025 CBC MCHC 32.2 g/dL 32.0-3 6.0 Not Available [facility] [address] [facility], [place], [address], 04/05/2025 15:03:06 04/05/20 25 04/05/2025 CBC RDW 13.4 % 11.5-1 4.5 Not Available [facility] [address] [facility] 1, [place], [address], 04/05/2025 15:03:06 04/05/2004/05/2025 CBC plt 287.6 x10 150.0- 451.0 Not Available [facility] [address] [facility] 1, [place], [address], 04/05/2025 15:03:06 04/05/20 25 04/05/2025 CBC lymphocytes % 26.0 % 20.0-5 0.0 Not Available [facility] [address] [facility] 1, [place], [address], 04/05/2025 15:03:06 04/05/20 25 04/05/2025 CBC granulcytes % 61.0 % 30.0-7 0.0 Not Available [facility] [address] [facility] 1, [place], [address], 04/05/2025 15:03:06 04/05/20 25 04/05/2025 CBC monocytes % 11.2 % 2.0-16 .0 Not Available [facility] [address] [facility] 1, [place], [address], 04/05/2025 15:03:06 04/05/20 25 04/05/2025 CBC granulcytes# 5.0 x10 Not Amisha ilable [facility] [address] [facility] 1, [place], [address], 04/05/2025 15:03:06 04/05/20 25 04/05/2025 CBC lymphocytes # 2.1 x10 Not Available [facility] [address] [facility], [place], [address], 04/05/2025 15:03:06 04/05/20 25 04/05/2025 CBC monocytes # 0.9 x10 Not [facility] [address] [facility] 1, [place], [address], 04/05/2025 15:03:06 04/05/2004/05/2025 CMP (MALE ) glucose 211.0 mg/dL 60.0-9 9.0 high Not Available [facility] [address] [address], [place], [address], 04/05/2025 15:08:46 04/05/20 25 04/05/2025 CMP (MALE ) BUN (blood urea nitrogen) 16.0 mg/dL 10.0-2 6.0 Not Available [facility] [address] [address], [place], [address], 04/05/2025 15:08:46 04/05/20 25 04/05/2025 CMP (MALE ) creatinine (serum) 1.1 mg/dL 0.4-1. 5 Not Available [facility] [address] [address], [place], [address], 04/05/2025 15:08:46 04/05/20 25 04/05/2025 CMP (MALE ) BUN/creatini ne ratio 14.55 ratio Not Available [facility] [address] [facility], [place], [address], 04/05/2025 15:08:46 04/05/20 25 04/05/2025 CMP (MALE ) eGFR calculated 69.2 Not Available [facility] [address] [facility] 1, [place], [address], 04/05/2025 15:08:46 04/05/20 25 04/05/2025 CMP (MALE ) total protein 6.8 g/dL 6.0-8. 5 Not Available [facility] [address] [facility], [place], [address], 04/05/2025 15:08:46 04/05/20 25 04/05/2025 CMP (MALE ) total bilirubin 0.7 mg/dL 0.2-1. 3 Not Available [facility] [address] [facility], [place], [address], 04/05/2025 15:08:46 04/05/20 25 04/05/2025 CMP (MALE ) albumin 4.1 g/dL 3.5-5. 5 Not Available [facility] [address] [facility] 1, [place], [address], 04/05/2025 15:08:46 04/05/20 25 04/05/2025 CMP (MALE ) globulin 2.[address] [facility] [address] [facility] 1, [place], [address], 04/05/2025 15:08:46 04/05/20 25 04/05/2025 CMP (MALE ) AST (SGOT) 19.0 U/L 0.0-46 .0 Not Available [facility] [address] [facility] 1, [place], [address], 04/05/2025 15:08:46 04/05/20 25 04/05/2025 CMP (MALE ) altv (SGPT) 17.0 U/L 13.0-6 9.0 normal Not Available [facility] [address] [facility] 1, [place], [address], 04/05/2025 15:08:46 04/05/20 25 04/05/2025 CMP (MALE ) A/G ratio 1.5 ratio Not Available [facility] [address] [facility] 1, [place], [address], 04/05/2025 15:08:46 04/05/20 25 04/05/2025 CMP (MALE ) ALP phos 106.0 U/L 30.0-1 40.0 normal Not Available [facility] [address] [facility] 1, [place], [address], 04/05/2025 15:08:46 04/05/20 25 04/05/2025 CMP (MALE ) calcium 9.2 mg/dL 8.4-10 .5 Not Available [facility] [address] [facility] 1, [place], [address], 04/05/2025 15:08:46 04/05/20 25 04/05/2025 CMP (MALE ) sodium 136.0 mmol/ L 136.0- 145.0 Not Available [facility] [address] [facility] 1, [place], [address], 04/05/2025 15:08:46 04/05/20 25 04/05/2025 CMP (MALE ) potassium 4.3 mmol/ L 3.5-5. 1 Not Available [facility] [address] [facility] 1, [place], [address], 04/05/2025 15:08:46 04/05/20 25 04/05/2025 CMP (MALE ) chloride 101.0 mmol/ L 98.0-1 10.0 normal Not Available [facility] [address] [facility] 1, [place], [address], 04/05/2025 15:08:46 04/05/20 25 04/05/2025 CMP (MALE ) C02 25.0 mmol/ L 22.0-3 1.0 Not Available [facility] [address], [place], [address], 04/05/2025 15:08:46 04/05/20 25 04/05/2025 CMP (MALE ) anion gap 10.0 calc Not Available [facility] [address], [place], [address], 04/05/2025 15:08:46 04/05/20 25 04/05/2025 CMP (MALE ) osmolality 287.9 calc Not Available [facility] [address], [place], [address], 04/05/2025 15:08:46 04/05/20 25 04/09/2025 DELMY,I FA, CASCA DE AND RHEUM ATOID [...] infor jesusita [place] e refer to http: //edu lashell n.Que stDia gnost ics.c om/fa q/FAQ 177 (This link is being provi ded for infor alli nal/ costa garcia purpo ses only. ) Not Available [address], [address], 04/09/2025 12:59:04 04/05/2004/09/2025 DELMY,I FA, CASCA DE AND RHEUM ATOID ARTHR ITIS PANEL 2, WITH REFLE XES rheumatoid factor <10 IU/mL <14 normal Not Available [address] [address] [place], [address], 04/09/2025 12:59:04 04/05/2004/09/2025 DELMY,I FA, CASCA DE AND RHEUM ATOID ARTHR ITIS PANEL 2, WITH REFLE XES cyclic citrullinate d peptide (ccp) Ab (IgG) <16 units normal Refer ence Range Negat shirley: <20 Weak Posit shirley: 20-39 Moder ate Posit shirley: 40-59 Stron g Posit shirley: >59 Not Available [facility] [address] [place], [address], 04/09/2025 12:59:04 04/05/2004/09/2025 DELMY,I FA, CASCA DE [...] justo pepti de (CCP) . Not Available [address], [address], 04/09/2025 12:59:04 04/05/2004/09/2025 URIC ACID uric acid 6.4 mg/dL 4.0-8. 0 normal Thera peuti c targe t for gout patie nts: <6.0 mg/dL Not Available [facility] [address] [place], [address], 04/09/2025 12:59:05 04/05/2004/09/2025 C-NADIR CTIVE PROTE IN C-reactive protein 49.0 mg/L <8.0 high Not Available [facility] [address] [place], [address], 04/09/2025 12:59:05 04/05/2004/05/2025 ESR (eryt hrocy te sedim entat ion rate) , blood SedRate 46 Not Available [facility] ([facility]) [address] [place], [address], 04/05/2025 14:17:26 04/05/20 XR, ankle , 3 or more view No observ ation record ed. [email or web address] [facility] ([facility]) [address] [place], [address], 04/05/2025 14:19:15 04/06/2004/05/2025 imagi ng/di agnos tic resul t No observ ation record ed. [facility] [address] [place], [address], 04/15/2025 12:37:51 05/29/2005/29/2025 CT, abdom en + pelvi s, w/ contr ast No observ ation record ed. [facility] [address] [place], [address], 05/29/2025 18:12:29 Result Notes None recorded. Problems Name Problem SNOMED Code Status Onset Date Resolution Date Notes Provider Name and Address Organization Details Recorded Time History of nutritio nal disorder 701790871 Completed 202112/11/2021 H/O NON-INSU JASVIR DEPENDEN T DIABETES MELLITUS - Status is Inactive ; Recorded 06/09/20 22 3:37PM by Meli Hawthorne PA-C, Leeanneati on/Adden dum; Promoted ; acuity set as *; Not Available [facility] 3 03:16:01 History of endocrin e disorder 134937783 Completed 202112/11/2021 H/O NON-INSU JASVIR DEPENDEN T DIABETES MELLITUS - Status is Inactive ; Recorded 12/12/19 3:37PM by Meli Hawthorne PA-C, Annotati on/Adden dum; Promoted ; acuity set as *; Not Available [facility] 3 03:16:01 History of metaboli c disorder 419756973 Completed 202112/11/2021 H/O NON-INSU JASVIR DEPENDEN T DIABETES MELLITUS - Status is Inactive ; Recorded 12/12/19 3:37PM by Meli Hawthorne PA-C, Annotati on/Adden dum; Promoted ; acuity set as *; Not Available [facility] 3 03:16:01 Anemia 097199344 Completed 202112/11/2021 ANEMIA - Status is Inactive ; Recorded 12/12/19 3:38PM by Meli Hawthorne PA-C, Annotati on/Adden dum; Promoted ; acuity set as *; Not Available [facility] 3 03:16:02 Herpes zoster 2532203 Completed 202112/11/2021 HERPES ZOSTER WITHOUT COMPLICA TION [...] ; acuity set as *; Not Available [facility] 3 03:16:02 Fracture of other finger Completed 202112/11/2021 fx 3rd and 4th digits on Lt hand - Status is Inactive ; 12/12/19 3:38PM by Meli Hawthorne, PA-C, Annotati on/Adden dum; Promoted ; acuity set as *; Not Available [facility] 3 03:16:02 Gastroes ophageal reflux disease 878506127 Active 2021 GERD (GASTROE SOPHAGEA L REFLUX DISEASE) ; Recorded 05/25/20 3:58PM by Vivek mederos, Office Visit; Promoted ; acuity set as *; [facility] 15:34:18 Coronary artery bypass graft stent present [id number] 9104 Active 2021 H/O HEART ARTERY STENT; Recorded 05/25/20 3:58PM by Vivek mederos, Office Visit; Promoted ; acuity set as *; [facility] 5 15:34:12 Hypercho lesterol emia 32871123 Active 2021 Hypercho lesterol emia; 05/25/20 3:58PM by Vivek mederos, Office Visit; Promoted ; acuity set as *; [facility] 15:34:26 Coronary arterios clerosis 88095861 Active 2022 ROSAURA GALLO [facility] 5 15:34:08 Type 2 diabetes mellitus 07491165 Active 2022 [facility] CLEO [facility] 15:34:54 Diabetes mellitus 60552248 Active 2023 [facility] HAABBY [facility] 5 15:34:15 Spinal stenosis of lumbosac ral region 195828860 Active 2024 [facility]ALL[facility] 5 08:17:04 Spinal stenosis of lumbar region 30215319 Active [address] [facility], Kyle 08:17:32 Notes:Some problems listed i n Documents: #[id number], #[id number] could not be added to this patient's chart. Please review these documents and add these problems to the patient's chart manually as needed. Problem Notes None recorded. Procedures Surgical History Date Name Laterality Status Provider Name and Address Organization Details Recorded Time 04/30/20 25 diabetic retinal eye exam completed ROSAURA GALLO [facility], [place] 06/10/2025 08:31:40 07/27/19 25 Joint Inj Beta-shoulder, hip, knee completed MELI HAWTHORNE PA-C [address] [place] [address], [address], [facility], Kyle 07/27/2024 14:58:22 02/23/20 24 prostate specific antigen measurement completed ROSAURA GALLO [facility], LTimLYimi 06/10/2025 08:35:25 12/29/19 24 cardiac catheterization completed MELI HAWTHORNE PA-C [address] [place], [address], [facility], AliceLTimCTmi 12/30/2023 09:19:40 12/10/19 24 Family Practice Trigger Point Injection completed MELI HAWTHORNE PA-C [address] [place], [address], [facility], L.LTimCTim 12/27/2023 17:05:59 12/10/19 24 jr marielos warts completed MELI HAWTHORNE PA-C [address] [place], [address], [facility], LTimLTimCTim 12/27/2023 17:06:12 11/18/19 24 Family Practice Trigger Point Injection completed MELI HAWTHORNE PA-C [address] [place], [address], [facility], Kyle 2023 19:46:35 11/18/19 24 jr cryo warts completed MELI HAWTHORNE PA-C [address] [place], [address], [facility] 2023 19:45:06 02/22/20 21 placement of stent in cardiac conduit completed ROSAURA GALLO [facility], [place] 02/18/2023 09:52:08 02/22/20 20 colon[facility]/18/2023 09:51:32 Imaging Results None recorded. Procedure Notes None recorded. Medical Equipment None Reported. Allergies Allergen ID Allergen Name Allergen Category Reaction Reaction Severity Criticality Documentation Date Start Date Code Code System Note Provider Name and Address Organization Details Recorded Time 90436 doxycycli ne Not available Not available Not available Not available 02/18/2023 3640 RxNorm [facility] Medications Name Sig Start Date Stop [...] 12/12/19 7:46AM by Rosaura Gallo LPN (Authori husseind through Andrzej Ware MD), Office Visit; Mail [...] metformin two times daily 02/18 completed MW/mf; 23806; Recorded 12/12/19 7:46AM by Rosaura Gallo LPN [...] active Not Available Not Available Not Avai labyoselin Lactobaci llus acidophil us 2 billion cell [...] Updated DateTime 5 177.8 cm 31.6 kg/m2 33739.3 2 g 97 % 72 /min 20 /min 98 [degF] 140/80 mm[Hg] ROSAURA GALLO [facility] 14:02:08 Social History Question Answer Notes LastModified by Sporthold Details LastModified Time Tobacco Smoking Status Never Smoker MELI HAWTHORNE PA-C [address] [place], [address], [facility] 02/18/2023 10:41:51 Are You Blind Or Do You Have Difficulty Seeing? No [email or web address] Information not available 02/18/2023 Are You Deaf Or Do You Have Serious Difficulty Hearing? No [email or web address] Information not available 02/18/2023 What Type Of Diet Are You Following? DIABETIC [email or web address] Information not available 02/18/2023 What Was The Date Of Your Most Recent Tobacco Screening? 02/18/2023 Information not available 02/18/2023 Do You Use Your Seat Belt Or Car Seat Routinely? Yes Information not available 02/18/2023 Do You Have Difficulty Walking Or Climbing Stairs? No Information not available 02/18/2023 Sex: Unknown Functional Status Question Answer Note LastModified by Sporthold Details LastModified Time What is your level of alcohol consumption? Occasional [email or web address] Information not available 02/18/2023 Do you have transportation difficulties? No [email or web address] Information not available 02/18/2023 Are you able to walk independently without assistance or assistive devices? YESWOREST [email or web address] Information not available 02/18/2023 Do you have difficulty doing errands alone? No [email or web address] Information not available 02/18/2023 Are you able to care for yourself independently? Yes [email or web address] Information not available 02/18/2023 Do you have difficulty dressing, bathing, grooming, or toileting? No [email or web address] Information not available 02/18/2023 Mental Status Question Answer Note LastModified by Sporthold Details LastModified Time Do you feel stressed (tense, restless, nervous, or anxious, or unable to sleep at night)? [id number] Information not available 02/18/2023 Do you have difficulty concentrating, remembering or making decisions? No [email or web address] Information no t available 02/18/2023 Family History Nothing Reported. Medical History Condition Response Coronary Artery Disease Y Diabetes Y Arthritis Y Heart Disease Y Immunizations Vaccine Type Date Status Note Provider Nam e and Address Organization Details Recorded Time Tdap 8 completed Not Available [facility] 01/30/2023 02:49:41 Influenza, split virus, trivalent, preservative 9 completed Not Available [facility] 01/30/2023 02:49:42 Td(adult) unspecified formulation 2 completed Not Available [facility] 01/30/2023 02:49:42 Past Encounters Encounter ID Performer Location Encounter Start Date Encounter Closed Date Diagnosis/Indication Diagnosis SNOMED-CT Code Diagnosis ICD10 Code Diagnosis IMO Codes Diagnosis Note [id number] MELI HAWTHORNE PA-C [facility] ([facility]) [address] [place] [phone] 04/05/2025 13:53:57 04/06/2025 08:44:56 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 Had to travel to [place] yesterday for daughter surgeryx 5 days. no trauma recent or old. no fever. no hx of gout.did have a septic joint of the first MCP that required surgery 20 yrs ago. MELI HAWTHORNE PA-C [address] [place] [address], [phone], [facility], [place] 04/05/2025 18:17:44
--- OUTSIDE RECORDS SUMMARY | 2025-06-28 21:02 | XMS_ITS | Encounter Summary ---
Author Organization [facility] Address [address] [place] [address] Care Team Providers Care Donor Relations Officer Name Role Phone Unavailable Primary Care Provider Unavailabl e Encounter Details Date Type Department Care Team (Latest Contact Info) Description 11/17/2007 Outpatient Historical [facility] [place] [address] [facility] [address] [place] [phone] Cruz Florian MD [address] [place] [address] Pain in Soft Tissues of Limb; Arthrodesis Status; Lumbosacral Spondylosis without Myelopathy; Insomnia, Unspecified Social History Tobacco Use Types Packs/Day Years Used Date Smoking Tobacco: Never Assessed Sex and Gender Information Value Date Recorded Sex Assigned at Not on file 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
--- OUTSIDE RECORDS SUMMARY | 2025-06-28 21:02 | XMS_ITS | Encounter Summary ---
Author Organization [facility] Address [address] [place] [address] Care Team Providers Care Information Systems Audit Manager Name Role Phone Unavailable Primary Care Provider Unavailabl e Encounter Details Date Type Department Care Team (Latest Contact Info) Description 04/17/2020 Ancillary Orders [facility] - [facility] [address] [place] [phone] Nilson Escoto MD [address] [place] [phone] History of total knee arthroplasty, right Social History Tobacco Use Types Packs/Day Years Used Date Smoking Tobacco: Never Smokeless Tobacco: Never Alcohol Use Standard Drinks/Week Comments Yes 0 (1 standard drink = 0.6 oz pur e alcohol) case of beer lasts a year Sex and Gender Information Value Date Recorded Sex Assigned at Not on file 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
--- OUTSIDE RECORDS SUMMARY | 2025-06-28 21:02 | XMS_ITS | Data Portability ---
Author Organization [facility]ani Kelly [facility] Address [address] [place] [address] Assessment No assessment recorded. Plan of Treatment Reminders Order Date Submit Date Provider Last Modified By Organization Details Last Modified Time Details Appointments COLONOS COPY CONSULT 2025 12:00P M Los Eckert MD Not available Not available Not available Lab CBC 2024 025 MEL [facility], [address], [address], 06/26/2025 15:20:01 CMP, serum or plasma 2024 025 [email or web address] [facility], [address] [address], [place], [address], 06/19/2025 07:03:11 CBC 2024 025 [email or web address] [facility], [address] [address], [place], [address], 06/19/2025 07:03:11 C-react shirley protein , quantit ative, serum or plasma 2024 025 [email or web address] mobile mum [facility], [address] [facility], [place], [address], 06/19/2025 07:03:12 amylase , serum or plasma 2024 025 [email or web address] mobile mum [facility], [address], [address], [place], [address], 06/19/2025 07:03:12 CMP, serum or plasma 2024 [facility], [address], [place], [address], 05/29/2025 15:34:00 CBC 2024 [facility], [address], [place], [address], 05/29/2025 15:01:56 urinaly sis, complet e 2024 [facility], [address], [place], [address], 05/29/2025 15:39:37 culture , urine 2024 MARQUETTE [facility], [address] [place] [address], [address], [place], [address], 05/30/2025 21:35:59 C-react shirley protein , quantit ative, serum or plasma 2024 MARQU[facility]TE [facility], [address] [facility], [place], [address], 05/30/2025 21:35:59 amylase , serum or plasma 2024 MARQUETTE [facility], [address] [place] [address], [address], [place], [address], 05/30/2025 21:35:59 Referral family medicin e referra l 2024 [email or web address] Not available 06/26/2025 10:50:06 Procedures None recorde d. Surgeries None recorde d. Imaging CT, abdomen + pelvis, w/ contras t [facility] [address] [facility], [place], [address], 05/29/2025 13:26:15 Medication Orders pantopr azole 40 mg tablet, delayed release 2024 [facility] 15, [address], [place], [address], 06/12/2025 11:37:15 metroni dazole 500 mg tablet 2024 [facility] 15, [address], [place], [address], 06/12/2025 11:37:14 Lactoba cillus acidoph ilus 2 billion cell tablet 2024 [facility] 15, [address], [place], [address], 06/12/2025 11:37:13 cefdini r 300 mg capsule 2024 [facility] 15, [address], [place], [address], 06/07/2025 05:01:43 trazodo ne 50 mg tablet 2024 [facility] 15, [address], [place], [address], 05/24/2025 15:22:40 Patient TargetsNo targets recorded. Patient InstructionsNo instructions recorded. 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 Family Medicine Referral for Generalized abdominal pain Referring Physician: Meli Hawthorne, Family Medicine, Encounter Date: 06/19/2025 Results Created Date Observation Date Name Description Value Unit Range Abnormal Flag Note LastModifiedBy Organization Detail LastModifiedTime 05/29/2005/29/2025 CBC WBC 6.8 x10 4.5-10 .5 Not Available [facility] [address] [facility] 1, [place], [address], 05/29/2025 15:01:56 05/29/2005/29/2025 CBC RBC 3.99 x10 4.30-5 .90 low Not Available [facility] [address] [facility], [place], [address], 05/29/2025 15:01:56 05/29/2005/29/2025 CBC HGB 12.3 g/dL 13.5-1 8.0 low Not Available [facility] [address] [facility], [place], [address], 05/29/2025 15:01:56 05/29/2005/29/2025 CBC HCT 37.3 % 35.0-6 0.0 Not Available [facility] [address] [facility] 1, [place], [address], 05/29/2025 15:01:56 05/29/2005/29/2025 CBC MCV 93.5 fL 80.0-9 9.9 Not Available [facility] [address] [facility], [place], [address], 05/29/2025 15:01:56 05/29/2005/29/2025 CBC MCH 30.8 pg 27.0-3 2.0 Not Available [facility] [address] [facility], [place], [address], 05/29/2025 15:01:56 05/29/2005/29/2025 CBC MCHC 33.0 g/dL 32.0-3 6.0 Not Available [facility] [address] [facility], [place], [address], 05/29/2025 15:01:56 05/29/2005/29/2025 CBC RDW 14.0 % 11.5-1 4.5 Not Available [facility] [address] [facility] [address] [facility], [place], [address], 05/29/2025 15:01:56 05/29/2005/29/2025 CBC plt 282.5 x10 150.0- 451.0 Not Available [facility] [address] [facility] [address], [place], [address], 05/29/2025 15:01:56 05/29/2005/29/2025 CBC lymphocytes % 40.1 % 20.0-5 0.0 Not Available [facility] [address] [facility] [address], [place], [address], 05/29/2025 15:01:56 05/29/2005/29/2025 CBC granulcytes % 49.1 % 30.0-7 0.0 Not Available [facility] [address] [facility] [address], [place], [address], 05/29/2025 15:01:56 05/29/2005/29/2025 CBC monocytes % 9.2 % 2.0-16 .0 Not Available [facility] [address] [facility] [address], [place], [address], 05/29/2025 15:01:56 05/29/2005/29/2025 CBC granulcytes# 3.3 x10 Not Amisha ilable [facility] [address] [facility] [address], [place], [address], 05/29/2025 15:01:56 05/29/2005/29/2025 CBC lymphocytes # 2.7 x10 Not Available [facility] [address] [facility] [address], [place], [address], 05/29/2025 15:01:56 05/29/2005/29/2025 CBC monocytes # 0.6 x10 Not Avai lable [facility] [address] [facility], [place], [address], 05/29/2025 15:01:56 05/29/20 25 05/29/2025 CMP (MALE ) glucose 141.0 mg/dL 60.0-9 9.0 high Not Available [facility] [address] [facility] 1, [place], [address], 05/29/2025 15:34:00 05/29/2005/29/2025 CMP (MALE ) BUN (blood urea nitrogen) 15.0 mg/dL 10.0-2 6.0 Not Available [facility] [address] [facility] 1, [place], [address], 05/29/2025 15:34:00 05/29/20 25 05/29/2025 CMP (MALE ) creatinine (serum) 1.1 mg/dL 0.4-1. 5 Not Available [facility] [address] [facility] 1, [place], [address], 05/29/2025 15:34:00 05/29/20 25 05/29/2025 CMP (MALE ) BUN/creatini ne ratio 13.64 ratio Not Available [facility] [address] [facility] 1, [place], [address], 05/29/2025 15:34:00 05/29/20 25 05/29/2025 CMP (MALE ) eGFR calculated 69.2 Not Available [facility] [address] [facility] 1, [place], [address], 05/29/2025 15:34:00 05/29/20 25 05/29/2025 CMP (MALE ) total protein 6.5 g/dL 6.0-8. 5 Not Available [facility] [address] [place], [address], 05/29/2025 15:34:00 05/29/20 25 05/29/2025 CMP (MALE ) total bilirubin 0.7 mg/dL 0.2-1. 3 Not Available [facility] [address] [facility], [place], [address], 05/29/2025 15:34:00 05/29/20 25 05/29/2025 CMP (MALE ) albumin 4.3 g/dL 3.5-5. 5 Not Available [facility] [address] [facility] [address], [place], [address], 05/29/2025 15:34:00 05/29/2005/29/2025 CMP (MALE ) globulin 2.2 calc Not Available [facility] [place] [facility] [address] [address], [place], [address], 05/29/2025 15:34:00 05/29/20 25 05/29/2025 CMP (MALE ) AST (SGOT) 27.0 U/L 0.0-46 .0 Not Available [facility] [address] [facility], [place], [address], 05/29/2025 15:34:00 05/29/20 25 05/29/2025 CMP (MALE ) altv (SGPT) 22.0 U/L 13.0-6 9.0 normal Not Available [facility] [address] [facility], [place], [address], 05/29/2025 15:34:00 05/29/2005/29/2025 CMP (MALE ) A/G ratio 2.0 ratio Not Available [facility] [address] [facility], [place], [address], 05/29/2025 15:34:00 05/29/2005/29/2025 CMP (MALE ) ALP phos 102.0 U/L 30.0-1 40.0 normal Not Available [facility] [address] [facility] [address], [place], [address], 05/29/2025 15:34:00 05/29/2005/29/2025 CMP (MALE ) calcium 9.1 mg/dL 8.4-10 .5 Not Available [facility] [address] [facility] 1, [place], [address], 05/29/2025 15:34:00 05/29/2005/29/2025 CMP (MALE ) sodium 136.0 mmol/ L 136.0- 145.0 Not Available [facility] [address] [facility] 1, [place], [address], 05/29/2025 15:34:00 05/29/2005/29/2025 CMP (MALE ) potassium 4.3 mmol/ L 3.5-5. 1 Not Available [facility] [address] [facility] 1, [place], [address], 05/29/2025 15:34:00 05/29/2005/29/2025 CMP (MALE ) chloride 99.0 mmol/ L 98.0-1 10.0 normal Not Available [facility] [address] [facility] 1, [place], [address], 05/29/2025 15:34:00 05/29/2005/29/2025 CMP (MALE ) C02 28.0 mmol/ L 22.0-3 1.0 Not Available [facility] [address] [facility] 1, [place], [address], 05/29/2025 15:34:00 05/29/2005/29/2025 CMP (MALE ) anion gap 9.0 calc Not Available [facility] [address] [address], [place], [address], 05/29/2025 15:34:00 05/29/2005/29/2025 CMP (MALE ) osmolality 284.1 calc Not Available [facility] [address] [facility] 1, [place], [address], 05/29/2025 15:34:00 05/29/2005/29/2025 URINA LYSIS WITH MICRO color YELLOW Not Available [facility] [address], [place], [address], 05/29/2025 15:39:37 05/29/2005/29/2025 URINA LYSIS WITH MICRO clarity CLEAR Not Available [facility] [address] [facility], [place], [address], 05/29/2025 15:39:37 05/29/2005/29/2025 URINA LYSIS WITH MICRO glu NEGATI VE Not Available [facility] [address] [facility], [place], [address], 05/29/2025 15:39:37 05/29/2005/29/2025 URINA LYSIS WITH MICRO bili NEGATI VE Not Available [facility] [address] [facility] [address], [place], [address], 05/29/2025 15:39:37 05/29/2005/29/2025 URINA LYSIS WITH MICRO ket NEGATI VE Not Available [facility] [address] [facility], [place], [address], 05/29/2025 15:39:37 05/29/2005/29/2025 URINA LYSIS WITH MICRO S.g 1.010 1.005- 1.025 Not Available [facility] [address] [facility], [place], [address], 05/29/2025 15:39:37 05/29/2005/29/2025 URINA LYSIS WITH MICRO pH 5.5 5.0-7. 0 Not Available [facility] [address] [facility] [address] [facility], [place], [address], 05/29/2025 15:39:37 05/29/2005/29/2025 URINA LYSIS WITH MICRO pro NEGATI VE Not Available [facility] [address] [facility] [address], [place], [address], 05/29/2025 15:39:37 05/29/2005/29/2025 URINA LYSIS WITH MICRO uro 0.2 E.U./D L Not Available [facility] [address] [facility] [address], [place], [address], 05/29/2025 15:39:37 05/29/2005/29/2025 URINA LYSIS WITH MICRO nit NEGATI VE Not Available [facility] [address] [facility] [address], [place], [address], 05/29/2025 15:39:37 05/29/2005/29/2025 URINA LYSIS WITH MICRO blo NEGATI VE Not Available [facility] [address] [facility] [address], [place], [address], 05/29/2025 15:39:37 05/29/2005/29/2025 URINA LYSIS WITH MICRO eduardo NEGATI VE Not Available [facility] [address] [facility] [address], [place], [address], 05/29/2025 15:39:37 05/29/2005/29/2025 URINA LYSIS WITH MICRO WBC NEGATI VE Not Available [facility] [address] [facility] [address], [place], [address], 05/29/2025 15:39:37 05/29/2005/29/2025 URINA LYSIS WITH MICRO RBC 1-2 abnormal Not Available [facility] [place] [facility] [address] [facility] [address], [place], [address], 05/29/2025 15:39:37 05/29/2005/29/2025 URINA LYSIS WITH MICRO epi cells NEGATI VE Not Available [facility] [address] [facility] [address], [place], [address], 05/29/2025 15:39:37 05/29/2005/29/2025 URINA LYSIS WITH MICRO bacteria NEGATI VE Not Available [facility] [address] [facility] [address], [place], [address], 05/29/2025 15:39:37 05/29/2005/29/2025 URINA LYSIS WITH MICRO other NEG Not Available [facility] [address] [address], [place], [address], 05/29/2025 15:39:37 05/29/2005/30/2025 C-NADIR CTIVE PROTE IN C-reactive protein <3.0 mg/L <8.0 normal Not Available [facility] [address] [place], [address], 05/30/2025 21:35:58 05/29/2005/30/2025 AMYLA SE amylase 28 U/L 21-101 normal Not Available [facility] [address] [place], [address], 05/30/2025 21:35:59 05/29/2005/30/2025 CULTU RE, URINE , ROUTI NE culture, urine, routine SEE NOTE CULTU RE, URINE , ROUTI NE Micro Numbe r: [id number] Test Statu s: Final Speci men Sourc e: Urine Speci men Quali ty: Adequ ate Resul t: No Growt h Not Available [facility] [address] [address] , [place], [address], 05/30/2025 21:35:59 06/19/20 25 06/19/2025 CBC WBC 7.2 x10 4.5 - 10.5 Not Available [facility] [address] [facility], [place], [address], 06/19/2025 14:03:53 06/19/20 25 06/19/2025 CBC RBC 4.03 x10 4.30 - 5.90 low Not Available [facility] [address] [facility], [place], [address], 06/19/2025 14:03:53 06/19/20 25 06/19/2025 CBC HGB 13.8 g/dL 13.5 - 18.0 Not Available [facility] [address] [facility], [place], [address], 06/19/2025 14:03:53 06/19/20 25 06/19/2025 CBC HCT 37.6 % 35.0 - 60.0 Not Available [facility] [address] [facility], [place], [address], 06/19/2025 14:03:53 06/19/20 25 06/19/2025 CBC MCV 93.3 fL 80.0 - 99.9 Not Available [facility] [address] [facility], [place], [address], 06/19/2025 14:03:53 06/19/20 25 06/19/2025 CBC MCH 34.2 pg 27.0 - 32.0 high Not Available [facility] [address] [facility], [place], [address], 06/19/2025 14:03:53 06/19/20 25 06/19/2025 CBC MCHC 36.7 g/dL 32.0 - 36.0 high Not Available [facility] [address] [facility] 1, [place], [address], 06/19/2025 14:03:53 06/19/2006/19/2025 CBC RDW 14.6 % 11.5 - 14.5 high Not Available [facility] [address] [facility], [place], [address], 06/19/2025 14:03:53 06/19/20 25 06/19/2025 CBC plt 295.5 x10 150.0 - 451.0 Not Available [facility] [address] [facility] 1, [place], [address], 06/19/2025 14:03:53 06/19/2006/19/2025 CBC lymphocytes % 36.3 % 20.0 - 50.0 Not Available [facility] [address] [facility] 1, [place], [address], 06/19/2025 14:03:53 06/19/2006/19/2025 CBC granulcytes % 53.7 % 30.0 - 70.0 Not Available [facility] [address] [facility], [place], [address], 06/19/2025 14:03:53 06/19/2006/19/2025 CBC monocytes % 7.8 % 2.0 - 16.0 Not Available [facility] [address] [facility], [place], [address], 06/19/2025 14:03:53 06/19/20 25 06/19/2025 CBC granulcytes# 3.9 x10 Not Amisha ilable [facility] [address] [facility] 1, [place], [address], 06/19/2025 14:03:53 06/19/20 25 06/19/2025 CBC lymphocytes # 2.6 x10 Not Available [facility] [address] [facility] [address], [place], [address], 06/19/2025 14:03:53 06/19/20 25 06/19/2025 CBC monocytes # 0.6 x10 Not Avai lable [facility] [address] [facility] [address], [place], [address], 06/19/2025 14:03:53 06/19/20 25 06/19/2025 CMP (MALE ) glucose 162.0 mg/dL 60.0 - 99.0 high Not Available [facility] [address] [facility] [address], [place], [address], 06/19/2025 14:08:27 06/19/20 25 06/19/2025 CMP (MALE ) BUN (blood urea nitrogen) 19.0 mg/dL 10.0 - 26.0 Not Available [facility] [address] [facility] [address], [place], [address], 06/19/2025 14:08:27 06/19/20 25 06/19/2025 CMP (MALE ) creatinine (serum) 1.1 mg/dL 0.4 - 1.5 Not Available [facility] [address] [address], [place], [address], 06/19/2025 14:08:27 06/19/20 25 06/19/2025 CMP (MALE ) BUN/creatini ne ratio 17.27 ratio Not Available [facility] [address] [facility] 1, [place], [address], 06/19/2025 14:08:27 06/19/20 25 06/19/2025 CMP (MALE ) total protein 6.9 g/dL 6.0 - 8.5 Not Available [facility] [address] [facility] 1, [place], [address], 06/19/2025 14:08:27 06/19/20 25 06/19/2025 CMP (MALE ) total bilirubin 0.5 mg/dL 0.2 - 1.3 Not Available [facility] [address] [facility], [place], [address], 06/19/2025 14:08:27 06/19/20 25 06/19/2025 CMP (MALE ) albumin 4.6 g/dL 3.5 - 5.5 Not Available [facility] [address] [facility] [address], [place], [address], 06/19/2025 14:08:27 06/19/20 25 06/19/2025 CMP (MALE ) globulin 2.3 calc Not Available [facility] [place] [facility] [address] [address], [place], [address], 06/19/2025 14:08:27 06/19/20 25 06/19/2025 CMP (MALE ) AST (SGOT) 39.0 U/L 0.0 - 46.0 Not Available [facility] [address] [facility], [place], [address], 06/19/2025 14:08:27 06/19/20 25 06/19/2025 CMP (MALE ) altv (SGPT) 28.0 U/L 13.0 - 69.0 Not Available [facility] [address] [facility], [place], [address], 06/19/2025 14:08:27 06/19/20 25 06/19/2025 CMP (MALE ) A/G ratio 2.0 ratio Not Available [facility] [address] [facility], [place], [address], 06/19/2025 14:08:27 06/19/20 25 06/19/2025 CMP (MALE ) ALP phos 83.0 U/L 30.0 - 140.0 Not Available [facility] [address] [facility] [address], [place], [address], 06/19/2025 14:08:27 06/19/20 25 06/19/2025 CMP (MALE ) calcium 9.3 mg/dL 8.4 - 10.5 Not Available [facility] [address] [facility] [address], [place], [address], 06/19/2025 14:08:27 06/19/2006/19/2025 CMP (MALE ) sodium 139.0 mmol/ L 136.0 - 145.0 Not Available [facility] [address] [facility] [address], [place], [address], 06/19/2025 14:08:27 06/19/20 25 06/19/2025 CMP (MALE ) potassium 4.7 mmol/ L 3.5 - 5.1 Not Available [facility] [address] [facility] [address], [place], [address], 06/19/2025 14:08:27 06/19/20 25 06/19/2025 CMP (MALE ) chloride 101.0 mmol/ L 98.0 - 110.0 Not Available [facility] [address] [facility] 1, [place], [address], 06/19/2025 14:08:27 06/19/20 25 06/19/2025 CMP (MALE ) C02 27.0 mmol/ L 22.0 - 31.0 Not Available [facility] [address] [facility] 1, [place], [address], 06/19/2025 14:08:27 06/19/20 25 06/19/2025 CMP (MALE ) anion gap 11.0 calc Not Available [facility] [address] [facility] 1, [place], [address], 06/19/2025 14:08:27 06/19/20 25 06/19/2025 CMP (MALE ) osmolality 292.4 calc Not Available [facility] [address] [facility] 1, [place], [address], 06/19/2025 14:08:27 06/19/20 25 06/19/2025 CMP (MALE ) eGFR calculated 83.8 Not Available [facility] [address] [facility] 1, [place], [address], 06/19/2025 14:08:27 06/19/20 25 06/20/2025 C-NADIR CTIVE PROTE IN C-reactive protein <3.0 mg/L <8.0 normal Not Available [facility] [address] [place], [address], 06/20/2025 06:57:28 06/19/20 25 06/20/2025 AMYLA SE amylase 36 U/L 21-101 normal Not Available [facility] [address] [place], [address], 06/20/2025 06:57:28 06/26/20 25 06/26/2025 CBC WBC 6.4 x10 4.5 - 10.5 Not Available [facility] [address] [facility], [place], [address], 06/26/2025 15:20:01 06/26/20 25 06/26/2025 CBC RBC 4.50 x10 4.30 - 5.90 Not Available [facility] [address] [facility], [place], [address], 06/26/2025 15:20:01 06/26/20 25 06/26/2025 CBC HGB 13.6 g/dL 13.5 - 18.0 Not Available [facility] [address] [facility], [place], [address], 06/26/2025 15:20:01 06/26/20 25 06/26/2025 CBC HCT 42.0 % 35.0 - 60.0 Not Available [facility] [address] [facility] [facility] 1, [place], [address], 06/26/2025 15:20:01 06/26/20 25 06/26/2025 CBC MCV 83.0 fL 80.0 - 99.9 Not Available [facility] [address] [facility], [place], [address], 06/26/2025 15:20:01 06/26/20 25 06/26/2025 CBC MCH 30.0 pg 27.0 - 32.0 Not Available [facility] [address] [facility] 1, [place], [address], 06/26/2025 15:20:01 06/26/20 25 06/26/2025 CBC MCHC 32.4 g/dL 32.0 - 36.0 Not Available [facility] [address] [facility], [place], [address], 06/26/2025 15:20:01 06/26/20 25 06/26/2025 CBC RDW 14.0 % 11.5 - 14.5 Not Available [facility] [address] [facility] 1, [place], [address], 06/26/2025 15:20:01 06/26/20 25 06/26/2025 CBC plt 306.0 x10 150.0 - 451.0 Not Available [facility] [address] [facility] [address], [place], [address], 06/26/2025 15:20:01 06/26/20 25 06/26/2025 CBC lymphocytes % 31.6 % 20.0 - 50.0 Not Available [facility] [address] [facility] [address], [place], [address], 06/26/2025 15:20:01 06/26/20 25 06/26/2025 CBC granulcytes % 57.9 % 30.0 - 70.0 Not Available [facility] [address] [facility] [address], [place], [address], 06/26/2025 15:20:01 06/26/20 25 06/26/2025 CBC monocytes % 7.9 % 2.0 - 16.0 Not Available [facility] [address] [facility] [address], [place], [address], 06/26/2025 15:20:01 06/26/20 25 06/26/2025 CBC granulcytes# 3.7 x10 Not Amisha ilable [facility] [address] [facility] [address], [place], [address], 06/26/2025 15:20:01 06/26/20 25 06/26/2025 CBC lymphocytes # 2.0 x10 Not Available [facility] [address] [facility] [address], [place], [address], 06/26/2025 15:20:01 06/26/20 25 06/26/2025 CBC monocytes # 0.5 x10 Not Avai lable [facility] [facility] [address], [place], [address], 06/26/2025 15:20:01 05/29/20 25 05/29/2025 CT, abdom en + pelvi s, w/ contr ast No observ ation record ed. [facility] [address] [place], [address], 05/29/2025 18:12:29 Result Notes None recorded. Problems Name Problem SNOMED Code Status Onset Date Resolution Date Notes Provider Name and Address Organization Details Recorded Time History of nutritio nal disorder 107584292 Completed 202112/11/2021 H/O NON-INSU SOFÍA DEPENDEN T DIABETES MELLITUS - Status is Inactive ; Recorded 12/12/19 3:37PM by Meli Hawthorne PA-C, Annotati on/Adden dum; Promoted ; acuity set as *; Not Available [facility] 3 03:16:01 History of endocrin e disorder 966471397 Completed 202112/11/2021 H/O NON-INSU SOFÍA DEPENDEN T DIABETES MELLITUS - Status is Inactive ; Recorded 12/12/19 3:37PM by Meli Hawthorne PA-C, Annotati on/Adden dum; Promoted ; acuity set as *; Not Available [facility] 3 03:16:01 History of metaboli c disorder 353052303 Completed 202112/11/2021 H/O NON-INSU SOFÍA DEPENDEN T DIABETES MELLITUS - Status is Inactive ; Recorded 12/12/19 3:37PM by Meli Hawthorne PA-C, Annotati on/Adden dum; Promoted ; acuity set as *; Not Available [facility] 3 03:16:01 Anemia 653115304 Completed 202112/11/2021 ANEMIA - Status is Inactive ; Recorded 12/12/19 3:38PM by Meli Hawthorne PA-C, Annotati on/Adden dum; Promoted ; acuity set as *; Not Available [facility] 3 03:16:02 Herpes zoster 5871174 Completed 202112/11/2021 HERPES ZOSTER WITHOUT COMPLICA TION [...] ; acuity set as *; Not Available [facility] 3 03:16:02 Fracture of other finger Completed 202112/11/2021 fx 3rd and 4th digits on Lt hand - Status is Inactive ; 12/12/19 3:38PM by Meli Hawthorne PA-C, Leeanneati on/Sadia dum; Promoted ; acuity set as *; Not Available [facility] 3 03:16:02 Gastroes ophageal reflux disease 572238560 Active 2021 GERD (GASTROE SOPHAGEA L REFLUX DISEASE) ; Recorded 05/25/20 3:58PM by Vivek mederos, Office Visit; Promoted ; acuity set as *; [facility] 15:34:18 Coronary artery bypass graft stent present 57518724280 9104 Active 2021 H/O HEART ARTERY STENT; Recorded 05/25/20 3:58PM by Vivek mederos, Office Visit; Promoted ; acuity set as *; [facility] 15:34:12 Hypercho lesterol emia 37635321 Active 2021 Hypercho lesterol emia; 05/25/20 3:58PM by Vivek mederos, Office Visit; Promoted ; acuity set as *; ROSAURA GALLO null, [facility] 5 15:34:26 Coronary arterios clerosis 53548528 Active 2022 ROSAURA CLEO null, [facility] 5 15:34:08 Type 2 diabetes mellitus 22692618 Active 2022 [facility] 15:34:54 Diabetes mellitus 82044781 Active 2023 [facility] 15:34:15 Spinal stenosis of lumbosac ral region 506732046 Active 2024 ROSAURAMARY MENDENHALLYONG [facility] 5 08:17:04 Spinal stenosis of lumbar region 17561894 Active 2024 ROSAURA GALLO [facility] 5 08:17:32 Notes:Some problems listed i n Documents: #[id number], #[id number] could not be added to this patient's chart. Please review these documents and add these problems to the patient's chart manually as needed. Problem Notes None recorded. Procedures Surgical History Date Name Laterality Status Provider Name and Address Organization Details Recorded Time 04/30/20 25 diabetic retinal eye exam [facility] 06/10/2025 08:31:40 07/27/19 25 Joint Inj Beta-shoulder, hip, knee completed MELI HAWTHORNE PA-C [address] [place], [address], [facility] 07/27/2024 14:58:22 02/23/20 24 prostate specific antigen measurement [facility] 06/10/2025 08:35:25 12/29/19 24 cardiac catheterization completed MELI HAWTHORNE PA-C [address] [place], [address], [facility] 12/30/2023 09:19:40 12/10/19 24 Family Practice Trigger Point Injection completed MELI HAWTHORNE PA-C [address] [place], [address], [facility] 12/27/2023 17:05:59 12/10/19 24 jr cryo warts completed MELI HAWTHORNE PA-C [address] [place], [address], [facility], [place] 12/27/2023 17:06:12 11/18/19 24 Family Practice Trigger Point Injection completed MELI HAWTHORNE PA-C [address] [place], [address], [facility] [place] 2023 19:46:35 11/18/19 24 jr cryo warts completed MELI HAWTHORNE PA-C [address] [place], [address], [facility], [place] 2023 19:45:06 02/22/20 21 placement of stent in cardiac conduit completed ROSAURA GALLO [facility], [place] 02/18/2023 09:52:08 02/22/20 20 colonoscopy [facility] 09:51:32 Imaging Results None recorded. Procedure Notes None recorded. Medical Equipment None Reported. Allergies Allergen ID Allergen Name Allergen Category Reaction Reaction Severity Criticality Documentation Date Start Date Code Code System Note Provider Name and Address Organization Details Recorded Time 27238 doxycycli ne Not available Not available Not available Not available 02/18/2023 3640 RxNorm ROSAURA GALLO [facility], [place] 09:45:13 Medications Name Sig [...] hours by oral route for 7 days. 06/075 completed Not Available Not Available Not Available [...] MW/tw; Recorded 12/12/19 22 3:21PM by Meli Hawthorne PA-C, Office Visit; Mail Order Quantity : 45 Tablet; Mail Order Days: 90 Days; Refill Quantity : 45; Tablet; Not Available Not Available Not Available metoprolo l succinate daily 02/18 completed 0; Recorded 05/25/20 22 4:02PM by Vivek mederos, Office Visit; Not Available Not Available Not Available metformin two times daily 02/18 completed MW/mf; 37815; Recorded 12/12/19 22 7:46AM by Rosaura Gallo [...] Updated DateTime 5 177.8 cm 31 kg/m2 97769.9 5 g 97 % 80 /min 18 /min 97.9 [degF] 138/80 mm[Hg] ROSAURA MENDENHALLYONG [facility] 14:56:57 Date Recorded Body height Body mass index (BMI) Body weight Oxygen saturation Heart rate Respiratory rate Body temperature Systolic And Diastolic Provider Name and Address Organization Details Last Updated DateTime 177.8 cm 31.7 kg/m2 092340. 91 g 98 % 78 /min 20 /min 98 [degF] 136/80 mm[Hg] ROSAURA MENDENHALLYONG [facility] 10:38:47 Date Recorded Body height Body mass index (BMI) Body weight Provider Name and Address Organization Details Last Updated DateTime 06/12/2025 177.8 cm 30.8 kg/m2 19482.36 g ROSAURA [facility] 06/12/2025 10:39:28 Date Recorded Body height Body mass index (BMI) Body weight Oxygen saturation Heart rate Respiratory rate Body temperature Systolic And Diastolic Provider Name and Address Organization Details Last Updated DateTime 5 177.8 cm 30.1 kg/m2 94051.4 g 97 % 72 /min 18 /min 97.9 [degF] 138/80 mm[Hg] ROSAURA [facility] 11:37:46 Social History Question Answer Notes LastModified by Organizat ion Details LastModified Time Tobacco Smoking Status Never Smoker MELI HAWTHORNE PA-C [address] [place] [address], [phone], [facility] 02/18/2023 10:41:51 Are You Blind Or Do You Have Difficulty Seeing? No [email or web address] Information not available 02/18/2023 Are You Deaf Or Do You Have Serious Difficulty Hearing? No [email or web address] Information not available 02/18/2023 What Type Of Diet Are You Following? [email or web address] Information not available 02/18/2023 What Was The Date Of Your Most Recent Tobacco Screening? 02/18/2023 [email or web address] Information not available 02/18/2023 Do You Use Your Seat Belt Or Car Seat Routinely? Yes [email or web address] Information not available 02/18/2023 Do You Have Difficulty Walking Or Climbing Stairs? No [email or web address] Information not available 02/18/2023 Sex: Unknown Functional Status Question Answer Note LastModified by Organizat ion Details LastModified Time What is your level of alcohol consumption? Occasional [email or web address] Information not available 02/18/2023 Do you have transportation difficulties? No [email or web address] Information not available 02/18/2023 Are you able to walk independently without assistance or assistive devices? YESWOREST [email or web address] Information not available 02/18/2023 Do you have difficulty doing errands alone? No [email or web address] Information not available 02/18/2023 Are you able to care for yourself independently? Yes [email or web address] Information not available 02/18/2023 Do you have difficulty dressing, bathing, grooming, or toileting? No [email or web address] Information not available 02/18/2023 Mental Status Question Answer Note LastModified by Organizat ion Details LastModified Time Do you feel stressed (tense, restless, nervous, or anxious, or unable to sleep at night)? [id number] [email or web address] Information not available 02/18/2023 Do you have difficulty concentrating, remembering or making decisions? No [email or web address] Information no t available 02/18/2023 Family History Nothing Reported. Medical History Condition Response Coronary Artery Disease Y Arthritis Y Diabetes Y Heart Disease Y Immunizations Vaccine Type Date Status Note Provider Nam e and Address Organization Details Recorded Time Tdap 8 completed Not Available [facility] 01/30/2023 02:49:41 Influenza, split virus, trivalent, preservative 9 completed Not Available [facility] 01/30/2023 02:49:42 Td(adult) unspecified formulation 2 completed Not Available [facility] 01/30/2023 02:49:42 Past Encounters Encounter ID Performer Location Encounter Start Date Encounter Closed Date Diagnosis/Indication Diagnosis SNOMED-CT Code Diagnosis ICD10 Code Diagnosis IMO Codes Diagnosis Note [id number] MELI HAWTHORNE PA-C [facility] ([facility]) [address] [place] [address] [id number] 5 02/18/2023 09:39:38 02/18/2023 18:46:05 Type 2 diabetes mellitus 81284366 E11.9 Coronary arteriosclerosis 13770982 I25.10 Cath in Apr 25 normal. stress test and ECHO in 09/24 and normal. [id number] MELI HAWTHORNE PA-C [facility] (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) [address] [place] [address] [id number] 5 11/18/2023 09:44:41 11/18/2023 12:10:23 Trigger finger of right hand 6460674532 7270079 M65.30 Actinic keratosis 007 L57.0 Right-side d piriformis syndrome 5612318601 21743 M54.31 [id number] MELI HAWTHORNE PA-C [facility] ([facility]) [address] [place] [address] [id number] 5 12/10/2023 12:20:44 12/28/2023 07:42:39 Actinic keratosis 473417650 L57.0 2 lesions frozen on the R side of cheek below the ear Trigger fi nger of right hand 1030869759 8701686 M65.30 [id number] MELI HAWTHORNE PA-C [facility] ([facility]) [address] [place] [address] [id number] 5 12/23/2023 12:05:53 12/24/2023 10:45:01 Tick bite 55215530 W57.XXXD Bite of tick 594100104 W 57.XXXA will get a tick panel. no antibiotic s due to pt adversion to doxy [id number] MELI HAWTHORNE PA-C [facility] ([facility]) [address] [place] [address] [id number] 5 02/22/2024 14:35:25 03/14/2024 08:47:13 Fatigue 90467745 R53.83 Type 2 marley betes mellitus 84043052 E11.69 Benign pro static hyperplasia 665091887 N40.0 Asthma 422644015 J45.90 9 [id number] MELI HAWTHORNE PA-C [facility] ([facility]) [address] [place] [address] [id number] 5 03/28/2024 12:16:13 04/05/2024 13:23:38 Muscle spasm of cervical muscle of neck 8300218758 04 M62.838 heat. gentle stretching . if not improved with recommend xray and PT.warned his sugars will go up with steroids [id number] MELI HAWTHORNE PA-C [facility] ([facility]) [address] [place] [address] [id number] 5 04/19/2024 14:32:46 05/15/2024 07:53:44 Cervical radiculopathy 05699406 M54.12 has PT set up and started for this. it is getting alittle better. Erectile dysfunction 860 676504 F52.21 Skin lesion 07546386 L98 .9 lesion hypopigeme nt in the sight of his tick bite this summer. no sign of active infection [id number] MELI HAWTHORNE PA-C [facility] ([facility]) [address] [place] [address] [id number] 5 07/27/2024 14:16:27 07/27/2024 15:00:54 Trigger finger of right hand 8246672145 3236720 M65.30 3rd finger right hand Rupture of tendon of biceps 500017316 M66.829 right arm. one of the proximal heads. >1 yr old [id number] MELI HAWTHORNE PA-C [facility] ([facility]) [address] [place] [address] [id number] 5 02/21/2025 15:15:29 02/22/2025 09:13:09 Spinal stenosis of lumbar region 65130588 M48.061 M54.16 04460934 I feel pt needs MRI due to [...] that may not be reversible if delayed. [id number] MELI HAWTHORNE PA-C [facility] ([facility]) [address] [place] [address] [id number] 5 02/28/2025 15:07:06 03/27/2025 07:39:28 Lumbar facet joint pain 314274519 M47.816 12202899 I reviewed his MRI with him. Has multlple levels of DJD with mild to mod facet joint impingment but nothing our right surgcialHe decines PT referal and Pain tx referal for injections . sTates he has done those in the past and does not help. Inflammati on of sacroiliac joint 17503765 M46.1 68906 will try an injection in his Right SI joint. he is pinpointin g that location today as the source of the majority of his pain [id number] MELI HAWTHORNE PA-C [facility] ([facility]) [address] [place] [address] [id number] 5 04/05/2025 13:53:57 04/06/2025 08:44:56 Monoarthritis 298705894 M13.10 62632 acute x5 days Acute ankle pain 6969160 011 9105 M25.572 60492833 xray the lasteral malleolus has an unusual look. pathology changes vs gout vs infection. will wait for labs but empiricall y start anbiotic and gout tx. [id number] MELI HAWTHORNE PA-C [facility] ([facility]) [address] [place] [address] [id number] 5 05/24/2025 14:47:26 05/24/2025 16:07:28 Acute bacterial sinusitis 27349491 J01.90 B96.89 74551 Chronic insomnia 5272360 04 F51.04 713899 [id number] MELI HAWTHORNE PA-C [facility] ([facility]) [address] [place] [address] [id number] 5 05/29/2025 10:23:09 05/29/2025 11:12:07 Acute abdominal pain 433018697 R10.9 55467 acute diffuse pain. differenti al renal stones, pancreatit is, colitis, mesenteric ischemia. [id number] MELI HAWTHORNE PA-C [facility] ([facility]) [address] [place] [address] [id number] 5 06/12/2025 10:32:08 06/12/2025 11:41:13 Upper abdominal pain 44506771 R10.10 8434191 Colitis 24920605 K52.9 82823 [id number] MELI HAWTHORNE PA-C [facility] ([facility]) [address] [place] [address] [id number] 5 06/19/2025 11:27:20 06/25/2025 16:59:25 Generalized abdominal pain 621240136 R10.[address] and labs so far normal. He will get new cbc, cmp, crp today that he did not do yesterday. [id number] MELI HAWTHORNE PA-C [facility] ([facility]) [address] [place] [address] [id number] 5 06/26/2025 14:49:22 06/26/2025 14:51:05 Upper abdominal pain 88087407 R10.10 7330317 Health Concerns Section Related Observation LastModified by Organization Detai ls LastModified Time None Recorded Concern Status LastModified by Organization Details LastModified Time None Recorded Advance Directives Directive None Recorded Payers Insurance Date Sequence Insurance Name Policy Number Policy Aldridge Covered Member ID Aldridge Member ID Guarantor Name 02/28/2025 1 [employer] (MEDICARE REPLACEMENT/A DVANTAGE - PPO) Marcial Casillsa [id number] Marcial Casillas 06/26/2025 1 [facility] (MEDICARE REPLACEMENT/A DVANTAGE - PPO) [id number] Marcial Gaviria Sonja [id number] Marcial Casillas 02/28/[address] [facility] (MEDICARE REPLACEMENT/A DVANTAGE - PPO) Marcial Gaviria Sonja [id number] Marcial Casillas Notes Date Note Type Note Provider Name and Address Organization Details Recorded Time 5 text/html Upper Respiratory SymptomsReported by PatientUpper Respiratory SymptomsFor quality, patient reportsproductive cough,congested,hacking cough,wheezy cough, andnasal discharge. For associated symptoms, patient reportsgreen sputum,shortness of breath,wheezing,difficult y breathing at night, andfatigue. For location, patient reportshead,chest, andnasal. For severity, patient reportsmoderate. For duration, patient reportssymptoms lasting over 2 weeks. For onset/timing, patient reportssudden. For context, patient reportsno foreign travelandnon-smoker. For alleviating factors, patient reportsanalgesicsandantih istamines. [facility] 05-14-25 got amoxil and albuterol and prednisoneCOVID tested negatiev. was feeling better until his antibiotics ran out. MELI HAWTHORNE PA-C [address] [place] [address], [phone], [facility], [place] 05/24/2025 15:24:29 5 text/html Abdominal PainReported by [...] from [place] before that,then some from Dr Abilio springer, bloated x 4 days. eating good, no vomiting. no heartburn. normal BMs. no fever. but alot of pain, bloating and pressure throughout. feeling some flank pain as well. MELI HAWTHORNE PA-C [address] [place], [address], [facility], [place]. 05/29/2025 11:11:46 5 text/html Abdominal PainReported by [...] SOME MORE IF POSSIBLE. MELI HAWTHORNE PA-C [address] [place], [address], [facility], [place] 06/12/2025 11:40:46 5 text/html Bowel [...] it done before I am taking to [place] after [place] and wont be back till probably 15th MELI HAWTHORNE PA-C [address] [place], [address], [facility] 06/25/2025 16:08:51
--- OUTSIDE RECORDS SUMMARY | 2025-06-28 21:02 | XMS_ITS | Encounter Summary ---
Author Organization [facility] Address [address] [place] [address] Care Team Providers Care Garbage Collector Driver Name Role Phone Unavailable Primary Care Provider Unavailabl e Encounter Details Date Type Department Care Team (Late st Contact Info) Description 02/07/2008 Outpatient Historical [facility] [address] [facility] [address] [place] [phone] Cruz Florian MD [address] [place] [address] Social History Tobacco Use Types Packs/Day Years Used Date Smoking Tobacco: Never Assessed Sex and Gender Information Value Date Recorded Sex Assigned at Not on file 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
--- OUTSIDE RECORDS SUMMARY | 2025-06-28 21:02 | XMS_ITS | Encounter Summary ---
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
--- OUTSIDE RECORDS SUMMARY | 2025-06-28 21:02 | XMS_ITS | Patient Health Record ---
Author Organization [facility] Address [address] [place] [address] Care Team Providers Care Landing Worker Name Role Phone Meli Wilson Primary Care Provider José Manuel Watson [phone] Ariana Slater APN Unavailable Unavailable Allergies Allergen [...] Disorder due to type 2 diabetes mellitus (798990722) Type 2 diabetes mellitus with unspecified complications (E11.8) Active confirmed Problem Long-term current use of anticoagulant (395775226) buttermaker continuous churn (current) use of anticoagulants (Z79.01) Active confirmed Problem Hyperlipidemia (23867244) Hyperlipidemia, unspecified (E78.5) Active confirmed Problem Essential hypertension (96962195) Essential hypertension (I10) Active confirmed Problem Peripheral circulatory disorder associated with diabetes mellitus (004307650) Type 2 diabetes mellitus with other circulatory complication, without long-term current use of insulin (E11.59) Active confirmed Problem Osteoarthritis (889357102) Osteoarthritis, unspecified osteoarthritis type, unspecified site (M19.90) Active confirmed Problem Long-term current use of drug therapy (225318232) buttermaker continuous churn current use of antithrombotics/an tiplatelets (Z79.02) Active confirmed Problem Atherosclerotic heart disease of [place] coronary artery without angina pectoris (258216617554875) Arteriosclerosis of coronary artery (I25.10) Active confirmed Problem History of placement of stent for coronary artery disease (situation) (128423565) H/O heart artery stent (Z95.5) Active confirmed Problem Gastroesophageal reflux disease (997810870) GERD (gastroesophageal reflux disease) (K21.9) Active confirmed Problem Disorder of kidney and/or ureter (764978785) Kidney function abnormal (N28.9) Active confirmed Vital Signs Heart Rate 76 /min 08/01/2024 Oximetry 96 % 08/01/2024 Blood pressure diastolic 76 mm Hg 08/01/2024 Weight-kg 103.83 kg 08/01/2024 Height 71 in 08/01/2024 Blood pressure systolic 132 mm Hg 08/01/2024 Weight 228.9 lbs 08/01/2024 BMI 31.92 kg/m2 08/01/2024 Encounters Encounter Location Date Provider Diagnosis [facility] [address] [place] [phone] 08/01/2024 José Manuel Mckinnon Arteriosclerosis of coronary [...] Order Date Electrocardiogram 12 Lead Tracing (EKG)- [id number] 12/24/2023 Next Appt Details Provider Name:Ronnie Camp , 08/23/2025 02:00:00 PM, [address] [place] [address], [phone], Insurance Providers Payer Name Payer Address Payer Phone Subscriber Number Group Number Insured Name Patient Relationship to Insured Coverage Start Date Coverage End Date [employer] - Out of Network [address] [address] [place] [address] [id number] Marcial Casillas Self - patient is the insured 3 Medical (General) History Medical History History ICD Code CAD Diabetic hyperlipidemia Covid Vax x 2 Chicken Pox Heart Disease Arthritis Anemia Diabetes Blood/Plasma Transfusion Back Trouble Anticoagulation GERD Hyperlipidemia Surgical History Surgery Date(Month/Year) EGD knee surgery PTCA RCA 03.04.2021 [facility] SHOWING SEVERE STENOSIS OF LAD, 1ST DIAGONAL, & OM1. ANGIOPLASTY OF THE 1ST DIAGONAL. PCI OF THE PROXIMAL LAD. 03.19.2021 [facility] with stent to circ 03.25.2021 Multiple back surgeries due to service 1980 Rods and screws in spine 2004 [facility] 12/29/23 Hospitalization History Reason Date(Month/Year) [facility] - IMPRESSION: 1. Wide ly patent stents involving the LAD, circumflex marginal vessel, and the right coronary. 2. Only mild disease seen within the stents themselves. 12/29/[address] [facility] 03/2021 [facility] cath PVCS, palpitations 12/01/23
--- OUTSIDE RECORDS SUMMARY | 2025-06-28 21:02 | XMS_ITS | Clinical Summary ---
Author Organization [facility] Address [address] [place] [address] Care Team Providers Care Head Sawyer Name Role Phone Unavailable Primary Care Provider [...] Encounters Date Type Department Care Team Description 06/27/2025 Orders Only [facility] G[facility]enterology- [place] 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 Gender Identity Not on file Sexual Orientation Not on file Last Filed Vital Signs Vital Sign Reading Time Taken Comments Blood Pressure 123/77 12/17/2020 1:14 PM CDT Pulse 93 12/17/2020 1:14 PM CDT Temperature 36.1 C (96.9 F) 08/22/2019 8:18 AM MUSIC EXECUTIVE Respiratory Rate 15 08/22/2019 8:18 AM MUSIC EXECUTIVE Oxygen Saturation - - Inhaled Oxygen Concentration [...] ) (1 - 1-dose 75+ series) 12/12/2023 [place] ([place] Prev entative Visit/Annual Wellness Visit 07/05/2024 INFLUENZA VACCINE (#1) 2025 COLORECTAL SCREENING Discontinued 02/22/2020 Colorectal Cancer Screening Discontinued FIT-DNA Q 3 years Discontinued FIT/FOBT Q 1 year Discontinued Flex Sig/CT Colonography Q 5 years Discontinued Medical Devices Implanted Type Area Poultry Husbandry Worker Device Identifier Shelf Expiration Date Model / Serial / Lot Bsplt Tib Attune Sz9 Implanted:Qty: 1 on 08/21/2019 by Nilson Escoto MD Left: Knee 12/02/2028 [id number] / / [id number] Fem Porocoat Posterior Implanted:Qty: 1 on 08/21/2019 by Nilson Escoto MD Left: Knee 04/03/2029 DEPUY - [id number] / / [id number] Tib Attune Ps Sz 7 7mm Implanted:Qty: 1 on 08/21/2019 by Nilson Escoto MD Left: Knee 07/04/2024 [id number] / / [id number] Insurance * Guarantor: MARCIAL CASILLAS Account Type Relation to Patient Date of Phone Billing Address Personal/Family [id number] [facility] [place] [id number] RX [employer] (INTERNAL) [employer] Internal Plans [employer] Medicare Part D
--- OUTSIDE RECORDS SUMMARY | 2025-06-28 21:02 | XMS_ITS | Encounter Summary ---
Author Organization [facility] Address [address] [place] [address] Care Team Providers Care Boring Mill Operator Name Role Phone Unavailable Primary Care Provider Unavailabl e Encounter Details Date Type Department Care Team (Late st Contact Info) Description 01/05/2008 Outpatient Historical [facility] [address] 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
--- OUTSIDE RECORDS SUMMARY | 2025-06-28 21:02 | XMS_ITS | Continuity of Care Document ---
Author Organization [facility] Jeronimo Robin Dinh [facility] [place], [facility] ([facility]) Address [address] [address] Assessment No assessment recorded. Plan of Treatment Reminders Order Date Submit Date Provider Last Modified By Organization Details Last Modified Time Details Appointments [facility] CONSULT 2025 12:00P M Los Eckert MD Not available Not available Not available Lab CBC 2024 025 MEL [facility], [address], [facility] 1, [place], [address], 06/26/2025 15:20:01 Referral None recorded. Procedures None recorded. Surgeries None recorded. Imaging None recorded. Medication Orders None recorded. Patient TargetsNo targets recorded. Patient InstructionsNo instructions recorded. 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 None Reported. Results Created Date Observation Date Name Description Value Unit Range Abnormal Flag Note LastModifiedBy Organization Detail LastModifiedTime 05/29/2005/29/2025 CBC WBC 6.8 x10 4.5-10 .5 Not Available [facility] [address] [facility], [place], [address], 05/29/2025 15:01:56 05/29/2005/29/2025 CBC RBC 3.99 x10 4.30-5 .90 low Not Available [facility] [address], [place], [address], 05/29/2025 15:01:56 11/25/20 25 05/29/2025 CBC HGB 12.3 g/dL 13.5-1 8.0 low Not Available [facility] [address] [facility] 1, [place], [address], 05/29/2025 15:01:56 05/29/2005/29/2025 CBC HCT 37.3 % 35.0-6 0.0 Not Available [facility] [address] [facility] 1, [place], [address], 05/29/2025 15:01:56 05/29/2005/29/2025 CBC MCV 93.5 fL 80.0-9 9.9 Not Available [facility] [address] [facility] 1, [place], [address], 05/29/2025 15:01:56 05/29/2005/29/2025 CBC MCH 30.8 pg 27.0-3 2.0 Not Available [facility] [address] [facility], [place], [address], 05/29/2025 15:01:56 05/29/2005/29/2025 CBC MCHC 33.0 g/dL 32.0-3 6.0 Not Available [facility] [address] [facility], [place], [address], 05/29/2025 15:01:56 05/29/2005/29/2025 CBC RDW 14.0 % 11.5-1 4.5 Not Available [facility] [address] [facility] 1, [place], [address], 05/29/2025 15:01:56 05/29/2005/29/2025 CBC plt 282.5 x10 150.0- 451.0 Not Available [facility] [address] [facility] 1, [place], [address], 05/29/2025 15:01:56 05/29/2005/29/2025 CBC lymphocytes % 40.1 % 20.0-5 0.0 Not Available [place] [facility] [address] [facility], [place], [address], 05/29/2025 15:01:56 05/29/2005/29/2025 CBC granulcytes % 49.1 % 30.0-7 0.0 Not Available [facility] [address] [facility], [place], [address], 05/29/2025 15:01:56 05/29/2005/29/2025 CBC monocytes % 9.2 % 2.0-16 .0 Not Available [facility] [address] [facility] 1, [place], [address], 05/29/2025 15:01:56 05/29/2005/29/2025 CBC granulcytes# 3.3 x10 Not Amisha ilable [facility] [address] [facility] 1, [place], [address], 05/29/2025 15:01:56 05/29/2005/29/2025 CBC lymphocytes # 2.7 x10 Not Available [facility] [address] [address], [place], [address], 05/29/2025 15:01:56 05/29/2005/29/2025 CBC monocytes # 0.6 x10 Not Avai lable [facility] [address] [address], [place], [address], 05/29/2025 15:01:56 05/29/2005/29/2025 CMP (MALE ) glucose 141.0 mg/dL 60.0-9 9.0 high Not Available [facility] [address] [address], [place], [address], 05/29/2025 15:34:00 05/29/20 25 05/29/2025 CMP (MALE ) BUN (blood urea nitrogen) 15.0 mg/dL 10.0-2 6.0 Not Available [facility] [address] [facility] 1, [place], [address], 05/29/2025 15:34:00 05/29/20 25 05/29/2025 CMP (MALE ) creatinine (serum) 1.1 mg/dL 0.4-1. 5 Not Available [facility] [address] [facility] 1, [place], [address], 05/29/2025 15:34:00 05/29/20 25 05/29/2025 CMP (MALE ) BUN/creatini ne ratio 13.64 ratio Not Available [address] [facility] 1, [place], [address], 05/29/2025 15:34:00 05/29/20 25 05/29/2025 CMP (MALE ) eGFR calculated 69.2 Not Available [facility] [address] [facility] 1, [place], [address], 05/29/2025 15:34:00 05/29/20 25 05/29/2025 CMP (MALE ) total protein 6.5 g/dL 6.0-8. 5 Not Available [facility] [address] [facility] 1, [place], [address], 05/29/2025 15:34:00 05/29/20 25 05/29/2025 CMP (MALE ) total bilirubin 0.7 mg/dL 0.2-1. 3 Not Available [facility] [address] [facility] 1, [place], [address], 05/29/2025 15:34:00 05/29/20 25 05/29/2025 CMP (MALE ) albumin 4.3 g/dL 3.5-5. 5 Not Available [facility] [address] [facility] 1, [place], [address], 05/29/2025 15:34:00 05/29/20 25 05/29/2025 CMP (MALE ) globulin 2.2 calc Not Available [facility] [address] [facility], [place], [address], 05/29/2025 15:34:00 05/29/20 25 05/29/2025 CMP (MALE ) AST (SGOT) 27.0 U/L 0.0-46 .0 Not Available [facility] [address] [facility], [place], [address], 05/29/2025 15:34:00 05/29/20 25 05/29/2025 CMP (MALE ) altv (SGPT) 22.0 U/L 13.0-6 9.0 normal Not Available [facility] [address] [facility] 1, [place], [address], 05/29/2025 15:34:00 05/29/2005/29/2025 CMP (MALE ) A/G ratio 2.0 ratio Not Available [facility] [address] [facility], [place], [address], 05/29/2025 15:34:00 05/29/20 25 05/29/2025 CMP (MALE ) ALP phos 102.0 U/L 30.0-1 40.0 normal Not Available [facility] [address] [facility] 1, [place], [address], 05/29/2025 15:34:00 05/29/20 25 05/29/2025 CMP (MALE ) calcium 9.1 mg/dL 8.4-10 .5 Not Available [facility] [address] [facility], [place], [address], 05/29/2025 15:34:00 05/29/20 25 05/29/2025 CMP (MALE ) sodium 136.0 mmol/ L 136.0- 145.0 Not Available [facility] [address] [facility] 1, [place], [address], 05/29/2025 15:34:00 05/29/20 25 05/29/2025 CMP (MALE ) potassium 4.3 mmol/ L 3.5-5. 1 Not Available [facility] [address] [facility] 1, [place], [address], 05/29/2025 15:34:00 05/29/2005/29/2025 CMP (MALE ) chloride 99.0 mmol/ L 98.0-1 10.0 normal Not Available [facility] [address] [facility] 1, [place], [address], 05/29/2025 15:34:00 05/29/20 25 05/29/2025 CMP (MALE ) C02 28.0 mmol/ L 22.0-3 1.0 Not Available [facility] [address] [facility] 1, [place], [address], 05/29/2025 15:34:00 05/29/20 25 05/29/2025 CMP (MALE ) anion gap 9.0 calc Not Available [facility] [address] [facility] 1, [place], [address], 05/29/2025 15:34:00 05/29/2005/29/2025 CMP (MALE ) osmolality 284.1 calc Not Available [facility] [address] [facility] 1, [place], [address], 05/29/2025 15:34:00 05/29/2005/29/2025 URINA LYSIS WITH MICRO color YELLOW Not Available [facility] [address] [facility] 1, [place], [address], 05/29/2025 15:39:37 05/29/2005/29/2025 URINA LYSIS WITH MICRO clarity CLEAR Not Available [facility] [address], [place], [address], 05/29/2025 15:39:37 05/29/2005/29/2025 URINA LYSIS WITH MICRO glu NEGATI VE Not Available [facility] Willa [facility] [address], [place], [address], 05/29/2025 15:39:37 05/29/2005/29/2025 URINA LYSIS WITH MICRO bili NEGATI VE Not Available [facility] [address], [place], [address], 05/29/2025 15:39:37 05/29/2005/29/2025 URINA LYSIS WITH MICRO ket NEGATI VE Not Available [facility] [address], [place], [address], 05/29/2025 15:39:37 05/29/2005/29/2025 URINA LYSIS WITH MICRO S.g 1.010 1.005- 1.025 Not Available [facility] [address], [place], [address], 05/29/2025 15:39:37 05/29/2005/29/2025 URINA LYSIS WITH MICRO pH 5.5 5.0-7. 0 Not Available [facility] [address], [place], [address], 05/29/2025 15:39:37 05/29/2005/29/2025 URINA LYSIS WITH MICRO pro NEGATI VE Not Available [facility] [address], [place], [address], 05/29/2025 15:39:37 05/29/2005/29/2025 URINA LYSIS WITH MICRO uro 0.2 E.U./D L Not Available [facility] [address] [facility] [address], [place], [address], 05/29/2025 15:39:37 05/29/2005/29/2025 URINA LYSIS WITH MICRO nit NEGATI VE Not Available [facility] [address], [place], [address], 05/29/2025 15:39:37 05/29/2005/29/2025 URINA LYSIS WITH MICRO blo NEGATI VE Not Available [facility] [address] [facility], [place], [address], 05/29/2025 15:39:37 05/29/2005/29/2025 URINA LYSIS WITH MICRO eduardo NEGATI VE Not Available [facility] [address], [place], [address], 05/29/2025 15:39:37 05/29/2005/29/2025 URINA LYSIS WITH MICRO WBC NEGATI VE Not Available [facility] [address], [place], [address], 05/29/2025 15:39:37 05/29/2005/29/2025 URINA LYSIS WITH MICRO RBC 1-2 abnormal Not Available [facility] [address], [place], [address], 05/29/2025 15:39:37 05/29/2005/29/2025 URINA LYSIS WITH MICRO epi cells NEGATI VE Not Available [facility] W[facility] [address], [place], [address], 05/29/2025 15:39:37 05/29/2005/29/2025 URINA LYSIS WITH MICRO bacteria NEGATI VE Not Available [facility] [address] [facility] 1, [place], [address], 05/29/2025 15:39:37 05/29/2005/29/2025 URINA LYSIS WITH MICRO other NEG Not Available [facility] [address] [facility], [place], [address], 05/29/2025 15:39:37 05/29/2005/30/2025 C-NADIR CTIVE PROTE IN C-reactive protein <3.0 mg/L <8.0 normal Not Available [facility] [address] [place], [address], 05/30/2025 21:35:58 05/29/2005/30/2025 AMYLA SE amylase 28 U/L 21-101 normal Not Available [facility] [address] [place], [address], 05/30/2025 21:35:59 05/29/2005/30/2025 CULTU RE, URINE , ROUTI NE culture, urine, routine SEE NOTE CULTU RE, URINE , ROUTI NE Micro Numbe r: [id number] Test Statu s: Final Speci men Sourc e: Urine Speci men Quali ty: Adequ ate Resul t: No Growt h Not Available [facility] [address] [place], [address], 05/30/2025 21:35:59 06/19/2006/19/2025 CBC WBC 7.2 x10 4.5 - 10.5 Not Available [facility] [address] [facility], [place], [address], 06/19/2025 14:03:53 06/19/2006/19/2025 CBC RBC 4.03 x10 4.30 - 5.90 low Not Available [facility] [address] [facility] 1, [place], [address], 06/19/2025 14:03:53 06/19/20 25 06/19/2025 CBC HGB 13.8 g/dL 13.5 - 18.0 Not Available [facility] [address] [facility] 1, [place], [address], 06/19/2025 14:03:53 06/19/20 25 06/19/2025 CBC HCT 37.6 % 35.0 - 60.0 Not Available [facility] [address] [facility] 1, [place], [address], 06/19/2025 14:03:53 06/19/20 25 06/19/2025 CBC MCV 93.3 fL 80.0 - 99.9 Not Available [facility] [address] [facility] 1, [place], [address], 06/19/2025 14:03:53 06/19/20 25 06/19/2025 CBC MCH 34.2 pg 27.0 - 32.0 high Not Available [facility] [address] [facility] 1, [place], [address], 06/19/2025 14:03:53 06/19/20 25 06/19/2025 CBC MCHC 36.7 g/dL 32.0 - 36.0 high Not Available [facility] [address] [facility] 1, [place], [address], 06/19/2025 14:03:53 06/19/20 25 06/19/2025 CBC RDW 14.6 % 11.5 - 14.5 high Not Available [facility] [address] [facility] 1, [place], [address], 06/19/2025 14:03:53 06/19/20 25 06/19/2025 CBC plt 295.5 x10 150.0 - 451.0 Not Available [facility] [address] [facility] [address] [facility] 1, [place], [address], 06/19/2025 14:03:53 06/19/20 25 06/19/2025 CBC lymphocytes % 36.3 % 20.0 - 50.0 Not Available [facility] [address] [facility] 1, [place], [address], 06/19/2025 14:03:53 06/19/20 25 06/19/2025 CBC granulcytes % 53.7 % 30.0 - 70.0 Not Available [facility] [address] [facility] 1, [place], [address], 06/19/2025 14:03:53 06/19/20 25 06/19/2025 CBC monocytes % 7.8 % 2.0 - 16.0 Not Available [place] [facility] [address] [facility] 1, [place], [address], 06/19/2025 14:03:53 06/19/20 25 06/19/2025 CBC granulcytes# 3.9 x10 Not Amisha ilable [facility] [address] [facility] 1, [place], [address], 06/19/2025 14:03:53 06/19/20 25 06/19/2025 CBC lymphocytes # 2.6 x10 Not Available [place] [facility] [address] [facility] 1, [place], [address], 06/19/2025 14:03:53 06/19/20 25 06/19/2025 CBC monocytes # 0.6 x10 Not Avai lable [facility] [address] [facility] 1, [place], [address], 06/19/2025 14:03:53 06/19/20 25 06/19/2025 CMP (MALE ) glucose 162.0 mg/dL 60.0 - 99.0 high Not Available [facility] [address] [facility], [place], [address], 06/19/2025 14:08:27 06/19/20 25 06/19/2025 CMP (MALE ) BUN (blood urea nitrogen) 19.0 mg/dL 10.0 - 26.0 Not Available [facility] [address] [facility], [place], [address], 06/19/2025 14:08:27 06/19/20 25 06/19/2025 CMP (MALE ) creatinine (serum) 1.1 mg/dL 0.4 - 1.5 Not Available [facility] [address] [facility] 1, [place], [address], 06/19/2025 14:08:27 06/19/20 25 06/19/2025 CMP (MALE ) BUN/creatini ne ratio 17.27 ratio Not Available [facility] [address] [facility] 1, [place], [address], 06/19/2025 14:08:27 06/19/20 25 06/19/2025 CMP (MALE ) total protein 6.9 g/dL 6.0 - 8.5 Not Available [facility] [address] [facility] 1, [place], [address], 06/19/2025 14:08:27 06/19/20 25 06/19/2025 CMP (MALE ) total bilirubin 0.5 mg/dL 0.2 - 1.3 Not Available [place] [facility] [address] [facility], [place], [address], 06/19/2025 14:08:27 06/19/20 25 06/19/2025 CMP (MALE ) albumin 4.6 g/dL 3.5 - 5.5 Not Available [facility] [address] [facility] 1, [place], [address], 06/19/2025 14:08:27 06/19/20 25 06/19/2025 CMP (MALE ) globulin 2.3 calc Not Available [facility] [place] [facility] [address] [facility], [place], [address], 06/19/2025 14:08:27 06/19/20 25 06/19/2025 CMP (MALE ) AST (SGOT) 39.0 U/L 0.0 - 46.0 Not Available [facility] [address] [facility] 1, [place], [address], 06/19/2025 14:08:27 06/19/20 25 06/19/2025 CMP (MALE ) altv (SGPT) 28.0 U/L 13.0 - 69.0 Not Available [facility] [address] [facility] 1, [place], [address], 06/19/2025 14:08:27 06/19/20 25 06/19/2025 CMP (MALE ) A/G ratio 2.0 ratio Not Available [facility] [address] [facility], [place], [address], 06/19/2025 14:08:27 06/19/20 25 06/19/2025 CMP (MALE ) ALP phos 83.0 U/L 30.0 - 140.0 Not Available [facility] [address] [facility] 1, [place], [address], 06/19/2025 14:08:27 06/19/20 25 06/19/2025 CMP (MALE ) calcium 9.3 mg/dL 8.4 - 10.5 Not Available [facility] [address] [facility] 1, [place], [address], 06/19/2025 14:08:27 06/19/20 25 06/19/2025 CMP (MALE ) sodium 139.0 mmol/ L 136.0 - 145.0 Not Available [facility] [address] [facility] 1, [place], [address], 06/19/2025 14:08:27 06/19/20 25 06/19/2025 CMP (MALE ) potassium 4.7 mmol/ L 3.5 - 5.1 Not Available [facility] [address] [facility] 1, [place], [address], 06/19/2025 14:08:27 06/19/20 25 06/19/2025 CMP (MALE ) chloride 101.0 mmol/ L 98.0 - 110.0 Not Available [facility] [address] [facility] 1, [place], [address], 06/19/2025 14:08:27 06/19/20 25 06/19/2025 CMP (MALE ) C02 27.0 mmol/ L 22.0 - 31.0 Not Available [facility] [address] [facility], [place], [address], 06/19/2025 14:08:27 06/19/20 25 06/19/2025 CMP (MALE ) anion gap 11.0 calc Not Available [facility] [address] [facility] 1, [place], [address], 06/19/2025 14:08:27 06/19/20 25 06/19/2025 CMP (MALE ) osmolality 292.4 calc Not Available [facility] [address] [facility], [place], [address], 06/19/2025 14:08:27 06/19/20 25 06/19/2025 CMP (MALE ) eGFR calculated 83.8 Not Available [facility] [address] [facility], [place], [address], 06/19/2025 14:08:27 06/19/20 25 06/20/2025 C-NADIR CTIVE PROTE IN C-reactive protein <3.0 mg/L <8.0 normal Not Available [facility] [address] [place], [address], 06/20/2025 06:57:28 06/19/20 25 06/20/2025 AMYLA SE amylase 36 U/L 21-101 normal Not Available [facility] [address] [address], [place], [address], 06/20/2025 06:57:28 06/26/20 25 06/26/2025 CBC WBC 6.4 x10 4.5 - 10.5 Not Available [place] [facility] [address] [facility] 1, [place], [address], 06/26/2025 15:20:01 06/26/20 25 06/26/2025 CBC RBC 4.50 x10 4.30 - 5.90 Not Available [facility] [address] [facility] 1, [place], [address], 06/26/2025 15:20:01 06/26/20 25 06/26/2025 CBC HGB 13.6 g/dL 13.5 - 18.0 Not Available [facility] [address] [facility] 1, [place], [address], 06/26/2025 15:20:01 06/26/20 25 06/26/2025 CBC HCT 42.0 % 35.0 - 60.0 Not Available [facility] [address] [facility] 1, [place], [address], 06/26/2025 15:20:01 06/26/20 25 06/26/2025 CBC MCV 83.0 fL 80.0 - 99.9 Not Available [facility] [address] [place] [facility] 1, [place], [address], 06/26/2025 15:20:01 06/26/20 25 06/26/2025 CBC MCH 30.0 pg 27.0 - 32.0 Not Available [place] [facility] [address] [facility], [place], [address], 06/26/2025 15:20:01 06/26/20 25 06/26/2025 CBC MCHC 32.4 g/dL 32.0 - 36.0 Not Available [place] [facility] [address] [facility], [place], [address], 06/26/2025 15:20:01 06/26/20 25 06/26/2025 CBC RDW 14.0 % 11.5 - 14.5 Not Available [facility] [address] [facility], [place], [address], 06/26/2025 15:20:01 06/26/20 25 06/26/2025 CBC plt 306.0 x10 150.0 - 451.0 Not Available [place] [facility] [address] [facility], [place], [address], 06/26/2025 15:20:01 06/26/20 25 06/26/2025 CBC lymphocytes % 31.6 % 20.0 - 50.0 Not Available [place] [facility] [address] [facility], [place], [address], 06/26/2025 15:20:01 06/26/20 25 06/26/2025 CBC granulcytes % 57.9 % 30.0 - 70.0 Not Available [place] [facility] [address] [facility] 1, [place], [address], 06/26/2025 15:20:01 06/26/20 25 06/26/2025 CBC monocytes % 7.9 % 2.0 - 16.0 Not Available [facility] [address] [facility], [place], [address], 06/26/2025 15:20:01 06/26/20 25 06/26/2025 CBC granulcytes# 3.7 x10 Not Amisha ilable [facility] [address] [facility], [place], [address], 06/26/2025 15:20:01 06/26/20 25 06/26/2025 CBC lymphocytes # 2.0 x10 Not Available [facility] [address] [facility], [place], [address], 06/26/2025 15:20:01 06/26/20 25 06/26/2025 CBC monocytes # 0.5 x10 Not Avai lable [facility] [address] [facility], [place], [address], 06/26/2025 15:20:01 05/29/20 25 05/29/2025 CT, abdom en + pelvi s, w/ contr ast No observ ation record ed. [facility] [address] [facility], [place], [address], 05/29/2025 18:12:29 Result Notes None recorded. Problems Name Problem SNOMED Code Status Onset Date Resolution Date Notes Provider Name and Address Organization Details Recorded Time History of nutritio nal disorder 505446460 Completed 202112/11/2021 H/O NON-INSU SOFÍA DEPENDEN T DIABETES MELLITUS - Status is Inactive ; Recorded 12/12/19 3:37PM by Meli Hawthorne PA-C, Annotati on/Adden dum; Promoted ; acuity set as *; Not Available [facility] 03:16:01 History of endocrin e disorder [id number] Completed 202112/11/2021 H/O NON-INSU SOFÍA DEPENDEN T DIABETES MELLITUS - Status is Inactive ; Recorded 12/12/19 3:37PM by Meli Hawthorne PA-C, Leeanneati on/Adden dum; Promoted ; acuity set as *; Not Available [facility] 3 03:16:01 History of metaboli c disorder [id number] Completed 202112/11/2021 H/O NON-INSU SOFÍA DEPENDEN T DIABETES MELLITUS - Status is Inactive ; Recorded 12/12/19 3:37PM by Meli Hawthorne PA-C, Annotati on/Adden dum; Promoted ; acuity set as *; Not Available [facility] 3 03:16:01 Anemia [id number] Completed 202112/11/2021 ANEMIA - Status is Inactive ; Recorded 12/12/19 3:38PM by Meli Hawthorne PA-C, Annotati on/Adden dum; Promoted ; acuity set as *; Not Available [facility] 3 03:16:02 Herpes zoster [id number] Completed 202112/11/2021 HERPES ZOSTER WITHOUT COMPLICA TION [...] acuity set as *; Not Available [facility] 3 03:16:02 Fracture of other finger Completed 202112/11/2021 fx 3rd and 4th digits on Lt hand - Status is Inactive ; 12/12/19 3:38PM by Meli Hawthorne PA-C, Annotati on/Adden dum; Promoted ; acuity set as *; Not Available [facility] 3 03:16:02 Gastroes ophageal reflux disease [id number] Active 2021 GERD (GASTROE SOPHAGEA L REFLUX DISEASE) ; Recorded 05/25/20 3:58PM by Vivek mederos, Office Visit; Promoted ; acuity set as *; ROSAURA BRICEÑOEFFYONG merrill, [facility] 5 15:34:18 Coronary artery bypass graft stent present [id number] Active 2021 H/O HEART ARTERY STENT; Recorded 05/25/20 3:58PM by Vivek mederos, Office Visit; Promoted ; acuity set as *; ROSAURA JODIYONG momin, [facility] 5 15:34:12 Hypercho lesterol emia [id number] Active 2021 Hypercho lesterol emia; 05/25/20 3:58PM by Vivek mederos, Office Visit; Promoted ; acuity set as *; [facility] 5 15:34:26 Coronary arterios clerosis 34014275 Active 2022 ROSAURA HACRISPINTheaNER null, [facility] 5 15:34:08 Type 2 diabetes mellitus 45646993 Active 2022 ROSAURA HACRISPINFNER null, [facility] 5 15:34:54 Diabetes mellitus 84013975 Active 2023 [facility]AE[facility] 5 15:34:15 Spinal stenosis of lumbosac ral region 995791693 Active 2024 ROSAURA HAEFFNER null, [facility] 5 08:17:04 Spinal stenosis of lumbar region 39317650 Active 2024 [facility] HAEFFNER [facility] 5 08:17:32 Notes:Some problems listed i n Documents: #[id number], #[id number] could not be added to this patient's chart. Please review these documents and add these problems to the patient's chart manually as needed. Problem Notes None recorded. Procedures Surgical History Date Name Laterality Status Provider Name and Address Organization Details Recorded Time 04/30/20 25 diabetic retinal eye exam completed ROSAURA GALLO [facility] 06/10/2025 08:31:40 07/27/19 25 Joint Inj Beta-shoulder, hip, knee completed MELI HAWTHORNE PA-C [address] [place], [address], [facility] 07/27/2024 14:58:22 02/23/20 24 prostate specific antigen measurement completed ROSAURA GALLO [facility] 06/10/2025 08:35:25 12/29/19 24 cardiac catheterization completed MELI HAWTHORNE PA-C [address] [place], [address], [facility] 12/30/2023 09:19:40 12/10/19 24 Family Practice Trigger Point Injection completed MELI HAWTHORNE PA-C [address] [place], [address], [facility] 12/27/2023 17:05:59 12/10/19 24 jr cryo warts completed MELI HAWTHORNE PA-C [address] [place], [address], [facility] 12/27/2023 17:06:12 11/18/19 24 Family [facility] Trigger Point Injection completed MELI HAWTHORNE PA-C [address] [place], [address], [facility] 2023 19:46:35 11/18/19 24 jr cryo warts completed MELI HAWTHORNE PA-C [address] [place], [address] 19:45:06 02/22/20 21 placement of stent in cardiac conduit [facility] 09:52:08 02/22/20 20 colonoscopy [facility] 09:51:32 Imaging Results None recorded. Procedure Notes None recorded. Medical Equipment None Reported. Allergies Allergen ID Allergen Name Allergen Category Reaction Reaction Severity Criticality Documentation Date Start Date Code Code System Note Provider Name and Address Organization Details Recorded Time 70285 doxycycli ne Not available Not available Not available Not available 02/18/2023 3640 RxNorm [facility]in [facility] 09:[facility]:13 Medications Name Sig Start [...] metformin two times daily 02/18 completed MW/mf; 94946; Recorded 12/12/19 7:46AM by Rosaura Gallo LPN [...] Not Available Not Available Not Available Vitals None Recorded Social History Question Answer Notes LastModified by Organizat ion Details LastModified Time Tobacco Smoking Status Never Smoker MELI HAWTHORNE PA-C [address] [place], [address], [facility] [place] 02/18/2023 10:41:51 Are You Blind Or Do You Have Difficulty Seeing? No [email or web address] Information not available 02/18/2023 Are You Deaf Or Do You Have Serious Difficulty Hearing? No [email or web address] Information not available 02/18/2023 What Type Of Diet Are You Following? DIABETIC [email or web address] Information not available 02/18/2023 What Was The Date Of Your Most Recent Tobacco Screening? 02/18/2023 [email or web address] Information not available 02/18/2023 Do You Use Your Seat Belt Or Car Seat Routinely? Yes [email or web address] Information not available 02/18/2023 Do You Have Difficulty Walking Or Climbing Stairs? No Information not available 02/18/2023 Sex: Unknown Functional Status Question Answer Note LastModified by Organizat ion Details LastModified Time What is your level of alcohol consumption? Occasional [email or web address] Information not available 02/18/2023 Do you have transportation difficulties? No [email or web address] Information not available 02/18/2023 Are you able to walk independently without assistance or assistive devices? [email or web address] Information not available 02/18/2023 Do you have difficulty doing errands alone? No [email or web address] Information not available 02/18/2023 Are you able to care for yourself independently? Yes [email or web address] Information not available 02/18/2023 Do you have difficulty dressing, bathing, grooming, or toileting? No [email or web address] Information not available 02/18/2023 Mental Status Question Answer Note LastModified by Organizat ion Details LastModified Time Do you feel stressed (tense, restless, nervous, or anxious, or unable to sleep at night)? [id number] [email or web address] Information not available 02/18/2023 Do you have difficulty concentrating, remembering or making decisions? No [email or web address] Information no t available 02/18/2023 Family History Nothing Reported. Medical History Condition Response Diabetes Y Coronary Artery Disease Y Heart Disease Y Arthritis Y Immunizations Vaccine Type Date Status Note Provider Nam e and Address Organization Details Recorded Time Tdap 8 completed Not Available [facility] 01/30/2023 02:49:41 Influenza, split virus, trivalent, preservative 9 completed Not Available [facility] 01/30/2023 02:49:42 Td(adult) unspecified formulation 2 completed Not Available [facility] 01/30/2023 02:49:42 Past Encounters Encounter ID Performer Location Encounter Start Date Encounter Closed Date Diagnosis/Indication Diagnosis SNOMED-CT Code Diagnosis ICD10 Code Diagnosis IMO Codes Diagnosis Note [id number] MELI HAWTHORNE PA-C [facility] ([facility]) [address] [place] [address] 05/29/2025 10:23:09 05/29/2025 11:12:07 Acute abdominal pain 446575130 R10.9 09914 acute diffuse pain. differenti al renal stones, pancreatit is, colitis, mesenteric ischemia. [id number] MELI HAWTHORNE PA-C [facility] ([facility]) [address] [place] [address] 06/12/2025 10:32:08 06/12/2025 11:41:13 Upper abdominal pain 18654573 R10.10 0636920 Colitis 96867057 K52.9 88783 [id number] MELI HAWTHORNE PA-C [facility] ([facility]) [address] [place] [address] 5 06/19/2025 11:27:20 06/25/2025 16:59:25 Generalized abdominal pain 796980999 R10.[address] and labs so far normal. He will get new cbc, cmp, crp today that he did not do yesterday. [id number] MELI HAWTHORNE PA-C [facility] ([facility]) [address] [place] [phone] 5 06/26/2025 14:49:22 06/26/2025 14:51:05 Upper abdominal pain 09963890 R10.10 [id number] Health Concerns Section Related Observation LastModified by Organization Detai ls LastModified Time None Recorded Concern Status LastModified by Organization Details LastModified Time None Recorded Payers Encounter Date Sequence Insurance Name Policy Number Policy Aldridge Covered Member ID Aldridge Member ID Guarantor Name 06/26/2025 1 [facility] (MEDICARE REPLACEMENT/A DVANTAGE - PPO) [id number] Marcial Casillas [id number] Marcial Casillas
--- OUTSIDE RECORDS SUMMARY | 2025-06-28 21:03 | XMS_ITS | Encounter Summary ---
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 Name Role Phone Unavailable Primary Care Provider Unavailabl e Encounter Details Date Type Department Care Team (Latest Contact Info) Description 07/14/2007 Outpatient Historical [facility] [address] [facility] [address] [place] [address] Magen Sims MD [address] [facility] [address] [place] [address] Lumbago; Sciatica; Arthrodesis Status; Other Musculoskeletal Symptoms Referable to Limbs; Personal History of Fall; Upper Limb Amputation, Other Finger(s) Social History Tobacco Use Types Packs/Day Years Used Date Smoking Tobacco: Never Assessed Sex and Gender Information Value Date Recorded Sex Assigned at Not on file 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
--- OUTSIDE RECORDS SUMMARY | 2025-06-28 21:03 | XMS_ITS | Encounter Summary ---
Author Organization [facility] Address [address] [place] [address] Care Team Providers Care Resident Services Supervisor Name Role Phone Unavailable Primary Care Provider Unavailabl e Encounter Details Date Type Department Care Team (Late st Contact Info) Description 07/25/2007 Outpatient Historical [facility] [address] 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
--- OUTSIDE RECORDS SUMMARY | 2025-06-28 21:03 | XMS_ITS | Encounter Summary ---
Author Organization [facility] Address [address] [place] [address] Care Team Providers Care Culinary Art Teacher Name Role Phone Unavailable Primary Care Provider Unavailabl e Encounter Details Date Type Department Care Team (Latest Contact Info) Description 11/18/2000 Outpatient Historical [facility] [address] [place] [address] Pola Jha MD NO ADDRESS ON FILE Lumbago (Primary Dx); Pain in joint, lower leg Social History Tobacco Use Types Packs/Day Years Used Date Smoking Tobacco: Never Assessed Sex and Gender Information Value Date Recorded Sex Assigned at Not on file 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
--- OUTSIDE RECORDS SUMMARY | 2025-06-28 21:03 | XMS_ITS | Continuity of Care Document ---
Author Organization [facility] Phani Kelly [facility], Kyle, [facility] ([facility]) Address [address] [address] Assessment No assessment recorded. Plan of Treatment Reminders Order Date Submit Date Provider Last Modified By Organization Details Last Modified Time Details Appointments [facility]ON[facility] COPY CONSULT 2025 12:00P Mega Eckert MD Not available Not available Not available Lab CMP, serum or plasma 2024 025 [email or web address], [address] [facility], [facility] [place], [address], 06/19/2025 07:03:11 CBC 2024 025 [facility], [address] [facility], [address], [address], 06/19/2025 07:03:11 C-react shirley protein , quantit ative, serum or plasma 2024 025 [email or web address] Kony [facility], [address] , [place], [address], 06/19/2025 07:03:12 amylase , serum or plasma 2024 025 [email or web address] Kony [facility], [address] [facility] [address] [place], [address], 06/19/2025 07:03:12 Referral None recorde d. Procedures None recorde d. Surgeries None recorde d. Imaging None recorde d. Medication Orders pantopr azole 40 mg tablet, delayed release 2024 [facility], [address], [place], [address], 06/12/2025 11:37:15 metroni dazole 500 mg tablet [address] [facility], [address], [place], [address], 06/12/2025 11:37:14 Lactoba cillus acidoph ilus 2 billion cell tablet [address]24 [facility] 15, [address], [place], [address], 06/12/2025 11:37:13 Patient TargetsNo targets recorded. Patient InstructionsNo instructions recorded. 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 None Reported. Results Created Date Observation Date Name Description Value Unit Range Abnormal Flag Note LastModifiedBy Organization Detail LastModifiedTime 05/29/2005/29/2025 CBC WBC 6.8 x10 4.5-10 .5 Not Available [facility] [address] [facility] [address], [place], [address], 05/29/2025 15:01:56 05/29/2005/29/2025 CBC RBC 3.99 x10 4.30-5 .90 low Not Available [facility] [address] [facility] 1, [place], [address], 05/29/2025 15:01:56 05/29/2005/29/2025 CBC HGB 12.3 g/dL 13.5-1 8.0 low Not Available [facility] [address] [facility] [address], [place], [address], 05/29/2025 15:01:56 05/29/2005/29/2025 CBC HCT 37.3 % 35.0-6 0.0 Not Available [facility] [address] [facility] 1, [place], [address], 05/29/2025 15:01:56 05/29/2005/29/2025 CBC MCV 93.5 fL 80.0-9 9.9 Not Available [facility] [address] [facility] 1, [place], [address], 05/29/2025 15:01:56 05/29/2005/29/2025 CBC MCH 30.8 pg 27.0-3 2.0 Not Available [facility] [address] [facility] 1, [place], [address], 05/29/2025 15:01:56 05/29/2005/29/2025 CBC MCHC 33.0 g/dL 32.0-3 6.0 Not Available [facility] [address] [facility] 1, [place], [address], 05/29/2025 15:01:56 05/29/2005/29/2025 CBC RDW 14.0 % 11.5-1 4.5 Not Available [facility] [address] [facility], [place], [address], 05/29/2025 15:01:56 05/29/2005/29/2025 CBC plt 282.5 x10 150.0- 451.0 Not Available [facility] [address] [facility] 1, [place], [address], 05/29/2025 15:01:56 05/29/2005/29/2025 CBC lymphocytes % 40.1 % 20.0-5 0.0 Not Available [facility] [address] [facility] 1, [place], [address], 05/29/2025 15:01:56 05/29/2005/29/2025 CBC granulcytes % 49.1 % 30.0-7 0.0 Not Available [facility] [address] [address], [place], [address], 05/29/2025 15:01:56 05/29/2005/29/2025 CBC monocytes % 9.2 % 2.0-16 .0 Not Available [facility] [address] [address], [place], [address], 05/29/2025 15:01:56 05/29/2005/29/2025 CBC granulcytes# 3.3 x10 Not Amisha ilable [facility] [address] [address], [place], [address], 05/29/2025 15:01:56 05/29/2005/29/2025 CBC lymphocytes # 2.7 x10 Not Available [facility] [address] [address], [place], [address], 05/29/2025 15:01:56 05/29/2005/29/2025 CBC monocytes # 0.6 x10 Not Avai lable [facility] [address] [address], [place], [address], 05/29/2025 15:01:56 05/29/2005/29/2025 CMP (MALE ) glucose 141.0 mg/dL 60.0-9 9.0 high Not Available [facility] [address] [address], [place], [address], 05/29/2025 15:34:00 05/29/2005/29/2025 CMP (MALE ) BUN (blood urea nitrogen) 15.0 mg/dL 10.0-2 6.0 Not Available [facility] [address] [address], [place], [address], 05/29/2025 15:34:00 05/29/20 25 05/29/2025 CMP (MALE ) creatinine (serum) 1.1 mg/dL 0.4-1. 5 Not Available [facility] [address] [facility] 1, [place], [address], 05/29/2025 15:34:00 05/29/20 25 05/29/2025 CMP (MALE ) BUN/creatini ne ratio 13.64 ratio Not Available [facility] [address] [facility] 1, [place], [address], 05/29/2025 15:34:00 05/29/20 25 05/29/2025 CMP (MALE ) eGFR calculated 69.2 Not Available [facility] [address] [facility] 1, [place], [address], 05/29/2025 15:34:00 05/29/20 25 05/29/2025 CMP (MALE ) total protein 6.5 g/dL 6.0-8. 5 Not Available [facility] [address] [facility] 1, [place], [address], 05/29/2025 15:34:00 05/29/20 25 05/29/2025 CMP (MALE ) total bilirubin 0.7 mg/dL 0.2-1. 3 Not Available [facility] [address] [facility] 1, [place], [address], 05/29/2025 15:34:00 05/29/20 25 05/29/2025 CMP (MALE ) albumin 4.3 g/dL 3.5-5. 5 Not Available [facility] [address] [facility] [address], [place], [address], 05/29/2025 15:34:00 05/29/20 25 05/29/2025 CMP (MALE ) globulin 2.2 calc Not Available [facility] [address] [facility] [address], [place], [address], 05/29/2025 15:34:00 05/29/2005/29/2025 CMP (MALE ) AST (SGOT) 27.0 U/L 0.0-46 .0 Not Available [facility] [address] [facility] [address], [place], [address], 05/29/2025 15:34:00 05/29/2005/29/2025 CMP (MALE ) altv (SGPT) 22.0 U/L 13.0-6 9.0 normal Not Available [facility] [address] [facility] [address], [place], [address], 05/29/2025 15:34:00 05/29/2005/29/2025 CMP (MALE ) A/G ratio 2.0 ratio Not Available [facility] [address] [facility] [address], [place], [address], 05/29/2025 15:34:00 05/29/2005/29/2025 CMP (MALE ) ALP phos 102.0 U/L 30.0-1 40.0 normal Not Available [facility] [address] [facility] [address], [place], [address], 05/29/2025 15:34:00 05/29/2005/29/2025 CMP (MALE ) calcium 9.1 mg/dL 8.4-10 .5 Not Available [facility] [address] [facility] [address], [place], [address], 05/29/2025 15:34:00 05/29/2005/29/2025 CMP (MALE ) sodium 136.0 mmol/ L 136.0- 145.0 Not Available [facility] [address] [facility] [address], [place], [address], 05/29/2025 15:34:00 05/29/2005/29/2025 CMP (MALE ) potassium 4.3 mmol/ L 3.5-5. 1 Not Available [facility] [address] [facility] [address], [place], [address], 05/29/2025 15:34:00 05/29/2005/29/2025 CMP (MALE ) chloride 99.0 mmol/ L 98.0-1 10.0 normal Not Available [facility] [address] [facility] [address], [place], [address], 05/29/2025 15:34:00 05/29/2005/29/2025 CMP (MALE ) C02 28.0 mmol/ L 22.0-3 1.0 Not Available [facility] [address] [facility] 1, [place], [address], 05/29/2025 15:34:00 05/29/20 25 05/29/2025 CMP (MALE ) anion gap 9.0 calc Not Available [facility] [address] [facility] 1, [place], [address], 05/29/2025 15:34:00 05/29/2005/29/2025 CMP (MALE ) osmolality 284.1 calc Not Available [facility] [address] [facility] 1, [place], [address], 05/29/2025 15:34:00 05/29/2005/29/2025 URINA LYSIS WITH MICRO color YELLOW Not Available [facility] [address] [facility] [address], [place], [address], 05/29/2025 15:39:37 05/29/2005/29/2025 URINA LYSIS WITH MICRO clarity CLEAR Not Available [facility] [address] [facility] 1, [place], [address], 05/29/2025 15:39:37 05/29/2005/29/2025 URINA LYSIS WITH MICRO glu NEGATI VE Not Available [facility] [address] [facility] 1, [place], [address], 05/29/2025 15:39:37 05/29/2005/29/2025 URINA LYSIS WITH MICRO bili NEGATI VE Not Available [facility] [address] [facility] 1, [place], [address], 05/29/2025 15:39:37 05/29/2005/29/2025 URINA LYSIS WITH MICRO ket NEGATI VE Not Available [facility] [address] [facility] [address], [place], [address], 05/29/2025 15:39:37 05/29/2005/29/2025 URINA LYSIS WITH MICRO S.g 1.010 1.005- 1.025 Not Available [facility] [address] [facility] 1, [place], [address], 05/29/2025 15:39:37 05/29/2005/29/2025 URINA LYSIS WITH MICRO pH 5.5 5.0-7. 0 Not Available [facility] [address] [facility] 1, [place], [address], 05/29/2025 15:39:37 05/29/2005/29/2025 URINA LYSIS WITH MICRO pro NEGATI VE Not Available [facility] [address] [facility] 1, [place], [address], 05/29/2025 15:39:37 05/29/2005/29/2025 URINA LYSIS WITH MICRO uro 0.2 E.U./D L Not Available [facility] [address], [place], [address], 05/29/2025 15:39:37 05/29/2005/29/2025 URINA LYSIS WITH MICRO nit NEGATI VE Not Available [facility] [address], [place], [address], 05/29/2025 15:39:37 05/29/2005/29/2025 URINA LYSIS WITH MICRO blo NEGATI VE Not Available [facility] [address], [place], [address], 05/29/2025 15:39:37 05/29/2005/29/2025 URINA LYSIS WITH MICRO eduardo NEGATI VE Not Available [facility] [address], [place], [address], 05/29/2025 15:39:37 05/29/2005/29/2025 URINA LYSIS WITH MICRO WBC NEGATI VE Not Available [facility] [address], [place], [address], 05/29/2025 15:39:37 05/29/2005/29/2025 URINA LYSIS WITH MICRO RBC 1-2 abnormal Not Available [facility] [address] [facility] [address], [place], [address], 05/29/2025 15:39:37 05/29/2005/29/2025 URINA LYSIS WITH MICRO epi cells NEGATI VE Not Available [facility] [address], [place], [address], 05/29/2025 15:39:37 05/29/2005/29/2025 URINA LYSIS WITH MICRO bacteria NEGATI VE Not Available [facility] [address], [place], [address], 05/29/2025 15:39:37 05/29/20 25 05/29/2025 URINA LYSIS WITH MICRO other NEG Not Available [facility] [address] [facility] [address], [place], [address], 05/29/2025 15:39:37 05/29/20 25 05/30/2025 C-NADIR CTIVE PROTE IN C-reactive protein <3.0 mg/L <8.0 normal Not Available [facility] [address] [place], [address], 05/30/2025 21:35:58 05/29/2005/30/2025 AMYLA SE amylase 28 U/L 21-101 normal Not Available [facility] [address] [place], [address], 05/30/2025 21:35:59 05/29/2005/30/2025 CULTU RE, URINE , ROUTI NE culture, urine, routine SEE NOTE CULTU RE, URINE , ROUTI NE Micro Numbe r: [id number] Test Statu s: Final Speci men Sourc e: Urine Speci men Quali ty: Adequ ate Resul t: No Growt h Not Available [facility] [address] [place], [address], 05/30/2025 21:35:59 06/19/20 25 06/19/2025 CBC WBC 7.2 x10 4.5 - 10.5 Not Available [facility] [address] [facility] [address], [place], [address], 06/19/2025 14:03:53 06/19/2006/19/2025 CBC RBC 4.03 x10 4.30 - 5.90 low Not Available [facility] [address] [facility] [address], [place], [address], 06/19/2025 14:03:53 06/19/20 25 06/19/2025 CBC HGB 13.8 g/dL 13.5 - 18.0 Not Available [facility] [address]ing[address] [facility] 1, [place], [address], 06/19/2025 14:03:53 06/19/20 25 06/19/2025 CBC HCT 37.6 % 35.0 - 60.0 Not Available [facility] [address] [facility] 1, [place], [address], 06/19/2025 14:03:53 06/19/20 25 06/19/2025 CBC MCV 93.3 fL 80.0 - 99.9 Not Available [facility] [address] Doming[address] [facility] 1, [place], [address], 06/19/2025 14:03:53 06/19/20 25 06/19/2025 CBC MCH 34.2 pg 27.0 - 32.0 high Not Available [facility] [address] Doming[address] [facility] 1, [place], [address], 06/19/2025 14:03:53 06/19/20 25 06/19/2025 CBC MCHC 36.7 g/dL 32.0 - 36.0 high Not Available [facility] [address] [facility] 1, [place], [address], 06/19/2025 14:03:53 06/19/20 25 06/19/2025 CBC RDW 14.6 % 11.5 - 14.5 high Not Available [facility] [address] [facility] 1, [place], [address], 06/19/2025 14:03:53 06/19/20 25 06/19/2025 CBC plt 295.5 x10 150.0 - 451.0 Not Available [facility] [address] [facility] 1, [place], [address], 06/19/2025 14:03:53 06/19/20 25 06/19/2025 CBC lymphocytes % 36.3 % 20.0 - 50.0 Not Available [facility] [address] [facility] 1, [place], [address], 06/19/2025 14:03:53 06/19/20 25 06/19/2025 CBC granulcytes % 53.7 % 30.0 - 70.0 Not Available [facility] [address] [facility] 1, [place], [address], 06/19/2025 14:03:53 06/19/20 25 06/19/2025 CBC monocytes % 7.8 % 2.0 - 16.0 Not Available [facility] [address] [facility] 1, [place], [address], 06/19/2025 14:03:53 06/19/20 25 06/19/2025 CBC granulcytes# 3.9 x10 Not Amisha ilable [facility] [address] [facility] [address], [place], [address], 06/19/2025 14:03:53 06/19/20 25 06/19/2025 CBC lymphocytes # 2.6 x10 Not Available [facility] [address] [facility] 1, [place], [address], 06/19/2025 14:03:53 06/19/20 25 06/19/2025 CBC monocytes # 0.6 x10 Not Avai lable [facility] [address] [facility] [address], [place], [address], 06/19/2025 14:03:53 06/19/20 25 06/19/2025 CMP (MALE ) glucose 162.0 mg/dL 60.0 - 99.0 high Not Available [facility] [address] [facility] [address], [place], [address], 06/19/2025 14:08:27 06/19/20 25 06/19/2025 CMP (MALE ) BUN (blood urea nitrogen) 19.0 mg/dL 10.0 - 26.0 Not Available [facility] [address] [facility], [place], [address], 06/19/2025 14:08:27 06/19/20 25 06/19/2025 CMP (MALE ) creatinine (serum) 1.1 mg/dL 0.4 - 1.5 Not Available [facility] [address] [facility] 1, [place], [address], 06/19/2025 14:08:27 06/19/20 25 06/19/2025 CMP (MALE ) BUN/creatini ne ratio 17.27 ratio Not Available [facility] [address] [facility] 1, [place], [address], 06/19/2025 14:08:27 06/19/20 25 06/19/2025 CMP (MALE ) total protein 6.9 g/dL 6.0 - 8.5 Not Available [facility] [address] [facility] 1, [place], [address], 06/19/2025 14:08:27 06/19/20 25 06/19/2025 CMP (MALE ) total bilirubin 0.5 mg/dL 0.2 - 1.3 Not Available [facility] [address] [facility] [address], [place], [address], 06/19/2025 14:08:27 06/19/20 25 06/19/2025 CMP (MALE ) albumin 4.6 g/dL 3.5 - 5.5 Not Available [facility] [address] [facility] [address], [place], [address], 06/19/2025 14:08:27 06/19/20 25 06/19/2025 CMP (MALE ) globulin 2.3 calc Not Available [facility] [address] [facility] 1, [place], [address], 06/19/2025 14:08:27 06/19/20 25 06/19/2025 CMP (MALE ) AST (SGOT) 39.0 U/L 0.0 - 46.0 Not Available [facility] [address] [facility] 1, [place], [address], 06/19/2025 14:08:27 06/19/20 25 06/19/2025 CMP (MALE ) altv (SGPT) 28.0 U/L 13.0 - 69.0 Not Available [facility] [address] [facility] 1, [place], [address], 06/19/2025 14:08:27 06/19/20 25 06/19/2025 CMP (MALE ) A/G ratio 2.0 ratio Not Available [facility] [address] [facility] 1, [place], [address], 06/19/2025 14:08:27 06/19/20 25 06/19/2025 CMP (MALE ) ALP phos 83.0 U/L 30.0 - 140.0 Not Available [facility] [address] [facility], [place], [address], 06/19/2025 14:08:27 06/19/20 25 06/19/2025 CMP (MALE ) calcium 9.3 mg/dL 8.4 - 10.5 Not Available [facility] [address] [facility] 1, [place], [address], 06/19/2025 14:08:27 06/19/20 25 06/19/2025 CMP (MALE ) sodium 139.0 mmol/ L 136.0 - 145.0 Not Available [facility] [address] [facility] 1, [place], [address], 06/19/2025 14:08:27 06/19/20 25 06/19/2025 CMP (MALE ) potassium 4.7 mmol/ L 3.5 - 5.1 Not Available [facility] [address] [facility], [place], [address], 06/19/2025 14:08:27 06/19/20 25 06/19/2025 CMP (MALE ) chloride 101.0 mmol/ L 98.0 - 110.0 Not Available [facility] [address] [facility], [place], [address], 06/19/2025 14:08:27 06/19/20 25 06/19/2025 CMP (MALE ) C02 27.0 mmol/ L 22.0 - 31.0 Not Available [facility] [address] [facility] [address], [place], [address], 06/19/2025 14:08:27 06/19/20 25 06/19/2025 CMP (MALE ) anion gap 11.0 calc Not Available [facility] [address] [facility] [address], [place], [address], 06/19/2025 14:08:27 06/19/20 25 06/19/2025 CMP (MALE ) osmolality 292.4 calc Not Available [facility] [address] [facility] [address], [place], [address], 06/19/2025 14:08:27 06/19/20 25 06/19/2025 CMP (MALE ) eGFR calculated 83.8 Not Available [facility] [address] [facility], [place], [address], 06/19/2025 14:08:27 06/19/20 25 06/20/2025 C-NADIR CTIVE PROTE IN C-reactive protein <3.0 mg/L <8.0 normal Not Available [facility] [address] , [place], [address], 06/20/2025 06:57:28 06/19/2006/20/2025 AMYLA SE amylase 36 U/L 21-101 normal Not Available [facility] [address], [place], [address], 06/20/2025 06:57:28 05/29/2005/29/2025 CT, abdom en + pelvi s, w/ contr ast No observ ation record ed. [facility] [address] [place], [address], 05/29/2025 18:12:29 Result Notes None recorded. Problems Name Problem SNOMED Code Status Onset Date Resolution Date Notes Provider Name and Address Organization Details Recorded Time History of nutritio nal disorder 538864878 Completed 202112/11/2021 H/O NON-INSU SOFÍA DEPENDEN T DIABETES MELLITUS - Status is Inactive ; Recorded 12/12/19 3:37PM by Meli Hawthorne PA-C, Annotati on/Adden dum; Promoted ; acuity set as *; Not Available [facility] 3 03:16:01 History of endocrin e disorder 171634983 Completed 202112/11/2021 H/O NON-INSU SOFÍA DEPENDEN T DIABETES MELLITUS - Status is Inactive ; Recorded 12/12/19 3:37PM by Meli Hawthorne PA-C, Annotati on/Adden dum; Promoted ; acuity set as *; Not Available [facility] 3 03:16:01 History of metaboli c disorder 573425115 Completed 202112/11/2021 H/O NON-INSU SOFÍA DEPENDEN T DIABETES MELLITUS - Status is Inactive ; Recorded 12/12/19 3:37PM by Meli Hawthorne PA-C, Annotati on/Adden dum; Promoted ; acuity set as *; Not Available [facility] 3 03:16:01 Anemia 748060706 Completed 202112/11/2021 ANEMIA - Status is Inactive ; Recorded 12/12/19 3:38PM by Meli Hawthorne PA-C, Annotati on/Adden dum; Promoted ; acuity set as *; Not Available [facility] 3 03:16:02 Herpes zoster [id number] Completed 202112/11/2021 HERPES ZOSTER WITHOUT COMPLICA TION [...] set as *; Not Available [facility] 3 03:16:02 Fracture of other finger Completed 202112/11/2021 fx 3rd and 4th digits on Lt hand - Status is Inactive ; 12/12/19 3:38PM by Meli Hawthorne PA-C, Annotati on/Adden dum; Promoted ; acuity set as *; Not Available [facility] 3 03:16:02 Gastroes ophageal reflux disease 439177501 Active 2021 GERD (GASTROE SOPHAGEA L REFLUX DISEASE) ; Recorded 05/25/20 3:58PM by Vivek mederos, Office Visit; Promoted ; acuity set as *; ROSAURA momin [facility] 5 15:34:18 Coronary artery bypass graft stent present [id number] Active 2021 H/O HEART ARTERY STENT; Recorded 05/25/20 3:58PM by Vivek mederos, Office Visit; Promoted ; acuity set as *; ROSAURA momin [facility] 5 15:34:12 Hypercho lesterol emia 57330472 Active 2021 Hypercho lesterol emia; 05/25/20 3:58PM by Vivek mederos, Office Visit; Promoted ; acuity set as *; ROSAURA momin, [facility] 5 15:34:26 Coronary arterios clerosis 40788641 Active 2022 ROSAURA momin, [facility] 5 15:34:08 Type 2 diabetes mellitus 31739315 Active 2022 ROSAURA GALLO null, [facility] 5 15:34:54 Diabetes mellitus 10966422 Active 2023 ROSAURA momin, [facility] 5 15:34:15 Spinal stenosis of lumbosac ral region 503313217 Active 2024 ROSAURA momin, [facility] 5 08:17:04 Spinal stenosis of lumbar region 36841340 Active 2024 [facility] 08:17:32 Notes:Some problems listed i n Documents: #[id number], #[id number] could not be added to this patient's chart. Please review these documents and add these problems to the patient's chart manually as needed. Problem Notes None recorded. Procedures Surgical History Date Name Laterality Status Provider Name and Address Organization Details Recorded Time 04/30/20 25 diabetic retinal eye exam completed ROSAURA GALLO [facility] 06/10/2025 08:31:40 07/27/19 25 Joint Inj Beta-shoulder, hip, knee completed MELI HAWTHORNE PA-C [address] [place] [address], [id number], [facility] 07/27/2024 14:58:22 02/23/20 24 prostate specific antigen measurement completed ROSAURA GALLO [facility] 06/10/2025 08:35:25 12/29/19 24 cardiac catheterization completed MELI HAWTHORNE PA-C [address] [place], [address], [facility], [facility]Tim[facility]Tim[facility] 12/30/2023 09:19:40 12/10/19 24 Family Practice Trigger Point Injection completed MELI HAWTHORNE PA-C [address] [place], [address], [facility], LTimLTimCTim 12/27/2023 17:05:59 12/10/19 24 jr cryo warts completed MELI HAWTHORNE PA-C [address] [place], [address], [facility], [place] 12/27/2023 17:06:12 11/18/19 24 [facility] Trigger Point Injection completed MELI HAWTHORNE PA-C [address] [place], [address], [facility], LTimLTimCTim 2023 19:46:35 11/18/19 24 jr cryo warts completed MELI HAWTHORNE PA-C [address] [place], [address], [facility], LTimLTimCTim 2023 19:45:06 02/22/20 21 placement of stent in cardiac conduit completed ROSAURA GALLO [facility], L.LTimCTim 02/18/2023 09:52:08 02/22/20 20 colonoscopy completed ROSAURA [facility] 02/18/2023 09:51:32 Imaging Results None recorded. Procedure Notes None recorded. Medical Equipment None Reported. Allergies Allergen ID Allergen Name Allergen Category Reaction Reaction Severity Criticality Documentation Date Start Date Code Code System Note Provider Name and Address Organization Details Recorded Time 42881 doxycycli ne Not available Not available Not available Not available 02/18/2023 3640 RxNorm ROSAURA GALLO [facility], [facility], ... 3 09:45:13 Medications Name Sig Start Date [...] 1 tablet every day by oral route. 09/16/ 2025 active Not Available Not Available Not Avai [...] Softclix Lancets daily 12/13 completed 9; Recorded 06/09/20 22 7:46AM by Rosaura Gallo LPN (Authori [...] metformin two times daily 02/18 completed MW/mf; 93025; Recorded 12/12/19 7:46AM by Rosaura Gallo LPN [...] Updated DateTime 06/12/2025 177.8 cm 30.8 kg/m2 04959.36 g ROSAURA GALLO [facility] 06/12/2025 10:39:28 Social History Question Answer Notes LastModified by Organizat ion Details LastModified Time Tobacco Smoking Status Never Smoker MELI HAWTHORNE PA-C [address] [place] [address], [phone], [facility] 02/18/2023 10:41:51 Are You Blind Or Do You Have Difficulty Seeing? No Information not available 02/18/2023 Are You Deaf Or Do You Have Serious Difficulty Hearing? No Information not available 02/18/2023 What Type Of Diet Are You Following? DIABETIC [email or web address] Information not available 02/18/2023 What Was The Date Of Your Most Recent Tobacco Screening? 02/18/2023 [email or web address] Information not available 02/18/2023 Do You Use Your Seat Belt Or Car Seat Routinely? Yes [email or web address] Information not available 02/18/2023 Do You Have Difficulty Walking Or Climbing Stairs? No [email or web address] Information not available 02/18/2023 Sex: Unknown Functional Status Question Answer Note LastModified by Organizat ion Details LastModified Time What is your level of alcohol consumption? Occasional [email or web address] Information not available 02/18/2023 Do you have transportation difficulties? No [email or web address] Information not available 02/18/2023 Are you able to walk independently without assistance or assistive devices? YESWOREST [email or web address] Information not available 02/18/2023 Do you have difficulty doing errands alone? No [email or web address] Information not available 02/18/2023 Are you able to care for yourself independently? Yes [email or web address] Information not available 02/18/2023 Do you have difficulty dressing, bathing, grooming, or toileting? No [email or web address] Information not available 02/18/2023 Mental Status Question Answer Note LastModified by Organizat ion Details LastModified Time Do you feel stressed (tense, restless, nervous, or anxious, or unable to sleep at night)? [id number] [email or web address] Information not available 02/18/2023 Do you have difficulty concentrating, remembering or making decisions? No [email or web address] Information no t available 02/18/2023 Family History Nothing Reported. Medical History Condition Response Diabetes Y Coronary Artery Disease Y Arthritis Y Heart Disease Y Immunizations Vaccine Type Date Status Note Provider Nam e and Address Organization Details Recorded Time Tdap 8 completed Not Available [facility] 01/30/2023 02:49:41 Influenza, split virus, trivalent, preservative 9 completed Not Available [facility] 01/30/2023 02:49:42 Td(adult) unspecified formulation 2 completed Not Available [facility] 01/30/2023 02:49:42 Past Encounters Encounter ID Performer Location Encounter Start Date Encounter Closed Date Diagnosis/Indication Diagnosis SNOMED-CT Code Diagnosis ICD10 Code Diagnosis IMO Codes Diagnosis Note [id number] MELI HAWTHORNE PA-C [facility] ([facility]) [address] [place] [phone] 05/24/2025 14:47:26 05/24/2025 16:07:28 Acute bacterial sinusitis 17888906 J01.90 B96.89 00581 Chronic insomnia 6621011 04 F51.04 636356 [id number] MELI HAWTHORNE PA-C [facility] ([facility]) [address] [place] [address] 05/29/2025 10:23:09 05/29/2025 11:12:07 Acute abdominal pain 718165937 R10.9 31086 acute diffuse pain. differenti al renal stones, pancreatit is, colitis, mesenteric ischemia. [id number] MELI HAWTHORNE PA-C [facility] ([facility]) [address] [place] [address] 06/12/2025 10:32:08 06/12/2025 11:41:13 Upper abdominal pain 67106177 R10.10 8960982 Colitis 49220498 K52.9 79761 Health Concerns Section Related Observation LastModified by Organization Detai ls LastModified Time None Recorded Concern Status LastModified by Organization Details LastModified Time None Recorded Payers Encounter Date Sequence Insurance Name Policy Number Policy Aldridge Covered Member ID Aldridge Member ID Guarantor Name 06/12/2025 1 [facility] (MEDICARE REPLACEMENT/A DVANTAGE - PPO) [id number] Marcial Casillas [id number] Marcial Casillas Notes Date Note Type Note [...] MORE IF POSSIBLE. MELI HAWTHORNE PA-C [address] [place], [phone], [facility] [place] [place] - [facility], [place] 06/12/2025 11:40:46
[2025-06-28 21:07] VITALS: BP 127/75; PULSE 99; RESP 20; TEMP 36.6; O2SAT 97; BMI 27.8
== END 2025-06-29 00:44 | disposition left against medical advice (07) ==
PROVIDERS: Emergency Provider Physician Assistant; PCP Physician Assistant
DX: Z53.21 Procedure and treatment not carried out due to patient leaving prior to being seen by health care provider (principal)